=== PATIENT | female | born 1955 | race Caucasian/White ===

== ENCOUNTER → 2017-12-09 08:16 | Outpatient (CLI) | payer OTHER, SELFPAY ==
[2017-12-09 09:27] LABS: Hemoglobin A1C% w Est Avg Glu 5.3 % (4.0-6.0)
[2017-12-09 09:31] LABS: Alanine Aminotransferase 27 IU/L (9-52); Albumin 4.4 g/dL (3.5-5.0); Albumin Globulin Ratio 1.6 (1.0-2.8); Alkaline Phosphatase 54 U/L (38-126); Aspartate Aminotransferase 24 IU/L (14-36); BUN Creatinine Ratio 28.6 (6-22); Bilirubin Total 0.7 mg/dL (0.2-1.3); Blood Urea Nitrogen 20 mg/dL (7-17); Carbon Dioxide 28 mmol/L (22-32); Chloride 100 mmol/L (98-107); Cholesterol 202 mg/dL (140-199); Estimated Glomerular Filt Rate > 60.0 mL/min (>60); Globulin 2.8 g/dL (1.7-4.1); Glucose 89 mg/dL (80-110); HDL Cholesterol 60 mg/dL (40-60); HEMOLYSIS < 15 (0-50); LDL Cholesterol Calculated 124 mg/dL (<100); Potassium 3.6 mmol/L (3.4-5.1); Sodium 137 mmol/L (137-145); Total Protein 7.2 g/dL (6.3-8.2); Triglycerides 89 mg/dL (35-150)
[2017-12-09 10:12] LABS: TSH w/ Reflex to FT4 1.45 uIU/mL (0.47-4.68)
== END ==
PROVIDERS: PCP Family Medicine; Visit Provider Family Medicine
DX: Z00.00 Encounter for general adult medical examination without abnormal findings (principal)
CPT/HCPCS: 36415; 80053; 80061; 83036; 84443

== ENCOUNTER → 2018-02-08 14:32 | Outpatient (CLI) | payer OTHER, SELFPAY | DX: Z23 Encounter for immunization (principal) | CPT/HCPCS: 90471; 90686 ==

== ENCOUNTER → 2018-03-15 11:32 | Outpatient (CLI) | payer OTHER, SELFPAY ==
--- NOTE | 2018-03-15 | DI.MG.S_ITS ---
BILATERAL DIGITAL SCREENING MAMMOGRAM 3D/2D WITH CAD: 03/15/2018 CLINICAL: Routine screening. Comparison is made to exams dated: 09/03/2015 mammogram, 07/17/2014 mammogram, 03/28/2013 mammogram, and 03/15/2012 mammogram - [facility]. The tissue of both breasts is extremely dense, which lowers the sensitivity of mammography. Current study was also evaluated with a Computer Aided Detection (CAD) system. No significant masses, calcifications, or other findings are seen in either breast. There has been no significant interval change. IMPRESSION: NEGATIVE There is no mammographic evidence of malignancy. A 1 year screening mammogram is recommended. This exam was interpreted at Station ID: [id number]. NOTE: For mammograms, a report in lay terms will be sent to the patient. Approximately 15% of breast malignancies will not be visualized mammographically. In the management of a palpable breast mass, a negative mammogram must not discourage biopsy of a clinically suspicious lesion. Electronically Signed By: Anabella gilliland/odell:03/15/2018 12:15:10 letter sent: Normal Exam ACR BI-RADS Category 1: Negative [id number]
== END ==
PROVIDERS: Family Provider Family Medicine; PCP Family Medicine; Visit Provider Family Medicine
DX: Z12.31 Encounter for screening mammogram for malignant neoplasm of breast (principal)
CPT/HCPCS: 77063; 77067

== ENCOUNTER → 2019-01-24 08:19 | Outpatient (CLI) | payer OTHER, SELFPAY ==
[2019-01-24 08:47] LABS: Add Manual Diff / Slide Review NO; Basophils Absolute Auto 0 /uL (0-100); Eosinophils Absolute Auto 300 /uL (0-450); Eosinophils Percent Auto 5.7 % (2-4); Hematocrit 39.6 % (36-46); Hemoglobin 13.7 g/dL (12.0-16.0); Lymphocytes Absolute Auto 1400 /uL (1100-4500); Lymphocytes Percent Auto 28.6 % (25-40); Mean Corpuscular HGB Conc 34.7 % (30-36); Mean Corpuscular Hemoglobin 30.1 PG (26-34); Mean Corpuscular Volume 86.8 fL (80-100); Monocytes Absolute Auto 400 /uL (0-900); Monocytes Percent Auto 8.7 % (3-14); Neutrophils Absolute Auto 2700 /uL (1500-7000); Platelet Count 182 X10^3/uL (150-400); Red Blood Cell Count 4.57 X10^6/uL (4.0-5.2); Red Cell Distribution Width 12.3 % (11.6-14.8); White Blood Cell Count 4.8 X10^3/uL (4.5-11.0)
[2019-01-24 09:00] LABS: Alanine Aminotransferase 20 IU/L (9-52); Albumin 4.3 g/dL (3.5-5.0); Albumin Globulin Ratio 1.5 (1.0-2.8); Alkaline Phosphatase 58 U/L (38-126); Aspartate Aminotransferase 22 IU/L (14-36); Bilirubin Total 0.7 mg/dL (0.2-1.3); Blood Urea Nitrogen 18 mg/dL (7-17); Calcium 9.2 mg/dL (8.4-10.2); Carbon Dioxide 27 mmol/L (22-32); Chloride 101 mmol/L (98-107); Cholesterol 163 mg/dL (140-199); Estimated Glomerular Filt Rate > 60.0 mL/min (>60); Globulin 2.9 g/dL (1.7-4.1); Glucose 91 mg/dL (80-110); HDL Cholesterol 49 mg/dL (40-60); HEMOLYSIS < 15 (0-50); LDL Cholesterol Calculated 100 mg/dL (<100); Potassium 3.8 mmol/L (3.4-5.1); Sodium 138 mmol/L (137-145); Total Protein 7.2 g/dL (6.3-8.2); Triglycerides 69 mg/dL (35-150)
== END ==
PROVIDERS: PCP Family Medicine; Visit Provider Family Medicine
DX: Z00.00 Encounter for general adult medical examination without abnormal findings (principal); K21.0 Gastro-esophageal reflux disease with esophagitis
CPT/HCPCS: 36415; 80053; 80061; 85025

== ENCOUNTER → 2019-02-14 15:22 | Outpatient (CLI) | payer OTHER, SELFPAY | PROVIDERS: PCP Family Medicine | DX: Z23 Encounter for immunization (principal) | CPT/HCPCS: 90471; 90686 ==

== ENCOUNTER 2019-03-15 08:15 | Outpatient (RCR) | payer OTHER, SELFPAY ==
--- NOTE | 2019-02-14 18:34 | PT.OIE ---
Current Diagnoses Trochanteric bursitis, unspecified hip (02/14/19) Difficulty in walking, not elsewhere classified (02/14/19) Abnormal posture (02/14/19) Weakness (02/14/19) Past Medical History (Last Updated 12/14/17 @ 11:00 by Kaitlin Ferrer) Abnormal Pap smear of cervix (Resolved 1991) Acne (Chronic 1969) Actinic keratosis (Resolved 2014) Chicken pox (Resolved ~1959) Colon polyps (Resolved 2015) Endometriosis (Resolved 1981) GERD (gastroesophageal reflux disease) (Chronic 2002) Hearing loss (Chronic 2012) Hemorrhoids (Resolved 1998) Infertility (Resolved 1981) Irregular periods/menstrual cycles (Resolved ~1970) Measles (Resolved ~1960) Meniere's disease (Chronic) Osteoarthritis (Chronic 2009) Precancerous skin lesion (Resolved 2014) Sleep apnea (Chronic 2014) Urinary incontinence (Chronic) Past Surgical History (Last Updated 12/14/17 @ 11:00 by Kaitlin Ferrer) Anesthesia (Resolved) History of esophageal dilatation (Resolved 11/2015) History of gynecologic surgery (Resolved 05/2015) Status post colonoscopy (Resolved 12/2016) Status post hemorrhoidectomy (Resolved 1998) Status post hernia repair (Resolved 1958) Visit Care Team Role Provider Type Kathia Foster DO Attending Provider Physician Primary Care Provider Specialty: [facility] Address: [address] [place] [address], [address], [facility] Email: [email or web address] Physical Therapy Initial Evaluation PT-OP-A Visit Information Start: 02/13/19 18:22 Freq: Status: Active Protocol: Document 02/14/19 07:29 [facility] (Rec: 02/14/19 08:23 [facility] [id number]) Out-Patient Physical Therapy Visit Information Visit Information Visit Type Initial Evaluation Visit Start Time 07:30 Visit Stop Time 08:20 Total Visit Minutes 50 Visit Number 1 Number of FLEET MANAGER Visits 0 PT-OP-B Current Condition Start: 02/13/19 18:22 Freq: Status: Active Protocol: Document 02/14/19 07:29 [facility] (Rec: 02/14/19 08:23 [facility] [id number]) Current Condition History of Current Condition Onset Date 3-4 months ago Current Complaints R hip History of Current Condition Pt reports insideous onset of R hip pain about 3-4 months ago. Pt reports she adjusted her sleep position per a co worker and that helped a lot. Reports that she can no longer lay on her R side, and she is normally a side sleeper. She hasn't tried any long hikes d/ t being concerned to make pain worse. Pt reports recently a car inspector friend noticed that she has flat feet and notes she always has to wear shoes d/t foot pain. Pt reports a bunion on R big toe. Treatment Goals Patient/Caregiver Goals Be able to sleep on R side & be able to go for long car rides, improve pain now so she can do the things she wants to do. Get a good exercising and stretching routine to improve this PT-OP-C Subjective Start: 02/13/19 18:22 Freq: Status: Active Protocol: Document 02/14/19 07:29 [facility] (Rec: 02/14/19 08:23 [facility] [id number]) OP-PT Pain Assessment Location R hip Pain Location Details lat hip & occasional groin Intensity 2 Scale Used Numeric (1 - 10) Description Aching,Dull Description- Other if slept in bad position then sharp position all the way down; 6/10 Frequency Intermittent Radiating Location occasionally down front of leg to haines if pillow moves at night Pain Aggravating Factors Walking Other Pain Aggravating Factors sleep on R side, sit extended, a day after prolonged sitting Pain Alleviating Factors Position Other Pain Alleviating Factors avoid hiking & activities, reposition PT-OP-F Manual Assessment Start: 02/13/19 18:22 Freq: Status: Active Protocol: Document 02/14/19 07:29 [facility] (Rec: 02/14/19 08:23 [facility] [id number]) Manual Assessments Joint Mobility Assessment Joint Mobility Assessment iliac crest L elevated, Even greater trochanters PT-OP-G Mobility & Gait Start: 02/13/19 18:22 Freq: Status: Active Protocol: Document 02/14/19 07:29 [facility] (Rec: 02/14/19 08:23 [facility] [id number]) OP Gait Assessment Comments Gait Comments Pt has dec push off on R side with inc pelvis rotation PT-OP-J Posture/Palpation/Skin Start: 02/13/19 18:22 Freq: Status: Active Protocol: Document 02/14/19 07:29 [facility] (Rec: 02/14/19 08:23 [facility] [id number]) Posture Evaluation Rocio Postural Classification System Rocio Postural Classifications Vertical/Posterior Vertebral Compression Test 2 Lumbar Protective Mechanism Left AP 0 Lumbar Protective Mechanism Right AP 2 Lumbar Protective Mechanism Left PA 3 Lumbar Protective Mechanism Right PA 0 PT-OP-K Range of Motion Start: 02/13/19 18:22 Freq: Status: Active Protocol: Document 02/14/19 07:29 [facility] (Rec: 02/14/19 08:23 [facility] [id number]) Hip Goniometric Range of Motion Hip Left Active Flexion w/Knee Flexed 129 Straight Leg Raise 78 Abduction 20 Internal Rotation 37 External Rotation 39 Right Active Flexion w/Knee Flexed 120 Straight Leg Raise 84 Abduction 15 Internal Rotation 40 External Rotation 36 PT-OP-L Special Tests Start: 02/13/19 18:22 Freq: Status: Active Protocol: Document 02/14/19 07:29 [facility] (Rec: 02/14/19 08:23 [facility] [id number]) Special Tests Lumbar Spine Special Tests SLR Test Results neg Slump Test Results neg PT-OP-M Strength Start: 02/13/19 18:22 Freq: Status: Active Protocol: Document 02/14/19 07:29 [facility] (Rec: 02/14/19 08:23 [facility] [id number]) Hip Strength Hip Manual Muscle Testing Left Flexion (L2) 5 Normal Extension (S1) 4 Good Abduction 4 Good Adduction 4 Good External Rotation 4+ Good+ Internal Rotation 5 Normal Right Flexion (L2) 4 Good Extension (S1) 4- Good- Abduction 4- Good- Adduction 3+ Fair+ External Rotation 4 Good Internal Rotation 4+ Good+ Knee Strength Knee Manual Muscle Testing Left Flexion (S2) 5 Normal Extension (L3) 5 Normal Right Flexion (S2) 5 Normal Extension (L3) 5 Normal Ankle/Foot Strength Ankle and Foot Manual Muscle Testing Left Dorsiflexion (L4) 5 Normal Plantarflexion (S1) 5 Normal Inversion 5 Normal Eversion (S1) 5 Normal Right Dorsiflexion (L4) 5 Normal Plantarflexion (S1) 5 Normal Inversion 5 Normal Eversion (S1) 5 Normal PT-OP-Q Treatments Start: 02/13/19 18:22 Freq: Status: Active Protocol: Document 02/14/19 07:29 [facility] (Rec: 02/14/19 18:34 [facility] [id number]) Therapeutic Exercises Supine Exercises LTR Supine Exercise Name focus on segmental control Side bilateral Reps/Minutes 5 isometric hip flex Supine Exercise Name abdomenal series flex & diagonal Side bilateral Reps/Minutes 30 sec ea PT-OP-T Assessment and Plan Start: 02/13/19 18:22 Freq: Status: Active Protocol: Document 02/14/19 07:29 [facility] (Rec: 02/14/19 18:34 [facility] [id number]) Physical Therapy Assessment Rehab Potential Rehabilitation Potential Excellent Evaluation Complexity Number of Personal Factors/Comorbidities 3 or More Number of Body Systems Impaired 4 or More Clinical Presentation at Evaluation Stable Impairments Impairments Activity Tolerance,Balance, Functional Activities, Functional Mobility,Gait,Pain, Posture,ROM,Soft Tissue Mobility,Strength Goals activity tolerance Parts Clerk Plant Maintenance Goal (LTG) Pt will be able to sleep typically without inc pain LTG Duration 04/16/19 gait Short Term Goal (STG) Pt will be able to ambulate with good mechanics STG Duration 03/31/19 Parts Clerk Plant Maintenance Goal (LTG) Pt will be able to hike and sit for extended timew ithout inc pain LTG Duration 04/16/19 strength Short Term Goal (STG) Pt will be indep with HEP STG Duration 03/17/19 Parts Clerk Plant Maintenance Goal (LTG) Pt will have 5/5 BLE strength, LPM & VCT to show improved overall stability in order to allow her to do daily activities without pain. LTG Duration 04/16/19 Assessment Summary Assessment Pt presents with R hip pain consistant with diagnosis of R hip bursitis with over dec postural stability, core weakness and dec R hip stregth and ROM. She has impaired gait mechanics and would benefit from PT to address all of these impairments and work on improving her movement patterns and strategies. Physical Therapy Plan Frequency and Duration Frequency of Treatment 1-2x/week Duration of Treatment 2 months Plan of Care Start Date 02/14/19 Plan of Care End Date 04/16/19 Therapeutic Interventions Therapeutic Interventions Aquatic Therapy,Balance Training,Gait Training,Home Exercise Program,Joint Mobilizations,Manual Therapy, Neuromuscular Re-education, Patient/Caregiver Education, Self-Care/Home Management,Soft Tissue Mobilization,Taping, Therapeutic Activities, Therapeutic Exercises Modalities Cold Pack/Ice Massage,Electric Stimulation,Hot Packs, Ultrasound Next Visit Focus/Plan Next Note Type Treatment Note Next Visit Plan hip abd & ext, gait at wall exercise, PNF post depression, hip, sacrum & innominate mobility
--- NOTE | 2019-02-16 14:20 | PT.OTN ---
Current Diagnoses Trochanteric bursitis, unspecified hip (02/16/19) Difficulty in walking, not elsewhere classified (02/16/19) Abnormal posture (02/16/19) Weakness (02/16/19) Physical Therapy Treatment Note PT-OP-A Visit Information Start: 02/13/19 18:22 Freq: Status: Active Protocol: Document 02/16/19 14:15 [facility] (Rec: 02/16/19 14:20 [facility] [id number]) Out-Patient Physical Therapy Visit Information Visit Information Visit Type Treatment Note Visit Start Time 09:02 Visit Stop Time 09:45 Total Visit Minutes 43 Visit Number 2 Number of MARKETING COMMUNICATIONS LEADER Visits 0 PT-OP-B Current Condition Start: 02/13/19 18:22 Freq: Status: Active Protocol: Document 02/14/19 07:29 [facility] (Rec: 02/14/19 08:23 [facility] [id number]) Current Condition History of Current Condition Onset Date 3-4 months ago Current Complaints R hip History of Current Condition Pt reports insideous onset of R hip pain about 3-4 months ago. Pt reports she adjusted her sleep position per a co worker and that helped a lot. Reports that she can no longer lay on her R side, and she is normally a side sleeper. She hasn't tried any long hikes d/ t being concerned to make pain worse. Pt reports recently a launch check out friend noticed that she has flat feet and notes she always has to wear shoes d/t foot pain. Pt reports a bunion on R big toe. Treatment Goals Patient/Caregiver Goals Be able to sleep on R side & be able to go for long car rides, improve pain now so she can do the things she wants to do. Get a good exercising and stretching routine to improve this PT-OP-C Subjective Start: 02/13/19 18:22 Freq: Status: Active Protocol: Document 02/16/19 14:15 [facility] (Rec: 02/16/19 14:20 [facility] [id number]) OP-PT Subjective Patient Comments Patient Comments Pt reports she is looking forward to getting exercises to work on on her own. PT-OP-F Manual Assessment Start: 02/13/19 18:22 Freq: Status: Active Protocol: Document 02/14/19 07:29 [facility] (Rec: 02/14/19 08:23 [facility] [id number]) Manual Assessments Joint Mobility Assessment Joint Mobility Assessment iliac crest L elevated, Even greater trochanters PT-OP-G Mobility & Gait Start: 02/13/19 18:22 Freq: Status: Active Protocol: Document 02/14/19 07:29 [facility] (Rec: 02/14/19 08:23 [facility] [id number]) OP Gait Assessment Comments Gait Comments Pt has dec push off on R side with inc pelvis rotation PT-OP-J Posture/Palpation/Skin Start: 02/13/19 18:22 Freq: Status: Active Protocol: Document 02/14/19 07:29 [facility] (Rec: 02/14/19 08:23 [facility] [id number]) Posture Evaluation Rocio Postural Classification System Rocio Postural Classifications Vertical/Posterior Vertebral Compression Test 2 Lumbar Protective Mechanism Left AP 0 Lumbar Protective Mechanism Right AP 2 Lumbar Protective Mechanism Left PA 3 Lumbar Protective Mechanism Right PA 0 PT-OP-K Range of Motion Start: 02/13/19 18:22 Freq: Status: Active Protocol: Document 02/14/19 07:29 [facility] (Rec: 02/14/19 08:23 [facility] [id number]) Hip Goniometric Range of Motion Hip Left Active Flexion w/Knee Flexed 129 Straight Leg Raise 78 Abduction 20 Internal Rotation 37 External Rotation 39 Right Active Flexion w/Knee Flexed 120 Straight Leg Raise 84 Abduction 15 Internal Rotation 40 External Rotation 36 PT-OP-L Special Tests Start: 02/13/19 18:22 Freq: Status: Active Protocol: Document 02/14/19 07:29 [facility] (Rec: 02/14/19 08:23 [facility] [id number]) Special Tests Lumbar Spine Special Tests SLR Test Results neg Slump Test Results neg PT-OP-M Strength Start: 02/13/19 18:22 Freq: Status: Active Protocol: Document 02/14/19 07:29 [facility] (Rec: 02/14/19 08:23 [facility] [id number]) Hip Strength Hip Manual Muscle Testing Left Flexion (L2) 5 Normal Extension (S1) 4 Good Abduction 4 Good Adduction 4 Good External Rotation 4+ Good+ Internal Rotation 5 Normal Right Flexion (L2) 4 Good Extension (S1) 4- Good- Abduction 4- Good- Adduction 3+ Fair+ External Rotation 4 Good Internal Rotation 4+ Good+ Knee Strength Knee Manual Muscle Testing Left Flexion (S2) 5 Normal Extension (L3) 5 Normal Right Flexion (S2) 5 Normal Extension (L3) 5 Normal Ankle/Foot Strength Ankle and Foot Manual Muscle Testing Left Dorsiflexion (L4) 5 Normal Plantarflexion (S1) 5 Normal Inversion 5 Normal Eversion (S1) 5 Normal Right Dorsiflexion (L4) 5 Normal Plantarflexion (S1) 5 Normal Inversion 5 Normal Eversion (S1) 5 Normal PT-OP-Q Treatments Start: 02/13/19 18:22 Freq: Status: Active Protocol: Document 02/16/19 14:15 [facility] (Rec: 02/16/19 14:20 [facility] [id number]) Therapeutic Exercises Supine Exercises isometric hip flex Supine Exercise Name abdomenal series flex & diagonal Side bilateral Reps/Minutes 30 sec ea Prone Exercises ext Prone Exercise Name alt Side bilateral Reps/Minutes 10 Sidelying Exercises abd Sidelying Exercise Name hip Side right Reps/Minutes 10 ER Sidelying Exercise Name clamshell Side right Equipment Used L3 Reps/Minutes 12 Standing Exercises squat Side bilateral Reps/Minutes 15 Comments focus on knee position lunge Side bilateral Reps/Minutes 10 Comments focus on neutral pelvis Manual Therapy Treatment Soft Tissue Mobilization pirifromis Body Location R piriformis & lat glutes Mobilization Type Strumming,Sustained Pressure Intensity/Depth Moderate Body Position Prone Comments w/ER/IR Joint Mobilizations innominate Joint R Direction ER & flex FM sacrum Direction caudal FM hip Joint R Direction hip on axis ER FM & inf FM PT-OP-T Assessment and Plan Start: 02/13/19 18:22 Freq: Status: Active Protocol: Document 02/16/19 14:15 [facility] (Rec: 02/16/19 14:20 [facility] [id number]) Physical Therapy Assessment Goals activity tolerance Supervisor Contact Lens Goal (LTG) Pt will be able to sleep typically without inc pain LTG Duration 04/16/19 gait Short Term Goal (STG) Pt will be able to ambulate with good mechanics STG Duration 03/31/19 Supervisor Contact Lens Goal (LTG) Pt will be able to hike and sit for extended timew ithout inc pain LTG Duration 04/16/19 strength Short Term Goal (STG) Pt will be indep with HEP STG Duration 03/17/19 Supervisor Contact Lens Goal (LTG) Pt will have 5/5 BLE strength, LPM & VCT to show improved overall stability in order to allow her to do daily activities without pain. LTG Duration 04/16/19 Assessment Summary Assessment Pt able to do all exercises with cueing and had significantly improved hip ER and flex after manual treatment. She was given exercises to maintain these mobilizations. Physical Therapy Plan Frequency and Duration Frequency of Treatment 1-2x/week Duration of Treatment 2 months Plan of Care Start Date 02/14/19 Plan of Care End Date 04/16/19 Next Visit Focus/Plan Next Note Type Treatment Note Next Visit Plan PNF post depression, gait at wall, review HEP performance
--- NOTE | 2019-02-20 18:48 | PT.OTN ---
Current Diagnoses Trochanteric bursitis, unspecified hip (02/20/19) Difficulty in walking, not elsewhere classified (02/20/19) Abnormal posture (02/20/19) Weakness (02/20/19) Physical Therapy Treatment Note PT-OP-A Visit Information Start: 02/13/19 18:22 Freq: Status: Active Protocol: Document 02/20/19 18:40 [facility] (Rec: 02/20/19 18:48 [facility] [id number]) Out-Patient Physical Therapy Visit Information Visit Information Visit Type Treatment Note Visit Start Time 17:34 Visit Stop Time 18:19 Total Visit Minutes 45 Visit Number 3 Number of SPUD GRADER Visits 0 PT-OP-B Current Condition Start: 02/13/19 18:22 Freq: Status: Active Protocol: Document 02/14/19 07:29 [facility] (Rec: 02/14/19 08:23 [facility] [id number]) Current Condition History of Current Condition Onset Date 3-4 months ago Current Complaints R hip History of Current Condition Pt reports insideous onset of R hip pain about 3-4 months ago. Pt reports she adjusted her sleep position per a co worker and that helped a lot. Reports that she can no longer lay on her R side, and she is normally a side sleeper. She hasn't tried any long hikes d/ t being concerned to make pain worse. Pt reports recently a jewel flat surfacer friend noticed that she has flat feet and notes she always has to wear shoes d/t foot pain. Pt reports a bunion on R big toe. Treatment Goals Patient/Caregiver Goals Be able to sleep on R side & be able to go for long car rides, improve pain now so she can do the things she wants to do. Get a good exercising and stretching routine to improve this PT-OP-C Subjective Start: 02/13/19 18:22 Freq: Status: Active Protocol: Document 02/20/19 18:40 [facility] (Rec: 02/20/19 18:48 [facility] [id number]) OP-PT Subjective Patient Comments Patient Comments Pt reports compliance with HEP with some questions. PT-OP-F Manual Assessment Start: 02/13/19 18:22 Freq: Status: Active Protocol: Document 02/14/19 07:29 [facility] (Rec: 02/14/19 08:23 [facility] [id number]) Manual Assessments Joint Mobility Assessment Joint Mobility Assessment iliac crest L elevated, Even greater trochanters PT-OP-G Mobility & Gait Start: 02/13/19 18:22 Freq: Status: Active Protocol: Document 02/14/19 07:29 [facility] (Rec: 02/14/19 08:23 [facility] [id number]) OP Gait Assessment Comments Gait Comments Pt has dec push off on R side with inc pelvis rotation PT-OP-J Posture/Palpation/Skin Start: 02/13/19 18:22 Freq: Status: Active Protocol: Document 02/14/19 07:29 [facility] (Rec: 02/14/19 08:23 [facility] [id number]) Posture Evaluation Rocio Postural Classification System Rocio Postural Classifications Vertical/Posterior Vertebral Compression Test 2 Lumbar Protective Mechanism Left AP 0 Lumbar Protective Mechanism Right AP 2 Lumbar Protective Mechanism Left PA 3 Lumbar Protective Mechanism Right PA 0 PT-OP-K Range of Motion Start: 02/13/19 18:22 Freq: Status: Active Protocol: Document 02/14/19 07:29 [facility] (Rec: 02/14/19 08:23 [facility] [id number]) Hip Goniometric Range of Motion Hip Left Active Flexion w/Knee Flexed 129 Straight Leg Raise 78 Abduction 20 Internal Rotation 37 External Rotation 39 Right Active Flexion w/Knee Flexed 120 Straight Leg Raise 84 Abduction 15 Internal Rotation 40 External Rotation 36 PT-OP-L Special Tests Start: 02/13/19 18:22 Freq: Status: Active Protocol: Document 02/14/19 07:29 [facility] (Rec: 02/14/19 08:23 [facility] [id number]) Special Tests Lumbar Spine Special Tests SLR Test Results neg Slump Test Results neg PT-OP-M Strength Start: 02/13/19 18:22 Freq: Status: Active Protocol: Document 02/14/19 07:29 [facility] (Rec: 02/14/19 08:23 [facility] [id number]) Hip Strength Hip Manual Muscle Testing Left Flexion (L2) 5 Normal Extension (S1) 4 Good Abduction 4 Good Adduction 4 Good External Rotation 4+ Good+ Internal Rotation 5 Normal Right Flexion (L2) 4 Good Extension (S1) 4- Good- Abduction 4- Good- Adduction 3+ Fair+ External Rotation 4 Good Internal Rotation 4+ Good+ Knee Strength Knee Manual Muscle Testing Left Flexion (S2) 5 Normal Extension (L3) 5 Normal Right Flexion (S2) 5 Normal Extension (L3) 5 Normal Ankle/Foot Strength Ankle and Foot Manual Muscle Testing Left Dorsiflexion (L4) 5 Normal Plantarflexion (S1) 5 Normal Inversion 5 Normal Eversion (S1) 5 Normal Right Dorsiflexion (L4) 5 Normal Plantarflexion (S1) 5 Normal Inversion 5 Normal Eversion (S1) 5 Normal PT-OP-Q Treatments Start: 02/13/19 18:22 Freq: Status: Active Protocol: Document 02/20/19 18:40 [facility] (Rec: 02/20/19 18:48 [facility] [id number]) Therapeutic Exercises Supine Exercises piriformis Supine Exercise Name stretch Side right Reps/Minutes 30 sec Sidelying Exercises abd Sidelying Exercise Name hip Side right Reps/Minutes 10 Standing Exercises stretches Standing Exercise Name hip flexor stretch Side bilateral Reps/Minutes 30 sec squat Side bilateral Reps/Minutes 10 Comments L3 band around knees for abd lunge Side bilateral Reps/Minutes 8 Comments focus on neutral pelvis Gait Training Gait Activity resisted Description w/dowel for push off Comments then focusing on push off without resistance Manual Therapy Treatment Soft Tissue Mobilization pirifromis Body Location R piriformis & lat glutes Mobilization Type Strumming,Sustained Pressure Intensity/Depth Moderate Body Position Prone Comments w/ER/IR Joint Mobilizations sacrum Direction caudal FM hip Joint R Direction hip on axis ER FM Neuro Re-Education Treatment Other Activities PNF Details ant elevation, post depression Comments rhythmic initiation, COI, concentric reversals progressed from pelvis to pelvis with LE patterns Self-Care/Home Management Treatment Education Patient Education Home Exercise Program Other Education Review HEP & discussed important notes to add to handout PT-OP-T Assessment and Plan Start: 02/13/19 18:22 Freq: Status: Active Protocol: Document 02/20/19 18:40 [facility] (Rec: 02/20/19 18:48 [facility] [id number]) Physical Therapy Assessment Goals activity tolerance Alf Goal (LTG) Pt will be able to sleep typically without inc pain LTG Duration 04/16/19 gait Short Term Goal (STG) Pt will be able to ambulate with good mechanics STG Duration 03/31/19 Lace Machine Operator Goal (LTG) Pt will be able to hike and sit for extended timew ithout inc pain LTG Duration 04/16/19 strength Short Term Goal (STG) Pt will be indep with HEP STG Duration 03/17/19 Lace Machine Operator Goal (LTG) Pt will have 5/5 BLE strength, LPM & VCT to show improved overall stability in order to allow her to do daily activities without pain. LTG Duration 04/16/19 Assessment Summary Assessment Pt required min cueing with exercises and was able to progress to squat with hip abd with tband. Improved push off with gait with PNF and edu with resisted gait. Physical Therapy Plan Frequency and Duration Frequency of Treatment 1-2x/week Duration of Treatment 2 months Plan of Care Start Date 02/14/19 Plan of Care End Date 04/16/19 Next Visit Focus/Plan Next Note Type Treatment Note Next Visit Plan Follow up at end of month, cont to work on PNF and assess strength to determine further progression
--- NOTE | 2019-03-15 09:29 | PT.OTN ---
Current Diagnoses Trochanteric bursitis, unspecified hip (03/15/19) Difficulty in walking, not elsewhere classified (03/15/19) Abnormal posture (03/15/19) Weakness (03/15/19) Physical Therapy Treatment Note PT-OP-A Visit Information Start: 02/13/19 18:22 Freq: Status: Active Protocol: Document 03/15/19 09:15 [facility] (Rec: 03/15/19 09:28 [facility] [id number]) Out-Patient Physical Therapy Visit Information Visit Information Visit Type Treatment Note Visit Start Time 08:15 Visit Stop Time 09:00 Total Visit Minutes 45 Visit Number 4 Number of CAN RUNNER Visits 0 PT-OP-B Current Condition Start: 02/13/19 18:22 Freq: Status: Active Protocol: Document 02/14/19 07:29 [facility] (Rec: 02/14/19 08:23 [facility] [id number]) Current Condition History of Current Condition Onset Date 3-4 months ago Current Complaints R hip History of Current Condition Pt reports insideous onset of R hip pain about 3-4 months ago. Pt reports she adjusted her sleep position per a co worker and that helped a lot. Reports that she can no longer lay on her R side, and she is normally a side sleeper. She hasn't tried any long hikes d/ t being concerned to make pain worse. Pt reports recently a garment folder friend noticed that she has flat feet and notes she always has to wear shoes d/t foot pain. Pt reports a bunion on R big toe. Treatment Goals Patient/Caregiver Goals Be able to sleep on R side & be able to go for long car rides, improve pain now so she can do the things she wants to do. Get a good exercising and stretching routine to improve this PT-OP-C Subjective Start: 02/13/19 18:22 Freq: Status: Active Protocol: Document 03/15/19 09:15 [facility] (Rec: 03/15/19 09:28 [facility] [id number]) OP-PT Subjective Patient Comments Patient Comments Pt reports feeling like the strengthening is helping. She has a couple questions PT-OP-F Manual Assessment Start: 02/13/19 18:22 Freq: Status: Active Protocol: Document 02/14/19 07:29 [facility] (Rec: 02/14/19 08:23 [facility] [id number]) Manual Assessments Joint Mobility Assessment Joint Mobility Assessment iliac crest L elevated, Even greater trochanters PT-OP-G Mobility & Gait Start: 02/13/19 18:22 Freq: Status: Active Protocol: Document 02/14/19 07:29 [facility] (Rec: 02/14/19 08:23 [facility] [id number]) OP Gait Assessment Comments Gait Comments Pt has dec push off on R side with inc pelvis rotation PT-OP-J Posture/Palpation/Skin Start: 02/13/19 18:22 Freq: Status: Active Protocol: Document 02/14/19 07:29 [facility] (Rec: 02/14/19 08:23 [facility] [id number]) Posture Evaluation Rocio Postural Classification System Rocio Postural Classifications Vertical/Posterior Vertebral Compression Test 2 Lumbar Protective Mechanism Left AP 0 Lumbar Protective Mechanism Right AP 2 Lumbar Protective Mechanism Left PA 3 Lumbar Protective Mechanism Right PA 0 PT-OP-K Range of Motion Start: 02/13/19 18:22 Freq: Status: Active Protocol: Document 02/14/19 07:29 [facility] (Rec: 02/14/19 08:23 [facility] [id number]) Hip Goniometric Range of Motion Hip Left Active Flexion w/Knee Flexed 129 Straight Leg Raise 78 Abduction 20 Internal Rotation 37 External Rotation 39 Right Active Flexion w/Knee Flexed 120 Straight Leg Raise 84 Abduction 15 Internal Rotation 40 External Rotation 36 PT-OP-L Special Tests Start: 02/13/19 18:22 Freq: Status: Active Protocol: Document 02/14/19 07:29 [facility] (Rec: 02/14/19 08:23 [facility] [id number]) Special Tests Lumbar Spine Special Tests SLR Test Results neg Slump Test Results neg PT-OP-M Strength Start: 02/13/19 18:22 Freq: Status: Active Protocol: Document 03/15/19 08:14 [facility] (Rec: 03/15/19 09:15 [facility] [id number]) Hip Strength Hip Manual Muscle Testing Left Flexion (L2) 4+ Good+ Extension (S1) 4+ Good+ Abduction 4 Good Adduction 5 Normal External Rotation 4+ Good+ Internal Rotation 5 Normal Right Flexion (L2) 4 Good Extension (S1) 4+ Good+ Abduction 4 Good Adduction 4+ Good+ External Rotation 4 Good Internal Rotation 5 Normal PT-OP-Q Treatments Start: 02/13/19 18:22 Freq: Status: Active Protocol: Document 03/15/19 09:15 [facility] (Rec: 03/15/19 09:28 [facility] [id number]) Therapeutic Exercises Supine Exercises core Supine Exercise Name alt leg drops, heels slids in hooklying & supine, bridge w/ alt march Side bilateral Reps/Minutes 8 piriformis Supine Exercise Name stretch Side right Reps/Minutes 30 sec LTR Supine Exercise Name focus on segmental Side bilateral Reps/Minutes 6 Prone Exercises ext Prone Exercise Name alt Side bilateral Reps/Minutes 10 Comments foucus on netural pelvis Sidelying Exercises abd Sidelying Exercise Name hip Side right Equipment Used L1 Reps/Minutes 10 Sitting Exercises stretches Sitting Exercise Name figure 4, HS, piriformis Side right Standing Exercises squat Side bilateral Reps/Minutes 5 Comments L3 band around knees for abd lunge Side bilateral Reps/Minutes 5 Comments focus on neutral pelvis Manual Therapy Treatment Soft Tissue Mobilization pirifromis Body Location R piriformis & lat glutes Mobilization Type Strumming,Sustained Pressure Intensity/Depth Moderate Body Position Prone Comments w/ER/IR Joint Mobilizations innominate Joint R Direction ER & flex FM sacrum Direction UPA R FM hip Joint R Direction hip on axis ER FM PT-OP-T Assessment and Plan Start: 02/13/19 18:22 Freq: Status: Active Protocol: Document 03/15/19 09:15 [facility] (Rec: 03/15/19 09:28 [facility] [id number]) Physical Therapy Assessment Goals activity tolerance Lead Java Software Engineer Goal (LTG) Pt will be able to sleep typically without inc pain LTG Duration 04/16/19 gait Short Term Goal (STG) Pt will be able to ambulate with good mechanics STG Duration 03/31/19 Lead Java Software Engineer Goal (LTG) Pt will be able to hike and sit for extended timew ithout inc pain LTG Duration 04/16/19 strength Short Term Goal (STG) Pt will be indep with HEP STG Duration achieved progressing as needed Lead Java Software Engineer Goal (LTG) Pt will have 5/5 BLE strength, LPM & VCT to show improved overall stability in order to allow her to do daily activities without pain. LTG Duration 04/16/19 Assessment Summary Assessment During today's session, noted that pt's core mm were weak so she was given HEP re: core stability which she was very receptive to. Hip strength is improving but is still limited R>L. Physical Therapy Plan Frequency and Duration Frequency of Treatment 1x/Week Duration of Treatment 2 months Plan of Care Start Date 02/14/19 Plan of Care End Date 04/16/19 Next Visit Focus/Plan Next Note Type Treatment Note Next Visit Plan Follow up in 1 month and work on PNF for gait & manual therapy for mobility
--- NOTE | 2019-04-18 10:50 | PT.OPDS ---
Current Diagnoses Trochanteric bursitis, unspecified hip (03/15/19) Difficulty in walking, not elsewhere classified (03/15/19) Abnormal posture (03/15/19) Weakness (03/15/19) Visit Care Team Role Provider Type Kathia Foster DO Attending Provider Physician Primary Care Provider Specialty: [facility] Practice Address: [address] [place] [address], [address], [facility] Email: [email or web address] Visit Number Visit Number 4 Discharge Summary PT-OP-B Current Condition Start: 02/13/19 18:22 Freq: Status: Active Protocol: Document 02/14/19 07:29 [facility] (Rec: 02/14/19 08:23 [facility] [id number]) Current Condition History of Current Condition Onset Date 3-4 months ago Current Complaints R hip History of Current Condition Pt reports insideous onset of R hip pain about 3-4 months ago. Pt reports she adjusted her sleep position per a co worker and that helped a lot. Reports that she can no longer lay on her R side, and she is normally a side sleeper. She hasn't tried any long hikes d/ t being concerned to make pain worse. Pt reports recently a shower doors and panels fabricator friend noticed that she has flat feet and notes she always has to wear shoes d/t foot pain. Pt reports a bunion on R big toe. Treatment Goals Patient/Caregiver Goals Be able to sleep on R side & be able to go for long car rides, improve pain now so she can do the things she wants to do. Get a good exercising and stretching routine to improve this PT-OP-C Subjective Start: 02/13/19 18:22 Freq: Status: Active Protocol: Document 03/15/19 09:15 [facility] (Rec: 03/15/19 09:28 [facility] [id number]) OP-PT Subjective Patient Comments Patient Comments Pt reports feeling like the strengthening is helping. She has a couple questions PT-OP-F Manual Assessment Start: 02/13/19 18:22 Freq: Status: Active Protocol: Document 02/14/19 07:29 [facility] (Rec: 02/14/19 08:23 [facility] [id number]) Manual Assessments Joint Mobility Assessment Joint Mobility Assessment iliac crest L elevated, Even greater trochanters PT-OP-G Mobility & Gait Start: 02/13/19 18:22 Freq: Status: Active Protocol: Document 02/14/19 07:29 [facility] (Rec: 02/14/19 08:23 [facility] [id number]) OP Gait Assessment Comments Gait Comments Pt has dec push off on R side with inc pelvis rotation PT-OP-J Posture/Palpation/Skin Start: 02/13/19 18:22 Freq: Status: Active Protocol: Document 02/14/19 07:29 [facility] (Rec: 02/14/19 08:23 [facility] [id number]) Posture Evaluation Rocio Postural Classification System Rocio Postural Classifications Vertical/Posterior Vertebral Compression Test 2 Lumbar Protective Mechanism Left AP 0 Lumbar Protective Mechanism Right AP 2 Lumbar Protective Mechanism Left PA 3 Lumbar Protective Mechanism Right PA 0 PT-OP-K Range of Motion Start: 02/13/19 18:22 Freq: Status: Active Protocol: Document 02/14/19 07:29 [facility] (Rec: 02/14/19 08:23 [facility] [id number]) Hip Goniometric Range of Motion Hip Left Active Flexion w/Knee Flexed 129 Straight Leg Raise 78 Abduction 20 Internal Rotation 37 External Rotation 39 Right Active Flexion w/Knee Flexed 120 Straight Leg Raise 84 Abduction 15 Internal Rotation 40 External Rotation 36 PT-OP-L Special Tests Start: 02/13/19 18:22 Freq: Status: Active Protocol: Document 02/14/19 07:29 [facility] (Rec: 02/14/19 08:23 [facility] [id number]) Special Tests Lumbar Spine Special Tests SLR Test Results neg Slump Test Results neg PT-OP-M Strength Start: 02/13/19 18:22 Freq: Status: Active Protocol: Document 03/15/19 08:14 [facility] (Rec: 03/15/19 09:15 [facility] [id number]) Hip Strength Hip Manual Muscle Testing Left Flexion (L2) 4+ Good+ Extension (S1) 4+ Good+ Abduction 4 Good Adduction 5 Normal External Rotation 4+ Good+ Internal Rotation 5 Normal Right Flexion (L2) 4 Good Extension (S1) 4+ Good+ Abduction 4 Good Adduction 4+ Good+ External Rotation 4 Good Internal Rotation 5 Normal PT-OP-T Assessment and Plan Start: 02/13/19 18:22 Freq: Status: Active Protocol: Document 04/18/19 10:49 [facility] (Rec: 04/18/19 10:50 [facility] [id number]) Physical Therapy Assessment Goals activity tolerance Bat Person Goal (LTG) Pt will be able to sleep typically without inc pain LTG Duration achieved gait Short Term Goal (STG) Pt will be able to ambulate with good mechanics STG Duration improved Longterm Goal (LTG) Pt will be able to hike and sit for extended timew ithout inc pain LTG Duration achieved strength Short Term Goal (STG) Pt will be indep with HEP STG Duration achieved progressing as needed Longterm Goal (LTG) Pt will have 5/5 BLE strength, LPM & VCT to show improved overall stability in order to allow her to do daily activities without pain. LTG Duration 04/16/19 Assessment Summary Assessment Pt called to cancel last appt as she is no longer having pain and hip is no longer limiting her. She feels like her strengthening and stretching is helping and plans to cont it at home. Physical Therapy Plan Discharge Physical Therapy Discharge Reasons Goals Met
== END 2019-03-16 08:15 ==
LOC: PHYS 08:15
PROVIDERS: PCP Family Medicine; Visit Provider Family Medicine
DX: M70.60 Trochanteric bursitis, unspecified hip (principal); R53.1 Weakness; R29.3 Abnormal posture; R26.2 Difficulty in walking, not elsewhere classified
CPT/HCPCS: 97110; 97112; 97140; 97161

== ENCOUNTER → 2019-03-16 09:56 | Outpatient (CLI) | payer OTHER, SELFPAY ==
--- NOTE | 2019-03-16 09:57 | DI.MG.S_ITS ---
BILATERAL DIGITAL SCREENING MAMMOGRAM 3D/2D WITH CAD: 03/16/2019 CLINICAL: Routine screening. Comparison is made to exams dated: 03/15/2018 mammogram - [facility], 09/03/2015 mammogram, and 07/17/2014 mammogram - [facility]. The tissue of both breasts is extremely dense, which lowers the sensitivity of mammography. Current study was also evaluated with a Computer Aided Detection (CAD) system. No significant masses, calcifications, or other findings are seen in either breast. There has been no significant interval change. IMPRESSION: NEGATIVE There is no mammographic evidence of malignancy. A 1 year screening mammogram is recommended. This exam was interpreted at Station ID: [id number]. NOTE: For mammograms, a report in lay terms will be sent to the patient. Approximately 15% of breast malignancies will not be visualized mammographically. In the management of a palpable breast mass, a negative mammogram must not discourage biopsy of a clinically suspicious lesion. Electronically Signed By: Brandon kovacs/odell:03/20/2019 12:52:03 letter sent: Normal Exam ACR BI-RADS Category 1: Negative 3341F
== END ==
PROVIDERS: PCP Family Medicine; Visit Provider Family Medicine
DX: Z12.31 Encounter for screening mammogram for malignant neoplasm of breast (principal)
CPT/HCPCS: 77063; 77067

== ENCOUNTER → 2020-01-06 13:46 | Outpatient (CLI) | payer OTHER, SELFPAY ==
[2020-01-08 01:27] LABS: COVID19 Sendout Not Detected (Not Detect)
== END ==
PROVIDERS: PCP Family Medicine; Visit Provider Nurse Practitioner
DX: Z11.59 Encounter for screening for other viral diseases (principal)
CPT/HCPCS: 87635

== ENCOUNTER → 2020-03-19 11:20 | Outpatient (CLI) | payer OTHER, SELFPAY ==
--- NOTE | 2020-03-19 | DI.MG.S_ITS ---
BILATERAL DIGITAL SCREENING MAMMOGRAM 3D/2D WITH CAD: 03/19/2020 CLINICAL: Routine screening. Comparison is made to exams dated: 03/16/2019 mammogram, 03/15/2018 mammogram - [facility], and 09/03/2015 mammogram - [facility]. The tissue of both breasts is extremely dense, which lowers the sensitivity of mammography. Current study was also evaluated with a Computer Aided Detection (CAD) system. No significant masses, calcifications, or other findings are seen in either breast. There has been no significant interval change. IMPRESSION: NEGATIVE There is no mammographic evidence of malignancy. A 1 year screening mammogram is recommended. This exam was interpreted at Station ID: [id number]. NOTE: For mammograms, a report in lay terms will be sent to the patient. Approximately 15% of breast malignancies will not be visualized mammographically. In the management of a palpable breast mass, a negative mammogram must not discourage biopsy of a clinically suspicious lesion. Electronically Signed By: Sergio pinon/odell:03/19/2020 14:10:22 letter sent: Normal Exam ACR BI-RADS Category 1: Negative 3341F
== END ==
PROVIDERS: PCP Family Medicine; Referring Provider Family Medicine; Visit Provider Family Medicine
DX: Z12.31 Encounter for screening mammogram for malignant neoplasm of breast (principal)
CPT/HCPCS: 77063; 77067

== ENCOUNTER → 2021-02-14 07:56 | Outpatient (CLI) | payer MEDICARE, SELFPAY ==
[2021-02-14 08:19] LABS: Add Manual Diff / Slide Review NO; Basophils Absolute Auto 0 /uL (0-100); Eosinophils Absolute Auto 200 /uL (0-450); Eosinophils Percent Auto 4.2 % (2-4); Hematocrit 39.6 % (36-46); Hemoglobin 13.7 g/dL (12.0-16.0); Lymphocytes Absolute Auto 1200 /uL (1100-4500); Mean Corpuscular HGB Conc 34.7 % (30-36); Mean Corpuscular Hemoglobin 30.2 PG (26-34); Monocytes Absolute Auto 500 /uL (0-900); Neutrophils Absolute Auto 2400 /uL (1500-7000); Neutrophils Percent Auto 55.8 % (50-75); Platelet Count 176 X10^3/uL (150-400); Red Blood Cell Count 4.55 X10^6/uL (4.0-5.2); Red Cell Distribution Width 12.3 % (11.6-14.8); White Blood Cell Count 4.3 X10^3/uL (4.5-11.0)
[2021-02-14 08:32] LABS: Alanine Aminotransferase 17 IU/L (<35); Albumin 4.3 g/dL (3.5-5.0); Albumin Globulin Ratio 1.5 (1.0-2.8); Alkaline Phosphatase 61 U/L (38-126); Aspartate Aminotransferase 22 IU/L (14-36); BUN Creatinine Ratio 31.4 (6-22); Bilirubin Total 0.4 mg/dL (0.2-1.3); Blood Urea Nitrogen 22 mg/dL (7-17); Calcium 9.4 mg/dL (8.4-10.2); Carbon Dioxide 30 mmol/L (22-32); Chloride 104 mmol/L (98-107); Estimated Glomerular Filt Rate > 60.0 mL/min (>60); Globulin 2.8 g/dL (1.7-4.1); Glucose 87 mg/dL (80-110); HEMOLYSIS < 15 (0-50); Potassium 3.8 mmol/L (3.4-5.1); Sodium 139 mmol/L (137-145); Total Protein 7.1 g/dL (6.3-8.2)
== END ==
PROVIDERS: PCP Family Medicine; Referring Provider Family Medicine; Visit Provider Family Medicine
DX: K21.00 Gastro-esophageal reflux disease with esophagitis, without bleeding (principal); R19.5 Other fecal abnormalities; K92.1 Melena
CPT/HCPCS: 36415; 80053; 85025

== ENCOUNTER → 2021-03-20 14:04 | Outpatient (CLI) | payer MEDICARE, SELFPAY ==
--- NOTE | 2021-03-20 14:06 | DI.MG.S_ITS ---
BILATERAL DIGITAL SCREENING MAMMOGRAM 3D/2D WITH CAD: 03/20/2021 CLINICAL: Routine screening. Comparison is made to exams dated: 03/19/2020 mammogram, 03/16/2019 mammogram, and 03/15/2018 mammogram - [facility]. The tissue of both breasts is extremely dense, which lowers the sensitivity of mammography. Current study was also evaluated with a Computer Aided Detection (CAD) system. No significant masses, calcifications, or other findings are seen in either breast. There has been no significant interval change. IMPRESSION: NEGATIVE There is no mammographic evidence of malignancy. A 1 year screening mammogram is recommended. This exam was interpreted at Station ID: [id number]. NOTE: For mammograms, a report in lay terms will be sent to the patient. Approximately 15% of breast malignancies will not be visualized mammographically. In the management of a palpable breast mass, a negative mammogram must not discourage biopsy of a clinically suspicious lesion. Electronically Signed By: Robert putnam/odell:03/20/2021 16:54:36 letter sent: Normal Exam ACR BI-RADS Category 1: Negative 3341F
== END ==
PROVIDERS: PCP Family Medicine; Referring Provider Family Medicine; Visit Provider Family Medicine
DX: Z12.31 Encounter for screening mammogram for malignant neoplasm of breast (principal); M85.88 Other specified disorders of bone density and structure, other site; Z78.0 Asymptomatic menopausal state; Z82.62 Family history of osteoporosis
CPT/HCPCS: 77063; 77067; 77080

== ENCOUNTER → 2021-03-31 09:35 | Outpatient (CLI) | payer MEDICARE, SELFPAY ==
--- NOTE | 2021-03-31 09:37 | DI.RAD.S_ITS ---
PROCEDURE: XR HIP W PEL IF DONE RT 2V INDICATIONS: pain with flexion/ADD TECHNIQUE: AP pelvis with lateral view(s) of the right hip(s). COMPARISON: None. FINDINGS: Bones: No fractures or dislocations. Pelvic ring appears intact. No suspicious bony lesions. Sclerosis about the pubic symphysis. The sacroiliac joints are patent. Soft tissues: The visualized bowel gas pattern is normal. No suspicious soft tissue calcifications. IMPRESSION: No significant abnormality. Dictated by: Luis F Echevarria M.D. on 03/31/2021 at 11:14 Approved by: Luis F Echevarria M.D. on 03/31/2021 at 11:15
== END ==
PROVIDERS: PCP Family Medicine; Referring Provider Family Medicine; Visit Provider Family Medicine
DX: M25.551 Pain in right hip (principal)
CPT/HCPCS: 73502

== ENCOUNTER → 2021-04-16 12:43 | Outpatient (CLI) | payer MEDICARE, SELFPAY ==
--- NOTE | 2021-04-16 12:45 | DI.CT.S_ITS ---
PROCEDURE: CT PEL WO CON INDICATIONS: hip pain, sclerotic pubic bone TECHNIQUE: Noncontrast 3 mm axial sections acquired through the bony pelvis, with coronal and sagittal reformatting. COMPARISON: [facility], CR, XR HIP W PEL IF DONE RT 2V, 03/31/2021, 9:36. FINDINGS: Image quality: Excellent. Bones: No acute, displaced fracture or dislocation. The sacroiliac joints are patent. Redemonstrated sclerosis about the pubic symphysis, which is not widened. Soft tissues: No significant abnormality. Moderate stool burden throughout the colon. Normal appendix. A bilobed fat attenuation lesion is seen in the colon (series 3, image 31), measuring 2.7 x 4.2 cm, most consistent with a lipoma. IMPRESSION: 1. No acute osseous abnormality. 2. 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 Dictated by: Luis F Echevarria M.D. on 04/16/2021 at 15:54 Approved by: Luis F Echevarria M.D. on 04/16/2021 at 16:03
== END ==
PROVIDERS: Family Provider Family Medicine; PCP Family Medicine; Referring Provider Family Medicine; Visit Provider Family Medicine
DX: M25.551 Pain in right hip (principal); Q78.2 Osteopetrosis
CPT/HCPCS: 72192

== ENCOUNTER 2021-06-19 09:00 | Outpatient (RCR) | payer MEDICARE, SELFPAY ==
--- NOTE | 2021-04-16 17:29 | PT.OIE ---
Current Diagnoses Pain in right hip (04/16/21) Pain in left knee (04/16/21) Difficulty in walking, not elsewhere classified (04/16/21) Abnormal posture (04/16/21) Weakness (04/16/21) Past Medical History (Last Updated 12/14/17 @ 11:00 by Kaitlin Ferrer) Abnormal Pap smear of cervix (1991) Acne (1969) Actinic keratosis (2014) Chicken pox (~1960) Colon polyps (2015) Endometriosis (1981) Gastroesophageal reflux disease with esophagitis (10/21/16) GERD (gastroesophageal reflux disease) (2002) Hearing loss (2012) Hemorrhoids (1998) Hip pain, right History of gynecologic surgery (05/2015) Infertility (1981) Irregular periods/menstrual cycles (~1970) Measles (~1960) Meniere's disease Osteoarthritis (2009) Osteopenia (02/03/17) Precancerous skin lesion (2014) Right knee pain Sleep apnea (2014) Urinary incontinence Past Surgical History (Last Updated 12/14/17 @ 11:00 by Kaitlin Ferrer) Anesthesia History of esophageal dilatation (11/2015) History of gynecologic surgery (05/2015) Status post colonoscopy (12/2016) Status post hemorrhoidectomy (1998) Status post hernia repair (1958) Visit Care Team Role Provider Type Kathia Foster DO Attending Provider Physician Family Provider Primary Care Provider Referring Provider Specialty: [facility] Address: [address] [place] [address], [address], [facility] Email: [email or web address] Physical Therapy Initial Evaluation PT-OP-A Visit Information Start: 04/15/21 18:08 Freq: Status: Active Protocol: Document 04/16/21 08:20 [facility] (Rec: 04/16/21 09:29 [facility] [id number]) Out-Patient Physical Therapy Visit Information Visit Information Visit Type Initial Evaluation Visit Start Time 08:22 Visit Stop Time 09:05 Total Visit Minutes 43 Visit Number 1 Number of ANSWERER Visits 0 PT-OP-B Current Condition Start: 04/15/21 18:08 Freq: Status: Active Protocol: Document 04/16/21 08:20 [facility] (Rec: 04/16/21 09:29 [facility] [id number]) Current Condition History of Current Condition Onset Date 3 months Current Complaints R hip History of Current Condition Pt reports pain in R groin pretty sharp and there is a sensation of grinding. She noticed it most when walking around the chair where she was add and flex and bumped her leg and it was so severe and couldn't move for a couple min and another time bumped it into flex add when going into car. 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 Pt reports it got better when she cannot walk and do all the hills she would typically d d/ t weather. Pt reports L knee has been bothering her and mostly at night. Note she has more flatness of feet and got shoes taht are good for flat feet. 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 Pt reports she is careful when she gets up/down from the floor. Pt is doing yard work a lot also. She has also been caring for her family d/t mult sicknesses. Pt has been able to work in the yard only for 2 hours before she gets worse. Future Testing and Treatments Planned CT scan today Treatment Goals Patient/Caregiver Goals Be able to do as much yard work as she wants, be able to improve strength and have resisted and BW exercise program for home, be able to walk hills, be stronger and have easier time getting on/ off floor, greater ease w/ squat PT-OP-C Subjective Start: 04/15/21 18:08 Freq: Status: Active Protocol: Document 04/16/21 08:20 [facility] (Rec: 04/16/21 09:29 [facility] [id number]) Patient Questionnaires Lower Extremity Functional Scale LEFS Score 68 OP-PT Pain Assessment Location R hip Pain Location Details groin Description Sharp Frequency Intermittent Other Pain Aggravating Factors at night, hills, sitting, laying prone PT-OP-F Manual Assessment Start: 04/15/21 18:08 Freq: Status: Active Protocol: Document 04/16/21 08:20 [facility] (Rec: 04/16/21 09:29 [facility] [id number]) Manual Assessments Joint Mobility Assessment Joint Mobility Assessment discomfort w/pubic symphsis press into R groin region Other Manual Assessments Other Manual Assessments R iliac crest higher, R SI post (some point tenderness), PT-OP-G Mobility & Gait Start: 04/15/21 18:08 Freq: Status: Active Protocol: Document 04/16/21 08:20 [facility] (Rec: 04/16/21 09:29 [facility] [id number]) OP Gait Assessment Comments Gait Comments Pt has dec stance time on RLE w/dec push off, dec arm swing, harder hit onto LLe PT-OP-J Posture/Palpation/Skin Start: 04/15/21 18:08 Freq: Status: Active Protocol: Document 04/16/21 08:20 [facility] (Rec: 04/16/21 09:29 [facility] [id number]) Posture Evaluation [facility] Postural Classification System Rocio Postural Classifications Posterior/Posterior Vertebral Compression Test 2 Lumbar Protective Mechanism Left AP 1 Lumbar Protective Mechanism Right AP 0 Lumbar Protective Mechanism Left PA 0 Lumbar Protective Mechanism Right PA 0 PT-OP-K Range of Motion Start: 04/15/21 18:08 Freq: Status: Active Protocol: Document 04/16/21 08:20 [facility] (Rec: 04/16/21 09:29 [facility] [id number]) Hip Goniometric Range of Motion Hip Right Active Flexion w/Knee Flexed 105 Internal Rotation 28 External Rotation 25 Comments discomfort in buttocks w/IR; groin discomfort w/R flex more comfortable w/flex add w/ ASIS distraction Left Active Flexion w/Knee Flexed 110 Internal Rotation 24 External Rotation 26 PT-OP-L Special Tests Start: 04/15/21 18:08 Freq: Status: Active Protocol: Document 04/16/21 08:20 [facility] (Rec: 04/16/21 09:29 [facility] [id number]) Special Tests Lumbar Spine Special Tests iliac crest distraction Test Results mild pain SI compression Test Results neg SLR Test Results B neg Comments 90/90 HS lacking 20 deg L; Lacking 27 deg R Hip Special Tests scour Comments L: slight discomfort in groin + into add R: pain + FADIR Comments L neg R positive -unable to get into position HARSH Comments L positive R positive for tightness and pull into PT-OP-M Strength Start: 04/15/21 18:08 Freq: Status: Active Protocol: Document 04/16/21 08:20 [facility] (Rec: 04/16/21 09:29 [facility] [id number]) Hip Strength Hip Manual Muscle Testing Right Flexion (L2) 3+ Fair+ Extension (S1) 4- Good- Abduction 4- Good- Adduction 4- Good- External Rotation 4+ Good+ Internal Rotation 3+ Fair+ Comments pain w/IR& abd testing Left Flexion (L2) 3+ Fair+ Extension (S1) 4- Good- Abduction 4 Good Adduction 4 Good External Rotation 3+ Fair+ Internal Rotation 4+ Good+ Knee Strength Knee Manual Muscle Testing Right Flexion (S2) 5 Normal Extension (L3) 5 Normal Left Flexion (S2) 5 Normal Extension (L3) 5 Normal Ankle/Foot Strength Ankle and Foot Manual Muscle Testing Right Dorsiflexion (L4) 5 Normal Left Dorsiflexion (L4) 4+ Good+ PT-OP-T Assessment and Plan Start: 04/15/21 18:08 Freq: Status: Active Protocol: Document 04/16/21 08:20 [facility] (Rec: 04/16/21 09:29 [facility] [id number]) Physical Therapy Assessment Rehab Potential Rehabilitation Potential Good Evaluation Complexity Number of Personal Factors/Comorbidities 1-2 Number of Body Systems Impaired 4 or More Clinical Presentation at Evaluation Evolving Impairments Impairments Activity Tolerance,Balance, Functional Activities, Functional Mobility,Gait,Pain, Posture,ROM,Soft Tissue Mobility,Strength Goals squating Short Term Goal (STG) Pt will be able to squat as needed for lifting and yard work activities w/good mechanics and no pain. STG Duration 05/17/21 Alf Goal (LTG) Pt will be able to get up/down from the ground smoothly w/o pain or outside suppport or feeling that she has to be cautious. LTG Duration 06/17/21 activities Short Term Goal (STG) Pt will be able to prop herself when sleeping in order to sleep w/o inc pain in knee or hip. STG Duration 05/17/20 [employer]ocket [employer]ellant Plant Supervisor Goal (LTG) Pt will be able to walk long walks w/hills w/o inc in pain. LTG Duration 06/17/21 ROM Short Term Goal (STG) Pt will have full R hip ROM w/ o pain. STG Duration 05/17/21 Alf Goal (LTG) Pt will be able to sit for as long as needed w/o inc R hip pain. LTG Duration 06/17/21 strength Short Term Goal (STG) Pt will be indep w/HEP STG Duration 05/17/21 [employer] Supervisor Goal (LTG) Pt will score at least 3/5 LPM and 5/5 LEs B in order to show improved stability and ability to do all typical activities w/o pain. LTG Duration 06/17/21 Assessment Summary Assessment Pt presents w/history of R hip pain w/worsening and new symtoms of R ant groin pain especailly w/flex/add force. She had inc her walking over the summer w/more hills and as she dec this w/weather change , she had dec in pain. She has had mult instances of irritation when LE has been forcefully pushed into flex and adduction. She has dec stance time on RLE w/dec push off w/harder landing on LLE during gait. She has noted some L knee pain but mostly at night. She is overall feeling limited w/hip mobility on R side and weak so activities like squatting down or getting up/down from the ground is difficult. 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 She would benefit from skilled PT to work on hip and pelvis mobility to improve pt's ability to move around and do typical ADLs. Physical Therapy Plan Frequency and Duration Frequency of Treatment 2x/Week Duration of Treatment 2 months Plan of Care Start Date 04/16/21 Plan of Care End Date 06/17/21 Therapeutic Interventions Therapeutic Interventions Aquatic Therapy,Balance Training,Gait Training,Home Exercise Program,Joint Mobilizations,Manual Therapy, Neuromuscular Re-education, Patient/Caregiver Education, Self-Care/Home Management,Soft Tissue Mobilization,Taping, Therapeutic Activities, Therapeutic Exercises Modalities Cold Pack/Ice Massage,Electric Stimulation,Hot Packs, Ultrasound Next Visit Focus/Plan Next Note Type Treatment Note Next Visit Plan manual for hip flexor treatment, start w/hip glides and sacral mobility, hip flexor stretch, supine core progression
--- NOTE | 2021-04-16 17:29 | PT.OPPOC ---
Physical, Occupational & Speech Therapy At [facility] Current Diagnoses Pain in right hip (04/16/21) Pain in left knee (04/16/21) Difficulty in walking, not elsewhere classified (04/16/21) Abnormal posture (04/16/21) Weakness (04/16/21) Visit Care Team Role Provider Type Kathia Foster DO Attending Provider Physician Family Provider Primary Care Provider Referring Provider Specialty: Family Practice Address: [address] [place] [address], [address], [facility] Email: [email or web address] Plan Of Care PT-OP-T Assessment and Plan Start: 04/15/21 18:08 Freq: Status: Active Protocol: Document 04/16/21 08:20 [facility] (Rec: 04/16/21 09:29 [facility] [id number]) Physical Therapy Assessment Rehab Potential Rehabilitation Potential Good Evaluation Complexity Number of Personal Factors/Comorbidities 1-2 Number of Body Systems Impaired 4 or More Clinical Presentation at Evaluation Evolving Impairments Impairments Activity Tolerance,Balance, Functional Activities, Functional Mobility,Gait,Pain, Posture,ROM,Soft Tissue Mobility,Strength Goals squating Short Term Goal (STG) Pt will be able to squat as needed for lifting and yard work activities w/good mechanics and no pain. STG Duration 05/17/21 Seo Intern Goal (LTG) Pt will be able to get up/down from the ground smoothly w/o pain or outside suppport or feeling that she has to be cautious. LTG Duration 06/17/21 activities Short Term Goal (STG) Pt will be able to prop herself when sleeping in order to sleep w/o inc pain in knee or hip. STG Duration 05/17/20 Seo Intern Goal (LTG) Pt will be able to walk long walks w/hills w/o inc in pain. LTG Duration 06/17/21 ROM Short Term Goal (STG) Pt will have full R hip ROM w/ o pain. STG Duration 05/17/21 Fpc Goal (LTG) Pt will be able to sit for as long as needed w/o inc R hip pain. LTG Duration 06/17/21 strength Short Term Goal (STG) Pt will be indep w/HEP STG Duration 05/17/21 Seo Intern Goal (LTG) Pt will score at least 3/5 LPM and 5/5 LEs B in order to show improved stability and ability to do all typical activities w/o pain. LTG Duration 06/17/21 Assessment Summary Assessment Pt presents w/history of R hip pain w/worsening and new symtoms of R ant groin pain especailly w/flex/add force. She had inc her walking over the summer w/more hills and as she dec this w/weather change , she had dec in pain. She has had mult instances of irritation when LE has been forcefully pushed into flex and adduction. She has dec stance time on RLE w/dec push off w/harder landing on LLE during gait. She has noted some L knee pain but mostly at night. She is overall feeling limited w/hip mobility on R side and weak so activities like squatting down or getting up/down from the ground is difficult. 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 She would benefit from skilled PT to work on hip and pelvis mobility to improve pt's ability to move around and do typical ADLs. Physical Therapy Plan Frequency and Duration Frequency of Treatment 2x/Week Duration of Treatment 2 months Plan of Care Start Date 04/16/21 Plan of Care End Date 06/17/21 Therapeutic Interventions Therapeutic Interventions Aquatic Therapy,Balance Training,Gait Training,Home Exercise Program,Joint Mobilizations,Manual Therapy, Neuromuscular Re-education, Patient/Caregiver Education, Self-Care/Home Management,Soft Tissue Mobilization,Taping, Therapeutic Activities, Therapeutic Exercises Modalities Cold Pack/Ice Massage,Electric Stimulation,Hot Packs, Ultrasound Next Visit Focus/Plan Next Note Type Treatment Note Next Visit Plan manual for hip flexor treatment, start w/hip glides and sacral mobility, hip flexor stretch, supine core progression Plan of Care Dates Plan of Care Start Date 04/16/21 Plan of Care End Date 06/17/21 Electronically Signed by: Ban Tovar, PT 04/16/21 3501 Please Sign and Return: I have reviewed this Plan of Care and certify that the skilled therapy services above are required to meet the patient?s needs. Physician Signature Date Printed Name and Credentials Clinical Instructor Signature Printed Name and Credentials
--- NOTE | 2021-04-22 09:47 | PT.OTN ---
Current Diagnoses Pain in right hip (04/22/21) Pain in left knee (04/22/21) Difficulty in walking, not elsewhere classified (04/22/21) Abnormal posture (04/22/21) Weakness (04/22/21) Physical Therapy Treatment Note PT-OP-A Visit Information Start: 04/15/21 18:08 Freq: Status: Active Protocol: Document 04/22/21 09:21 [facility] (Rec: 04/22/21 09:47 [facility] [id number]) Out-Patient Physical Therapy Visit Information Visit Information Visit Type Treatment Note Visit Note 06/26 Visit Start Time 07:30 Visit Stop Time 08:15 Total Visit Minutes 45 Visit Number 2 Number of RETAIL [employer] SALES BEAUTY ADVISOR Visits 0 PT-OP-B Current Condition Start: 04/15/21 18:08 Freq: Status: Active Protocol: Document 04/16/21 08:20 [facility] (Rec: 04/16/21 09:29 [facility] [id number]) Current Condition History of Current Condition Onset Date 3 months Current Complaints R hip History of Current Condition Pt reports pain in R groin pretty sharp and there is a sensation of grinding. She noticed it most when walking around the chair where she was add and flex and bumped her leg and it was so severe and couldn't move for a couple min and another time bumped it into flex add when going into car. 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 Pt reports it got better when she cannot walk and do all the hills she would typically d d/ t weather. Pt reports L knee has been bothering her and mostly at night. Note she has more flatness of feet and got shoes taht are good for flat feet. 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 Pt reports she is careful when she gets up/down from the floor. Pt is doing yard work a lot also. She has also been caring for her family d/t mult sicknesses. Pt has been able to work in the yard only for 2 hours before she gets worse. Future Testing and Treatments Planned CT scan today Treatment Goals Patient/Caregiver Goals Be able to do as much yard work as she wants, be able to improve strength and have resisted and BW exercise program for home, be able to walk hills, be stronger and have easier time getting on/ off floor, greater ease w/ squat PT-OP-C Subjective Start: 04/15/21 18:08 Freq: Status: Active Protocol: Document 04/22/21 09:21 [facility] (Rec: 04/22/21 09:47 [facility] [id number]) OP-PT Subjective Patient Comments Patient Comments Pt reports she has had 1 instance of sharp pain since IE where she had to stop quickly and turn to avoid running into her friend. PT-OP-F Manual Assessment Start: 04/15/21 18:08 Freq: Status: Active Protocol: Document 04/16/21 08:20 [facility] (Rec: 04/16/21 09:29 [facility] [id number]) Manual Assessments Joint Mobility Assessment Joint Mobility Assessment discomfort w/pubic symphsis press into R groin region Other Manual Assessments Other Manual Assessments R iliac crest higher, R SI post (some point tenderness), PT-OP-G Mobility & Gait Start: 04/15/21 18:08 Freq: Status: Active Protocol: Document 04/16/21 08:20 [facility] (Rec: 04/16/21 09:29 [facility] [id number]) OP Gait Assessment Comments Gait Comments Pt has dec stance time on RLE w/dec push off, dec arm swing, harder hit onto LLe PT-OP-J Posture/Palpation/Skin Start: 04/15/21 18:08 Freq: Status: Active Protocol: Document 04/16/21 08:20 [facility] (Rec: 04/16/21 09:29 [facility] [id number]) Posture Evaluation [facility] Postural Classification System [facility] Postural Classifications Posterior/Posterior Vertebral Compression Test 2 Lumbar Protective Mechanism Left AP 1 Lumbar Protective Mechanism Right AP 0 Lumbar Protective Mechanism Left PA 0 Lumbar Protective Mechanism Right PA 0 PT-OP-K Range of Motion Start: 04/15/21 18:08 Freq: Status: Active Protocol: Document 04/16/21 08:20 [facility] (Rec: 04/16/21 09:29 [facility] [id number]) Hip Goniometric Range of Motion Hip Right Active Flexion w/Knee Flexed 105 Internal Rotation 28 External Rotation 25 Comments discomfort in buttocks w/IR; groin discomfort w/R flex more comfortable w/flex add w/ ASIS distraction Left Active Flexion w/Knee Flexed 110 Internal Rotation 24 External Rotation 26 PT-OP-L Special Tests Start: 04/15/21 18:08 Freq: Status: Active Protocol: Document 04/16/21 08:20 [facility] (Rec: 04/16/21 09:29 [facility] [id number]) Special Tests Lumbar Spine Special Tests iliac crest distraction Test Results mild pain SI compression Test Results neg SLR Test Results B neg Comments 90/90 HS lacking 20 deg L; Lacking 27 deg R Hip Special Tests scour Comments L: slight discomfort in groin + into add R: pain + FADIR Comments L neg R positive -unable to get into position HARSH Comments L positive R positive for tightness and pull into PT-OP-M Strength Start: 04/15/21 18:08 Freq: Status: Active Protocol: Document 04/16/21 08:20 [facility] (Rec: 04/16/21 09:29 [facility] [id number]) Hip Strength Hip Manual Muscle Testing Right Flexion (L2) 3+ Fair+ Extension (S1) 4- Good- Abduction 4- Good- Adduction 4- Good- External Rotation 4+ Good+ Internal Rotation 3+ Fair+ Comments pain w/IR& abd testing Left Flexion (L2) 3+ Fair+ Extension (S1) 4- Good- Abduction 4 Good Adduction 4 Good External Rotation 3+ Fair+ Internal Rotation 4+ Good+ Knee Strength Knee Manual Muscle Testing Right Flexion (S2) 5 Normal Extension (L3) 5 Normal Left Flexion (S2) 5 Normal Extension (L3) 5 Normal Ankle/Foot Strength Ankle and Foot Manual Muscle Testing Right Dorsiflexion (L4) 5 Normal Left Dorsiflexion (L4) 4+ Good+ PT-OP-Q Treatments Start: 04/15/21 18:08 Freq: Status: Active Protocol: Document 04/22/21 09:21 [facility] (Rec: 04/22/21 09:47 [facility] [id number]) Therapeutic Exercises Supine Exercises isometric Supine Exercise Name diagonal flex press w/DFq Side right Reps/Minutes 30 sec Standing Exercises squat Standing Exercise Name sit to stand Side bilateral Reps/Minutes 10 Comments slow tap w/cues for hip hinge stretch Standing Exercise Name hip flexor Side bilateral Reps/Minutes 30 sec x2 Manual Therapy Treatment Soft Tissue Mobilization iliacus Body Location R iliacus, inguinal ligament Mobilization Type Strumming,Sustained Pressure Intensity/Depth Moderate Body Position Supine Comments w/hip IR/ER Joint Mobilizations innominate Joint R Direction flex FM hip Joint R Direction inf glide FM Neuro Re-Education Treatment Other Activities PNF Comments facilitation w/chop pattern for R flex, add, ER pattern w /prolonged holds PT-OP-T Assessment and Plan Start: 04/15/21 18:08 Freq: Status: Active Protocol: Document 04/22/21 09:21 [facility] (Rec: 04/22/21 09:47 [facility] [id number]) Physical Therapy Assessment Goals squating Short Term Goal (STG) Pt will be able to squat as needed for lifting and yard work activities w/good mechanics and no pain. STG Duration 05/17/21 Fermenter Helper Goal (LTG) Pt will be able to get up/down from the ground smoothly w/o pain or outside suppport or feeling that she has to be cautious. LTG Duration 06/17/21 activities Short Term Goal (STG) Pt will be able to prop herself when sleeping in order to sleep w/o inc pain in knee or hip. STG Duration 05/17/20 [facility] Goal (LTG) Pt will be able to walk long walks w/hills w/o inc in pain. LTG Duration 06/17/21 ROM Short Term Goal (STG) Pt will have full R hip ROM w/ o pain. STG Duration 05/17/21 Fermenter Helper Goal (LTG) Pt will be able to sit for as long as needed w/o inc R hip pain. LTG Duration 06/17/21 strength Short Term Goal (STG) Pt will be indep w/HEP STG Duration 05/17/21 [facility] Goal (LTG) Pt will score at least 3/5 LPM and 5/5 LEs B in order to show improved stability and ability to do all typical activities w/o pain. LTG Duration 06/17/21 Assessment Summary Assessment Pt did well with exercises, but did erquire further cueing to get good PPT for hip flexor stretch. She had difficulty getting facilitation into core and required use of chop pattern to help facilitate w/RLE. Pt had significant ant hip tightness and limited flex but that improved w/manual w/more R hip flex at end w/less discomfort ant. Pt reports feeling looser after manual. Physical Therapy Plan Frequency and Duration Frequency of Treatment 2x/Week Duration of Treatment 2 months Plan of Care Start Date 04/16/21 Plan of Care End Date 06/17/21 Next Visit Focus/Plan Next Note Type Treatment Note Next Visit Plan review exercises, train in squats, work hip flexors STM in jeanne test, prone work on rotations w/hip mobs & sacral mobs
--- NOTE | 2021-04-24 14:06 | PT.OTN ---
Current Diagnoses Pain in right hip (04/24/21) Pain in left knee (04/24/21) Difficulty in walking, not elsewhere classified (04/24/21) Abnormal posture (04/24/21) Weakness (04/24/21) Physical Therapy Treatment Note PT-OP-A Visit Information Start: 04/15/21 18:08 Freq: Status: Active Protocol: Document 04/24/21 13:20 [facility] (Rec: 04/24/21 14:05 [facility] [id number]) Out-Patient Physical Therapy Visit Information Visit Information Visit Type Treatment Note Visit Note 07/24 Visit Start Time 09:52 Visit Stop Time 10:39 Total Visit Minutes 47 Visit Number 3 Number of GRAVITY FLOW IRRIGATOR Visits 0 PT-OP-B Current Condition Start: 04/15/21 18:08 Freq: Status: Active Protocol: Document 04/16/21 08:20 [facility] (Rec: 04/16/21 09:29 [facility] [id number]) Current Condition History of Current Condition Onset Date 3 months Current Complaints R hip History of Current Condition Pt reports pain in R groin pretty sharp and there is a sensation of grinding. She noticed it most when walking around the chair where she was add and flex and bumped her leg and it was so severe and couldn't move for a couple min and another time bumped it into flex add when going into car. 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 Pt reports it got better when she cannot walk and do all the hills she would typically d d/ t weather. Pt reports L knee has been bothering her and mostly at night. Note she has more flatness of feet and got shoes taht are good for flat feet. Pt reports she feels like squatting she is weak and doesn't feel like she can just squat down to picker her 1 year old grandchild. Pt reports she is careful when she gets up/down from the floor. Pt is doing yard work a lot also. She has also been caring for her family d/t mult sicknesses. Pt has been able to work in the yard only for 2 hours before she gets worse. Future Testing and Treatments Planned CT scan today Treatment Goals Patient/Caregiver Goals Be able to do as much yard work as she wants, be able to improve strength and have resisted and BW exercise program for home, be able to walk hills, be stronger and have easier time getting on/ off floor, greater ease w/ squat PT-OP-C Subjective Start: 04/15/21 18:08 Freq: Status: Active Protocol: Document 04/24/21 13:20 [facility] (Rec: 04/24/21 14:05 [facility] [id number]) OP-PT Subjective Patient Comments Patient Comments Pt reports she felt much looser after last session. PT-OP-F Manual Assessment Start: 04/15/21 18:08 Freq: Status: Active Protocol: Document 04/16/21 08:20 [facility] (Rec: 04/16/21 09:29 [facility] [id number]) Manual Assessments Joint Mobility Assessment Joint Mobility Assessment discomfort w/pubic symphsis press into R groin region Other Manual Assessments Other Manual Assessments R iliac crest higher, R SI post (some point tenderness), PT-OP-G Mobility & Gait Start: 04/15/21 18:08 Freq: Status: Active Protocol: Document 04/16/21 08:20 [facility] (Rec: 04/16/21 09:29 [facility] [id number]) OP Gait Assessment Comments Gait Comments Pt has dec stance time on RLE w/dec push off, dec arm swing, harder hit onto LLe PT-OP-J Posture/Palpation/Skin Start: 04/15/21 18:08 Freq: Status: Active Protocol: Document 04/16/21 08:20 [facility] (Rec: 04/16/21 09:29 [facility] [id number]) Posture Evaluation [facility] Postural Classification System [facility] Postural Classifications Posterior/Posterior Vertebral Compression Test 2 Lumbar Protective Mechanism Left AP 1 Lumbar Protective Mechanism Right AP 0 Lumbar Protective Mechanism Left PA 0 Lumbar Protective Mechanism Right PA 0 PT-OP-K Range of Motion Start: 04/15/21 18:08 Freq: Status: Active Protocol: Document 04/16/21 08:20 [facility] (Rec: 04/16/21 09:29 [facility] [id number]) Hip Goniometric Range of Motion Hip Right Active Flexion w/Knee Flexed 105 Internal Rotation 28 External Rotation 25 Comments discomfort in buttocks w/IR; groin discomfort w/R flex more comfortable w/flex add w/ ASIS distraction Left Active Flexion w/Knee Flexed 110 Internal Rotation 24 External Rotation 26 PT-OP-L Special Tests Start: 04/15/21 18:08 Freq: Status: Active Protocol: Document 04/16/21 08:20 [facility] (Rec: 04/16/21 09:29 [facility] [id number]) Special Tests Lumbar Spine Special Tests iliac crest distraction Test Results mild pain SI compression Test Results neg SLR Test Results B neg Comments 90/90 HS lacking 20 deg L; Lacking 27 deg R Hip Special Tests scour Comments L: slight discomfort in groin + into add R: pain + FADIR Comments L neg R positive -unable to get into position HARSH Comments L positive R positive for tightness and pull into PT-OP-M Strength Start: 04/15/21 18:08 Freq: Status: Active Protocol: Document 04/16/21 08:20 [facility] (Rec: 04/16/21 09:29 [facility] [id number]) Hip Strength Hip Manual Muscle Testing Right Flexion (L2) 3+ Fair+ Extension (S1) 4- Good- Abduction 4- Good- Adduction 4- Good- External Rotation 4+ Good+ Internal Rotation 3+ Fair+ Comments pain w/IR& abd testing Left Flexion (L2) 3+ Fair+ Extension (S1) 4- Good- Abduction 4 Good Adduction 4 Good External Rotation 3+ Fair+ Internal Rotation 4+ Good+ Knee Strength Knee Manual Muscle Testing Right Flexion (S2) 5 Normal Extension (L3) 5 Normal Left Flexion (S2) 5 Normal Extension (L3) 5 Normal Ankle/Foot Strength Ankle and Foot Manual Muscle Testing Right Dorsiflexion (L4) 5 Normal Left Dorsiflexion (L4) 4+ Good+ PT-OP-Q Treatments Start: 04/15/21 18:08 Freq: Status: Active Protocol: Document 04/24/21 13:20 [facility] (Rec: 04/24/21 14:05 [facility] [id number]) Therapeutic Exercises Supine Exercises isometric Supine Exercise Name diagonal flex press w/DFq Side right Reps/Minutes 30 secx2 Comments w/chin tuck resisted Prone Exercises hip ER Prone Exercise Name hand under hip Side right Reps/Minutes 15 Standing Exercises lunge Side bilateral Reps/Minutes 12 Comments cues for knees & stride length squat Standing Exercise Name 1. tap to mat 2. squat over mat Side bilateral Reps/Minutes 15 ea Comments cues for knee and feet position stretch Standing Exercise Name hip flexor Side bilateral Reps/Minutes 30 sec ea Manual Therapy Treatment Soft Tissue Mobilization pirifromis Body Location R piriformis & med sup glutes Mobilization Type Strumming,Sustained Pressure Intensity/Depth Moderate Body Position Prone Comments w/ER/IR Joint Mobilizations innominate Joint R Direction ER FM sacrum Joint R caudal & UPA FM w/LTR Body Position Prone hip Joint R Direction on axis ER FM Comments w/manual facilitation end range w/sustained hold PT-OP-T Assessment and Plan Start: 04/15/21 18:08 Freq: Status: Active Protocol: Document 04/24/21 13:20 [facility] (Rec: 04/24/21 14:05 [facility] [id number]) Physical Therapy Assessment Goals squating Short Term Goal (STG) Pt will be able to squat as needed for lifting and yard work activities w/good mechanics and no pain. STG Duration 05/17/21 Retirement Goal (LTG) Pt will be able to get up/down from the ground smoothly w/o pain or outside suppport or feeling that she has to be cautious. LTG Duration 06/17/21 activities Short Term Goal (STG) Pt will be able to prop herself when sleeping in order to sleep w/o inc pain in knee or hip. STG Duration 05/17/20 Retirement Goal (LTG) Pt will be able to walk long walks w/hills w/o inc in pain. LTG Duration 06/17/21 ROM Short Term Goal (STG) Pt will have full R hip ROM w/ o pain. STG Duration 05/17/21 Frame Stylist Goal (LTG) Pt will be able to sit for as long as needed w/o inc R hip pain. LTG Duration 06/17/21 strength Short Term Goal (STG) Pt will be indep w/HEP STG Duration 05/17/21 Frame Stylist Goal (LTG) Pt will score at least 3/5 LPM and 5/5 LEs B in order to show improved stability and ability to do all typical activities w/o pain. LTG Duration 06/17/21 Assessment Summary Assessment Pt did well with exercises and was able to eliminate knee pain with squats w/widing stance and cues to avoid the slight IR that was occuring. She required use of her hand under femur head w/ER in prone to avoid pelvis rotation and keep neutral hip posiitoning. She had inc difficulty w/R leg fwd lunge. She had significantly improved ER after manual treatment and was able to put foot on leg like going to put shoes/socks on with greater ease after session. Physical Therapy Plan Frequency and Duration Frequency of Treatment 2x/Week Duration of Treatment 2 months Plan of Care Start Date 04/16/21 Plan of Care End Date 06/17/21 Next Visit Focus/Plan Next Note Type Treatment Note Next Visit Plan review squats and lunges & hip ER prone, work on hip and pelvis mobility for ability to ER
--- NOTE | 2021-05-14 10:27 | PT.OTN ---
Current Diagnoses Pain in right hip (05/14/21) Pain in left knee (05/14/21) Difficulty in walking, not elsewhere classified (05/14/21) Abnormal posture (05/14/21) Weakness (05/14/21) Physical Therapy Treatment Note PT-OP-A Visit Information Start: 04/15/21 18:08 Freq: Status: Active Protocol: Document 05/14/21 09:05 [facility] (Rec: 05/14/21 10:27 [facility] [id number]) Out-Patient Physical Therapy Visit Information Visit Information Visit Type Treatment Note Visit Note 08/24 Visit Start Time 09:03 Visit Stop Time 09:45 Total Visit Minutes 42 Visit Number 4 Number of DIRECTOR OF RESOURCE DEVELOPMENT Visits 0 PT-OP-B Current Condition Start: 04/15/21 18:08 Freq: Status: Active Protocol: Document 04/16/21 08:20 [facility] (Rec: 04/16/21 09:29 [facility] [id number]) Current Condition History of Current Condition Onset Date 3 months Current Complaints R hip History of Current Condition Pt reports pain in R groin pretty sharp and there is a sensation of grinding. She noticed it most when walking around the chair where she was add and flex and bumped her leg and it was so severe and couldn't move for a couple min and another time bumped it into flex add when going into car. 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 Pt reports it got better when she cannot walk and do all the hills she would typically d d/ t weather. Pt reports L knee has been bothering her and mostly at night. Note she has more flatness of feet and got shoes taht are good for flat feet. Pt reports she feels like squatting she is weak and doesn't feel like she can just squat down to picker machine operator her 1 year old grandchild. Pt reports she is careful when she gets up/down from the floor. Pt is doing yard work a lot also. She has also been caring for her family d/t mult sicknesses. Pt has been able to work in the yard only for 2 hours before she gets worse. Future Testing and Treatments Planned CT scan today Treatment Goals Patient/Caregiver Goals Be able to do as much yard work as she wants, be able to improve strength and have resisted and BW exercise program for home, be able to walk hills, be stronger and have easier time getting on/ off floor, greater ease w/ squat PT-OP-C Subjective Start: 04/15/21 18:08 Freq: Status: Active Protocol: Document 05/14/21 09:05 [facility] (Rec: 05/14/21 10:27 [facility] [id number]) OP-PT Subjective Patient Comments Patient Comments Pt reports sleeping better at night. Pt reports she hasn't bee walking recently. Notes squats are going well. NOtes most difficulty is still flex w/ER where it feels like a block PT-OP-F Manual Assessment Start: 04/15/21 18:08 Freq: Status: Active Protocol: Document 04/16/21 08:20 [facility] (Rec: 04/16/21 09:29 [facility] [id number]) Manual Assessments Joint Mobility Assessment Joint Mobility Assessment discomfort w/pubic symphsis press into R groin region Other Manual Assessments Other Manual Assessments R iliac crest higher, R SI post (some point tenderness), PT-OP-G Mobility & Gait Start: 04/15/21 18:08 Freq: Status: Active Protocol: Document 04/16/21 08:20 [facility] (Rec: 04/16/21 09:29 [facility] [id number]) OP Gait Assessment Comments Gait Comments Pt has dec stance time on RLE w/dec push off, dec arm swing, harder hit onto LLe PT-OP-J Posture/Palpation/Skin Start: 04/15/21 18:08 Freq: Status: Active Protocol: Document 04/16/21 08:20 [facility] (Rec: 04/16/21 09:29 [facility] [id number]) Posture Evaluation [facility] Postural Classification System [facility] Postural Classifications Posterior/Posterior Vertebral Compression Test 2 Lumbar Protective Mechanism Left AP 1 Lumbar Protective Mechanism Right AP 0 Lumbar Protective Mechanism Left PA 0 Lumbar Protective Mechanism Right PA 0 PT-OP-K Range of Motion Start: 04/15/21 18:08 Freq: Status: Active Protocol: Document 04/16/21 08:20 [facility] (Rec: 04/16/21 09:29 [facility] [id number]) Hip Goniometric Range of Motion Hip Right Active Flexion w/Knee Flexed 105 Internal Rotation 28 External Rotation 25 Comments discomfort in buttocks w/IR; groin discomfort w/R flex more comfortable w/flex add w/ ASIS distraction Left Active Flexion w/Knee Flexed 110 Internal Rotation 24 External Rotation 26 PT-OP-L Special Tests Start: 04/15/21 18:08 Freq: Status: Active Protocol: Document 04/16/21 08:20 [facility] (Rec: 04/16/21 09:29 [facility] [id number]) Special Tests Lumbar Spine Special Tests iliac crest distraction Test Results mild pain SI compression Test Results neg SLR Test Results B neg Comments 90/90 HS lacking 20 deg L; Lacking 27 deg R Hip Special Tests scour Comments L: slight discomfort in groin + into add R: pain + FADIR Comments L neg R positive -unable to get into position HARSH Comments L positive R positive for tightness and pull into PT-OP-M Strength Start: 04/15/21 18:08 Freq: Status: Active Protocol: Document 04/16/21 08:20 [facility] (Rec: 04/16/21 09:29 [facility] [id number]) Hip Strength Hip Manual Muscle Testing Right Flexion (L2) 3+ Fair+ Extension (S1) 4- Good- Abduction 4- Good- Adduction 4- Good- External Rotation 4+ Good+ Internal Rotation 3+ Fair+ Comments pain w/IR& abd testing Left Flexion (L2) 3+ Fair+ Extension (S1) 4- Good- Abduction 4 Good Adduction 4 Good External Rotation 3+ Fair+ Internal Rotation 4+ Good+ Knee Strength Knee Manual Muscle Testing Right Flexion (S2) 5 Normal Extension (L3) 5 Normal Left Flexion (S2) 5 Normal Extension (L3) 5 Normal Ankle/Foot Strength Ankle and Foot Manual Muscle Testing Right Dorsiflexion (L4) 5 Normal Left Dorsiflexion (L4) 4+ Good+ PT-OP-Q Treatments Start: 04/15/21 18:08 Freq: Status: Active Protocol: Document 05/14/21 09:05 [facility] (Rec: 05/14/21 10:27 [facility] [id number]) Therapeutic Exercises Supine Exercises stretch Supine Exercise Name butterfly Side bilateral Reps/Minutes 30 sec IR/ER Supine Exercise Name in neutral, abd, add Side bilateral Reps/Minutes 6 ea Standing Exercises lunge Standing Exercise Name in mirror Side bilateral Reps/Minutes 12 Comments cues for torso and hip squat Standing Exercise Name squat Side bilateral Reps/Minutes 12 Comments cues for foot position stretch Standing Exercise Name hip flexor Side right Reps/Minutes 30 sec eax2 Comments cues for post pelvic tilt Manual Therapy Treatment Soft Tissue Mobilization adductors Body Location R Mobilization Type Rolling,Strumming,Sustained Pressure Intensity/Depth Moderate Body Position Hooklying Comments w/hip IR/ER Joint Mobilizations innominate Joint R Direction flex FM hip Joint R Direction inf glide FM PT-OP-T Assessment and Plan Start: 04/15/21 18:08 Freq: Status: Active Protocol: Document 05/14/21 09:05 [facility] (Rec: 05/14/21 10:27 [facility] [id number]) Physical Therapy Assessment Goals squating Short Term Goal (STG) Pt will be able to squat as needed for lifting and yard work activities w/good mechanics and no pain. STG Duration 05/17/21 Residential Goal (LTG) Pt will be able to get up/down from the ground smoothly w/o pain or outside suppport or feeling that she has to be cautious. LTG Duration 06/17/21 activities Short Term Goal (STG) Pt will be able to prop herself when sleeping in order to sleep w/o inc pain in knee or hip. STG Duration 05/17/20 Inorganic Chemistry Professor Goal (LTG) Pt will be able to walk long walks w/hills w/o inc in pain. LTG Duration 06/17/21 ROM Short Term Goal (STG) Pt will have full R hip ROM w/ o pain. STG Duration 05/17/21 Residential Goal (LTG) Pt will be able to sit for as long as needed w/o inc R hip pain. LTG Duration 06/17/21 strength Short Term Goal (STG) Pt will be indep w/HEP STG Duration 05/17/21 Residential Goal (LTG) Pt will score at least 3/5 LPM and 5/5 LEs B in order to show improved stability and ability to do all typical activities w/o pain. LTG Duration 06/17/21 Assessment Summary Assessment Pt did well with her exercises w/cues needed for standing stretch and for lunges but when pt put in mirror for lunges, she was able to see deviations of trunk and self correct. Improved ER and flex and combo movements with manual therapy. Pt encouraged to cont ROM exercises for this at home. Physical Therapy Plan Frequency and Duration Frequency of Treatment 2x/Week Duration of Treatment 2 months Plan of Care Start Date 04/16/21 Plan of Care End Date 06/17/21 Next Visit Focus/Plan Next Note Type Treatment Note Next Visit Plan review lunges & hip ER prone & supine, work on hip and pelvis mobility for ability to ER
--- NOTE | 2021-05-19 09:50 | PT.OTN ---
Current Diagnoses Pain in right hip (05/19/21) Pain in left knee (05/19/21) Difficulty in walking, not elsewhere classified (05/19/21) Abnormal posture (05/19/21) Weakness (05/19/21) Physical Therapy Treatment Note PT-OP-A Visit Information Start: 04/15/21 18:08 Freq: Status: Active Protocol: Document 05/19/21 08:45 [facility] (Rec: 05/19/21 09:50 [facility] [id number]) Out-Patient Physical Therapy Visit Information Visit Information Visit Type Treatment Note Visit Note 09/23 Visit Start Time 09:00 Visit Stop Time 09:44 Total Visit Minutes 44 Visit Number 5 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 She noticed it most when walking around the chair where she was add and flex and bumped her leg and it was so severe and couldn't move for a couple min and another time bumped it into flex add when going into car. 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 Pt reports it got better when she cannot walk and do all the hills she would typically d d/ t weather. Pt reports L knee has been bothering her and mostly at night. Note she has more flatness of feet and got shoes taht are good for flat feet. 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 Pt reports she is careful when she gets up/down from the floor. Pt is doing yard work a lot also. She has also been caring for her family d/t mult sicknesses. Pt has been able to work in the yard only for 2 hours before she gets worse. Future Testing and Treatments Planned CT scan today Treatment Goals Patient/Caregiver Goals Be able to do as much yard work as she wants, be able to improve strength and have resisted and BW exercise program for home, be able to walk hills, be stronger and have easier time getting on/ off floor, greater ease w/ squat PT-OP-C Subjective Start: 04/15/21 18:08 Freq: Status: Active Protocol: Document 05/19/21 08:45 [facility] (Rec: 05/19/21 09:50 [facility] [id number]) OP-PT Subjective Patient Comments Patient Comments Pt reports hip ER improving but not equal to other side Patient Reported Progress Improving PT-OP-F Manual Assessment Start: 04/15/21 18:08 Freq: Status: Active Protocol: Document 04/16/21 08:20 [facility] (Rec: 04/16/21 09:29 [facility] [id number]) Manual Assessments Joint Mobility Assessment Joint Mobility Assessment discomfort w/pubic symphsis press into R groin region Other Manual Assessments Other Manual Assessments R iliac crest higher, R SI post (some point tenderness), PT-OP-G Mobility & Gait Start: 04/15/21 18:08 Freq: Status: Active Protocol: Document 04/16/21 08:20 [facility] (Rec: 04/16/21 09:29 [facility] [id number]) OP Gait Assessment Comments Gait Comments Pt has dec stance time on RLE w/dec push off, dec arm swing, harder hit onto LLe PT-OP-J Posture/Palpation/Skin Start: 04/15/21 18:08 Freq: Status: Active Protocol: Document 04/16/21 08:20 [facility] (Rec: 04/16/21 09:29 [facility] [id number]) Posture Evaluation [facility] Postural Classification System [facility] Postural Classifications Posterior/Posterior Vertebral Compression Test 2 Lumbar Protective Mechanism Left AP 1 Lumbar Protective Mechanism Right AP 0 Lumbar Protective Mechanism Left PA 0 Lumbar Protective Mechanism Right PA 0 PT-OP-K Range of Motion Start: 04/15/21 18:08 Freq: Status: Active Protocol: Document 04/16/21 08:20 [facility] (Rec: 04/16/21 09:29 [facility] [id number]) Hip Goniometric Range of Motion Hip Right Active Flexion w/Knee Flexed 105 Internal Rotation 28 External Rotation 25 Comments discomfort in buttocks w/IR; groin discomfort w/R flex more comfortable w/flex add w/ ASIS distraction Left Active Flexion w/Knee Flexed 110 Internal Rotation 24 External Rotation 26 PT-OP-L Special Tests Start: 04/15/21 18:08 Freq: Status: Active Protocol: Document 04/16/21 08:20 [facility] (Rec: 04/16/21 09:29 [facility] [id number]) Special Tests Lumbar Spine Special Tests iliac crest distraction Test Results mild pain SI compression Test Results neg SLR Test Results B neg Comments 90/90 HS lacking 20 deg L; Lacking 27 deg R Hip Special Tests scour Comments L: slight discomfort in groin + into add R: pain + FADIR Comments L neg R positive -unable to get into position HARSH Comments L positive R positive for tightness and pull into PT-OP-M Strength Start: 04/15/21 18:08 Freq: Status: Active Protocol: Document 04/16/21 08:20 [facility] (Rec: 04/16/21 09:29 [facility] [id number]) Hip Strength Hip Manual Muscle Testing Right Flexion (L2) 3+ Fair+ Extension (S1) 4- Good- Abduction 4- Good- Adduction 4- Good- External Rotation 4+ Good+ Internal Rotation 3+ Fair+ Comments pain w/IR& abd testing Left Flexion (L2) 3+ Fair+ Extension (S1) 4- Good- Abduction 4 Good Adduction 4 Good External Rotation 3+ Fair+ Internal Rotation 4+ Good+ Knee Strength Knee Manual Muscle Testing Right Flexion (S2) 5 Normal Extension (L3) 5 Normal Left Flexion (S2) 5 Normal Extension (L3) 5 Normal Ankle/Foot Strength Ankle and Foot Manual Muscle Testing Right Dorsiflexion (L4) 5 Normal Left Dorsiflexion (L4) 4+ Good+ PT-OP-Q Treatments Start: 04/15/21 18:08 Freq: Status: Active Protocol: Document 05/19/21 08:45 [facility] (Rec: 05/19/21 09:50 [facility] [id number]) Therapeutic Exercises Supine Exercises stretch Supine Exercise Name slightly bent L knee figure 4 stretch Side right Reps/Minutes 30 secx2 Comments w/APs Standing Exercises lunge Standing Exercise Name in mirror Side bilateral Reps/Minutes 5 squat Standing Exercise Name squat Side bilateral Reps/Minutes 10 Manual Therapy Treatment Soft Tissue Mobilization adductors Body Location R Mobilization Type Rolling,Strumming,Sustained Pressure Intensity/Depth Moderate Body Position Hooklying Comments w/hip IR/ER iliacus Body Location R iliacus, inguinal ligament Mobilization Type Strumming,Sustained Pressure Intensity/Depth Moderate Body Position Supine Comments w/hip IR/ER pirifromis Body Location R piriformis & med sup glutes Mobilization Type Strumming,Sustained Pressure Intensity/Depth Moderate Body Position Prone Comments w/ER/IR Joint Mobilizations sacrum Joint R caudal & R UPA FM w/LTR Body Position Prone hip Joint R Direction on axis ER FM Comments w/manual facilitation end range w/sustained hold PT-OP-T Assessment and Plan Start: 04/15/21 18:08 Freq: Status: Active Protocol: Document 05/19/21 08:45 [facility] (Rec: 05/19/21 09:50 [facility] [id number]) Physical Therapy Assessment Goals squating Short Term Goal (STG) Pt will be able to squat as needed for lifting and yard work activities w/good mechanics and no pain. STG Duration 05/17/21 Supervisor Long Goods Goal (LTG) Pt will be able to get up/down from the ground smoothly w/o pain or outside suppport or feeling that she has to be cautious. LTG Duration 06/17/21 activities Short Term Goal (STG) Pt will be able to prop herself when sleeping in order to sleep w/o inc pain in knee or hip. STG Duration 05/17/20 Supervisor Long Goods Goal (LTG) Pt will be able to walk long walks w/hills w/o inc in pain. LTG Duration 06/17/21 ROM Short Term Goal (STG) Pt will have full R hip ROM w/ o pain. STG Duration 05/17/21 Longterm Goal (LTG) Pt will be able to sit for as long as needed w/o inc R hip pain. LTG Duration 06/17/21 strength Short Term Goal (STG) Pt will be indep w/HEP STG Duration 05/17/21 Longterm Goal (LTG) Pt will score at least 3/5 LPM and 5/5 LEs B in order to show improved stability and ability to do all typical activities w/o pain. LTG Duration 06/17/21 Assessment Summary Assessment Pt did very wellw ith form w/ exercises.S he showed better ability w/ER in flex today and was able to do figure 4 with some flex but not full opposite leg flex. Improving hip ER w/manual and soft tissue mboility. Physical Therapy Plan Frequency and Duration Frequency of Treatment 2x/Week Duration of Treatment 2 months Plan of Care Start Date 04/16/21 Plan of Care End Date 06/17/21 Next Visit Focus/Plan Next Note Type Treatment Note Next Visit Plan cont to work on hip and pelvis mobility for ER w/flex
--- NOTE | 2021-05-22 10:14 | PT.OTN ---
Current Diagnoses Pain in right hip (05/22/21) Pain in left knee (05/22/21) Difficulty in walking, not elsewhere classified (05/22/21) Abnormal posture (05/22/21) Weakness (05/22/21) Physical Therapy Treatment Note PT-OP-A Visit Information Start: 04/15/21 18:08 Freq: Status: Active Protocol: Document 05/22/21 10:02 [facility] (Rec: 05/22/21 10:14 [facility] [id number]) Out-Patient Physical Therapy Visit Information Visit Information Visit Type Treatment Note Visit Note 10/24 Visit Start Time 09:02 Visit Stop Time 09:50 Total Visit Minutes 48 Visit Number 6 Number of UTILITY FORESTER Visits 0 PT-OP-B Current Condition Start: 04/15/21 18:08 Freq: Status: Active Protocol: Document 04/16/21 08:20 [facility] (Rec: 04/16/21 09:29 [facility] [id number]) Current Condition History of Current Condition Onset Date 3 months Current Complaints R hip History of Current Condition Pt reports pain in R groin pretty sharp and there is a sensation of grinding. She noticed it most when walking around the chair where she was add and flex and bumped her leg and it was so severe and couldn't move for a couple min and another time bumped it into flex add when going into car. 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 Pt reports it got better when she cannot walk and do all the hills she would typically d d/ t weather. Pt reports L knee has been bothering her and mostly at night. Note she has more flatness of feet and got shoes taht are good for flat feet. 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 Pt reports she is careful when she gets up/down from the floor. Pt is doing yard work a lot also. She has also been caring for her family d/t mult sicknesses. Pt has been able to work in the yard only for 2 hours before she gets worse. Future Testing and Treatments Planned CT scan today Treatment Goals Patient/Caregiver Goals Be able to do as much yard work as she wants, be able to improve strength and have resisted and BW exercise program for home, be able to walk hills, be stronger and have easier time getting on/ off floor, greater ease w/ squat PT-OP-C Subjective Start: 04/15/21 18:08 Freq: Status: Active Protocol: Document 05/22/21 10:02 [facility] (Rec: 05/22/21 10:14 [facility] [id number]) OP-PT Subjective Patient Comments Patient Comments Pt reprots improved ER Patient Reported Progress Improving PT-OP-F Manual Assessment Start: 04/15/21 18:08 Freq: Status: Active Protocol: Document 04/16/21 08:20 [facility] (Rec: 04/16/21 09:29 [facility] [id number]) Manual Assessments Joint Mobility Assessment Joint Mobility Assessment discomfort w/pubic symphsis press into R groin region Other Manual Assessments Other Manual Assessments R iliac crest higher, R SI post (some point tenderness), PT-OP-G Mobility & Gait Start: 04/15/21 18:08 Freq: Status: Active Protocol: Document 04/16/21 08:20 [facility] (Rec: 04/16/21 09:29 [facility] [id number]) OP Gait Assessment Comments Gait Comments Pt has dec stance time on RLE w/dec push off, dec arm swing, harder hit onto LLe PT-OP-J Posture/Palpation/Skin Start: 04/15/21 18:08 Freq: Status: Active Protocol: Document 04/16/21 08:20 [facility] (Rec: 04/16/21 09:29 [facility] [id number]) Posture Evaluation [facility] Postural Classification System [place] Postural Classifications Posterior/Posterior Vertebral Compression Test 2 Lumbar Protective Mechanism Left AP 1 Lumbar Protective Mechanism Right AP 0 Lumbar Protective Mechanism Left PA 0 Lumbar Protective Mechanism Right PA 0 PT-OP-K Range of Motion Start: 04/15/21 18:08 Freq: Status: Active Protocol: Document 04/16/21 08:20 [facility] (Rec: 04/16/21 09:29 [facility] [id number]) Hip Goniometric Range of Motion Hip Right Active Flexion w/Knee Flexed 105 Internal Rotation 28 External Rotation 25 Comments discomfort in buttocks w/IR; groin discomfort w/R flex more comfortable w/flex add w/ ASIS distraction Left Active Flexion w/Knee Flexed 110 Internal Rotation 24 External Rotation 26 PT-OP-L Special Tests Start: 04/15/21 18:08 Freq: Status: Active Protocol: Document 04/16/21 08:20 [facility] (Rec: 04/16/21 09:29 [facility] [id number]) Special Tests Lumbar Spine Special Tests iliac crest distraction Test Results mild pain SI compression Test Results neg SLR Test Results B neg Comments 90/90 HS lacking 20 deg L; Lacking 27 deg R Hip Special Tests scour Comments L: slight discomfort in groin + into add R: pain + FADIR Comments L neg R positive -unable to get into position HARSH Comments L positive R positive for tightness and pull into PT-OP-M Strength Start: 04/15/21 18:08 Freq: Status: Active Protocol: Document 04/16/21 08:20 [facility] (Rec: 04/16/21 09:29 [facility] [id number]) Hip Strength Hip Manual Muscle Testing Right Flexion (L2) 3+ Fair+ Extension (S1) 4- Good- Abduction 4- Good- Adduction 4- Good- External Rotation 4+ Good+ Internal Rotation 3+ Fair+ Comments pain w/IR& abd testing Left Flexion (L2) 3+ Fair+ Extension (S1) 4- Good- Abduction 4 Good Adduction 4 Good External Rotation 3+ Fair+ Internal Rotation 4+ Good+ Knee Strength Knee Manual Muscle Testing Right Flexion (S2) 5 Normal Extension (L3) 5 Normal Left Flexion (S2) 5 Normal Extension (L3) 5 Normal Ankle/Foot Strength Ankle and Foot Manual Muscle Testing Right Dorsiflexion (L4) 5 Normal Left Dorsiflexion (L4) 4+ Good+ PT-OP-Q Treatments Start: 04/15/21 18:08 Freq: Status: Active Protocol: Document 05/22/21 10:02 [facility] (Rec: 05/22/21 10:14 [facility] [id number]) Manual Therapy Treatment Soft Tissue Mobilization abdomenal Body Location R to L Mobilization Type Sustained Pressure Comments w/hip IR/ER adductors Body Location R Mobilization Type Rolling,Strumming,Sustained Pressure Intensity/Depth Moderate Body Position Hooklying Comments w/hip IR/ER iliacus Body Location R iliacus, inguinal ligament Mobilization Type Strumming,Sustained Pressure Intensity/Depth Moderate Body Position Supine Comments w/hip IR/ER Joint Mobilizations innominate Joint R Direction flex & ER FM in supine for flex & ER hip Joint R Direction inf glide FM Comments in figure 4 position Self-Care/Home Management Treatment Education Other Education review of stretches pt does and discussed which to do first to warm up and progress to PT-OP-T Assessment and Plan Start: 04/15/21 18:08 Freq: Status: Active Protocol: Document 05/22/21 10:02 [facility] (Rec: 05/22/21 10:14 [facility] [id number]) Physical Therapy Assessment Goals squating Short Term Goal (STG) Pt will be able to squat as needed for lifting and yard work activities w/good mechanics and no pain. STG Duration 05/17/21 Snf Goal (LTG) Pt will be able to get up/down from the ground smoothly w/o pain or outside suppport or feeling that she has to be cautious. LTG Duration 06/17/21 activities Short Term Goal (STG) Pt will be able to prop herself when sleeping in order to sleep w/o inc pain in knee or hip. STG Duration 05/17/20 Pneumatic Tube Repairer Goal (LTG) Pt will be able to walk long walks w/hills w/o inc in pain. LTG Duration 06/17/21 ROM Short Term Goal (STG) Pt will have full R hip ROM w/ o pain. STG Duration 05/17/21 Snf Goal (LTG) Pt will be able to sit for as long as needed w/o inc R hip pain. LTG Duration 06/17/21 strength Short Term Goal (STG) Pt will be indep w/HEP STG Duration 05/17/21 Snf Goal (LTG) Pt will score at least 3/5 LPM and 5/5 LEs B in order to show improved stability and ability to do all typical activities w/o pain. LTG Duration 06/17/21 Assessment Summary Assessment Pt presented w/the overall improved ROM of hip after last session but still limited when in flex and ER. After manual today, pt was able to go into ER and put on pants w/ o pain and place heel on opposite knee to stretch in seated w/o ant hip pinching.
--- NOTE | 2021-05-26 10:37 | PT.OTN ---
Current Diagnoses Pain in right hip (05/26/21) Pain in left knee (05/26/21) Difficulty in walking, not elsewhere classified (05/26/21) Abnormal posture (05/26/21) Weakness (05/26/21) Physical Therapy Treatment Note PT-OP-A Visit Information Start: 04/15/21 18:08 Freq: Status: Active Protocol: Document 05/26/21 08:38 [facility] (Rec: 05/26/21 10:37 [facility] [id number]) Out-Patient Physical Therapy Visit Information Visit Information Visit Type Treatment Note Visit Note 11/23 Visit Start Time 09:02 Visit Stop Time 09:45 Total Visit Minutes 43 Visit Number 7 Number of ACCESS RN Visits 0 PT-OP-B Current Condition Start: 04/15/21 18:08 Freq: Status: Active Protocol: Document 04/16/21 08:20 [facility] (Rec: 04/16/21 09:29 [facility] [id number]) Current Condition History of Current Condition Onset Date 3 months Current Complaints R hip History of Current Condition Pt reports pain in R groin pretty sharp and there is a sensation of grinding. She noticed it most when walking around the chair where she was add and flex and bumped her leg and it was so severe and couldn't move for a couple min and another time bumped it into flex add when going into car. 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 Pt reports it got better when she cannot walk and do all the hills she would typically d d/ t weather. Pt reports L knee has been bothering her and mostly at night. Note she has more flatness of feet and got shoes taht are good for flat feet. Pt reports she feels like squatting she is weak and doesn't feel like she can just squat down to spanish moss picker her 1 year old grandchild. Pt reports she is careful when she gets up/down from the floor. Pt is doing yard work a lot also. She has also been caring for her family d/t mult sicknesses. Pt has been able to work in the yard only for 2 hours before she gets worse. Future Testing and Treatments Planned CT scan today Treatment Goals Patient/Caregiver Goals Be able to do as much yard work as she wants, be able to improve strength and have resisted and BW exercise program for home, be able to walk hills, be stronger and have easier time getting on/ off floor, greater ease w/ squat PT-OP-C Subjective Start: 04/15/21 18:08 Freq: Status: Active Protocol: Document 05/26/21 08:38 [facility] (Rec: 05/26/21 10:37 [facility] [id number]) OP-PT Subjective Patient Comments Patient Comments Pt reports some lat hip discomfort w/walk yesterday PT-OP-F Manual Assessment Start: 04/15/21 18:08 Freq: Status: Active Protocol: Document 04/16/21 08:20 [facility] (Rec: 04/16/21 09:29 [facility] [id number]) Manual Assessments Joint Mobility Assessment Joint Mobility Assessment discomfort w/pubic symphsis press into R groin region Other Manual Assessments Other Manual Assessments R iliac crest higher, R SI post (some point tenderness), PT-OP-G Mobility & Gait Start: 04/15/21 18:08 Freq: Status: Active Protocol: Document 04/16/21 08:20 [facility] (Rec: 04/16/21 09:29 [facility] [id number]) OP Gait Assessment Comments Gait Comments Pt has dec stance time on RLE w/dec push off, dec arm swing, harder hit onto LLe PT-OP-J Posture/Palpation/Skin Start: 04/15/21 18:08 Freq: Status: Active Protocol: Document 04/16/21 08:20 [facility] (Rec: 04/16/21 09:29 [facility] [id number]) Posture Evaluation [facility] Postural Classification System [facility] Postural Classifications Posterior/Posterior Vertebral Compression Test 2 Lumbar Protective Mechanism Left AP 1 Lumbar Protective Mechanism Right AP 0 Lumbar Protective Mechanism Left PA 0 Lumbar Protective Mechanism Right PA 0 PT-OP-K Range of Motion Start: 04/15/21 18:08 Freq: Status: Active Protocol: Document 04/16/21 08:20 [facility] (Rec: 04/16/21 09:29 [facility] [id number]) Hip Goniometric Range of Motion Hip Right Active Flexion w/Knee Flexed 105 Internal Rotation 28 External Rotation 25 Comments discomfort in buttocks w/IR; groin discomfort w/R flex more comfortable w/flex add w/ ASIS distraction Left Active Flexion w/Knee Flexed 110 Internal Rotation 24 External Rotation 26 PT-OP-L Special Tests Start: 04/15/21 18:08 Freq: Status: Active Protocol: Document 04/16/21 08:20 [facility] (Rec: 04/16/21 09:29 [facility] [id number]) Special Tests Lumbar Spine Special Tests iliac crest distraction Test Results mild pain SI compression Test Results neg SLR Test Results B neg Comments 90/90 HS lacking 20 deg L; Lacking 27 deg R Hip Special Tests scour Comments L: slight discomfort in groin + into add R: pain + FADIR Comments L neg R positive -unable to get into position HARSH Comments L positive R positive for tightness and pull into PT-OP-M Strength Start: 04/15/21 18:08 Freq: Status: Active Protocol: Document 04/16/21 08:20 [facility] (Rec: 04/16/21 09:29 [facility] [id number]) Hip Strength Hip Manual Muscle Testing Right Flexion (L2) 3+ Fair+ Extension (S1) 4- Good- Abduction 4- Good- Adduction 4- Good- External Rotation 4+ Good+ Internal Rotation 3+ Fair+ Comments pain w/IR& abd testing Left Flexion (L2) 3+ Fair+ Extension (S1) 4- Good- Abduction 4 Good Adduction 4 Good External Rotation 3+ Fair+ Internal Rotation 4+ Good+ Knee Strength Knee Manual Muscle Testing Right Flexion (S2) 5 Normal Extension (L3) 5 Normal Left Flexion (S2) 5 Normal Extension (L3) 5 Normal Ankle/Foot Strength Ankle and Foot Manual Muscle Testing Right Dorsiflexion (L4) 5 Normal Left Dorsiflexion (L4) 4+ Good+ PT-OP-Q Treatments Start: 04/15/21 18:08 Freq: Status: Active Protocol: Document 05/26/21 08:38 [facility] (Rec: 05/26/21 10:37 [facility] [id number]) Therapeutic Exercises Standing Exercises lunge Standing Exercise Name in mirror Side bilateral Reps/Minutes 5 Gait Training Gait Activity gait at wall Description b Distance/Duration 10sec x3 ea wt acceptance Description SLS working on no lat lean wt shifts Description fwd in mirror working on wt acceptance w/o lat lean Manual Therapy Treatment Soft Tissue Mobilization QL Body Location R Mobilization Type Rolling,Strumming,Sustained Pressure Intensity/Depth Moderate Comments c/r w/ant elevation abdomenal Mobilization Type Sustained Pressure Comments 1.R to L w/LTR 2. obliques w/LTR 3. RA R to L w/LTR Joint Mobilizations lumbar Joint L3-5 distraction w/post dep Neuro Re-Education Treatment Other Activities PNF Details ant elevation R Comments 1. rhythmic initiation 2. sustained hold pelvis progressed to w/LE pattern PT-OP-T Assessment and Plan Start: 04/15/21 18:08 Freq: Status: Active Protocol: Document 05/26/21 08:38 [facility] (Rec: 05/26/21 10:37 [facility] [id number]) Physical Therapy Assessment Goals squating Short Term Goal (STG) Pt will be able to squat as needed for lifting and yard work activities w/good mechanics and no pain. STG Duration 05/17/21 Vascular Manager Goal (LTG) Pt will be able to get up/down from the ground smoothly w/o pain or outside suppport or feeling that she has to be cautious. LTG Duration 06/17/21 activities Short Term Goal (STG) Pt will be able to prop herself when sleeping in order to sleep w/o inc pain in knee or hip. STG Duration 05/17/20 Vascular Manager Goal (LTG) Pt will be able to walk long walks w/hills w/o inc in pain. LTG Duration 06/17/21 ROM Short Term Goal (STG) Pt will have full R hip ROM w/ o pain. STG Duration 05/17/21 Vascular Manager Goal (LTG) Pt will be able to sit for as long as needed w/o inc R hip pain. LTG Duration 06/17/21 strength Short Term Goal (STG) Pt will be indep w/HEP STG Duration 05/17/21 Mcfp Goal (LTG) Pt will score at least 3/5 LPM and 5/5 LEs B in order to show improved stability and ability to do all typical activities w/o pain. LTG Duration 06/17/21 Physical Therapy Plan Frequency and Duration Frequency of Treatment 2x/Week Duration of Treatment 2 months Plan of Care Start Date 04/16/21 Plan of Care End Date 06/17/21 Next Visit Focus/Plan Next Note Type Treatment Note Next Visit Plan cont to work on hip and pelvis mobility for ER w/flex
--- NOTE | 2021-05-29 10:36 | PT.OTN ---
Current Diagnoses Pain in right hip (05/29/21) Pain in left knee (05/29/21) Difficulty in walking, not elsewhere classified (05/29/21) Abnormal posture (05/29/21) Weakness (05/29/21) Physical Therapy Treatment Note PT-OP-A Visit Information Start: 04/15/21 18:08 Freq: Status: Active Protocol: Document 05/29/21 09:05 [facility] (Rec: 05/29/21 10:36 [facility] [id number]) Out-Patient Physical Therapy Visit Information Visit Information Visit Type Treatment Note Visit Note 12/24 Visit Start Time 09:06 Visit Stop Time 09:45 Total Visit Minutes 39 Visit Number [address] DEPUTY Visits 0 PT-OP-B Current Condition Start: 04/15/21 18:08 Freq: Status: Active Protocol: Document 04/16/21 08:20 [facility] (Rec: 04/16/21 09:29 [facility] [id number]) Current Condition History of Current Condition Onset Date 3 months Current Complaints R hip History of Current Condition Pt reports pain in R groin pretty sharp and there is a sensation of grinding. She noticed it most when walking around the chair where she was add and flex and bumped her leg and it was so severe and couldn't move for a couple min and another time bumped it into flex add when going into car. 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 Pt reports it got better when she cannot walk and do all the hills she would typically d d/ t weather. Pt reports L knee has been bothering her and mostly at night. Note she has more flatness of feet and got shoes taht are good for flat feet. Pt reports she feels like squatting she is weak and doesn't feel like she can just squat down to greens picker her 1 year old grandchild. Pt reports she is careful when she gets up/down from the floor. Pt is doing yard work a lot also. She has also been caring for her family d/t mult sicknesses. Pt has been able to work in the yard only for 2 hours before she gets worse. Future Testing and Treatments Planned CT scan today Treatment Goals Patient/Caregiver Goals Be able to do as much yard work as she wants, be able to improve strength and have resisted and BW exercise program for home, be able to walk hills, be stronger and have easier time getting on/ off floor, greater ease w/ squat PT-OP-C Subjective Start: 04/15/21 18:08 Freq: Status: Active Protocol: Document 05/29/21 09:05 [facility] (Rec: 05/29/21 10:36 [facility] [id number]) OP-PT Subjective Patient Comments Patient Comments Pt reports better but still feels hard at end range for flex/ER PT-OP-F Manual Assessment Start: 04/15/21 18:08 Freq: Status: Active Protocol: Document 04/16/21 08:20 [facility] (Rec: 04/16/21 09:29 [facility] [id number]) Manual Assessments Joint Mobility Assessment Joint Mobility Assessment discomfort w/pubic symphsis press into R groin region Other Manual Assessments Other Manual Assessments R iliac crest higher, R SI post (some point tenderness), PT-OP-G Mobility & Gait Start: 04/15/21 18:08 Freq: Status: Active Protocol: Document 04/16/21 08:20 [facility] (Rec: 04/16/21 09:29 [facility] [id number]) OP Gait Assessment Comments Gait Comments Pt has dec stance time on RLE w/dec push off, dec arm swing, harder hit onto LLe PT-OP-J Posture/Palpation/Skin Start: 04/15/21 18:08 Freq: Status: Active Protocol: Document 04/16/21 08:20 [facility] (Rec: 04/16/21 09:29 [facility] [id number]) Posture Evaluation [facility] Postural Classification System [facility] Postural Classifications Posterior/Posterior Vertebral Compression Test 2 Lumbar Protective Mechanism Left AP 1 Lumbar Protective Mechanism Right AP 0 Lumbar Protective Mechanism Left PA 0 Lumbar Protective Mechanism Right PA 0 PT-OP-K Range of Motion Start: 04/15/21 18:08 Freq: Status: Active Protocol: Document 04/16/21 08:20 [facility] (Rec: 04/16/21 09:29 [facility] [id number]) Hip Goniometric Range of Motion Hip Right Active Flexion w/Knee Flexed 105 Internal Rotation 28 External Rotation 25 Comments discomfort in buttocks w/IR; groin discomfort w/R flex more comfortable w/flex add w/ ASIS distraction Left Active Flexion w/Knee Flexed 110 Internal Rotation 24 External Rotation 26 PT-OP-L Special Tests Start: 04/15/21 18:08 Freq: Status: Active Protocol: Document 04/16/21 08:20 [facility] (Rec: 04/16/21 09:29 [facility] [id number]) Special Tests Lumbar Spine Special Tests iliac crest distraction Test Results mild pain SI compression Test Results neg SLR Test Results B neg Comments 90/90 HS lacking 20 deg L; Lacking 27 deg R Hip Special Tests scour Comments L: slight discomfort in groin + into add R: pain + FADIR Comments L neg R positive -unable to get into position HARSH Comments L positive R positive for tightness and pull into PT-OP-M Strength Start: 04/15/21 18:08 Freq: Status: Active Protocol: Document 04/16/21 08:20 [facility] (Rec: 04/16/21 09:29 [facility] [id number]) Hip Strength Hip Manual Muscle Testing Right Flexion (L2) 3+ Fair+ Extension (S1) 4- Good- Abduction 4- Good- Adduction 4- Good- External Rotation 4+ Good+ Internal Rotation 3+ Fair+ Comments pain w/IR& abd testing Left Flexion (L2) 3+ Fair+ Extension (S1) 4- Good- Abduction 4 Good Adduction 4 Good External Rotation 3+ Fair+ Internal Rotation 4+ Good+ Knee Strength Knee Manual Muscle Testing Right Flexion (S2) 5 Normal Extension (L3) 5 Normal Left Flexion (S2) 5 Normal Extension (L3) 5 Normal Ankle/Foot Strength Ankle and Foot Manual Muscle Testing Right Dorsiflexion (L4) 5 Normal Left Dorsiflexion (L4) 4+ Good+ PT-OP-Q Treatments Start: 04/15/21 18:08 Freq: Status: Active Protocol: Document 05/29/21 09:05 [facility] (Rec: 05/29/21 10:36 [facility] [id number]) Therapeutic Exercises Standing Exercises hip hike Side bilateral Equipment Used step w/rail Reps/Minutes 15 Gait Training Gait Activity gait at wall Description b Distance/Duration 5 sec x4 wt acceptance Description SLS working on no lat lean wt shifts Description fwd in mirror working on wt acceptance w/o lat lean Manual Therapy Treatment Soft Tissue Mobilization TFL Body Location R Mobilization Type Strumming Intensity/Depth Moderate Body Position Hooklying Comments figure 4 ER/IR QL Body Location R Mobilization Type Rolling,Strumming,Sustained Pressure Intensity/Depth Moderate Comments c/r w/ant elevation abdomenal Body Location R Mobilization Type Sustained Pressure Comments w/c/r post dep Neuro Re-Education Treatment Other Activities PNF Details post dep R Comments 1. rhythmic initiation 2. sustained hold pelvis progressed to w/LE pattern 3. COI pelvic pattern progressed to w/LE pattern PT-OP-T Assessment and Plan Start: 04/15/21 18:08 Freq: Status: Active Protocol: Document 05/29/21 09:05 [facility] (Rec: 05/29/21 10:36 [facility] [id number]) Physical Therapy Assessment Goals squating Short Term Goal (STG) Pt will be able to squat as needed for lifting and yard work activities w/good mechanics and no pain. STG Duration 05/17/21 Intermediate Goal (LTG) Pt will be able to get up/down from the ground smoothly w/o pain or outside suppport or feeling that she has to be cautious. LTG Duration 06/17/21 activities Short Term Goal (STG) Pt will be able to prop herself when sleeping in order to sleep w/o inc pain in knee or hip. STG Duration 05/17/20 [employer] Comp[employer] Mixer Goal (LTG) Pt will be able to walk long walks w/hills w/o inc in pain. LTG Duration 06/17/21 ROM Short Term Goal (STG) Pt will have full R hip ROM w/ o pain. STG Duration 05/17/21 Intermediate Goal (LTG) Pt will be able to sit for as long as needed w/o inc R hip pain. LTG Duration 06/17/21 strength Short Term Goal (STG) Pt will be indep w/HEP STG Duration 05/17/21 Intermediate Goal (LTG) Pt will score at least 3/5 LPM and 5/5 LEs B in order to show improved stability and ability to do all typical activities w/o pain. LTG Duration 06/17/21 Assessment Summary Assessment Pt had imrpoved ER w/manual w/ greater ease. She has dec activiation of glute med w/ gait and has difficulty engaging it with exercises. She Physical Therapy Plan Frequency and Duration Frequency of Treatment 2x/Week Duration of Treatment 2 months Plan of Care Start Date 04/16/21 Plan of Care End Date 06/17/21 Next Visit Focus/Plan Next Note Type Treatment Note Next Visit Plan check pubic mobility & iscial tuberosity mobility, TFL mobility
--- NOTE | 2021-06-05 10:18 | PT.OTN ---
Current Diagnoses Pain in right hip (06/05/21) Pain in left knee (06/05/21) Difficulty in walking, not elsewhere classified (06/05/21) Abnormal posture (06/05/21) Weakness (06/05/21) Physical Therapy Treatment Note PT-OP-A Visit Information Start: 04/15/21 18:08 Freq: Status: Active Protocol: Document 06/05/21 10:03 [facility] (Rec: 06/05/21 10:18 [facility] [id number]) Out-Patient Physical Therapy Visit Information Visit Information Visit Type Treatment Note Visit Note 01/24 Visit Start Time 09:07 Visit Stop Time 09:50 Total Visit Minutes 43 Visit Number 9 Number of CIRCUITS ENGINEER Visits 0 PT-OP-B Current Condition Start: 04/15/21 18:08 Freq: Status: Active Protocol: Document 04/16/21 08:20 [facility] (Rec: 04/16/21 09:29 [facility] [id number]) Current Condition History of Current Condition Onset Date 3 months Current Complaints R hip History of Current Condition Pt reports pain in R groin pretty sharp and there is a sensation of grinding. She noticed it most when walking around the chair where she was add and flex and bumped her leg and it was so severe and couldn't move for a couple min and another time bumped it into flex add when going into car. 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 Pt reports it got better when she cannot walk and do all the hills she would typically d d/ t weather. Pt reports L knee has been bothering her and mostly at night. Note she has more flatness of feet and got shoes taht are good for flat feet. Pt reports she feels like squatting she is weak and doesn't feel like she can just squat down to pick[employer] her 1 year old grandchild. Pt reports she is careful when she gets up/down from the floor. Pt is doing yard work a lot also. She has also been caring for her family d/t mult sicknesses. Pt has been able to work in the yard only for 2 hours before she gets worse. Future Testing and Treatments Planned CT scan today Treatment Goals Patient/Caregiver Goals Be able to do as much yard work as she wants, be able to improve strength and have resisted and BW exercise program for home, be able to walk hills, be stronger and have easier time getting on/ off floor, greater ease w/ squat PT-OP-C Subjective Start: 04/15/21 18:08 Freq: Status: Active Protocol: Document 06/05/21 10:03 [facility] (Rec: 06/05/21 10:18 [facility] [id number]) OP-PT Subjective Patient Comments Patient Comments Pt reports walking up to 2.5 miles with some soreness in lat hip and or groin in evening after. Notes still some lat hip twinges PT-OP-F Manual Assessment Start: 04/15/21 18:08 Freq: Status: Active Protocol: Document 04/16/21 08:20 [facility] (Rec: 04/16/21 09:29 [facility] [id number]) Manual Assessments Joint Mobility Assessment Joint Mobility Assessment discomfort w/pubic symphsis press into R groin region Other Manual Assessments Other Manual Assessments R iliac crest higher, R SI post (some point tenderness), PT-OP-G Mobility & Gait Start: 04/15/21 18:08 Freq: Status: Active Protocol: Document 04/16/21 08:20 [facility] (Rec: 04/16/21 09:29 [facility] [id number]) OP Gait Assessment Comments Gait Comments Pt has dec stance time on RLE w/dec push off, dec arm swing, harder hit onto LLe PT-OP-J Posture/Palpation/Skin Start: 04/15/21 18:08 Freq: Status: Active Protocol: Document 04/16/21 08:20 [facility] (Rec: 04/16/21 09:29 [facility] [id number]) Posture Evaluation [facility] Postural Classification System [facility] Postural Classifications Posterior/Posterior Vertebral Compression Test 2 Lumbar Protective Mechanism Left AP 1 Lumbar Protective Mechanism Right AP 0 Lumbar Protective Mechanism Left PA 0 Lumbar Protective Mechanism Right PA 0 PT-OP-K Range of Motion Start: 04/15/21 18:08 Freq: Status: Active Protocol: Document 04/16/21 08:20 [facility] (Rec: 04/16/21 09:29 [facility] [id number]) Hip Goniometric Range of Motion Hip Right Active Flexion w/Knee Flexed 105 Internal Rotation 28 External Rotation 25 Comments discomfort in buttocks w/IR; groin discomfort w/R flex more comfortable w/flex add w/ ASIS distraction Left Active Flexion w/Knee Flexed 110 Internal Rotation 24 External Rotation 26 PT-OP-L Special Tests Start: 04/15/21 18:08 Freq: Status: Active Protocol: Document 04/16/21 08:20 [facility] (Rec: 04/16/21 09:29 [facility] [id number]) Special Tests Lumbar Spine Special Tests iliac crest distraction Test Results mild pain SI compression Test Results neg SLR Test Results B neg Comments 90/90 HS lacking 20 deg L; Lacking 27 deg R Hip Special Tests scour Comments L: slight discomfort in groin + into add R: pain + FADIR Comments L neg R positive -unable to get into position HARSH Comments L positive R positive for tightness and pull into PT-OP-M Strength Start: 04/15/21 18:08 Freq: Status: Active Protocol: Document 04/16/21 08:20 [facility] (Rec: 04/16/21 09:29 [facility] [id number]) Hip Strength Hip Manual Muscle Testing Right Flexion (L2) 3+ Fair+ Extension (S1) 4- Good- Abduction 4- Good- Adduction 4- Good- External Rotation 4+ Good+ Internal Rotation 3+ Fair+ Comments pain w/IR& abd testing Left Flexion (L2) 3+ Fair+ Extension (S1) 4- Good- Abduction 4 Good Adduction 4 Good External Rotation 3+ Fair+ Internal Rotation 4+ Good+ Knee Strength Knee Manual Muscle Testing Right Flexion (S2) 5 Normal Extension (L3) 5 Normal Left Flexion (S2) 5 Normal Extension (L3) 5 Normal Ankle/Foot Strength Ankle and Foot Manual Muscle Testing Right Dorsiflexion (L4) 5 Normal Left Dorsiflexion (L4) 4+ Good+ PT-OP-Q Treatments Start: 04/15/21 18:08 Freq: Status: Active Protocol: Document 06/05/21 10:03 [facility] (Rec: 06/05/21 10:18 [facility] [id number]) Therapeutic Exercises Standing Exercises lunge Standing Exercise Name in mirror Side bilateral Reps/Minutes 5 Manual Therapy Treatment Soft Tissue Mobilization post Body Location HS, lat and inf glutes Mobilization Type Rolling,Strumming Intensity/Depth Moderate Body Position Hooklying Comments in figure 4 IR/ER TFL Body Location R Mobilization Type Strumming Intensity/Depth Moderate Body Position Hooklying Comments figure 4 ER/IR iliacus Body Location R iliacus, inguinal ligament Mobilization Type Strumming,Sustained Pressure Intensity/Depth Moderate Body Position Supine Comments w/hip IR/ER in figure 4 Joint Mobilizations innominate Joint R Direction flex & ER pressure together in figure 4 FM hip Joint R Direction inf glide FM Comments in figure 4 position Neuro Re-Education Treatment Other Activities PNF Details post dep R Comments 1. rhythmic initiation 2. sustained holds pelvis progressed to w/LE pattern Self-Care/Home Management Treatment Education Other Education discussion of slow progression back to hiking and not trying things too technical or hilly. discussed how shoveling could have irritated pubic symphysis area PT-OP-T Assessment and Plan Start: 04/15/21 18:08 Freq: Status: Active Protocol: Document 06/05/21 10:03 [facility] (Rec: 06/05/21 10:18 [facility] [id number]) Physical Therapy Assessment Goals squating Short Term Goal (STG) Pt will be able to squat as needed for lifting and yard work activities w/good mechanics and no pain. STG Duration 05/17/21 Emergency Room Registered Nurse Goal (LTG) Pt will be able to get up/down from the ground smoothly w/o pain or outside suppport or feeling that she has to be cautious. LTG Duration 06/17/21 activities Short Term Goal (STG) Pt will be able to prop herself when sleeping in order to sleep w/o inc pain in knee or hip. STG Duration 05/17/20 Fpc Goal (LTG) Pt will be able to walk long walks w/hills w/o inc in pain. LTG Duration 06/17/21 ROM Short Term Goal (STG) Pt will have full R hip ROM w/ o pain. STG Duration 05/17/21 Emergency Room Registered Nurse Goal (LTG) Pt will be able to sit for as long as needed w/o inc R hip pain. LTG Duration 06/17/21 strength Short Term Goal (STG) Pt will be indep w/HEP STG Duration 05/17/21 Fpc Goal (LTG) Pt will score at least 3/5 LPM and 5/5 LEs B in order to show improved stability and ability to do all typical activities w/o pain. LTG Duration 06/17/21 Assessment Summary Assessment Improved facilitation into post depression pattern after 2nd prolonged hold today.S he is doing better w/lunges but cues to keep hand son hips to monitor hip. Improved ER in figure 4 position to equal of other side w/only some pull in groin by end of session. Physical Therapy Plan Frequency and Duration Frequency of Treatment 2x/Week Duration of Treatment 2 months Plan of Care Start Date 04/16/21 Plan of Care End Date 06/17/21 Next Visit Focus/Plan Next Note Type Progress Note Next Visit Plan check pubic mobility & iscial tuberosity mobility, work on post dep
--- NOTE | 2021-06-09 10:21 | PT.OTN ---
Current Diagnoses Pain in right hip (06/09/21) Pain in left knee (06/09/21) Difficulty in walking, not elsewhere classified (06/09/21) Abnormal posture (06/09/21) Weakness (06/09/21) Physical Therapy Treatment Note PT-OP-A Visit Information Start: 04/15/21 18:08 Freq: Status: Active Protocol: Document 06/09/21 09:05 [facility] (Rec: 06/09/21 10:21 [facility] [id number]) Out-Patient Physical Therapy Visit Information Visit Information Visit Type Progress Note Visit Note 05/26 Visit Start Time 09:05 Visit Stop Time 09:45 Total Visit Minutes 40 Visit Number 10 Number of ELECTRONIC INTEGRATED SYSTEMS MECHANIC Visits 0 PT-OP-B Current Condition Start: 04/15/21 18:08 Freq: Status: Active Protocol: Document 04/16/21 08:20 [facility] (Rec: 04/16/21 09:29 [facility] [id number]) Current Condition History of Current Condition Onset Date 3 months Current Complaints R hip History of Current Condition Pt reports pain in R groin pretty sharp and there is a sensation of grinding. She noticed it most when walking around the chair where she was add and flex and bumped her leg and it was so severe and couldn't move for a couple min and another time bumped it into flex add when going into car. 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 Pt reports it got better when she cannot walk and do all the hills she would typically d d/ t weather. Pt reports L knee has been bothering her and mostly at night. Note she has more flatness of feet and got shoes taht are good for flat feet. Pt reports she feels like squatting she is weak and doesn't feel like she can just squat down to bulk picker her 1 year old grandchild. Pt reports she is careful when she gets up/down from the floor. Pt is doing yard work a lot also. She has also been caring for her family d/t mult sicknesses. Pt has been able to work in the yard only for 2 hours before she gets worse. Future Testing and Treatments Planned CT scan today Treatment Goals Patient/Caregiver Goals Be able to do as much yard work as she wants, be able to improve strength and have resisted and BW exercise program for home, be able to walk hills, be stronger and have easier time getting on/ off floor, greater ease w/ squat PT-OP-C Subjective Start: 04/15/21 18:08 Freq: Status: Active Protocol: Document 06/09/21 09:05 [facility] (Rec: 06/09/21 10:21 [facility] [id number]) OP-PT Subjective Patient Comments Patient Comments Pt notes R glute was sore after last session. Notes she had a sharp pain at lat R hip one time this weekend PT-OP-F Manual Assessment Start: 04/15/21 18:08 Freq: Status: Active Protocol: Document 04/16/21 08:20 [facility] (Rec: 04/16/21 09:29 [facility] [id number]) Manual Assessments Joint Mobility Assessment Joint Mobility Assessment discomfort w/pubic symphsis press into R groin region Other Manual Assessments Other Manual Assessments R iliac crest higher, R SI post (some point tenderness), PT-OP-G Mobility & Gait Start: 04/15/21 18:08 Freq: Status: Active Protocol: Document 04/16/21 08:20 [facility] (Rec: 04/16/21 09:29 [facility] [id number]) OP Gait Assessment Comments Gait Comments Pt has dec stance time on RLE w/dec push off, dec arm swing, harder hit onto LLe PT-OP-J Posture/Palpation/Skin Start: 04/15/21 18:08 Freq: Status: Active Protocol: Document 04/16/21 08:20 [facility] (Rec: 04/16/21 09:29 [facility] [id number]) Posture Evaluation Rocio Postural Classification System Rocio Postural Classifications Posterior/Posterior Vertebral Compression Test 2 Lumbar Protective Mechanism Left AP 1 Lumbar Protective Mechanism Right AP 0 Lumbar Protective Mechanism Left PA 0 Lumbar Protective Mechanism Right PA 0 PT-OP-K Range of Motion Start: 04/15/21 18:08 Freq: Status: Active Protocol: Document 04/16/21 08:20 [facility] (Rec: 04/16/21 09:29 [facility] [id number]) Hip Goniometric Range of Motion Hip Right Active Flexion w/Knee Flexed 105 Internal Rotation 28 External Rotation 25 Comments discomfort in buttocks w/IR; groin discomfort w/R flex more comfortable w/flex add w/ ASIS distraction Left Active Flexion w/Knee Flexed 110 Internal Rotation 24 External Rotation 26 PT-OP-L Special Tests Start: 04/15/21 18:08 Freq: Status: Active Protocol: Document 04/16/21 08:20 [facility] (Rec: 04/16/21 09:29 [facility] [id number]) Special Tests Lumbar Spine Special Tests iliac crest distraction Test Results mild pain SI compression Test Results neg SLR Test Results B neg Comments 90/90 HS lacking 20 deg L; Lacking 27 deg R Hip Special Tests scour Comments L: slight discomfort in groin + into add R: pain + FADIR Comments L neg R positive -unable to get into position HARSH Comments L positive R positive for tightness and pull into PT-OP-M Strength Start: 04/15/21 18:08 Freq: Status: Active Protocol: Document 04/16/21 08:20 [facility] (Rec: 04/16/21 09:29 [facility] [id number]) Hip Strength Hip Manual Muscle Testing Right Flexion (L2) 3+ Fair+ Extension (S1) 4- Good- Abduction 4- Good- Adduction 4- Good- External Rotation 4+ Good+ Internal Rotation 3+ Fair+ Comments pain w/IR& abd testing Left Flexion (L2) 3+ Fair+ Extension (S1) 4- Good- Abduction 4 Good Adduction 4 Good External Rotation 3+ Fair+ Internal Rotation 4+ Good+ Knee Strength Knee Manual Muscle Testing Right Flexion (S2) 5 Normal Extension (L3) 5 Normal Left Flexion (S2) 5 Normal Extension (L3) 5 Normal Ankle/Foot Strength Ankle and Foot Manual Muscle Testing Right Dorsiflexion (L4) 5 Normal Left Dorsiflexion (L4) 4+ Good+ PT-OP-Q Treatments Start: 04/15/21 18:08 Freq: Status: Active Protocol: Document 06/09/21 09:05 [facility] (Rec: 06/09/21 10:21 [facility] [id number]) Therapeutic Exercises Sitting Exercises stretch Sitting Exercise Name self mob of small intensine Side bilateral Reps/Minutes 10 Comments w/lumbar flex/ext Standing Exercises hip hike Side bilateral Equipment Used step w/rail Reps/Minutes 10 Comments cues to avoid post rot of pelvis and lumbar ext lunge Standing Exercise Name in mirror Side bilateral Reps/Minutes 5 Comments cues for larger step & lower lunge Gait Training Gait Activity gait Distance/Duration 6x50ft Comments exaggerated in mann work on focus on push off gait at wall Description b Distance/Duration 10 sec x3 Comments focus on no lat lean wt acceptance Description SLS working on no lat lean or hip shear Comments in mirror resisted Description w/dowel for push off Distance/Duration 2x50ft Comments then focusing on push off without resistance Manual Therapy Treatment Soft Tissue Mobilization abdomenal Body Location R to L Mobilization Type Sustained Pressure Comments in figure 4 Joint Mobilizations ischial tuberosity Joint R gapping Direction FM Body Position Sitting PT-OP-T Assessment and Plan Start: 04/15/21 18:08 Freq: Status: Active Protocol: Document 06/09/21 09:05 [facility] (Rec: 06/09/21 10:21 [facility] [id number]) Physical Therapy Assessment Goals squating Short Term Goal (STG) Pt will be able to squat as needed for lifting and yard work activities w/good mechanics and no pain. STG Duration achieved Soda Maker Goal (LTG) Pt will be able to get up/down from the ground smoothly w/o pain or outside suppport or feeling that she has to be cautious. 06/09-some weakness w/getting up from ground from 12 kneel still LTG Duration 07/10/21 activities Short Term Goal (STG) Pt will be able to prop herself when sleeping in order to sleep w/o inc pain in knee or hip. STG Duration achieved Soda Maker Goal (LTG) Pt will be able to walk long walks w/hills w/o inc in pain. 06/09-gradually progressing- only short walks so far w/mild R lat hip discomfort LTG Duration 07/10/21 ROM Short Term Goal (STG) Pt will have full R hip ROM w/ o pain. STG Duration achieved 06/09-slight discomfort in AM Soda Maker Goal (LTG) Pt will be able to sit for as long as needed w/o inc R hip pain. 06/09-still some stiffness LTG Duration 07/10 strength Short Term Goal (STG) Pt will be indep w/HEP STG Duration achieved progress as needed [facility] Goal (LTG) Pt will score at least 3/5 LPM and 5/5 LEs B in order to show improved stability and ability to do all typical activities w/o pain. 06/09-functionally improving LTG Duration 07/10 Assessment Summary Assessment Pt had no pain in seated figure 4 after manual treatment to abdomen and it felt same as opposite side to be in that position. She is progressing functionally very well and has improved hip flex /ER without pain. She is sleeping better and has started to progress gera to walking again.She gets R hip shear w/WB to RLE still except when heavily working on push off. She would benefit from cont PT to work on progression of cont deficits w/weakness and gait. Physical Therapy Plan Frequency and Duration Frequency of Treatment 2x/Week Duration of Treatment 2 months Plan of Care Start Date 06/09/21 Plan of Care End Date 07/10/21 Therapeutic Interventions Therapeutic Interventions Aquatic Therapy,Balance Training,Gait Training,Home Exercise Program,Joint Mobilizations,Manual Therapy, Neuromuscular Re-education, Patient/Caregiver Education, Self-Care/Home Management,Soft Tissue Mobilization,Taping, Therapeutic Activities, Therapeutic Exercises Modalities Cold Pack/Ice Massage,Electric Stimulation,Hot Packs, Ultrasound Next Visit Focus/Plan Next Note Type Treatment Note Next Visit Plan MMT & LPM,check pubic mobility . work on post dep
--- NOTE | 2021-06-09 10:21 | PT.OPPOC ---
Physical, Occupational & Speech Therapy At [facility] Current Diagnoses Pain in right hip (06/09/21) Pain in left knee (06/09/21) Difficulty in walking, not elsewhere classified (06/09/21) Abnormal posture (06/09/21) Weakness (06/09/21) Visit Care Team Role Provider Type Kathia Foster DO Attending Provider Physician Family Provider Primary Care Provider Referring Provider Specialty: Family Practice Address: [address] [place] [address], [address], [facility] Email: [email or web address] Plan Of Care PT-OP-T Assessment and Plan Start: 04/15/21 18:08 Freq: Status: Active Protocol: Document 06/09/21 09:05 [facility] (Rec: 06/09/21 10:21 [facility] [id number]) Physical Therapy Assessment Goals squating Short Term Goal (STG) Pt will be able to squat as needed for lifting and yard work activities w/good mechanics and no pain. STG Duration achieved Station Worker Goal (LTG) Pt will be able to get up/down from the ground smoothly w/o pain or outside suppport or feeling that she has to be cautious. 06/09-some weakness w/getting up from ground from 1/2 kneel still LTG Duration 07/10/21 activities Short Term Goal (STG) Pt will be able to prop herself when sleeping in order to sleep w/o inc pain in knee or hip. STG Duration achieved Station Worker Goal (LTG) Pt will be able to walk long walks w/hills w/o inc in pain. 06/09-gradually progressing- only short walks so far w/mild R lat hip discomfort LTG Duration 07/10/21 ROM Short Term Goal (STG) Pt will have full R hip ROM w/ o pain. STG Duration achieved 06/09-slight discomfort in AM [facility] Goal (LTG) Pt will be able to sit for as long as needed w/o inc R hip pain. 06/09-still some stiffness LTG Duration 07/10 strength Short Term Goal (STG) Pt will be indep w/HEP STG Duration achieved progress as needed [facility] Goal (LTG) Pt will score at least 3/5 LPM and 5/5 LEs B in order to show improved stability and ability to do all typical activities w/o pain. 06/09-functionally improving LTG Duration 07/10 Assessment Summary Assessment Pt had no pain in seated figure 4 after manual treatment to abdomen and it felt same as opposite side to be in that position. She is progressing functionally very well and has improved hip flex /ER without pain. She is sleeping better and has started to progress gera to walking again.She gets R hip shear w/WB to RLE still except when heavily working on push off. She would benefit from cont PT to work on progression of cont deficits w/weakness and gait. Physical Therapy Plan Frequency and Duration Frequency of Treatment 2x/Week Duration of Treatment 2 months Plan of Care Start Date 06/09/21 Plan of Care End Date 07/10/21 Therapeutic Interventions Therapeutic Interventions Aquatic Therapy,Balance Training,Gait Training,Home Exercise Program,Joint Mobilizations,Manual Therapy, Neuromuscular Re-education, Patient/Caregiver Education, Self-Care/Home Management,Soft Tissue Mobilization,Taping, Therapeutic Activities, Therapeutic Exercises Modalities Cold Pack/Ice Massage,Electric Stimulation,Hot Packs, Ultrasound Next Visit Focus/Plan Next Note Type Treatment Note Next Visit Plan MMT & LPM,check pubic mobility . work on post dep Plan of Care Dates Plan of Care Start Date 06/09/21 Plan of Care End Date 07/10/21 Electronically Signed by: Ban Tovar, PT 06/09/21 1021 Please Sign and Return: I have reviewed this Plan of Care and certify that the skilled therapy services above are required to meet the patient?s needs. Physician Signature Date Printed Name and Credentials Clinical Instructor Signature Printed Name and Credentials
--- NOTE | 2021-06-12 09:47 | PT.OTN ---
Current Diagnoses Pain in right hip (06/12/21) Pain in left knee (06/12/21) Difficulty in walking, not elsewhere classified (06/12/21) Abnormal posture (06/12/21) Weakness (06/12/21) Physical Therapy Treatment Note PT-OP-A Visit Information Start: 04/15/21 18:08 Freq: Status: Active Protocol: Document 06/12/21 09:03 [facility] (Rec: 06/12/21 09:47 [facility] [id number]) Out-Patient Physical Therapy Visit Information Visit Information Visit Type Treatment Note Visit Note 06/26 Visit Start Time 09:04 Visit Stop Time 09:43 Total Visit Minutes 39 Visit Number 11 Number of MEDICAL STAFF PHYSICIAN Visits 0 PT-OP-B Current Condition Start: 04/15/21 18:08 Freq: Status: Active Protocol: Document 04/16/21 08:20 [facility] (Rec: 04/16/21 09:29 [facility] [id number]) Current Condition History of Current Condition Onset Date 3 months Current Complaints R hip History of Current Condition Pt reports pain in R groin pretty sharp and there is a sensation of grinding. She noticed it most when walking around the chair where she was add and flex and bumped her leg and it was so severe and couldn't move for a couple min and another time bumped it into flex add when going into car. 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 Pt reports it got better when she cannot walk and do all the hills she would typically d d/ t weather. Pt reports L knee has been bothering her and mostly at night. Note she has more flatness of feet and got shoes taht are good for flat feet. Pt reports she feels like squatting she is weak and doesn't feel like she can just squat down to bulk picker her 1 year old grandchild. Pt reports she is careful when she gets up/down from the floor. Pt is doing yard work a lot also. She has also been caring for her family d/t mult sicknesses. Pt has been able to work in the yard only for 2 hours before she gets worse. Future Testing and Treatments Planned CT scan today Treatment Goals Patient/Caregiver Goals Be able to do as much yard work as she wants, be able to improve strength and have resisted and BW exercise program for home, be able to walk hills, be stronger and have easier time getting on/ off floor, greater ease w/ squat PT-OP-C Subjective Start: 04/15/21 18:08 Freq: Status: Active Protocol: Document 06/12/21 09:03 [facility] (Rec: 06/12/21 09:47 [facility] [id number]) OP-PT Subjective Patient Comments Patient Comments Pt reports she did 2.5 miles yesterday and felt okay that night and during the walk. She felt like starting the hip started. Pt reports it still feels motor planning sanchez hard to walk like that PT-OP-F Manual Assessment Start: 04/15/21 18:08 Freq: Status: Active Protocol: Document 04/16/21 08:20 [facility] (Rec: 04/16/21 09:29 [facility] [id number]) Manual Assessments Joint Mobility Assessment Joint Mobility Assessment discomfort w/pubic symphsis press into R groin region Other Manual Assessments Other Manual Assessments R iliac crest higher, R SI post (some point tenderness), PT-OP-G Mobility & Gait Start: 04/15/21 18:08 Freq: Status: Active Protocol: Document 04/16/21 08:20 [facility] (Rec: 04/16/21 09:29 [facility] [id number]) OP Gait Assessment Comments Gait Comments Pt has dec stance time on RLE w/dec push off, dec arm swing, harder hit onto LLe PT-OP-J Posture/Palpation/Skin Start: 04/15/21 18:08 Freq: Status: Active Protocol: Document 04/16/21 08:20 [facility] (Rec: 04/16/21 09:29 [facility] [id number]) Posture Evaluation [facility] Postural Classification System Rocio Postural Classifications Posterior/Posterior Vertebral Compression Test 2 Lumbar Protective Mechanism Left AP 1 Lumbar Protective Mechanism Right AP 0 Lumbar Protective Mechanism Left PA 0 Lumbar Protective Mechanism Right PA 0 PT-OP-K Range of Motion Start: 04/15/21 18:08 Freq: Status: Active Protocol: Document 04/16/21 08:20 [facility] (Rec: 04/16/21 09:29 [facility] [id number]) Hip Goniometric Range of Motion Hip Right Active Flexion w/Knee Flexed 105 Internal Rotation 28 External Rotation 25 Comments discomfort in buttocks w/IR; groin discomfort w/R flex more comfortable w/flex add w/ ASIS distraction Left Active Flexion w/Knee Flexed 110 Internal Rotation 24 External Rotation 26 PT-OP-L Special Tests Start: 04/15/21 18:08 Freq: Status: Active Protocol: Document 04/16/21 08:20 [facility] (Rec: 04/16/21 09:29 [facility] [id number]) Special Tests Lumbar Spine Special Tests iliac crest distraction Test Results mild pain SI compression Test Results neg SLR Test Results B neg Comments 90/90 HS lacking 20 deg L; Lacking 27 deg R Hip Special Tests scour Comments L: slight discomfort in groin + into add R: pain + FADIR Comments L neg R positive -unable to get into position HARSH Comments L positive R positive for tightness and pull into PT-OP-M Strength Start: 04/15/21 18:08 Freq: Status: Active Protocol: Document 06/12/21 09:03 [facility] (Rec: 06/12/21 09:47 [facility] [id number]) Hip Strength Hip Manual Muscle Testing Right Flexion (L2) 4+ Good+ Extension (S1) 4 Good Abduction 5 Normal Adduction 5 Normal External Rotation 4+ Good+ Internal Rotation 4+ Good+ Comments pain w/IR& abd testing Left Flexion (L2) 5 Normal Extension (S1) 4 Good Abduction 5 Normal Adduction 5 Normal External Rotation 4+ Good+ Internal Rotation 5 Normal Knee Strength Knee Manual Muscle Testing Right Flexion (S2) 5 Normal Extension (L3) 5 Normal Left Flexion (S2) 5 Normal Extension (L3) 5 Normal Ankle/Foot Strength Ankle and Foot Manual Muscle Testing Right Dorsiflexion (L4) 5 Normal Plantarflexion (S1) 5 Normal Comments 20 SL heel raises B Left Dorsiflexion (L4) 5 Normal Plantarflexion (S1) 5 Normal PT-OP-Q Treatments Start: 04/15/21 18:08 Freq: Status: Active Protocol: Document 06/12/21 09:03 [facility] (Rec: 06/12/21 09:47 [facility] [id number]) Gym Equipment Sport Cord step up Cord/Resistance green Reps/Duration 10 B Comments step up w/alt march walk Cord/Resistance red Reps/Duration 15 Comments fwd walk Therapeutic Exercises Supine Exercises isometric Supine Exercise Name DL flex Side bilateral Reps/Minutes 30 secx Comments w/chin tuck Standing Exercises hip hike Side bilateral Equipment Used step w/rail Reps/Minutes 10 Comments cues to avoid post rot of pelvis and lumbar ext Gait Training Gait Activity gait Distance/Duration 2x50ft Comments work on push off wt acceptance Description SLS working on no lat lean or hip shear Comments in mirror wt shifts Description fwd in mirror working on wt acceptance w/o lat lean resisted Description w/dowel for push off Distance/Duration 2x50ft Comments then focusing on push off without resistance Manual Therapy Treatment Soft Tissue Mobilization QL Body Location R Mobilization Type Rolling,Strumming,Sustained Pressure Intensity/Depth Moderate Comments c/r w/ant elevation PT-OP-T Assessment and Plan Start: 04/15/21 18:08 Freq: Status: Active Protocol: Document 06/12/21 09:03 [facility] (Rec: 06/12/21 09:47 [facility] [id number]) Physical Therapy Assessment Goals squating Short Term Goal (STG) Pt will be able to squat as needed for lifting and yard work activities w/good mechanics and no pain. STG Duration achieved Custodial Goal (LTG) Pt will be able to get up/down from the ground smoothly w/o pain or outside suppport or feeling that she has to be cautious. 06/09-some weakness w/getting up from ground from 1/2 kneel still LTG Duration 07/10/21 activities Short Term Goal (STG) Pt will be able to prop herself when sleeping in order to sleep w/o inc pain in knee or hip. STG Duration achieved Custodial Goal (LTG) Pt will be able to walk long walks w/hills w/o inc in pain. 06/09-gradually progressing- only short walks so far w/mild R lat hip discomfort LTG Duration 07/10/21 ROM Short Term Goal (STG) Pt will have full R hip ROM w/ o pain. STG Duration achieved 06/09-slight discomfort in AM Custodial Goal (LTG) Pt will be able to sit for as long as needed w/o inc R hip pain. 06/09-still some stiffness LTG Duration 07/10 strength Short Term Goal (STG) Pt will be indep w/HEP STG Duration achieved progress as needed Brewing Director Goal (LTG) Pt will score at least 3/5 LPM and 5/5 LEs B in order to show improved stability and ability to do all typical activities w/o pain. 06/09-functionally improving LTG Duration 07/10 Assessment Summary Assessment Pt able to come in w/better firgure 4 position without even needing to warm up. Had to work on cues to push off w/ BLEs not just focus on R as she was getting hard slap on R d/t less push off on L. Improved gait mechanics today. Physical Therapy Plan Frequency and Duration Frequency of Treatment 2x/Week Duration of Treatment 2 months Plan of Care Start Date 06/09/21 Plan of Care End Date 07/10/21 Next Visit Focus/Plan Next Note Type Treatment Note Next Visit Plan check pubic mobility. work on post dep for gait
--- NOTE | 2021-06-19 12:31 | PT.OTN ---
Current Diagnoses Pain in right hip (06/19/21) Pain in left knee (06/19/21) Difficulty in walking, not elsewhere classified (06/19/21) Abnormal posture (06/19/21) Weakness (06/19/21) Physical Therapy Treatment Note PT-OP-A Visit Information Start: 04/15/21 18:08 Freq: Status: Active Protocol: Document 06/19/21 09:05 [facility] (Rec: 06/19/21 12:31 [facility] [id number]) Out-Patient Physical Therapy Visit Information Visit Information Visit Type Treatment Note Visit Note 07/24 Visit Start Time 09:06 Visit Stop Time 09:45 Total Visit Minutes 39 Visit Number 12 Number of MATCH UP PERSON Visits 0 PT-OP-B Current Condition Start: 04/15/21 18:08 Freq: Status: Active Protocol: Document 04/16/21 08:20 [facility] (Rec: 04/16/21 09:29 [facility] [id number]) Current Condition History of Current Condition Onset Date 3 months Current Complaints R hip History of Current Condition Pt reports pain in R groin pretty sharp and there is a sensation of grinding. She noticed it most when walking around the chair where she was add and flex and bumped her leg and it was so severe and couldn't move for a couple min and another time bumped it into flex add when going into car. 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 Pt reports it got better when she cannot walk and do all the hills she would typically d d/ t weather. Pt reports L knee has been bothering her and mostly at night. Note she has more flatness of feet and got shoes taht are good for flat feet. Pt reports she feels like squatting she is weak and doesn't feel like she can just squat down to warp picker her 1 year old grandchild. Pt reports she is careful when she gets up/down from the floor. Pt is doing yard work a lot also. She has also been caring for her family d/t mult sicknesses. Pt has been able to work in the yard only for 2 hours before she gets worse. Future Testing and Treatments Planned CT scan today Treatment Goals Patient/Caregiver Goals Be able to do as much yard work as she wants, be able to improve strength and have resisted and BW exercise program for home, be able to walk hills, be stronger and have easier time getting on/ off floor, greater ease w/ squat PT-OP-C Subjective Start: 04/15/21 18:08 Freq: Status: Active Protocol: Document 06/19/21 09:05 [facility] (Rec: 06/19/21 12:31 [facility] [id number]) OP-PT Subjective Patient Comments Patient Comments Pt did about 2 mile hike and felt okay. Did one long walk w /hills and made an effort to not to go so fast and be more intentional about her push off and gait and it felt pretty good. That day she did 3 miles . She did a total of 8 miles last week. PT-OP-F Manual Assessment Start: 04/15/21 18:08 Freq: Status: Active Protocol: Document 04/16/21 08:20 [facility] (Rec: 04/16/21 09:29 [facility] [id number]) Manual Assessments Joint Mobility Assessment Joint Mobility Assessment discomfort w/pubic symphsis press into R groin region Other Manual Assessments Other Manual Assessments R iliac crest higher, R SI post (some point tenderness), PT-OP-G Mobility & Gait Start: 04/15/21 18:08 Freq: Status: Active Protocol: Document 04/16/21 08:20 [facility] (Rec: 04/16/21 09:29 [facility] [id number]) OP Gait Assessment Comments Gait Comments Pt has dec stance time on RLE w/dec push off, dec arm swing, harder hit onto LLe PT-OP-J Posture/Palpation/Skin Start: 04/15/21 18:08 Freq: Status: Active Protocol: Document 04/16/21 08:20 [facility] (Rec: 04/16/21 09:29 [facility] [id number]) Posture Evaluation Rocio Postural Classification System Rocio Postural Classifications Posterior/Posterior Vertebral Compression Test 2 Lumbar Protective Mechanism Left AP 1 Lumbar Protective Mechanism Right AP 0 Lumbar Protective Mechanism Left PA 0 Lumbar Protective Mechanism Right PA 0 PT-OP-K Range of Motion Start: 04/15/21 18:08 Freq: Status: Active Protocol: Document 04/16/21 08:20 [facility] (Rec: 04/16/21 09:29 [facility] [id number]) Hip Goniometric Range of Motion Hip Right Active Flexion w/Knee Flexed 105 Internal Rotation 28 External Rotation 25 Comments discomfort in buttocks w/IR; groin discomfort w/R flex more comfortable w/flex add w/ ASIS distraction Left Active Flexion w/Knee Flexed 110 Internal Rotation 24 External Rotation 26 PT-OP-L Special Tests Start: 04/15/21 18:08 Freq: Status: Active Protocol: Document 04/16/21 08:20 [facility] (Rec: 04/16/21 09:29 [facility] [id number]) Special Tests Lumbar Spine Special Tests iliac crest distraction Test Results mild pain SI compression Test Results neg SLR Test Results B neg Comments 90/90 HS lacking 20 deg L; Lacking 27 deg R Hip Special Tests scour Comments L: slight discomfort in groin + into add R: pain + FADIR Comments L neg R positive -unable to get into position HARSH Comments L positive R positive for tightness and pull into PT-OP-M Strength Start: 04/15/21 18:08 Freq: Status: Active Protocol: Document 06/12/21 09:03 [facility] (Rec: 06/12/21 09:47 [facility] [id number]) Hip Strength Hip Manual Muscle Testing Right Flexion (L2) 4+ Good+ Extension (S1) 4 Good Abduction 5 Normal Adduction 5 Normal External Rotation 4+ Good+ Internal Rotation 4+ Good+ Comments pain w/IR& abd testing Left Flexion (L2) 5 Normal Extension (S1) 4 Good Abduction 5 Normal Adduction 5 Normal External Rotation 4+ Good+ Internal Rotation 5 Normal Knee Strength Knee Manual Muscle Testing Right Flexion (S2) 5 Normal Extension (L3) 5 Normal Left Flexion (S2) 5 Normal Extension (L3) 5 Normal Ankle/Foot Strength Ankle and Foot Manual Muscle Testing Right Dorsiflexion (L4) 5 Normal Plantarflexion (S1) 5 Normal Comments 20 SL heel raises B Left Dorsiflexion (L4) 5 Normal Plantarflexion (S1) 5 Normal PT-OP-Q Treatments Start: 04/15/21 18:08 Freq: Status: Active Protocol: Document 06/19/21 09:05 [facility] (Rec: 06/19/21 12:31 [facility] [id number]) Therapeutic Exercises Standing Exercises wt shift Standing Exercise Name to SLS Side right Reps/Minutes 6 Comments to hold for 10 sec lunge Standing Exercise Name in mirror Side bilateral Reps/Minutes 10 Comments cues for larger step & lower lunge squat Standing Exercise Name squat Side bilateral Equipment Used L2 band Reps/Minutes 2x10 Manual Therapy Treatment Soft Tissue Mobilization post Body Location lat & post glutes Mobilization Type Rolling,Strumming Intensity/Depth Moderate Body Position Hooklying TFL Body Location R Mobilization Type Strumming Intensity/Depth Moderate Body Position Sidelying QL Body Location R Mobilization Type Rolling,Strumming,Sustained Pressure Intensity/Depth Moderate Comments c/r w/ant elevation PT-OP-T Assessment and Plan Start: 04/15/21 18:08 Freq: Status: Active Protocol: Document 06/19/21 09:05 [facility] (Rec: 06/19/21 12:31 [facility] [id number]) Physical Therapy Assessment Goals squating Short Term Goal (STG) Pt will be able to squat as needed for lifting and yard work activities w/good mechanics and no pain. STG Duration achieved Halfway Goal (LTG) Pt will be able to get up/down from the ground smoothly w/o pain or outside suppport or feeling that she has to be cautious. 06/09-some weakness w/getting up from ground from 05/18 kneel still LTG Duration 07/10/21 activities Short Term Goal (STG) Pt will be able to prop herself when sleeping in order to sleep w/o inc pain in knee or hip. STG Duration achieved Halfway Goal (LTG) Pt will be able to walk long walks w/hills w/o inc in pain. 06/09-gradually progressing- only short walks so far w/mild R lat hip discomfort LTG Duration 07/10/21 ROM Short Term Goal (STG) Pt will have full R hip ROM w/ o pain. STG Duration achieved 06/09-slight discomfort in AM Halfway Goal (LTG) Pt will be able to sit for as long as needed w/o inc R hip pain. 06/09-still some stiffness LTG Duration 07/10 strength Short Term Goal (STG) Pt will be indep w/HEP STG Duration achieved progress as needed [employer] Goal (LTG) Pt will score at least 3/5 LPM and 5/5 LEs B in order to show improved stability and ability to do all typical activities w/o pain. 06/09-functionally improving LTG Duration 07/10 Assessment Summary Assessment pt cont to improve w/exercise performance but still does require slowing down w/ exercises to focus on appropriate hip and knee position, but is much improved w/form Physical Therapy Plan Frequency and Duration Frequency of Treatment 2x/Week Duration of Treatment 2 months Plan of Care Start Date 06/09/21 Plan of Care End Date 07/10/21 Next Visit Focus/Plan Next Note Type Discharge Summary Next Visit Plan check pubic mobility. work on post dep for gait
--- NOTE | 2021-06-25 18:16 | PT.OPDS ---
Current Diagnoses Pain in right hip (06/19/21) Pain in left knee (06/19/21) Difficulty in walking, not elsewhere classified (06/19/21) Abnormal posture (06/19/21) Weakness (06/19/21) Visit Care Team Role Provider Type Kathia Foster DO Attending Provider Physician Family Provider Primary Care Provider Referring Provider Specialty: Family Practice Address: [address] [place] [address], [address], [facility] Email: [email or web address] Visit Number Visit Number 12 Discharge Summary PT-OP-B Current Condition Start: 04/15/21 18:08 Freq: Status: Active Protocol: Document 04/16/21 08:20 [facility] (Rec: 04/16/21 09:29 [facility] [id number]) Current Condition History of Current Condition Onset Date 3 months Current Complaints R hip History of Current Condition Pt reports pain in R groin pretty sharp and there is a sensation of grinding. She noticed it most when walking around the chair where she was add and flex and bumped her leg and it was so severe and couldn't move for a couple min and another time bumped it into flex add when going into car. 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 Pt reports it got better when she cannot walk and do all the hills she would typically d d/ t weather. Pt reports L knee has been bothering her and mostly at night. Note she has more flatness of feet and got shoes taht are good for flat feet. Pt reports she feels like squatting she is weak and doesn't feel like she can just squat down to hot die picker her 1 year old grandchild. Pt reports she is careful when she gets up/down from the floor. Pt is doing yard work a lot also. She has also been caring for her family d/t mult sicknesses. Pt has been able to work in the yard only for 2 hours before she gets worse. Future Testing and Treatments Planned CT scan today Treatment Goals Patient/Caregiver Goals Be able to do as much yard work as she wants, be able to improve strength and have resisted and BW exercise program for home, be able to walk hills, be stronger and have easier time getting on/ off floor, greater ease w/ squat PT-OP-C Subjective Start: 04/15/21 18:08 Freq: Status: Active Protocol: Document 06/19/21 09:05 [facility] (Rec: 06/19/21 12:31 [facility] [id number]) OP-PT Subjective Patient Comments Patient Comments Pt did about 2 mile hike and felt okay. Did one long walk w /hills and made an effort to not to go so fast and be more intentional about her push off and gait and it felt pretty good. That day she did 3 miles . She did a total of 8 miles last week. PT-OP-F Manual Assessment Start: 04/15/21 18:08 Freq: Status: Active Protocol: Document 04/16/21 08:20 [facility] (Rec: 04/16/21 09:29 [facility] [id number]) Manual Assessments Joint Mobility Assessment Joint Mobility Assessment discomfort w/pubic symphsis press into R groin region Other Manual Assessments Other Manual Assessments R iliac crest higher, R SI post (some point tenderness), PT-OP-G Mobility & Gait Start: 04/15/21 18:08 Freq: Status: Active Protocol: Document 04/16/21 08:20 [facility] (Rec: 04/16/21 09:29 [facility] [id number]) OP Gait Assessment Comments Gait Comments Pt has dec stance time on RLE w/dec push off, dec arm swing, harder hit onto LLe PT-OP-J Posture/Palpation/Skin Start: 04/15/21 18:08 Freq: Status: Active Protocol: Document 04/16/21 08:20 [facility] (Rec: 04/16/21 09:29 [facility] [id number]) Posture Evaluation Rocio Postural Classification System Rocio Postural Classifications Posterior/Posterior Vertebral Compression Test 2 Lumbar Protective Mechanism Left AP 1 Lumbar Protective Mechanism Right AP 0 Lumbar Protective Mechanism Left PA 0 Lumbar Protective Mechanism Right PA 0 PT-OP-K Range of Motion Start: 04/15/21 18:08 Freq: Status: Active Protocol: Document 04/16/21 08:20 [facility] (Rec: 04/16/21 09:29 [facility] [id number]) Hip Goniometric Range of Motion Hip Right Active Flexion w/Knee Flexed 105 Internal Rotation 28 External Rotation 25 Comments discomfort in buttocks w/IR; groin discomfort w/R flex more comfortable w/flex add w/ ASIS distraction Left Active Flexion w/Knee Flexed 110 Internal Rotation 24 External Rotation 26 PT-OP-L Special Tests Start: 04/15/21 18:08 Freq: Status: Active Protocol: Document 04/16/21 08:20 [facility] (Rec: 04/16/21 09:29 [facility] [id number]) Special Tests Lumbar Spine Special Tests iliac crest distraction Test Results mild pain SI compression Test Results neg SLR Test Results B neg Comments 90/90 HS lacking 20 deg L; Lacking 27 deg R Hip Special Tests scour Comments L: slight discomfort in groin + into add R: pain + FADIR Comments L neg R positive -unable to get into position HARSH Comments L positive R positive for tightness and pull into PT-OP-M Strength Start: 04/15/21 18:08 Freq: Status: Active Protocol: Document 06/12/21 09:03 [facility] (Rec: 06/12/21 09:47 [facility] [id number]) Hip Strength Hip Manual Muscle Testing Right Flexion (L2) 4+ Good+ Extension (S1) 4 Good Abduction 5 Normal Adduction 5 Normal External Rotation 4+ Good+ Internal Rotation 4+ Good+ Comments pain w/IR& abd testing Left Flexion (L2) 5 Normal Extension (S1) 4 Good Abduction 5 Normal Adduction 5 Normal External Rotation 4+ Good+ Internal Rotation 5 Normal Knee Strength Knee Manual Muscle Testing Right Flexion (S2) 5 Normal Extension (L3) 5 Normal Left Flexion (S2) 5 Normal Extension (L3) 5 Normal Ankle/Foot Strength Ankle and Foot Manual Muscle Testing Right Dorsiflexion (L4) 5 Normal Plantarflexion (S1) 5 Normal Comments 20 SL heel raises B Left Dorsiflexion (L4) 5 Normal Plantarflexion (S1) 5 Normal PT-OP-T Assessment and Plan Start: 04/15/21 18:08 Freq: Status: Active Protocol: Document 06/25/21 18:14 [facility] (Rec: 06/25/21 18:16 [facility] [id number]) Physical Therapy Assessment Goals squating Short Term Goal (STG) Pt will be able to squat as needed for lifting and yard work activities w/good mechanics and no pain. STG Duration achieved Fpc Goal (LTG) Pt will be able to get up/down from the ground smoothly w/o pain or outside suppport or feeling that she has to be cautious. 06/09-some weakness w/getting up from ground from 1/2 kneel still LTG Duration some weakness but able w/o outside support or pain activities Short Term Goal (STG) Pt will be able to prop herself when sleeping in order to sleep w/o inc pain in knee or hip. STG Duration achieved Fpc Goal (LTG) Pt will be able to walk long walks w/hills w/o inc in pain. 06/09-gradually progressing- only short walks so far w/mild R lat hip discomfort LTG Duration has done up to 3 miles and gradually progressing ROM Short Term Goal (STG) Pt will have full R hip ROM w/ o pain. STG Duration achieved 06/09-slight discomfort in AM Fpc Goal (LTG) Pt will be able to sit for as long as needed w/o inc R hip pain. 06/09-still some stiffness LTG Duration achieved strength Short Term Goal (STG) Pt will be indep w/HEP STG Duration achieved progress as needed Catering Driver Goal (LTG) Pt will score at least 3/5 LPM and 5/5 LEs B in order to show improved stability and ability to do all typical activities w/o pain. 06/09-functionally improving LTG Duration improved strength-pt to cont HEP Assessment Summary Assessment Pt's goals mostly met at this time. Pt got new referral fro R shoulder pain that is a larger priority at this time. Pt has had major improvements in R ER and flex and has no longer been having inc pain when in flex/ER position or noting sharp pains. Occ some of her chronic R lat hip pain but she has been able to inc walking and is able to manage pain at this time. She is indep w/HEP at this time. DC to HEP Physical Therapy Plan Discharge Physical Therapy Discharge Reasons Goals Met
== END 2021-06-26 07:22 ==
LOC: PHYS 09:00
PROVIDERS: Family Provider Family Medicine; PCP Family Medicine; Referring Provider Family Medicine; Visit Provider Family Medicine
DX: M25.551 Pain in right hip (principal); R53.1 Weakness; R26.2 Difficulty in walking, not elsewhere classified; R29.3 Abnormal posture; M25.562 Pain in left knee
CPT/HCPCS: 97110; 97112; 97116; 97140; 97162

== ENCOUNTER → 2021-06-24 09:29 | Outpatient (CLI) | payer MEDICARE, SELFPAY ==
--- NOTE | 2021-06-24 09:31 | DI.RAD.S_ITS ---
PROCEDURE: XR SHOULDER RT MIN 2V INDICATIONS: right shoulder pain, chronic TECHNIQUE: 3 views of the shoulder were acquired. COMPARISON: None. FINDINGS: Bones: No fractures or dislocations. No suspicious bony lesions. Mild acromioclavicular and glenohumeral joint degeneration. Visualized ribs appear intact. Soft tissues: No suspicious soft tissue calcifications. IMPRESSION: Mild degenerative joint disease. Dictated by: Nicky Reed M.D. on 06/24/2021 at 16:08 Approved by: Nicky Reed M.D. on 06/24/2021 at 16:08
== END ==
PROVIDERS: Family Provider Family Medicine; PCP Family Medicine; Referring Provider Family Medicine; Visit Provider Family Medicine
DX: M19.011 Primary osteoarthritis, right shoulder (principal); M25.511 Pain in right shoulder; M25.551 Pain in right hip
CPT/HCPCS: 73030

== ENCOUNTER 2021-11-06 14:30 | Outpatient (RCR) | payer MEDICARE, SELFPAY ==
--- NOTE | 2021-06-26 14:21 | PT.OPPOC ---
Physical, Occupational & Speech Therapy At [facility] Current Diagnoses Pain in right shoulder (06/26/21) Cervicalgia (06/26/21) Abnormal posture (06/26/21) Weakness (06/26/21) Visit Care Team Role Provider Type Kathia Foster DO Family Provider Physician Specialty: Family Practice Address: [address] [place] [address], [address], [place], [address] Email: [email or web address] Charlie Fontana MD Attending Provider Physician Primary Care Provider Referring Provider Specialty: [facility] Address: [address] [place] [address], [id number] Email: [email or web address] Plan Of Care PT-OP-T Assessment and Plan Start: 06/25/21 18:13 Freq: Status: Active Protocol: Document 06/26/21 09:01 [facility] (Rec: 06/26/21 09:54 [facility] [id number]) Physical Therapy Assessment Rehab Potential Rehabilitation Potential Good Evaluation Complexity Number of Personal Factors/Comorbidities 3 or More Number of Body Systems Impaired 4 or More Clinical Presentation at Evaluation Stable Impairments Impairments Activity Tolerance,Functional Activities,Functional Mobility ,Pain,Posture,ROM,Soft Tissue Mobility,Strength Goals activities. Short Term Goal (STG) Pt will be able to needlework and dressing (donning UE clothing) without pain. STG Duration 07/24/21 Lead Warehouse Associate Goal (LTG) Pt will be able do all gardening, lifting of grandkid and home heavy things, and be able to boat and kayak w/o pain. LTG Duration 08/24/21 ROM Short Term Goal (STG) Pt will be able to do overhead reaching w/o pain for flex & abd. STG Duration 07/24/21 Lead Warehouse Associate Goal (LTG) Pt will have equal ROM of IR behind back R to L to show improved ability to don/doff bra. LTG Duration strength Short Term Goal (STG) Pt will be indep w/HEP STG Duration 07/24/21 Lead Warehouse Associate Goal (LTG) Pt will score 5/5 on RUE strength testing and at least 3/5 on EFT to show improved strength in order to participate in her typical yard work. LTG Duration 08/24/21 quick dash Impairment 22.7 Short Term Goal (STG) Pt will score no higher than 18 on quick dash to show improved functional ability STG Duration 07/24/21 [facility] Goal (LTG) Pt will score no higher than 4 on quick dash to show improved functional ability LTG Duration 08/24/21 Assessment Summary Assessment Pt presents w/R shoulder pain that has been present for about 4 months after doing a lot of heavy yard work. She has been avoiding yard work and needlework d/t the pain and has had noteable pain w/ carrying heavy things, upper body dressing and is concerned about being able to be on their sailboat and doing all the pulling required of her. She presents w/impingment syndrome symptoms, but also demonstrates neural tension, which may be related to neck alignment as head is very fwd and has inc thoracic kyphosis causing fwd rounding of shoulders significantly. She has mostly good ROM, but it is painful at end ranges and limited in rotations and she has RUE weakness, which is abnormal for her since her RUE is her domininat side. She would benefit from skilled PT in order to return to her typical active lifestyle w/o inc pain. Physical Therapy Plan Frequency and Duration Frequency of Treatment 1-2x/week Duration of Treatment 2 months Plan of Care Start Date 06/26/21 Plan of Care End Date 08/24/21 Therapeutic Interventions Therapeutic Interventions Aquatic Therapy,Gait Training, Home Exercise Program,Joint Mobilizations,Manual Therapy, Patient/Caregiver Education, Self-Care/Home Management,Soft Tissue Mobilization,Taping, Therapeutic Activities, Therapeutic Exercises Next Visit Focus/Plan Next Note Type Treatment Note Next Visit Plan neck ROM, review exercises, work PNF for scap depression and manual to improve this. Plan of Care Dates Plan of Care Start Date 06/26/21 Plan of Care End Date 08/24/21 Electronically Signed by: Ban Tovar, PT 06/26/21 4716 Please Sign and Return: I have reviewed this Plan of Care and certify that the skilled therapy services above are required to meet the patient?s needs. Physician Signature Date Printed Name and Credentials Clinical Instructor Signature Printed Name and Credentials
--- NOTE | 2021-06-26 14:21 | PT.OIE ---
Current Diagnoses Pain in right shoulder (06/26/21) Cervicalgia (06/26/21) Abnormal posture (06/26/21) Weakness (06/26/21) Past Medical History (Last Updated 12/14/17 @ 11:00 by Kaitlin Ferrer) Abnormal Pap smear of cervix (1991) Acne (1970) Actinic keratosis (2014) Chicken pox (~1960) Colon polyps (2015) Endometriosis (1981) Gastroesophageal reflux disease with esophagitis (10/21/16) GERD (gastroesophageal reflux disease) (2002) Hearing loss (2012) Hemorrhoids (1998) Hip pain, right History of gynecologic surgery (05/2015) Infertility (1981) Irregular periods/menstrual cycles (~1970) Measles (~1960) Meniere's disease Osteoarthritis (2009) Osteopenia (02/03/17) Precancerous skin lesion (2014) Right knee pain Sleep apnea (2014) Urinary incontinence Past Surgical History (Last Updated 12/14/17 @ 11:00 by Kaitlin Ferrer) Anesthesia History of esophageal dilatation (11/2015) History of gynecologic surgery (05/2015) Status post colonoscopy (12/2016) Status post hemorrhoidectomy (1998) Status post hernia repair (1958) Visit Care Team Role Provider Type Kathia Foster DO Family Provider Physician Specialty: Family Practice Address: [address] [place] [address], [place] [address] Email: [email or web address] Charlie Fontana MD Attending Provider Physician Primary Care Provider Referring Provider Specialty: [facility] Practice Address: [address] [place] [address], [id number] Email: [email or web address] Physical Therapy Initial Evaluation PT-OP-A Visit Information Start: 06/25/21 18:13 Freq: Status: Active Protocol: Document 06/26/21 09:01 [facility] (Rec: 06/26/21 09:54 [facility] [id number]) Out-Patient Physical Therapy Visit Information Visit Information Visit Type Initial Evaluation Visit Note 05/26 Visit Start Time 09:00 Visit Stop Time 09:45 Total Visit Minutes 45 Visit Number 1 Number of SKIP LOCATOR Visits 0 PT-OP-B Current Condition Start: 06/25/21 18:13 Freq: Status: Active Protocol: Document 06/26/21 09:01 [facility] (Rec: 06/26/21 09:54 [facility] [id number]) Current Condition History of Current Condition Onset Date fall 2020 Current Complaints R shoulder and arm pain History of Current Condition Pt reports she hopes R shoulder pain doesn't come from her neck as she will get pain into her biceps and it will just ache sometimes and even her forearm. Pt reports R shoulder started hurting in fall after a lot of yard work. She notices discomfort w/IR and adduction like when washing her body. She had one instance of pain and catching w/overhead reaching. She has been using the foam roll and doing pec stretch and has done some thoracic extensions over it. She has had problems with her neck since her 20s when she had an incident where she was trying to get the seat to move and ended up hitting her neck on the side of the car. She was treated w/floromethane spray and stretch. pt has gone to PT intermittently in past d/t neck pain, the last time being about 15 years ago. She tries to work on her posture in sitting, but knows her kyphosis is a problem. Pt would like ot try pickleball and is afraid too and is also concerned about doing digging in the yard or weeding in the yard. Pt has pain when laying on L side and has to prop R arm. She can lay on R arm but has to be carefult o protract and ER arm and be very carefully positioned. Prior Treatments and Tests mild arthritis w/Xray Treatment Goals Patient/Caregiver Goals be able to do all digging and gardening in the yard. Be able to put on bra, be able to do needlework, be able to carry heavy things, be able to be on boat, be able to go kayaking w/o fear of pain, be able to package pick up 25 lb grandkid Personal Factors Other Personal Factors That May Effect R hip pain, neck pain, pt does Therapy/Recovery a lot of yard work PT-OP-C Subjective Start: 06/25/21 18:13 Freq: Status: Active Protocol: Document 06/26/21 09:01 [facility] (Rec: 06/26/21 09:54 [facility] [id number]) OP-PT Pain Assessment Location R shoulder Pain Location Details R biceps Intensity 8 Scale Used Numeric (0 - 10) Description Aching,Sharp,With Movement Description- Other feels like impinging something Frequency Intermittent Pain Duration momentary Radiating Location into forearm Other Pain Aggravating Factors IR/add, reach above head &to side, lay on L side, shoulder fwd,unsupport UE Pain Alleviating Factors Inactivity Other Pain Alleviating Factors Habd or get arm away from body , prop, foam roll PT-OP-F Manual Assessment Start: 06/25/21 18:13 Freq: Status: Active Protocol: Document 06/26/21 09:01 [facility] (Rec: 06/26/21 09:54 [facility] [id number]) Manual Assessments Soft Tissue Assessment Soft Tissue Mobility Assessment R UT, LS, pec, biceps, rhomoids tight Joint Mobility Assessment Joint Mobility Assessment R 1str rib and clavicle elevated PT-OP-J Posture/Palpation/Skin Start: 06/25/21 18:13 Freq: Status: Active Protocol: Document 06/26/21 09:01 [facility] (Rec: 06/26/21 09:54 [facility] [id number]) Posture Evaluation Rocio Postural Classification System Elbow Flexion Test 1 Comments Posture Comments sig inc kyphosis, R>L scap protraction & IR of scap, humerus fwd in glenoid PT-OP-K Range of Motion Start: 06/25/21 18:13 Freq: Status: Active Protocol: Document 06/26/21 09:01 [facility] (Rec: 06/26/21 09:54 [facility] [id number]) Shoulder Goniometric Range of Motion Shoulder Right Active Flexion 145 Extension 58 Abduction 153 External Rotation at 90 degrees 82 Abduction External Rotation at 0 degrees Abduction 59 Internal Rotation Behind Back (text) T10 Left Active Flexion 143 Extension 58 Abduction 165 External Rotation at 90 degrees 93 Abduction External Rotation at 0 degrees Abduction 79 Internal Rotation Behind Back (text) T9 PT-OP-L Special Tests Start: 06/25/21 18:13 Freq: Status: Active Protocol: Document 06/26/21 09:01 [facility] (Rec: 06/26/21 09:54 [facility] [id number]) Special Tests Shoulder Special Tests Empty Can Test Results positive R AC Joint Compression Test Results neg R [place] Impingement Test Results positive R [place] Test Test Results pain but less pain than speeds Speed's Biceps Test Results positive R Sulcus Test Results neg R Yergason's Biceps Test Results neg R Neer Impingement Test Results positive R Neural Special Tests- Upper Body Radial Nerve Tension Test Results positive R median n tension Test Results positive R Ulnar Nerve Tension Test Results neg R PT-OP-M Strength Start: 06/25/21 18:13 Freq: Status: Active Protocol: Document 06/26/21 09:01 [facility] (Rec: 06/26/21 09:54 [facility] [id number]) Shoulder Strength Shoulder Manual Muscle Testing Right Flexion 4+ Good+ Extension 4+ Good+ Abduction (C5) 4+ Good+ External Rotation 4- Good- Internal Rotation 3+ Fair+ Horizontal Adduction 4- Good- Comments significant elevation w/ overhead movement Left Flexion 5 Normal Extension 5 Normal Abduction (C5) 5 Normal Adduction 5 Normal External Rotation 5 Normal Internal Rotation 5 Normal Horizontal Abduction 5 Normal Horizontal Adduction 5 Normal PT-OP-Q Treatments Start: 06/25/21 18:13 Freq: Status: Active Protocol: Document 06/26/21 09:01 [facility] (Rec: 06/26/21 09:54 [facility] [id number]) Therapeutic Exercises Sidelying Exercises open book Side bilateral Reps/Minutes 10 Standing Exercises ext Side bilateral Equipment Used L1 Reps/Minutes 10 Comments stopped d/t pain retraction Standing Exercise Name scap Side bilateral Reps/Minutes 10 PT-OP-T Assessment and Plan Start: 06/25/21 18:13 Freq: Status: Active Protocol: Document 06/26/21 09:01 [facility] (Rec: 06/26/21 09:54 [facility] [id number]) Physical Therapy Assessment Rehab Potential Rehabilitation Potential Good Evaluation Complexity Number of Personal Factors/Comorbidities 3 or More Number of Body Systems Impaired 4 or More Clinical Presentation at Evaluation Stable Impairments Impairments Activity Tolerance,Functional Activities,Functional Mobility ,Pain,Posture,ROM,Soft Tissue Mobility,Strength Goals activities. Short Term Goal (STG) Pt will be able to needlework and dressing (donning UE clothing) without pain. STG Duration 07/24/21 Fdc Goal (LTG) Pt will be able do all gardening, lifting of grandkid and home heavy things, and be able to boat and kayak w/o pain. LTG Duration 08/24/21 ROM Short Term Goal (STG) Pt will be able to do overhead reaching w/o pain for flex & abd. STG Duration 07/24/21 Dietary Services Manager Goal (LTG) Pt will have equal ROM of IR behind back R to L to show improved ability to don/doff bra. LTG Duration strength Short Term Goal (STG) Pt will be indep w/HEP STG Duration 07/24/21 Fdc Goal (LTG) Pt will score 5/5 on RUE strength testing and at least 3/5 on EFT to show improved strength in order to participate in her typical yard work. LTG Duration 08/24/21 quick dash Impairment 22.7 Short Term Goal (STG) Pt will score no higher than 18 on quick dash to show improved functional ability STG Duration 07/24/21 Dietary Services Manager Goal (LTG) Pt will score no higher than 4 on quick dash to show improved functional ability LTG Duration 08/24/21 Assessment Summary Assessment Pt presents w/R shoulder pain that has been present for about 4 months after doing a lot of heavy yard work. She has been avoiding yard work and needlework d/t the pain and has had noteable pain w/ carrying heavy things, upper body dressing and is concerned about being able to be on their sailboat and doing all the pulling required of her. She presents w/impingment syndrome symptoms, but also demonstrates neural tension, which may be related to neck alignment as head is very fwd and has inc thoracic kyphosis causing fwd rounding of shoulders significantly. She has mostly good ROM, but it is painful at end ranges and limited in rotations and she has RUE weakness, which is abnormal for her since her RUE is her domininat side. She would benefit from skilled PT in order to return to her typical active lifestyle w/o inc pain. Physical Therapy Plan Frequency and Duration Frequency of Treatment 1-2x/week Duration of Treatment 2 months Plan of Care Start Date 06/26/21 Plan of Care End Date 08/24/21 Therapeutic Interventions Therapeutic Interventions Aquatic Therapy,Gait Training, Home Exercise Program,Joint Mobilizations,Manual Therapy, Patient/Caregiver Education, Self-Care/Home Management,Soft Tissue Mobilization,Taping, Therapeutic Activities, Therapeutic Exercises Next Visit Focus/Plan Next Note Type Treatment Note Next Visit Plan neck ROM, review exercises, work PNF for scap depression and manual to improve this.
--- NOTE | 2021-06-30 11:57 | PT.OTN ---
Current Diagnoses Pain in right shoulder (06/30/21) Cervicalgia (06/30/21) Abnormal posture (06/30/21) Weakness (06/30/21) Physical Therapy Treatment Note PT-OP-A Visit Information Start: 06/25/21 18:13 Freq: Status: Active Protocol: Document 06/30/21 09:07 [facility] (Rec: 06/30/21 11:56 [facility] [id number]) Out-Patient Physical Therapy Visit Information Visit Information Visit Type Treatment Note Visit Note 06/26 Visit Start Time 09:05 Visit Stop Time 09:45 Total Visit Minutes 40 Visit Number 2 Number of PRODUCT AMBASSADOR Visits 0 PT-OP-B Current Condition Start: 06/25/21 18:13 Freq: Status: Active Protocol: Document 06/26/21 09:01 [facility] (Rec: 06/26/21 09:54 [facility] [id number]) Current Condition History of Current Condition Onset Date fall 2020 Current Complaints R shoulder and arm pain History of Current Condition Pt reports she hopes R shoulder pain doesn't come from her neck as she will get pain into her biceps and it will just ache sometimes and even her forearm. Pt reports R shoulder started hurting in fall after a lot of yard work. She notices discomfort w/IR and adduction like when washing her body. She had one instance of pain and catching w/overhead reaching. She has been using the foam roll and doing pec stretch and has done some thoracic extensions over it. She has had problems with her neck since her 20s when she had an incident where she was trying to get the seat to move and ended up hitting her neck on the side of the car. She was treated w/floromethane spray and stretch. pt has gone to PT intermittently in past d/t neck pain, the last time being about 15 years ago. She tries to work on her posture in sitting, but knows her kyphosis is a problem. Pt would like ot try pickleball and is afraid too and is also concerned about doing digging in the yard or weeding in the yard. Pt has pain when laying on L side and has to prop R arm. She can lay on R arm but has to be carefult o protract and ER arm and be very carefully positioned. Prior Treatments and Tests mild arthritis w/Xray Treatment Goals Patient/Caregiver Goals be able to do all digging and gardening in the yard. 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 (Rec: 06/30/21 11:56 [facility] [id number]) OP-PT Subjective Patient Comments Patient Comments Pt reports she has been working hard on kyphosis on foam roll PT-OP-F Manual Assessment Start: 06/25/21 18:13 Freq: Status: Active Protocol: Document 06/26/21 09:01 [facility] (Rec: 06/26/21 09:54 [facility] [id number]) Manual Assessments Soft Tissue Assessment Soft Tissue Mobility Assessment R UT, LS, pec, biceps, rhomoids tight Joint Mobility Assessment Joint Mobility Assessment R 1str rib and clavicle elevated PT-OP-J Posture/Palpation/Skin Start: 06/25/21 18:13 Freq: Status: Active Protocol: Document 06/26/21 09:01 [facility] (Rec: 06/26/21 09:54 [facility] [id number]) Posture Evaluation Rocio Postural Classification System Elbow Flexion Test 1 Comments Posture Comments sig inc kyphosis, R>L scap protraction & IR of scap, humerus fwd in glenoid PT-OP-K Range of Motion Start: 06/25/21 18:13 Freq: Status: Active Protocol: Document 06/30/21 09:07 [facility] (Rec: 06/30/21 11:56 [facility] [id number]) Cervical Spine Range of Motion Cervical Spine Active Degrees Flexion 52 Extension 35 Rotation Left 56 Rotation Right 39 Lateral Flexion Left 38 Lateral Flexion Right 30 Comments pain into UTR w/SB R & rot R PT-OP-L Special Tests Start: 06/25/21 18:13 Freq: Status: Active Protocol: Document 06/26/21 09:01 [facility] (Rec: 06/26/21 09:54 [facility] [id number]) Special Tests Shoulder Special Tests Empty Can Test Results positive R AC Joint Compression Test Results neg R [place] Impingement Test Results positive R [place] Test Test Results pain but less pain than speeds Speed's Biceps Test Results positive R Sulcus Test Results neg R Yergason's Biceps Test Results neg R Neer Impingement Test Results positive R Neural Special Tests- Upper Body Radial Nerve Tension Test Results positive R median n tension Test Results positive R Ulnar Nerve Tension Test Results neg R PT-OP-M Strength Start: 06/25/21 18:13 Freq: Status: Active Protocol: Document 06/26/21 09:01 [facility] (Rec: 06/26/21 09:54 [facility] [id number]) Shoulder Strength Shoulder Manual Muscle Testing Right Flexion 4+ Good+ Extension 4+ Good+ Abduction (C5) 4+ Good+ External Rotation 4- Good- Internal Rotation 3+ Fair+ Horizontal Adduction 4- Good- Comments significant elevation w/ overhead movement Left Flexion 5 Normal Extension 5 Normal Abduction (C5) 5 Normal Adduction 5 Normal External Rotation 5 Normal Internal Rotation 5 Normal Horizontal Abduction 5 Normal Horizontal Adduction 5 Normal PT-OP-Q Treatments Start: 06/25/21 18:13 Freq: Status: Active Protocol: Document 06/30/21 09:07 [facility] (Rec: 06/30/21 11:56 [facility] [id number]) Therapeutic Exercises Sitting Exercises UT stretch Side bilateral Reps/Minutes 30 sec Standing Exercises retraction Standing Exercise Name scap Side bilateral Reps/Minutes 10 Manual Therapy Treatment Soft Tissue Mobilization UT/LS/Scalene/SCM Body Location R Mobilization Type Rolling,Strumming Intensity/Depth Moderate pec Body Location R Mobilization Type Rolling,Strumming,Sustained Pressure Intensity/Depth Moderate post Body Location R rhomboids, ES Mobilization Type Rolling,Strumming Intensity/Depth Moderate Joint Mobilizations Tspine Comments 1. transverse L T6-7 FM 2. UPA T6 L FM ribs Comments R 3rd rib caudal glide Self-Care/Home Management Treatment Education Other Education edu for cont to work on thoracic mobility on foam roll , edu on rolling out w/tennis ball, verbal review of exercises, edu to hold off on heavy digging exercises, discussed how kyphosis putting shoulder into bad position then heavy rep use of RUE w/ digging likely caused this issue PT-OP-T Assessment and Plan Start: 06/25/21 18:13 Freq: Status: Active Protocol: Document 06/30/21 09:07 [facility] (Rec: 06/30/21 11:56 [facility] [id number]) Physical Therapy Assessment Goals activities. Short Term Goal (STG) Pt will be able to needlework and dressing (donning UE clothing) without pain. STG Duration 07/24/21 Orthopedic Cast Specialist Goal (LTG) Pt will be able do all gardening, lifting of grandkid and home heavy things, and be able to boat and kayak w/o pain. LTG Duration 08/24/21 ROM Short Term Goal (STG) Pt will be able to do overhead reaching w/o pain for flex & abd. STG Duration 07/24/21 Halfway Goal (LTG) Pt will have equal ROM of IR behind back R to L to show improved ability to don/doff bra. LTG Duration strength Short Term Goal (STG) Pt will be indep w/HEP STG Duration 07/24/21 Halfway Goal (LTG) Pt will score 5/5 on RUE strength testing and at least 3/5 on EFT to show improved strength in order to participate in her typical yard work. LTG Duration 08/24/21 quick dash Impairment 22.7 Short Term Goal (STG) Pt will score no higher than 18 on quick dash to show improved functional ability STG Duration 07/24/21 Orthopedic Cast Specialist Goal (LTG) Pt will score no higher than 4 on quick dash to show improved functional ability LTG Duration 08/24/21 Assessment Summary Assessment Pt did well with exercises performed today and was encouraged to cont to work on posture at home. She felt looser in R shoulder after manual treatment and had imrpoved scap depressiona nd retraction but was still limited in depression. Physical Therapy Plan Next Visit Focus/Plan Next Note Type Treatment Note Next Visit Plan wall posture exercise, cat/ camel, PNF for scap dep
--- NOTE | 2021-07-03 10:03 | PT.OTN ---
Current Diagnoses Pain in right shoulder (07/03/21) Cervicalgia (07/03/21) Abnormal posture (07/03/21) Weakness (07/03/21) Physical Therapy Treatment Note PT-OP-A Visit Information Start: 06/25/21 18:13 Freq: Status: Active Protocol: Document 07/03/21 09:03 [facility] (Rec: 07/03/21 10:03 [facility] [id number]) Out-Patient Physical Therapy Visit Information Visit Information Visit Type Treatment Note Visit Note 07/24 Visit Start Time 09:02 Visit Stop Time 09:45 Total Visit Minutes 43 Visit Number 3 Number of CAR OILER Visits 0 PT-OP-B Current Condition Start: 06/25/21 18:13 Freq: Status: Active Protocol: Document 06/26/21 09:01 [facility] (Rec: 06/26/21 09:54 [facility] [id number]) Current Condition History of Current Condition Onset Date fall 2020 Current Complaints R shoulder and arm pain History of Current Condition Pt reports she hopes R shoulder pain doesn't come from her neck as she will get pain into her biceps and it will just ache sometimes and even her forearm. Pt reports R shoulder started hurting in fall after a lot of yard work. She notices discomfort w/IR and adduction like when washing her body. She had one instance of pain and catching w/overhead reaching. She has been using the foam roll and doing pec stretch and has done some thoracic extensions over it. She has had problems with her neck since her 20s when she had an incident where she was trying to get the seat to move and ended up hitting her neck on the side of the car. She was treated w/floromethane spray and stretch. pt has gone to PT intermittently in past d/t neck pain, the last time being about 15 years ago. She tries to work on her posture in sitting, but knows her kyphosis is a problem. Pt would like ot try pickleball and is afraid too and is also concerned about doing digging in the yard or weeding in the yard. Pt has pain when laying on L side and has to prop R arm. She can lay on R arm but has to be carefult o protract and ER arm and be very carefully positioned. Prior Treatments and Tests mild arthritis w/Xray Treatment Goals Patient/Caregiver Goals be able to do all digging and gardening in the yard. 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 she was a little sore from mobilizations but it recovered fine. PT-OP-F Manual Assessment Start: 06/25/21 18:13 Freq: Status: Active Protocol: Document 06/26/21 09:01 [facility] (Rec: 06/26/21 09:54 [facility] [id number]) Manual Assessments Soft Tissue Assessment Soft Tissue Mobility Assessment R UT, LS, pec, biceps, rhomoids tight Joint Mobility Assessment Joint Mobility Assessment R 1str rib and clavicle elevated PT-OP-J Posture/Palpation/Skin Start: 06/25/21 18:13 Freq: Status: Active Protocol: Document 06/26/21 09:01 [facility] (Rec: 06/26/21 09:54 [facility] [id number]) Posture Evaluation Rocio Postural Classification System Elbow Flexion Test 1 Comments Posture Comments sig inc kyphosis, R>L scap protraction & IR of scap, humerus fwd in glenoid PT-OP-K Range of Motion Start: 06/25/21 18:13 Freq: Status: Active Protocol: Document 06/30/21 09:07 [facility] (Rec: 06/30/21 11:56 [facility] [id number]) Cervical Spine Range of Motion Cervical Spine Active Degrees Flexion 52 Extension 35 Rotation Left 56 Rotation Right 39 Lateral Flexion Left 38 Lateral Flexion Right 30 Comments pain into UTR w/SB R & rot R PT-OP-L Special Tests Start: 06/25/21 18:13 Freq: Status: Active Protocol: Document 06/26/21 09:01 [facility] (Rec: 06/26/21 09:54 [facility] [id number]) Special Tests Shoulder Special Tests Empty Can Test Results positive R AC Joint Compression Test Results neg R [place] Impingement Test Results positive R [place] Test Test Results pain but less pain than speeds Speed's Biceps Test Results positive R Sulcus Test Results neg R Yergason's Biceps Test Results neg R Neer Impingement Test Results positive R Neural Special Tests- Upper Body Radial Nerve Tension Test Results positive R median n tension Test Results positive R Ulnar Nerve Tension Test Results neg R PT-OP-M Strength Start: 06/25/21 18:13 Freq: Status: Active Protocol: Document 06/26/21 09:01 [facility] (Rec: 06/26/21 09:54 [facility] [id number]) Shoulder Strength Shoulder Manual Muscle Testing Right Flexion 4+ Good+ Extension 4+ Good+ Abduction (C5) 4+ Good+ External Rotation 4- Good- Internal Rotation 3+ Fair+ Horizontal Adduction 4- Good- Comments significant elevation w/ overhead movement Left Flexion 5 Normal Extension 5 Normal Abduction (C5) 5 Normal Adduction 5 Normal External Rotation 5 Normal Internal Rotation 5 Normal Horizontal Abduction 5 Normal Horizontal Adduction 5 Normal PT-OP-Q Treatments Start: 06/25/21 18:13 Freq: Status: Active Protocol: Document 07/03/21 09:03 [facility] (Rec: 07/03/21 10:03 [facility] [id number]) Therapeutic Exercises Sitting Exercises cervical retraciton Reps/Minutes 6x Standing Exercises wall posture Standing Exercise Name working on segmental roll up w /hold w/shoulder ext Side bilateral Equipment Used pillow behind head Reps/Minutes 6 min Other Exercises cat/camel Reps/Minutes 10 Comments max cues for thoracic mobility Manual Therapy Treatment Soft Tissue Mobilization UT/LS/Scalene/SCM Body Location R Mobilization Type Rolling,Strumming Intensity/Depth Moderate pec Body Location R Mobilization Type Rolling,Strumming,Sustained Pressure Intensity/Depth Moderate post Body Location R rhomboids, ES, lats Mobilization Type Rolling,Strumming Intensity/Depth Moderate Comments w/scap dep/elevation Joint Mobilizations GH Joint R Direction post & distraction FM Grade II AC Joint R Direction gapping FM PT-OP-T Assessment and Plan Start: 06/25/21 18:13 Freq: Status: Active Protocol: Document 07/03/21 09:03 [facility] (Rec: 07/03/21 10:03 [facility] [id number]) Physical Therapy Assessment Goals activities. Short Term Goal (STG) Pt will be able to needlework and dressing (donning UE clothing) without pain. STG Duration 07/24/21 Costume Specialist Goal (LTG) Pt will be able do all gardening, lifting of grandkid and home heavy things, and be able to boat and kayak w/o pain. LTG Duration 08/24/21 ROM Short Term Goal (STG) Pt will be able to do overhead reaching w/o pain for flex & abd. STG Duration 07/24/21 Fdc Goal (LTG) Pt will have equal ROM of IR behind back R to L to show improved ability to don/doff bra. LTG Duration strength Short Term Goal (STG) Pt will be indep w/HEP STG Duration 07/24/21 Costume Specialist Goal (LTG) Pt will score 5/5 on RUE strength testing and at least 3/5 on EFT to show improved strength in order to participate in her typical yard work. LTG Duration 08/24/21 quick dash Impairment 22.7 Short Term Goal (STG) Pt will score no higher than 18 on quick dash to show improved functional ability STG Duration 07/24/21 Fdc Goal (LTG) Pt will score no higher than 4 on quick dash to show improved functional ability LTG Duration 08/24/21 Assessment Summary Assessment Pt was able to go through full PROM painfree but was limited by proper mechanics & tightness into IR and Hadd. She is improving w/ability to scap depress but kyphosis is signfiicantly limiting for her . Physical Therapy Plan Frequency and Duration Frequency of Treatment 1-2x/week Duration of Treatment 2 months Plan of Care Start Date 06/26/21 Plan of Care End Date 08/24/21 Next Visit Focus/Plan Next Note Type Treatment Note Next Visit Plan review wall posture, try prone prop for scap depression, work on IR mobility manually
--- NOTE | 2021-07-07 09:39 | PT.OTN ---
Current Diagnoses Pain in right shoulder (07/07/21) Cervicalgia (07/07/21) Abnormal posture (07/07/21) Weakness (07/07/21) Physical Therapy Treatment Note PT-OP-A Visit Information Start: 06/25/21 18:13 Freq: Status: Active Protocol: Document 07/07/21 07:55 [facility] (Rec: 07/07/21 09:39 [facility] [id number]) Out-Patient Physical Therapy Visit Information Visit Information Visit Type Treatment Note Visit Note 08/24 Visit Start Time 09:00 Visit Stop Time 09:47 Total Visit Minutes 47 Visit Number 4 Number of CONTRACTS REPRESENTATIVE Visits 0 PT-OP-B Current Condition Start: 06/25/21 18:13 Freq: Status: Active Protocol: Document 06/26/21 09:01 [facility] (Rec: 06/26/21 09:54 [facility] [id number]) Current Condition History of Current Condition Onset Date fall 2020 Current Complaints R shoulder and arm pain History of Current Condition Pt reports she hopes R shoulder pain doesn't come from her neck as she will get pain into her biceps and it will just ache sometimes and even her forearm. Pt reports R shoulder started hurting in fall after a lot of yard work. She notices discomfort w/IR and adduction like when washing her body. She had one instance of pain and catching w/overhead reaching. She has been using the foam roll and doing pec stretch and has done some thoracic extensions over it. She has had problems with her neck since her 20s when she had an incident where she was trying to get the seat to move and ended up hitting her neck on the side of the car. She was treated w/floromethane spray and stretch. pt has gone to PT intermittently in past d/t neck pain, the last time being about 15 years ago. She tries to work on her posture in sitting, but knows her kyphosis is a problem. Pt would like ot try pickleball and is afraid too and is also concerned about doing digging in the yard or weeding in the yard. Pt has pain when laying on L side and has to prop R arm. She can lay on R arm but has to be carefult o protract and ER arm and be very carefully positioned. Prior Treatments and Tests mild arthritis w/Xray Treatment Goals Patient/Caregiver Goals be able to do all digging and gardening in the yard. Be able to put on bra, be able to do needlework, be able to carry heavy things, be able to be on boat, be able to go kayaking w/o fear of pain, be able to curing pickling packer 25 lb grandkid Personal Factors Other Personal Factors That May Effect R hip pain, neck pain, pt does Therapy/Recovery a lot of yard work PT-OP-C Subjective Start: 06/25/21 18:13 Freq: Status: Active Protocol: Document 07/07/21 07:55 [facility] (Rec: 07/07/21 09:39 [facility] [id number]) OP-PT Subjective Patient Comments Patient Comments pt reports compliance w/ exercises. notes wall roll up difficult PT-OP-F Manual Assessment Start: 06/25/21 18:13 Freq: Status: Active Protocol: Document 06/26/21 09:01 [facility] (Rec: 06/26/21 09:54 [facility] [id number]) Manual Assessments Soft Tissue Assessment Soft Tissue Mobility Assessment R UT, LS, pec, biceps, rhomoids tight Joint Mobility Assessment Joint Mobility Assessment R 1str rib and clavicle elevated PT-OP-J Posture/Palpation/Skin Start: 06/25/21 18:13 Freq: Status: Active Protocol: Document 06/26/21 09:01 [facility] (Rec: 06/26/21 09:54 [facility] [id number]) Posture Evaluation Rocio Postural Classification System Elbow Flexion Test 1 Comments Posture Comments sig inc kyphosis, R>L scap protraction & IR of scap, humerus fwd in glenoid PT-OP-K Range of Motion Start: 06/25/21 18:13 Freq: Status: Active Protocol: Document 06/30/21 09:07 [facility] (Rec: 06/30/21 11:56 [facility] [id number]) Cervical Spine Range of Motion Cervical Spine Active Degrees Flexion 52 Extension 35 Rotation Left 56 Rotation Right 39 Lateral Flexion Left 38 Lateral Flexion Right 30 Comments pain into UTR w/SB R & rot R PT-OP-L Special Tests Start: 06/25/21 18:13 Freq: Status: Active Protocol: Document 06/26/21 09:01 [facility] (Rec: 06/26/21 09:54 [facility] [id number]) Special Tests Shoulder Special Tests Empty Can Test Results positive R AC Joint Compression Test Results neg R [place] Impingement Test Results positive R [place] Test Test Results pain but less pain than speeds Speed's Biceps Test Results positive R Sulcus Test Results neg R Yergason's Biceps Test Results neg R Neer Impingement Test Results positive R Neural Special Tests- Upper Body Radial Nerve Tension Test Results positive R median n tension Test Results positive R Ulnar Nerve Tension Test Results neg R PT-OP-M Strength Start: 06/25/21 18:13 Freq: Status: Active Protocol: Document 06/26/21 09:01 [facility] (Rec: 06/26/21 09:54 [facility] [id number]) Shoulder Strength Shoulder Manual Muscle Testing Right Flexion 4+ Good+ Extension 4+ Good+ Abduction (C5) 4+ Good+ External Rotation 4- Good- Internal Rotation 3+ Fair+ Horizontal Adduction 4- Good- Comments significant elevation w/ overhead movement Left Flexion 5 Normal Extension 5 Normal Abduction (C5) 5 Normal Adduction 5 Normal External Rotation 5 Normal Internal Rotation 5 Normal Horizontal Abduction 5 Normal Horizontal Adduction 5 Normal PT-OP-Q Treatments Start: 06/25/21 18:13 Freq: Status: Active Protocol: Document 07/07/21 07:55 [facility] (Rec: 07/07/21 09:39 [facility] [id number]) Therapeutic Exercises Sitting Exercises cervical retraciton Reps/Minutes 6x Standing Exercises ER Side bilateral Equipment Used L1 Reps/Minutes 15 Comments attempted lvl 2 but too difficult wall posture Standing Exercise Name working on segmental roll up w /hold w/shoulder ext Side bilateral Reps/Minutes 4min ext Side bilateral Equipment Used L1, L2 Reps/Minutes 10, 10 Comments focus on scap retraction Manual Therapy Treatment Soft Tissue Mobilization UT/LS/Scalene/SCM Body Location R Mobilization Type Rolling,Strumming Intensity/Depth Moderate Body Position Sidelying Comments w/c/r scap PNF pec Body Location R Mobilization Type Rolling,Strumming,Sustained Pressure Intensity/Depth Moderate Body Position Supine Comments w/shoulder IR/ER post Body Location R rhomboids, ES, lats Mobilization Type Rolling,Strumming Intensity/Depth Moderate Comments w/shoulder flex Joint Mobilizations GH Joint R Direction post & distraction FM Grade II AC Joint R Direction gapping FM Tspine Comments 1. transverse L T4-6FM 2. UPA T4-5 R FM Self-Care/Home Management Treatment Education Other Education verbal review HEP PT-OP-T Assessment and Plan Start: 06/25/21 18:13 Freq: Status: Active Protocol: Document 07/07/21 07:55 [facility] (Rec: 07/07/21 09:39 [facility] [id number]) Physical Therapy Assessment Goals activities. Short Term Goal (STG) Pt will be able to needlework and dressing (donning UE clothing) without pain. STG Duration 07/24/21 Assisted Goal (LTG) Pt will be able do all gardening, lifting of grandkid and home heavy things, and be able to boat and kayak w/o pain. LTG Duration 08/24/21 ROM Short Term Goal (STG) Pt will be able to do overhead reaching w/o pain for flex & abd. STG Duration 07/24/21 Returned Item Clerk Goal (LTG) Pt will have equal ROM of IR behind back R to L to show improved ability to don/doff bra. LTG Duration strength Short Term Goal (STG) Pt will be indep w/HEP STG Duration 07/24/21 Returned Item Clerk Goal (LTG) Pt will score 5/5 on RUE strength testing and at least 3/5 on EFT to show improved strength in order to participate in her typical yard work. LTG Duration 08/24/21 quick dash Impairment 22.7 Short Term Goal (STG) Pt will score no higher than 18 on quick dash to show improved functional ability STG Duration 07/24/21 Assisted Goal (LTG) Pt will score no higher than 4 on quick dash to show improved functional ability LTG Duration 08/24/21 Assessment Summary Assessment Pt had almost equal AROM after session w/only discomfort w/ IR behind back,but w/in 1/2 in of motion of LUE. Mostly pt noted pull post along mid scap . She was able to tolerate strengthening today w/o inc pain and able to get good scap retraction. Physical Therapy Plan Frequency and Duration Frequency of Treatment 1-2x/week Duration of Treatment 2 months Plan of Care Start Date 06/26/21 Plan of Care End Date 08/24/21 Next Visit Focus/Plan Next Note Type Treatment Note Next Visit Plan Review resisted exercises & try to progress resistance, review cat/camel, prone prop for scap depression, work on mid thoracic mobility, work on cervical R rot & SB
--- NOTE | 2021-07-10 10:03 | PT.OTN ---
Current Diagnoses Pain in right shoulder (07/10/21) Cervicalgia (07/10/21) Abnormal posture (07/10/21) Weakness (07/10/21) Physical Therapy Treatment Note PT-OP-A Visit Information Start: 06/25/21 18:13 Freq: Status: Active Protocol: Document 07/10/21 09:05 [facility] (Rec: 07/10/21 10:03 [facility] [id number]) Out-Patient Physical Therapy Visit Information Visit Information Visit Type Treatment Note Visit Note 09/23 Visit Start Time 09:05 Visit Stop Time 09:47 Total Visit Minutes 42 Visit Number 5 Number of SOFT DRINK POWDER MIXER Visits 0 PT-OP-B Current Condition Start: 06/25/21 18:13 Freq: Status: Active Protocol: Document 06/26/21 09:01 [facility] (Rec: 06/26/21 09:54 [facility] [id number]) Current Condition History of Current Condition Onset Date fall 2020 Current Complaints R shoulder and arm pain History of Current Condition Pt reports she hopes R shoulder pain doesn't come from her neck as she will get pain into her biceps and it will just ache sometimes and even her forearm. Pt reports R shoulder started hurting in fall after a lot of yard work. She notices discomfort w/IR and adduction like when washing her body. She had one instance of pain and catching w/overhead reaching. She has been using the foam roll and doing pec stretch and has done some thoracic extensions over it. She has had problems with her neck since her 20s when she had an incident where she was trying to get the seat to move and ended up hitting her neck on the side of the car. She was treated w/floromethane spray and stretch. pt has gone to PT intermittently in past d/t neck pain, the last time being about 15 years ago. She tries to work on her posture in sitting, but knows her kyphosis is a problem. Pt would like ot try pickleball and is afraid too and is also concerned about doing digging in the yard or weeding in the yard. Pt has pain when laying on L side and has to prop R arm. She can lay on R arm but has to be carefult o protract and ER arm and be very carefully positioned. Prior Treatments and Tests mild arthritis w/Xray Treatment Goals Patient/Caregiver Goals be able to do all digging and gardening in the yard. Be able to put on bra, be able to do needlework, be able to carry heavy things, be able to be on boat, be able to go kayaking w/o fear of pain, be able to shredder picker 25 lb grandkid Personal Factors Other Personal Factors That May Effect R hip pain, neck pain, pt does Therapy/Recovery a lot of yard work PT-OP-C Subjective Start: 06/25/21 18:13 Freq: Status: Active Protocol: Document 07/10/21 09:05 [facility] (Rec: 07/10/21 10:03 [facility] [id number]) OP-PT Subjective Patient Comments Patient Comments Pt reports she isn't sure she is doing cat/camel correctly PT-OP-F Manual Assessment Start: 06/25/21 18:13 Freq: Status: Active Protocol: Document 06/26/21 09:01 [facility] (Rec: 06/26/21 09:54 [facility] [id number]) Manual Assessments Soft Tissue Assessment Soft Tissue Mobility Assessment R UT, LS, pec, biceps, rhomoids tight Joint Mobility Assessment Joint Mobility Assessment R 1str rib and clavicle elevated PT-OP-J Posture/Palpation/Skin Start: 06/25/21 18:13 Freq: Status: Active Protocol: Document 06/26/21 09:01 [facility] (Rec: 06/26/21 09:54 [facility] [id number]) Posture Evaluation Rocio Postural Classification System Elbow Flexion Test 1 Comments Posture Comments sig inc kyphosis, R>L scap protraction & IR of scap, humerus fwd in glenoid PT-OP-K Range of Motion Start: 06/25/21 18:13 Freq: Status: Active Protocol: Document 06/30/21 09:07 [facility] (Rec: 06/30/21 11:56 [facility] [id number]) Cervical Spine Range of Motion Cervical Spine Active Degrees Flexion 52 Extension 35 Rotation Left 56 Rotation Right 39 Lateral Flexion Left 38 Lateral Flexion Right 30 Comments pain into UTR w/SB R & rot R PT-OP-L Special Tests Start: 06/25/21 18:13 Freq: Status: Active Protocol: Document 06/26/21 09:01 [facility] (Rec: 06/26/21 09:54 [facility] [id number]) Special Tests Shoulder Special Tests Empty Can Test Results positive R AC Joint Compression Test Results neg R [place] Impingement Test Results positive R [place] Test Test Results pain but less pain than speeds Speed's Biceps Test Results positive R Sulcus Test Results neg R Yergason's Biceps Test Results neg R Neer Impingement Test Results positive R Neural Special Tests- Upper Body Radial Nerve Tension Test Results positive R median n tension Test Results positive R Ulnar Nerve Tension Test Results neg R PT-OP-M Strength Start: 06/25/21 18:13 Freq: Status: Active Protocol: Document 06/26/21 09:01 [facility] (Rec: 06/26/21 09:54 [facility] [id number]) Shoulder Strength Shoulder Manual Muscle Testing Right Flexion 4+ Good+ Extension 4+ Good+ Abduction (C5) 4+ Good+ External Rotation 4- Good- Internal Rotation 3+ Fair+ Horizontal Adduction 4- Good- Comments significant elevation w/ overhead movement Left Flexion 5 Normal Extension 5 Normal Abduction (C5) 5 Normal Adduction 5 Normal External Rotation 5 Normal Internal Rotation 5 Normal Horizontal Abduction 5 Normal Horizontal Adduction 5 Normal PT-OP-Q Treatments Start: 06/25/21 18:13 Freq: Status: Active Protocol: Document 07/10/21 09:05 [facility] (Rec: 07/10/21 10:03 [facility] [id number]) Therapeutic Exercises Standing Exercises ER Side bilateral Equipment Used L1 Reps/Minutes 15 Comments attempted lvl 2 but too difficult ext Side bilateral Equipment Used L2 Reps/Minutes 15 Comments focus on scap retraction retraction Standing Exercise Name Habd w/retraction then flex Side bilateral Reps/Minutes 8 Other Exercises cat/camel Reps/Minutes 10 Comments pt encouraged to sit back towards heels to isolate tspine Manual Therapy Treatment Soft Tissue Mobilization post Body Location R rhomboids, ES, lats Mobilization Type Rolling,Strumming Intensity/Depth Moderate Body Position Prone Joint Mobilizations Tspine Comments 1. transverse T2 & 3 L FM 2. PA T1 &2 FM seated 3. PA T5-8 4. UPA T4-7 R FM 5. transverse R T5-7 6. transverse L T4 PT-OP-T Assessment and Plan Start: 06/25/21 18:13 Freq: Status: Active Protocol: Document 07/10/21 09:05 [facility] (Rec: 07/10/21 10:03 [facility] [id number]) Physical Therapy Assessment Goals activities. Short Term Goal (STG) Pt will be able to needlework and dressing (donning UE clothing) without pain. STG Duration 07/24/21 [employer] Goal (LTG) Pt will be able do all gardening, lifting of grandkid and home heavy things, and be able to boat and kayak w/o pain. LTG Duration 08/24/21 ROM Short Term Goal (STG) Pt will be able to do overhead reaching w/o pain for flex & abd. STG Duration 07/24/21 [employer] Goal (LTG) Pt will have equal ROM of IR behind back R to L to show improved ability to don/doff bra. LTG Duration strength Short Term Goal (STG) Pt will be indep w/HEP STG Duration 07/24/21 Snf Goal (LTG) Pt will score 5/5 on RUE strength testing and at least 3/5 on EFT to show improved strength in order to participate in her typical yard work. LTG Duration 08/24/21 quick dash Impairment 22.7 Short Term Goal (STG) Pt will score no higher than 18 on quick dash to show improved functional ability STG Duration 07/24/21 Snf Goal (LTG) Pt will score no higher than 4 on quick dash to show improved functional ability LTG Duration 08/24/21 Assessment Summary Assessment Pt did well with exercise performance today. She required a lot of cues to dec UT activation when doing Habd w/flex but did well with other 2. Pt put into more lumbar flex to isolate more thoracic ext during cat and camel. She had improved thoracic rotation B after manual treatment. She initially had pain into R biceps w/L rotation but that imrpoved w/manaul to thoracic spine. Imporved R cervical rotation after manual w/less feeling of tightness. Physical Therapy Plan Frequency and Duration Frequency of Treatment 1-2x/week Duration of Treatment 2 months Plan of Care Start Date 06/26/21 Plan of Care End Date 08/24/21 Next Visit Focus/Plan Next Note Type Treatment Note Next Visit Plan prone prop for scap depression , work on mid thoracic mobility, work on cervical R rot & SB
--- NOTE | 2021-07-17 12:04 | PT.OTN ---
Current Diagnoses Pain in right shoulder (07/17/21) Cervicalgia (07/17/21) Abnormal posture (07/17/21) Weakness (07/17/21) Physical Therapy Treatment Note PT-OP-A Visit Information Start: 06/25/21 18:13 Freq: Status: Active Protocol: Document 07/17/21 09:04 [facility] (Rec: 07/17/21 12:04 [facility] [id number]) Out-Patient Physical Therapy Visit Information Visit Information Visit Type Treatment Note Visit Note 10/24 Visit Start Time 09:04 Visit Stop Time 09:45 Total Visit Minutes 41 Visit Number 6 Number of MANAGER TRAINING AND DEVELOPMENT Visits 0 PT-OP-B Current Condition Start: 06/25/21 18:13 Freq: Status: Active Protocol: Document 06/26/21 09:01 [facility] (Rec: 06/26/21 09:54 [facility] [id number]) Current Condition History of Current Condition Onset Date fall 2020 Current Complaints R shoulder and arm pain History of Current Condition Pt reports she hopes R shoulder pain doesn't come from her neck as she will get pain into her biceps and it will just ache sometimes and even her forearm. Pt reports R shoulder started hurting in fall after a lot of yard work. She notices discomfort w/IR and adduction like when washing her body. She had one instance of pain and catching w/overhead reaching. She has been using the foam roll and doing pec stretch and has done some thoracic extensions over it. She has had problems with her neck since her 20s when she had an incident where she was trying to get the seat to move and ended up hitting her neck on the side of the car. She was treated w/floromethane spray and stretch. pt has gone to PT intermittently in past d/t neck pain, the last time being about 15 years ago. She tries to work on her posture in sitting, but knows her kyphosis is a problem. Pt would like ot try pickleball and is afraid too and is also concerned about doing digging in the yard or weeding in the yard. Pt has pain when laying on L side and has to prop R arm. She can lay on R arm but has to be carefult o protract and ER arm and be very carefully positioned. Prior Treatments and Tests mild arthritis w/Xray Treatment Goals Patient/Caregiver Goals be able to do all digging and gardening in the yard. Be able to put on bra, be able to do needlework, be able to carry heavy things, be able to be on boat, be able to go kayaking w/o fear of pain, be able to cook pickled meat 25 lb grandkid Personal Factors Other Personal Factors That May Effect R hip pain, neck pain, pt does Therapy/Recovery a lot of yard work PT-OP-C Subjective Start: 06/25/21 18:13 Freq: Status: Active Protocol: Document 07/17/21 09:04 [facility] (Rec: 07/17/21 12:04 [facility] [id number]) OP-PT Subjective Patient Comments Patient Comments Pt reports shoulder is about the same Patient Reported Progress Same PT-OP-F Manual Assessment Start: 06/25/21 18:13 Freq: Status: Active Protocol: Document 06/26/21 09:01 [facility] (Rec: 06/26/21 09:54 [facility] [id number]) Manual Assessments Soft Tissue Assessment Soft Tissue Mobility Assessment R UT, LS, pec, biceps, rhomoids tight Joint Mobility Assessment Joint Mobility Assessment R 1str rib and clavicle elevated PT-OP-J Posture/Palpation/Skin Start: 06/25/21 18:13 Freq: Status: Active Protocol: Document 06/26/21 09:01 [facility] (Rec: 06/26/21 09:54 [facility] [id number]) Posture Evaluation Rocio Postural Classification System Elbow Flexion Test 1 Comments Posture Comments sig inc kyphosis, R>L scap protraction & IR of scap, humerus fwd in glenoid PT-OP-K Range of Motion Start: 06/25/21 18:13 Freq: Status: Active Protocol: Document 06/30/21 09:07 [facility] (Rec: 06/30/21 11:56 [facility] [id number]) Cervical Spine Range of Motion Cervical Spine Active Degrees Flexion 52 Extension 35 Rotation Left 56 Rotation Right 39 Lateral Flexion Left 38 Lateral Flexion Right 30 Comments pain into UTR w/SB R & rot R PT-OP-L Special Tests Start: 06/25/21 18:13 Freq: Status: Active Protocol: Document 06/26/21 09:01 [facility] (Rec: 06/26/21 09:54 [facility] [id number]) Special Tests Shoulder Special Tests Empty Can Test Results positive R AC Joint Compression Test Results neg R [place] Impingement Test Results positive R Barren Test Test Results pain but less pain than speeds Speed's Biceps Test Results positive R Sulcus Test Results neg R Yergason's Biceps Test Results neg R Neer Impingement Test Results positive R Neural Special Tests- Upper Body Radial Nerve Tension Test Results positive R median n tension Test Results positive R Ulnar Nerve Tension Test Results neg R PT-OP-M Strength Start: 06/25/21 18:13 Freq: Status: Active Protocol: Document 06/26/21 09:01 [facility] (Rec: 06/26/21 09:54 [facility] [id number]) Shoulder Strength Shoulder Manual Muscle Testing Right Flexion 4+ Good+ Extension 4+ Good+ Abduction (C5) 4+ Good+ External Rotation 4- Good- Internal Rotation 3+ Fair+ Horizontal Adduction 4- Good- Comments significant elevation w/ overhead movement Left Flexion 5 Normal Extension 5 Normal Abduction (C5) 5 Normal Adduction 5 Normal External Rotation 5 Normal Internal Rotation 5 Normal Horizontal Abduction 5 Normal Horizontal Adduction 5 Normal PT-OP-Q Treatments Start: 06/25/21 18:13 Freq: Status: Active Protocol: Document 07/17/21 09:04 [facility] (Rec: 07/17/21 12:04 [facility] [id number]) Manual Therapy Treatment Soft Tissue Mobilization UT/LS/Scalene/SCM Body Location R Mobilization Type Rolling,Strumming Intensity/Depth Moderate Body Position Sidelying Comments w/c/r scap PNF post Body Location R rhomboids, ES, lats & teres Mobilization Type Rolling,Strumming Intensity/Depth Moderate Body Position Prone Joint Mobilizations Tspine Comments 1. transverse L FM T1-3 2. UPA R T1 3. PA T1-2 FM 4. Transverse glide T6-7 FM L ribs Comments 1. rib 1-3 AP & inf FM PT-OP-T Assessment and Plan Start: 06/25/21 18:13 Freq: Status: Active Protocol: Document 07/17/21 09:04 [facility] (Rec: 07/17/21 12:04 [facility] [id number]) Physical Therapy Assessment Goals activities. Short Term Goal (STG) Pt will be able to needlework and dressing (donning UE clothing) without pain. STG Duration 07/24/21 [facility] Goal (LTG) Pt will be able do all gardening, lifting of grandkid and home heavy things, and be able to boat and kayak w/o pain. LTG Duration 08/24/21 ROM Short Term Goal (STG) Pt will be able to do overhead reaching w/o pain for flex & abd. STG Duration 07/24/21 [facility] Goal (LTG) Pt will have equal ROM of IR behind back R to L to show improved ability to don/doff bra. LTG Duration strength Short Term Goal (STG) Pt will be indep w/HEP STG Duration 07/24/21 Patient Care Goal (LTG) Pt will score 5/5 on RUE strength testing and at least 3/5 on EFT to show improved strength in order to participate in her typical yard work. LTG Duration 08/24/21 quick dash Impairment 22.7 Short Term Goal (STG) Pt will score no higher than 18 on quick dash to show improved functional ability STG Duration 07/24/21 Patient Care Goal (LTG) Pt will score no higher than 4 on quick dash to show improved functional ability LTG Duration 08/24/21 Assessment Summary Assessment Pt had less post and ant shoulder tightness feeling after manual treatment. She had improved cervical rotation R from 50% to 70%. Physical Therapy Plan Frequency and Duration Frequency of Treatment 1-2x/week Duration of Treatment 2 months Plan of Care Start Date 06/26/21 Plan of Care End Date 08/24/21 Next Visit Focus/Plan Next Note Type Treatment Note Next Visit Plan prone prop for scap depression , work on mid thoracic mobility, work on cervical R rot & SB, cont to wrok on cervical rot & SB
--- NOTE | 2021-07-28 12:26 | PT.OTN ---
Current Diagnoses Pain in right shoulder (07/28/21) Cervicalgia (07/28/21) Abnormal posture (07/28/21) Weakness (07/28/21) Physical Therapy Treatment Note PT-OP-A Visit Information Start: 06/25/21 18:13 Freq: Status: Active Protocol: Document 07/28/21 08:17 [facility] (Rec: 07/28/21 12:26 [facility] [id number]) Out-Patient Physical Therapy Visit Information Visit Information Visit Type Treatment Note Visit Note 11/23 Visit Start Time 08:17 Visit Stop Time 09:00 Total Visit Minutes 43 Visit Number 7 Number of CERAMIC MOLD DESIGNER Visits 0 PT-OP-B Current Condition Start: 06/25/21 18:13 Freq: Status: Active Protocol: Document 06/26/21 09:01 [facility] (Rec: 06/26/21 09:54 [facility] [id number]) Current Condition History of Current Condition Onset Date fall 2020 Current Complaints R shoulder and arm pain History of Current Condition Pt reports she hopes R shoulder pain doesn't come from her neck as she will get pain into her biceps and it will just ache sometimes and even her forearm. Pt reports R shoulder started hurting in fall after a lot of yard work. She notices discomfort w/IR and adduction like when washing her body. She had one instance of pain and catching w/overhead reaching. She has been using the foam roll and doing pec stretch and has done some thoracic extensions over it. She has had problems with her neck since her 20s when she had an incident where she was trying to get the seat to move and ended up hitting her neck on the side of the car. She was treated w/floromethane spray and stretch. pt has gone to PT intermittently in past d/t neck pain, the last time being about 15 years ago. She tries to work on her posture in sitting, but knows her kyphosis is a problem. Pt would like ot try pickleball and is afraid too and is also concerned about doing digging in the yard or weeding in the yard. Pt has pain when laying on L side and has to prop R arm. She can lay on R arm but has to be carefult o protract and ER arm and be very carefully positioned. Prior Treatments and Tests mild arthritis w/Xray Treatment Goals Patient/Caregiver Goals be able to do all digging and gardening in the yard. 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 PT-OP-F Manual Assessment Start: 06/25/21 18:13 Freq: Status: Active Protocol: Document 06/26/21 09:01 [facility] (Rec: 06/26/21 09:54 [facility] [id number]) Manual Assessments Soft Tissue Assessment Soft Tissue Mobility Assessment R UT, LS, pec, biceps, rhomoids tight Joint Mobility Assessment Joint Mobility Assessment R 1str rib and clavicle elevated PT-OP-J Posture/Palpation/Skin Start: 06/25/21 18:13 Freq: Status: Active Protocol: Document 06/26/21 09:01 [facility] (Rec: 06/26/21 09:54 [facility] [id number]) Posture Evaluation Rocio Postural Classification System Elbow Flexion Test 1 Comments Posture Comments sig inc kyphosis, R>L scap protraction & IR of scap, humerus fwd in glenoid PT-OP-K Range of Motion Start: 06/25/21 18:13 Freq: Status: Active Protocol: Document 06/30/21 09:07 [facility] (Rec: 06/30/21 11:56 [facility] [id number]) Cervical Spine Range of Motion Cervical Spine Active Degrees Flexion 52 Extension 35 Rotation Left 56 Rotation Right 39 Lateral Flexion Left 38 Lateral Flexion Right 30 Comments pain into UTR w/SB R & rot R PT-OP-L Special Tests Start: 06/25/21 18:13 Freq: Status: Active Protocol: Document 06/26/21 09:01 [facility] (Rec: 06/26/21 09:54 [facility] [id number]) Special Tests Shoulder Special Tests Empty Can Test Results positive R AC Joint Compression Test Results neg R [place] Impingement Test Results positive R [place] Test Test Results pain but less pain than speeds Speed's Biceps Test Results positive R Sulcus Test Results neg R Yergason's Biceps Test Results neg R Neer Impingement Test Results positive R Neural Special Tests- Upper Body Radial Nerve Tension Test Results positive R median n tension Test Results positive R Ulnar Nerve Tension Test Results neg R PT-OP-M Strength Start: 06/25/21 18:13 Freq: Status: Active Protocol: Document 06/26/21 09:01 [facility] (Rec: 06/26/21 09:54 [facility] [id number]) Shoulder Strength Shoulder Manual Muscle Testing Right Flexion 4+ Good+ Extension 4+ Good+ Abduction (C5) 4+ Good+ External Rotation 4- Good- Internal Rotation 3+ Fair+ Horizontal Adduction 4- Good- Comments significant elevation w/ overhead movement Left Flexion 5 Normal Extension 5 Normal Abduction (C5) 5 Normal Adduction 5 Normal External Rotation 5 Normal Internal Rotation 5 Normal Horizontal Abduction 5 Normal Horizontal Adduction 5 Normal PT-OP-Q Treatments Start: 06/25/21 18:13 Freq: Status: Active Protocol: Document 07/28/21 08:17 [facility] (Rec: 07/28/21 12:26 [facility] [id number]) Therapeutic Exercises Standing Exercises Habd Standing Exercise Name overhead Side bilateral Equipment Used L1 Reps/Minutes 10 Comments cues for scap retraction Standing Exercise Name Habd w/retraction then flex Side bilateral Equipment Used L1 Reps/Minutes 5 Manual Therapy Treatment Soft Tissue Mobilization UT/LS/Scalene/SCM Body Location R Mobilization Type Rolling,Strumming Intensity/Depth Moderate Body Position Sidelying Comments w/c/r scap PNF pec Body Location R Mobilization Type Rolling,Strumming,Sustained Pressure Intensity/Depth Moderate Body Position Supine Comments w/shoulder IR/ER post Body Location R rhomboids, ES, lats & teres Mobilization Type Rolling,Strumming Intensity/Depth Moderate Body Position Prone Joint Mobilizations Tspine Comments 1. PA T4-7 2.UPA T4-7 R ribs Comments 1. UPA ribs 5-6 R & caudal glide 2. caudal glide rib 4 and AP FM PT-OP-T Assessment and Plan Start: 06/25/21 18:13 Freq: Status: Active Protocol: Document 07/28/21 08:17 [facility] (Rec: 07/28/21 12:26 [facility] [id number]) Physical Therapy Assessment Goals activities. Short Term Goal (STG) Pt will be able to needlework and dressing (donning UE clothing) without pain. STG Duration 07/24/21 Snf Goal (LTG) Pt will be able do all gardening, lifting of grandkid and home heavy things, and be able to boat and kayak w/o pain. LTG Duration 08/24/21 ROM Short Term Goal (STG) Pt will be able to do overhead reaching w/o pain for flex & abd. STG Duration 07/24/21 Gray Tender Goal (LTG) Pt will have equal ROM of IR behind back R to L to show improved ability to don/doff bra. LTG Duration strength Short Term Goal (STG) Pt will be indep w/HEP STG Duration 07/24/21 Gray Tender Goal (LTG) Pt will score 5/5 on RUE strength testing and at least 3/5 on EFT to show improved strength in order to participate in her typical yard work. LTG Duration 08/24/21 quick dash Impairment 22.7 Short Term Goal (STG) Pt will score no higher than 18 on quick dash to show improved functional ability STG Duration 07/24/21 Snf Goal (LTG) Pt will score no higher than 4 on quick dash to show improved functional ability LTG Duration 08/24/21 Assessment Summary Assessment Pt had improved scap mobility after manual treatment but is still limtied on R side w/ stiffness into depression & retraction. neg median & radial n glide Physical Therapy Plan Frequency and Duration Frequency of Treatment 1-2x/week Duration of Treatment 2 months Plan of Care Start Date 06/26/21 Plan of Care End Date 08/24/21 Next Visit Focus/Plan Next Note Type Treatment Note Next Visit Plan prone prop for scap depression , work on mid thoracic mobility, work on cervical R rot & SB, cont to wrok on cervical rot & SB
--- NOTE | 2021-07-31 10:32 | PT.OTN ---
Current Diagnoses Pain in right shoulder (07/31/21) Cervicalgia (07/31/21) Abnormal posture (07/31/21) Weakness (07/31/21) Physical Therapy Treatment Note PT-OP-A Visit Information Start: 06/25/21 18:13 Freq: Status: Active Protocol: Document 07/31/21 08:18 [facility] (Rec: 07/31/21 10:32 [facility] [id number]) Out-Patient Physical Therapy Visit Information Visit Information Visit Type Treatment Note Visit Note 12/24 Visit Start Time 08:18 Visit Stop Time 09:00 Total Visit Minutes 42 Visit Number 8 Number of FLIGHT ENGINEER HELICOPTER Visits 0 PT-OP-B Current Condition Start: 06/25/21 18:13 Freq: Status: Active Protocol: Document 06/26/21 09:01 [facility] (Rec: 06/26/21 09:54 [facility] [id number]) Current Condition History of Current Condition Onset Date fall 2020 Current Complaints R shoulder and arm pain History of Current Condition Pt reports she hopes R shoulder pain doesn't come from her neck as she will get pain into her biceps and it will just ache sometimes and even her forearm. Pt reports R shoulder started hurting in fall after a lot of yard work. She notices discomfort w/IR and adduction like when washing her body. She had one instance of pain and catching w/overhead reaching. She has been using the foam roll and doing pec stretch and has done some thoracic extensions over it. She has had problems with her neck since her 20s when she had an incident where she was trying to get the seat to move and ended up hitting her neck on the side of the car. She was treated w/floromethane spray and stretch. pt has gone to PT intermittently in past d/t neck pain, the last time being about 15 years ago. She tries to work on her posture in sitting, but knows her kyphosis is a problem. Pt would like ot try pickleball and is afraid too and is also concerned about doing digging in the yard or weeding in the yard. Pt has pain when laying on L side and has to prop R arm. She can lay on R arm but has to be carefult o protract and ER arm and be very carefully positioned. Prior Treatments and Tests mild arthritis w/Xray Treatment Goals Patient/Caregiver Goals be able to do all digging and gardening in the yard. 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 lb grandkid Personal Factors Other Personal Factors That May Effect R hip pain, neck pain, pt does Therapy/Recovery a lot of yard work PT-OP-C Subjective Start: 06/25/21 18:13 Freq: Status: Active Protocol: Document 07/31/21 08:18 [facility] (Rec: 07/31/21 10:32 [facility] [id number]) OP-PT Subjective Patient Comments Patient Comments Pt reports she feels like gracie still has most trouble w/ discomfort in biceps PT-OP-F Manual Assessment Start: 06/25/21 18:13 Freq: Status: Active Protocol: Document 06/26/21 09:01 [facility] (Rec: 06/26/21 09:54 [facility] [id number]) Manual Assessments Soft Tissue Assessment Soft Tissue Mobility Assessment R UT, LS, pec, biceps, rhomoids tight Joint Mobility Assessment Joint Mobility Assessment R 1str rib and clavicle elevated PT-OP-J Posture/Palpation/Skin Start: 06/25/21 18:13 Freq: Status: Active Protocol: Document 06/26/21 09:01 [facility] (Rec: 06/26/21 09:54 [facility] [id number]) Posture Evaluation Rocio Postural Classification System Elbow Flexion Test 1 Comments Posture Comments sig inc kyphosis, R>L scap protraction & IR of scap, humerus fwd in glenoid PT-OP-K Range of Motion Start: 06/25/21 18:13 Freq: Status: Active Protocol: Document 06/30/21 09:07 [facility] (Rec: 06/30/21 11:56 [facility] [id number]) Cervical Spine Range of Motion Cervical Spine Active Degrees Flexion 52 Extension 35 Rotation Left 56 Rotation Right 39 Lateral Flexion Left 38 Lateral Flexion Right 30 Comments pain into UTR w/SB R & rot R PT-OP-L Special Tests Start: 06/25/21 18:13 Freq: Status: Active Protocol: Document 06/26/21 09:01 [facility] (Rec: 06/26/21 09:54 [facility] [id number]) Special Tests Shoulder Special Tests Empty Can Test Results positive R AC Joint Compression Test Results neg R [place] Impingement Test Results positive R [place] Test Test Results pain but less pain than speeds Speed's Biceps Test Results positive R Sulcus Test Results neg R [place]'s Biceps Test Results neg R Neer Impingement Test Results positive R Neural Special Tests- Upper Body Radial Nerve Tension Test Results positive R median n tension Test Results positive R Ulnar Nerve Tension Test Results neg R PT-OP-M Strength Start: 06/25/21 18:13 Freq: Status: Active Protocol: Document 06/26/21 09:01 [facility] (Rec: 06/26/21 09:54 [facility] [id number]) Shoulder Strength Shoulder Manual Muscle Testing Right Flexion 4+ Good+ Extension 4+ Good+ Abduction (C5) 4+ Good+ External Rotation 4- Good- Internal Rotation 3+ Fair+ Horizontal Adduction 4- Good- Comments significant elevation w/ overhead movement Left Flexion 5 Normal Extension 5 Normal Abduction (C5) 5 Normal Adduction 5 Normal External Rotation 5 Normal Internal Rotation 5 Normal Horizontal Abduction 5 Normal Horizontal Adduction 5 Normal PT-OP-Q Treatments Start: 06/25/21 18:13 Freq: Status: Active Protocol: Document 07/31/21 08:18 [facility] (Rec: 07/31/21 10:32 [facility] [id number]) Therapeutic Exercises Prone Exercises over tball Prone Exercise Name 1. Habd 2. 90/90 ER 3. scaption Side bilateral Reps/Minutes 15 ea Manual Therapy Treatment Soft Tissue Mobilization pec Body Location R pec & supraspinatus Mobilization Type Rolling,Strumming,Sustained Pressure Intensity/Depth Moderate Body Position Supine Comments w/shoulder IR/ER Joint Mobilizations GH Joint R Direction post, inf & distraction FM AC Joint R Direction gapping FM PT-OP-T Assessment and Plan Start: 06/25/21 18:13 Freq: Status: Active Protocol: Document 07/31/21 08:18 [facility] (Rec: 07/31/21 10:32 [facility] [id number]) Physical Therapy Assessment Goals activities. Short Term Goal (STG) Pt will be able to needlework and dressing (donning UE clothing) without pain. STG Duration 07/24/21 Mcc Goal (LTG) Pt will be able do all gardening, lifting of grandkid and home heavy things, and be able to boat and kayak w/o pain. LTG Duration 08/24/21 ROM Short Term Goal (STG) Pt will be able to do overhead reaching w/o pain for flex & abd. STG Duration 07/24/21 Mcc Goal (LTG) Pt will have equal ROM of IR behind back R to L to show improved ability to don/doff bra. LTG Duration strength Short Term Goal (STG) Pt will be indep w/HEP STG Duration 07/24/21 Mcc Goal (LTG) Pt will score 5/5 on RUE strength testing and at least 3/5 on EFT to show improved strength in order to participate in her typical yard work. LTG Duration 08/24/21 quick dash Impairment 22.7 Short Term Goal (STG) Pt will score no higher than 18 on quick dash to show improved functional ability STG Duration 07/24/21 Director Of Rooms Goal (LTG) Pt will score no higher than 4 on quick dash to show improved functional ability LTG Duration 08/24/21 Assessment Summary Assessment Pt had improved IR and abd ROM passively w/improved gliding after manual treatment. She was able to tolerate prone exercsies w/cues for form. Physical Therapy Plan Frequency and Duration Frequency of Treatment 1-2x/week Duration of Treatment 2 months Plan of Care Start Date 06/26/21 Plan of Care End Date 08/24/21 Next Visit Focus/Plan Next Note Type Treatment Note Next Visit Plan review prone and workon cervical mobility & scap dep
--- NOTE | 2021-08-05 08:42 | PT.OTN ---
Current Diagnoses Pain in right shoulder (08/05/21) Cervicalgia (08/05/21) Abnormal posture (08/05/21) Weakness (08/05/21) Physical Therapy Treatment Note PT-OP-A Visit Information Start: 06/25/21 18:13 Freq: Status: Active Protocol: Document 08/05/21 07:29 [facility] (Rec: 08/05/21 08:42 [facility] [id number]) Out-Patient Physical Therapy Visit Information Visit Information Visit Type Treatment Note Visit Note 01/24 Visit Start Time 07:30 Visit Stop Time 08:12 Total Visit Minutes 42 Visit Number 9 Number of NETWORK OPERATIONS CENTER TECHNICIAN Visits 0 PT-OP-B Current Condition Start: 06/25/21 18:13 Freq: Status: Active Protocol: Document 06/26/21 09:01 [facility] (Rec: 06/26/21 09:54 [facility] [id number]) Current Condition History of Current Condition Onset Date fall 2020 Current Complaints R shoulder and arm pain History of Current Condition Pt reports she hopes R shoulder pain doesn't come from her neck as she will get pain into her biceps and it will just ache sometimes and even her forearm. Pt reports R shoulder started hurting in fall after a lot of yard work. She notices discomfort w/IR and adduction like when washing her body. She had one instance of pain and catching w/overhead reaching. She has been using the foam roll and doing pec stretch and has done some thoracic extensions over it. She has had problems with her neck since her 20s when she had an incident where she was trying to get the seat to move and ended up hitting her neck on the side of the car. She was treated w/floromethane spray and stretch. pt has gone to PT intermittently in past d/t neck pain, the last time being about 15 years ago. She tries to work on her posture in sitting, but knows her kyphosis is a problem. Pt would like ot try pickleball and is afraid too and is also concerned about doing digging in the yard or weeding in the yard. Pt has pain when laying on L side and has to prop R arm. She can lay on R arm but has to be carefult o protract and ER arm and be very carefully positioned. Prior Treatments and Tests mild arthritis w/Xray Treatment Goals Patient/Caregiver Goals be able to do all digging and gardening in the yard. 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 She did them all Wednesday and was sore for 2.5 days and is better only today. She thinks it is one of the new prone ones that irritated it. PT-OP-F Manual Assessment Start: 06/25/21 18:13 Freq: Status: Active Protocol: Document 06/26/21 09:01 [facility] (Rec: 06/26/21 09:54 [facility] [id number]) Manual Assessments Soft Tissue Assessment Soft Tissue Mobility Assessment R UT, LS, pec, biceps, rhomoids tight Joint Mobility Assessment Joint Mobility Assessment R 1str rib and clavicle elevated PT-OP-J Posture/Palpation/Skin Start: 06/25/21 18:13 Freq: Status: Active Protocol: Document 06/26/21 09:01 [facility] (Rec: 06/26/21 09:54 [facility] [id number]) Posture Evaluation Rocio Postural Classification System Elbow Flexion Test 1 Comments Posture Comments sig inc kyphosis, R>L scap protraction & IR of scap, humerus fwd in glenoid PT-OP-K Range of Motion Start: 06/25/21 18:13 Freq: Status: Active Protocol: Document 06/30/21 09:07 [facility] (Rec: 06/30/21 11:56 [facility] [id number]) Cervical Spine Range of Motion Cervical Spine Active Degrees Flexion 52 Extension 35 Rotation Left 56 Rotation Right 39 Lateral Flexion Left 38 Lateral Flexion Right 30 Comments pain into UTR w/SB R & rot R PT-OP-L Special Tests Start: 06/25/21 18:13 Freq: Status: Active Protocol: Document 06/26/21 09:01 [facility] (Rec: 06/26/21 09:54 [facility] [id number]) Special Tests Shoulder Special Tests Empty Can Test Results positive R AC Joint Compression Test Results neg R [place] Impingement Test Results positive R Hamill Test Test Results pain but less pain than speeds Speed's Biceps Test Results positive R Sulcus Test Results neg R Yergason's Biceps Test Results neg R Neer Impingement Test Results positive R Neural Special Tests- Upper Body Radial Nerve Tension Test Results positive R median n tension Test Results positive R Ulnar Nerve Tension Test Results neg R PT-OP-M Strength Start: 06/25/21 18:13 Freq: Status: Active Protocol: Document 06/26/21 09:01 [facility] (Rec: 06/26/21 09:54 [facility] [id number]) Shoulder Strength Shoulder Manual Muscle Testing Right Flexion 4+ Good+ Extension 4+ Good+ Abduction (C5) 4+ Good+ External Rotation 4- Good- Internal Rotation 3+ Fair+ Horizontal Adduction 4- Good- Comments significant elevation w/ overhead movement Left Flexion 5 Normal Extension 5 Normal Abduction (C5) 5 Normal Adduction 5 Normal External Rotation 5 Normal Internal Rotation 5 Normal Horizontal Abduction 5 Normal Horizontal Adduction 5 Normal PT-OP-Q Treatments Start: 06/25/21 18:13 Freq: Status: Active Protocol: Document 08/05/21 07:29 [facility] (Rec: 08/05/21 08:42 [facility] [id number]) Therapeutic Exercises Prone Exercises over tball Prone Exercise Name 1. Habd 2. 90/90 ER 3. scaption Side bilateral Reps/Minutes 15 ea except scaption only 5 d /t feeling in [place] Manual Therapy Treatment Soft Tissue Mobilization pec Body Location R pec Mobilization Type Rolling,Strumming,Sustained Pressure Intensity/Depth Moderate Body Position Supine Comments w/shoulder IR/ER Joint Mobilizations GH Joint R Direction inf FM in prone prop AC Joint R Direction gapping FM in prone prop Tspine Comments 1. transverse glide T6&7 R FM in prone prop 2. transverse glide T4-6 & 8 L FM in prone prop ribs Comments 1. UPA FM rib 5&6 Neuro Re-Education Treatment Other Activities PNF Comments 1. irradation from ant elevation pelvis to post depression scap 2 irradation pivot prone modified to post dep scap PT-OP-T Assessment and Plan Start: 06/25/21 18:13 Freq: Status: Active Protocol: Document 08/05/21 07:29 [facility] (Rec: 08/05/21 08:42 [facility] [id number]) Physical Therapy Assessment Goals activities. Short Term Goal (STG) Pt will be able to needlework and dressing (donning UE clothing) without pain. STG Duration 07/24/21 Correctional Officer Captain Goal (LTG) Pt will be able do all gardening, lifting of grandkid and home heavy things, and be able to boat and kayak w/o pain. LTG Duration 08/24/21 ROM Short Term Goal (STG) Pt will be able to do overhead reaching w/o pain for flex & abd. STG Duration 07/24/21 Jail Goal (LTG) Pt will have equal ROM of IR behind back R to L to show improved ability to don/doff bra. LTG Duration strength Short Term Goal (STG) Pt will be indep w/HEP STG Duration 07/24/21 Correctional Officer Captain Goal (LTG) Pt will score 5/5 on RUE strength testing and at least 3/5 on EFT to show improved strength in order to participate in her typical yard work. LTG Duration 08/24/21 quick dash Impairment 22.7 Short Term Goal (STG) Pt will score no higher than 18 on quick dash to show improved functional ability STG Duration 07/24/21 Jail Goal (LTG) Pt will score no higher than 4 on quick dash to show improved functional ability LTG Duration 08/24/21 Assessment Summary Assessment Pt did well with manual therapy with improved scap depression and ant elevation. She requied a lot of cues for exercises which may be why had inc pain this weekend with them. Stopped scaption d/t pt feeling in [place]. Physical Therapy Plan Frequency and Duration Frequency of Treatment 1-2x/week Duration of Treatment 2 months Plan of Care Start Date 06/26/21 Plan of Care End Date 08/24/21 Next Visit Focus/Plan Next Note Type Progress Note Next Visit Plan cont to work on post dep scap & shoulder motion
--- NOTE | 2021-08-07 16:07 | PT.OTN ---
Current Diagnoses Pain in right shoulder (08/07/21) Cervicalgia (08/07/21) Abnormal posture (08/07/21) Weakness (08/07/21) Physical Therapy Treatment Note PT-OP-A Visit Information Start: 06/25/21 18:13 Freq: Status: Active Protocol: Document 08/07/21 15:22 [facility] (Rec: 08/07/21 16:07 [facility] [id number]) Out-Patient Physical Therapy Visit Information Visit Information Visit Type Progress Note Visit Note 05/26 Visit Start Time 15:20 Visit Stop Time 16:00 Total Visit Minutes 40 Visit Number 10 Number of SHIPPING & RECEIVING LEAD Visits 0 PT-OP-B Current Condition Start: 06/25/21 18:13 Freq: Status: Active Protocol: Document 06/26/21 09:01 [facility] (Rec: 06/26/21 09:54 [facility] [id number]) Current Condition History of Current Condition Onset Date fall 2020 Current Complaints R shoulder and arm pain History of Current Condition Pt reports she hopes R shoulder pain doesn't come from her neck as she will get pain into her biceps and it will just ache sometimes and even her forearm. Pt reports R shoulder started hurting in fall after a lot of yard work. She notices discomfort w/IR and adduction like when washing her body. She had one instance of pain and catching w/overhead reaching. She has been using the foam roll and doing pec stretch and has done some thoracic extensions over it. She has had problems with her neck since her 20s when she had an incident where she was trying to get the seat to move and ended up hitting her neck on the side of the car. She was treated w/floromethane spray and stretch. pt has gone to PT intermittently in past d/t neck pain, the last time being about 15 years ago. She tries to work on her posture in sitting, but knows her kyphosis is a problem. Pt would like ot try pickleball and is afraid too and is also concerned about doing digging in the yard or weeding in the yard. Pt has pain when laying on L side and has to prop R arm. She can lay on R arm but has to be carefult o protract and ER arm and be very carefully positioned. Prior Treatments and Tests mild arthritis w/Xray Treatment Goals Patient/Caregiver Goals be able to do all digging and gardening in the yard. 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 lb grandkid Personal Factors Other Personal Factors That May Effect R hip pain, neck pain, pt does Therapy/Recovery a lot of yard work PT-OP-C Subjective Start: 06/25/21 18:13 Freq: Status: Active Protocol: Document 08/07/21 15:22 [facility] (Rec: 08/07/21 16:07 [facility] [id number]) OP-PT Subjective Patient Comments Patient Comments pt reports bieng sore after tues in L scap region. She required tyleonol that night and was sore yesterday too PT-OP-F Manual Assessment Start: 06/25/21 18:13 Freq: Status: Active Protocol: Document 06/26/21 09:01 [facility] (Rec: 06/26/21 09:54 [facility] [id number]) Manual Assessments Soft Tissue Assessment Soft Tissue Mobility Assessment R UT, LS, pec, biceps, rhomoids tight Joint Mobility Assessment Joint Mobility Assessment R 1str rib and clavicle elevated PT-OP-J Posture/Palpation/Skin Start: 06/25/21 18:13 Freq: Status: Active Protocol: Document 08/07/21 15:22 [facility] (Rec: 08/07/21 16:07 [facility] [id number]) Posture Evaluation Rocio Postural Classification System Elbow Flexion Test 2 PT-OP-K Range of Motion Start: 06/25/21 18:13 Freq: Status: Active Protocol: Document 06/30/21 09:07 [facility] (Rec: 06/30/21 11:56 [facility] [id number]) Cervical Spine Range of Motion Cervical Spine Active Degrees Flexion 52 Extension 35 Rotation Left 56 Rotation Right 39 Lateral Flexion Left 38 Lateral Flexion Right 30 Comments pain into UTR w/SB R & rot R PT-OP-L Special Tests Start: 06/25/21 18:13 Freq: Status: Active Protocol: Document 06/26/21 09:01 [facility] (Rec: 06/26/21 09:54 [facility] [id number]) Special Tests Shoulder Special Tests Empty Can Test Results positive R AC Joint Compression Test Results neg R [place] Impingement Test Results positive R [place] Test Test Results pain but less pain than speeds Speed's Biceps Test Results positive R Sulcus Test Results neg R Yergason's Biceps Test Results neg R Neer Impingement Test Results positive R Neural Special Tests- Upper Body Radial Nerve Tension Test Results positive R median n tension Test Results positive R Ulnar Nerve Tension Test Results neg R PT-OP-M Strength Start: 06/25/21 18:13 Freq: Status: Active Protocol: Document 08/07/21 15:22 [facility] (Rec: 08/07/21 16:07 [facility] [id number]) Shoulder Strength Shoulder Manual Muscle Testing Right Flexion 4+ Good+ Extension 5 Normal Abduction (C5) 4+ Good+ External Rotation 5 Normal Internal Rotation 4 Good Horizontal Abduction 5 Normal Horizontal Adduction 5 Normal Left Flexion 5 Normal Extension 5 Normal Abduction (C5) 5 Normal Adduction 5 Normal External Rotation 5 Normal Internal Rotation 5 Normal Horizontal Abduction 5 Normal Horizontal Adduction 5 Normal PT-OP-Q Treatments Start: 06/25/21 18:13 Freq: Status: Active Protocol: Document 08/07/21 15:22 [facility] (Rec: 08/07/21 16:07 [facility] [id number]) Therapeutic Exercises Standing Exercises median n glides Standing Exercise Name r Reps/Minutes 6 IR Side right Equipment Used L1 Reps/Minutes 10 Comments cues for no elevation Manual Therapy Treatment Soft Tissue Mobilization UT/LS/Scalene/SCM Body Location R Mobilization Type Rolling,Strumming Intensity/Depth Moderate Body Position Supine pec Body Location R pec Mobilization Type Rolling,Strumming,Sustained Pressure Intensity/Depth Moderate Body Position Supine Comments w/shoulder IR/ER post Body Location R infra Mobilization Type Rolling,Strumming Intensity/Depth Moderate Body Position Supine Joint Mobilizations GH Joint R Direction post AC Joint R Direction gapping FM in prone prop PT-OP-T Assessment and Plan Start: 06/25/21 18:13 Freq: Status: Active Protocol: Document 08/07/21 15:22 [facility] (Rec: 08/07/21 16:07 [facility] [id number]) Physical Therapy Assessment Goals activities. Short Term Goal (STG) Pt will be able to needlework and dressing (donning UE clothing) without pain. 08/07-notes she always puts on RUE in first and still some discomfort w/unhooking bra and needlework feels okay STG Duration 07/24/21 Fingerprint Clerk Goal (LTG) Pt will be able do all gardening, lifting of grandkid and home heavy things, and be able to boat and kayak w/o pain. LTG Duration 08/24/21 ROM Short Term Goal (STG) Pt will be able to do overhead reaching w/o pain for flex & abd. 08/07- 05/26 on R w/abd and flex -not really pain but stiffness STG Duration 07/24/21 Assisted Goal (LTG) Pt will have equal ROM of IR behind back R to L to show improved ability to don/doff bra. 08/07-w/in 1 in difference LTG Duration strength Short Term Goal (STG) Pt will be indep w/HEP STG Duration achieved progressing as able Assisted Goal (LTG) Pt will score 5/5 on RUE strength testing and at least 3/5 on EFT to show improved strength in order to participate in her typical yard work. 08/07-improved LTG Duration 10/07 quick dash Impairment 22.7 Short Term Goal (STG) Pt will score no higher than 18 on quick dash to show improved functional ability 08/07-n/t STG Duration 09/07/21 Fingerprint Clerk Goal (LTG) Pt will score no higher than 4 on quick dash to show improved functional ability LTG Duration 10/07/21 Assessment Summary Assessment Pt had imrpovement in scap retraction and better resting posiiton of shoulder after manual treatment today. She is making good progress w/ROM, strength and stability, but still limited. She has significant kyphosis which affects her engagement of scap stabilizers which likely affects pain. Still median n tension so does have some neural tension componet to pain. Pt to cont therapy to work on this Physical Therapy Plan Frequency and Duration Frequency of Treatment 1-2x/week Duration of Treatment 2 months Plan of Care Start Date 08/07/21 Plan of Care End Date 10/07/21 Therapeutic Interventions Therapeutic Interventions Aquatic Therapy,Gait Training, Home Exercise Program,Joint Mobilizations,Manual Therapy, Patient/Caregiver Education, Self-Care/Home Management,Soft Tissue Mobilization,Taping, Therapeutic Activities, Therapeutic Exercises Next Visit Focus/Plan Next Note Type Treatment Note Next Visit Plan review prone and workon cervical mobility & scap dep
--- NOTE | 2021-08-07 16:09 | PT.OPPOC ---
Physical, Occupational & Speech Therapy At [facility] Current Diagnoses Pain in right shoulder (08/07/21) Cervicalgia (08/07/21) Abnormal posture (08/07/21) Weakness (08/07/21) Visit Care Team Role Provider Type Kathia Foster DO Family Provider Physician Specialty: Family Practice Address: [address] [place] [address], [address], [address] Email: [email or web address] Charlie Fontana MD Attending Provider Physician Primary Care Provider Referring Provider Specialty: [facility] Address: [address] [place] [address], [id number] Email: [email or web address] Plan Of Care PT-OP-T Assessment and Plan Start: 06/25/21 18:13 Freq: Status: Active Protocol: Document 08/07/21 15:22 [facility] (Rec: 08/07/21 16:07 [facility] [id number]) Physical Therapy Assessment Goals activities. Short Term Goal (STG) Pt will be able to needlework and dressing (donning UE clothing) without pain. 08/07-notes she always puts on RUE in first and still some discomfort w/unhooking bra and needlework feels okay STG Duration 07/24/21 Bus Repair Supervisor Goal (LTG) Pt will be able do all gardening, lifting of grandkid and home heavy things, and be able to boat and kayak w/o pain. LTG Duration 08/24/21 ROM Short Term Goal (STG) Pt will be able to do overhead reaching w/o pain for flex & abd. 08/07- 05/26 on R w/abd and flex -not really pain but stiffness STG Duration 07/24/21 Group Home Goal (LTG) Pt will have equal ROM of IR behind back R to L to show improved ability to don/doff bra. 08/07-w/in 1 in difference LTG Duration strength Short Term Goal (STG) Pt will be indep w/HEP STG Duration achieved progressing as able Bus Repair Supervisor Goal (LTG) Pt will score 5/5 on RUE strength testing and at least 3/5 on EFT to show improved strength in order to participate in her typical yard work. 08/07-improved LTG Duration 10/07 quick dash Impairment 22.7 Short Term Goal (STG) Pt will score no higher than 18 on quick dash to show improved functional ability 08/07-n/t STG Duration 09/07/21 Bus Repair Supervisor Goal (LTG) Pt will score no higher than 4 on quick dash to show improved functional ability LTG Duration 10/07/21 Assessment Summary Assessment Pt had imrpovement in scap retraction and better resting posiiton of shoulder after manual treatment today. She is making good progress w/ROM, strength and stability, but still limited. She has significant kyphosis which affects her engagement of scap stabilizers which likely affects pain. Still median n tension so does have some neural tension componet to pain. Pt to cont therapy to work on this Physical Therapy Plan Frequency and Duration Frequency of Treatment 1-2x/week Duration of Treatment 2 months Plan of Care Start Date 08/07/21 Plan of Care End Date 10/07/21 Therapeutic Interventions Therapeutic Interventions Aquatic Therapy,Gait Training, Home Exercise Program,Joint Mobilizations,Manual Therapy, Patient/Caregiver Education, Self-Care/Home Management,Soft Tissue Mobilization,Taping, Therapeutic Activities, Therapeutic Exercises Next Visit Focus/Plan Next Note Type Treatment Note Next Visit Plan review prone and workon cervical mobility & scap dep Plan of Care Dates Plan of Care Start Date 08/07/21 Plan of Care End Date 10/07/21 Electronically Signed by: Ban Tovar, PT 08/07/21 [id number] Please Sign and Return: I have reviewed this Plan of Care and certify that the skilled therapy services above are required to meet the patient?s needs. Physician Signature Date Printed Name and Credentials Clinical Instructor Signature Printed Name and Credentials
--- NOTE | 2021-08-11 11:21 | PT.OTN ---
Current Diagnoses Pain in right shoulder (08/11/21) Cervicalgia (08/11/21) Abnormal posture (08/11/21) Weakness (08/11/21) Physical Therapy Treatment Note PT-OP-A Visit Information Start: 06/25/21 18:13 Freq: Status: Active Protocol: Document 08/11/21 09:04 [facility] (Rec: 08/11/21 11:21 [facility] [id number]) Out-Patient Physical Therapy Visit Information Visit Information Visit Type Treatment Note Visit Note 06/26 Visit Start Time 09:04 Visit Stop Time 09:45 Total Visit Minutes 41 Visit Number 11 Number of CROCHETER HAND Visits 0 PT-OP-B Current Condition Start: 06/25/21 18:13 Freq: Status: Active Protocol: Document 06/26/21 09:01 [facility] (Rec: 06/26/21 09:54 [facility] [id number]) Current Condition History of Current Condition Onset Date fall 2020 Current Complaints R shoulder and arm pain History of Current Condition Pt reports she hopes R shoulder pain doesn't come from her neck as she will get pain into her biceps and it will just ache sometimes and even her forearm. Pt reports R shoulder started hurting in fall after a lot of yard work. She notices discomfort w/IR and adduction like when washing her body. She had one instance of pain and catching w/overhead reaching. She has been using the foam roll and doing pec stretch and has done some thoracic extensions over it. She has had problems with her neck since her 20s when she had an incident where she was trying to get the seat to move and ended up hitting her neck on the side of the car. She was treated w/floromethane spray and stretch. pt has gone to PT intermittently in past d/t neck pain, the last time being about 15 years ago. She tries to work on her posture in sitting, but knows her kyphosis is a problem. Pt would like ot try pickleball and is afraid too and is also concerned about doing digging in the yard or weeding in the yard. Pt has pain when laying on L side and has to prop R arm. She can lay on R arm but has to be carefult o protract and ER arm and be very carefully positioned. Prior Treatments and Tests mild arthritis w/Xray Treatment Goals Patient/Caregiver Goals be able to do all digging and gardening in the yard. Be able to put on bra, be able to do needlework, be able to carry heavy things, be able to be on boat, be able to go kayaking w/o fear of pain, be able to peanut picker 25 lb grandkid Personal Factors Other Personal Factors That May Effect R hip pain, neck pain, pt does Therapy/Recovery a lot of yard work PT-OP-C Subjective Start: 06/25/21 18:13 Freq: Status: Active Protocol: Document 08/11/21 09:04 [facility] (Rec: 08/11/21 11:21 [facility] [id number]) OP-PT Subjective Patient Comments Patient Comments Pt reports frustrated it is still sore often and taking longer PT-OP-F Manual Assessment Start: 06/25/21 18:13 Freq: Status: Active Protocol: Document 06/26/21 09:01 [facility] (Rec: 06/26/21 09:54 [facility] [id number]) Manual Assessments Soft Tissue Assessment Soft Tissue Mobility Assessment R UT, LS, pec, biceps, rhomoids tight Joint Mobility Assessment Joint Mobility Assessment R 1str rib and clavicle elevated PT-OP-J Posture/Palpation/Skin Start: 06/25/21 18:13 Freq: Status: Active Protocol: Document 08/07/21 15:22 [facility] (Rec: 08/07/21 16:07 [facility] [id number]) Posture Evaluation Rocio Postural Classification System Elbow Flexion Test 2 PT-OP-K Range of Motion Start: 06/25/21 18:13 Freq: Status: Active Protocol: Document 06/30/21 09:07 [facility] (Rec: 06/30/21 11:56 [facility] [id number]) Cervical Spine Range of Motion Cervical Spine Active Degrees Flexion 52 Extension 35 Rotation Left 56 Rotation Right 39 Lateral Flexion Left 38 Lateral Flexion Right 30 Comments pain into UTR w/SB R & rot R PT-OP-L Special Tests Start: 06/25/21 18:13 Freq: Status: Active Protocol: Document 06/26/21 09:01 [facility] (Rec: 06/26/21 09:54 [facility] [id number]) Special Tests Shoulder Special Tests Empty Can Test Results positive R AC Joint Compression Test Results neg R [place] Impingement Test Results positive R [place] Test Test Results pain but less pain than speeds Speed's Biceps Test Results positive R Sulcus Test Results neg R Yergason's Biceps Test Results neg R Neer Impingement Test Results positive R Neural Special Tests- Upper Body Radial Nerve Tension Test Results positive R median n tension Test Results positive R Ulnar Nerve Tension Test Results neg R PT-OP-M Strength Start: 06/25/21 18:13 Freq: Status: Active Protocol: Document 08/07/21 15:22 [facility] (Rec: 08/07/21 16:07 [facility] [id number]) Shoulder Strength Shoulder Manual Muscle Testing Right Flexion 4+ Good+ Extension 5 Normal Abduction (C5) 4+ Good+ External Rotation 5 Normal Internal Rotation 4 Good Horizontal Abduction 5 Normal Horizontal Adduction 5 Normal Left Flexion 5 Normal Extension 5 Normal Abduction (C5) 5 Normal Adduction 5 Normal External Rotation 5 Normal Internal Rotation 5 Normal Horizontal Abduction 5 Normal Horizontal Adduction 5 Normal PT-OP-Q Treatments Start: 06/25/21 18:13 Freq: Status: Active Protocol: Document 08/11/21 09:04 [facility] (Rec: 08/11/21 11:21 [facility] [id number]) Therapeutic Exercises Sitting Exercises UT stretch Sitting Exercise Name 1. UT stretch 2. LS stretch 3. scalene stretch Side bilateral Standing Exercises stretch Standing Exercise Name corner pec Side bilateral Reps/Minutes 30 sec Manual Therapy Treatment Soft Tissue Mobilization UT/LS/Scalene/SCM Body Location R Mobilization Type Rolling,Strumming Intensity/Depth Moderate Body Position Supine Joint Mobilizations cervical Comments 1. UPA C1 2. UPA C4 &5 R 3. transverse L C7 Tspine Comments 1. transverse T1-2 L FM ribs Comments 1. rib 1 caudal FM PT-OP-T Assessment and Plan Start: 06/25/21 18:13 Freq: Status: Active Protocol: Document 08/11/21 09:04 [facility] (Rec: 08/11/21 11:21 [facility] [id number]) Physical Therapy Assessment Goals activities. Short Term Goal (STG) Pt will be able to needlework and dressing (donning UE clothing) without pain. 08/07-notes she always puts on RUE in first and still some discomfort w/unhooking bra and needlework feels okay STG Duration 07/24/21 Poured Concrete Wall Technician Goal (LTG) Pt will be able do all gardening, lifting of grandkid and home heavy things, and be able to boat and kayak w/o pain. LTG Duration 08/24/21 ROM Short Term Goal (STG) Pt will be able to do overhead reaching w/o pain for flex & abd. 08/07- 05/26 on R w/abd and flex -not really pain but stiffness STG Duration 07/24/21 Poured Concrete Wall Technician Goal (LTG) Pt will have equal ROM of IR behind back R to L to show improved ability to don/doff bra. 08/07-w/in 1 in difference LTG Duration strength Short Term Goal (STG) Pt will be indep w/HEP STG Duration achieved progressing as able Poured Concrete Wall Technician Goal (LTG) Pt will score 5/5 on RUE strength testing and at least 3/5 on EFT to show improved strength in order to participate in her typical yard work. 08/07-improved LTG Duration 10/07 quick dash Impairment 22.7 Short Term Goal (STG) Pt will score no higher than 18 on quick dash to show improved functional ability 08/07-n/t STG Duration 09/07/21 Assisted Goal (LTG) Pt will score no higher than 4 on quick dash to show improved functional ability LTG Duration 10/07/21 Assessment Summary Assessment Pt had improved shoulder ER and abd after manual treatment to neck and felt looser overall. When doing manual and working on C4-5 and scalenes, pt noted her typical radiating pain in arm appearing but would go away when PT stopped manual indicating more pain coming from neck. Physical Therapy Plan Frequency and Duration Frequency of Treatment 1-2x/week Duration of Treatment 2 months Plan of Care Start Date 08/07/21 Plan of Care End Date 10/07/21 Next Visit Focus/Plan Next Note Type Treatment Note Next Visit Plan cont to work cervcially
--- NOTE | 2021-08-13 18:36 | PT.OTN ---
Current Diagnoses Pain in right shoulder (08/13/21) Cervicalgia (08/13/21) Abnormal posture (08/13/21) Weakness (08/13/21) Physical Therapy Treatment Note PT-OP-A Visit Information Start: 06/25/21 18:13 Freq: Status: Active Protocol: Document 08/13/21 18:33 [facility] (Rec: 08/13/21 18:36 [facility] [id number]) Out-Patient Physical Therapy Visit Information Visit Information Visit Type Treatment Note Visit Note 07/24 Visit Start Time 08:15 Visit Stop Time 09:00 Total Visit Minutes 45 Visit Number 12 Number of MONOGRAM OPERATOR Visits 0 PT-OP-B Current Condition Start: 06/25/21 18:13 Freq: Status: Active Protocol: Document 06/26/21 09:01 [facility] (Rec: 06/26/21 09:54 [facility] [id number]) Current Condition History of Current Condition Onset Date fall 2020 Current Complaints R shoulder and arm pain History of Current Condition Pt reports she hopes R shoulder pain doesn't come from her neck as she will get pain into her biceps and it will just ache sometimes and even her forearm. Pt reports R shoulder started hurting in fall after a lot of yard work. She notices discomfort w/IR and adduction like when washing her body. She had one instance of pain and catching w/overhead reaching. She has been using the foam roll and doing pec stretch and has done some thoracic extensions over it. She has had problems with her neck since her 20s when she had an incident where she was trying to get the seat to move and ended up hitting her neck on the side of the car. She was treated w/floromethane spray and stretch. pt has gone to PT intermittently in past d/t neck pain, the last time being about 15 years ago. She tries to work on her posture in sitting, but knows her kyphosis is a problem. Pt would like ot try pickleball and is afraid too and is also concerned about doing digging in the yard or weeding in the yard. Pt has pain when laying on L side and has to prop R arm. She can lay on R arm but has to be carefult o protract and ER arm and be very carefully positioned. Prior Treatments and Tests mild arthritis w/Xray Treatment Goals Patient/Caregiver Goals be able to do all digging and gardening in the yard. Be able to put on bra, be able to do needlework, be able to carry heavy things, be able to be on boat, be able to go kayaking w/o fear of pain, be able to warehouse order picker 25 lb grandkid Personal Factors Other Personal Factors That May Effect R hip pain, neck pain, pt does Therapy/Recovery a lot of yard work PT-OP-C Subjective Start: 06/25/21 18:13 Freq: Status: Active Protocol: Document 08/13/21 18:33 [facility] (Rec: 08/13/21 18:36 [facility] [id number]) OP-PT Subjective Patient Comments Patient Comments pt reports feels like neck had better range. wants to review stretches PT-OP-F Manual Assessment Start: 06/25/21 18:13 Freq: Status: Active Protocol: Document 06/26/21 09:01 [facility] (Rec: 06/26/21 09:54 [facility] [id number]) Manual Assessments Soft Tissue Assessment Soft Tissue Mobility Assessment R UT, LS, pec, biceps, rhomoids tight Joint Mobility Assessment Joint Mobility Assessment R 1str rib and clavicle elevated PT-OP-J Posture/Palpation/Skin Start: 06/25/21 18:13 Freq: Status: Active Protocol: Document 08/07/21 15:22 [facility] (Rec: 08/07/21 16:07 [facility] [id number]) Posture Evaluation Rocio Postural Classification System Elbow Flexion Test 2 PT-OP-K Range of Motion Start: 06/25/21 18:13 Freq: Status: Active Protocol: Document 06/30/21 09:07 [facility] (Rec: 06/30/21 11:56 [facility] [id number]) Cervical Spine Range of Motion Cervical Spine Active Degrees Flexion 52 Extension 35 Rotation Left 56 Rotation Right 39 Lateral Flexion Left 38 Lateral Flexion Right 30 Comments pain into UTR w/SB R & rot R PT-OP-L Special Tests Start: 06/25/21 18:13 Freq: Status: Active Protocol: Document 06/26/21 09:01 [facility] (Rec: 06/26/21 09:54 [facility] [id number]) Special Tests Shoulder Special Tests Empty Can Test Results positive R AC Joint Compression Test Results neg R [place] Impingement Test Results positive R [place] Test Test Results pain but less pain than speeds Speed's Biceps Test Results positive R Sulcus Test Results neg R Yergason's Biceps Test Results neg R Neer Impingement Test Results positive R Neural Special Tests- Upper Body Radial Nerve Tension Test Results positive R median n tension Test Results positive R Ulnar Nerve Tension Test Results neg R PT-OP-M Strength Start: 06/25/21 18:13 Freq: Status: Active Protocol: Document 08/07/21 15:22 [facility] (Rec: 08/07/21 16:07 [facility] [id number]) Shoulder Strength Shoulder Manual Muscle Testing Right Flexion 4+ Good+ Extension 5 Normal Abduction (C5) 4+ Good+ External Rotation 5 Normal Internal Rotation 4 Good Horizontal Abduction 5 Normal Horizontal Adduction 5 Normal Left Flexion 5 Normal Extension 5 Normal Abduction (C5) 5 Normal Adduction 5 Normal External Rotation 5 Normal Internal Rotation 5 Normal Horizontal Abduction 5 Normal Horizontal Adduction 5 Normal PT-OP-Q Treatments Start: 06/25/21 18:13 Freq: Status: Active Protocol: Document 08/13/21 18:33 [facility] (Rec: 08/13/21 18:36 [facility] [id number]) Therapeutic Exercises Sitting Exercises UT stretch Sitting Exercise Name 1. UT stretch 2. LS stretch 3. scalene stretch Side bilateral Reps/Minutes 30 sec ea Standing Exercises stretch Standing Exercise Name corner pec Side bilateral Reps/Minutes 30 sec Manual Therapy Treatment Soft Tissue Mobilization SO Body Location R>L Mobilization Type Sustained Pressure Intensity/Depth Moderate Body Position Supine UT/LS/Scalene/SCM Body Location R Mobilization Type Rolling,Strumming Intensity/Depth Moderate Body Position Supine Comments w/cervical ROM Joint Mobilizations cervical Comments 1. UPA C1 2. Uap C4 &5 R Tspine Comments 1. transverse T1-2 L FM 2. UPA R T1 & 2 FM ribs Comments 1. rib 1 caudal FM PT-OP-T Assessment and Plan Start: 06/25/21 18:13 Freq: Status: Active Protocol: Document 08/13/21 18:33 [facility] (Rec: 08/13/21 18:36 [facility] [id number]) Physical Therapy Assessment Goals activities. Short Term Goal (STG) Pt will be able to needlework and dressing (donning UE clothing) without pain. 08/07-notes she always puts on RUE in first and still some discomfort w/unhooking bra and needlework feels okay STG Duration 07/24/21 Detention Goal (LTG) Pt will be able do all gardening, lifting of grandkid and home heavy things, and be able to boat and kayak w/o pain. LTG Duration 08/24/21 ROM Short Term Goal (STG) Pt will be able to do overhead reaching w/o pain for flex & abd. 08/07- 05/26 on R w/abd and flex -not really pain but stiffness STG Duration 07/24/21 Event Av Operator Goal (LTG) Pt will have equal ROM of IR behind back R to L to show improved ability to don/doff bra. 08/07-w/in 1 in difference LTG Duration strength Short Term Goal (STG) Pt will be indep w/HEP STG Duration achieved progressing as able Event Av Operator Goal (LTG) Pt will score 5/5 on RUE strength testing and at least 3/5 on EFT to show improved strength in order to participate in her typical yard work. 08/07-improved LTG Duration 10/07 quick dash Impairment 22.7 Short Term Goal (STG) Pt will score no higher than 18 on quick dash to show improved functional ability 08/07-n/t STG Duration 09/07/21 Event Av Operator Goal (LTG) Pt will score no higher than 4 on quick dash to show improved functional ability LTG Duration 10/07/21 Assessment Summary Assessment pt required min cueing for all stretches but overall did well. Some cues for painfree positioning. Improved neck range w/cervical worka nd pt still has radiating pain when working on post scalenes and 1st rib area/ Physical Therapy Plan Frequency and Duration Frequency of Treatment 1-2x/week Duration of Treatment 2 months Plan of Care Start Date 08/07/21 Plan of Care End Date 10/07/21 Next Visit Focus/Plan Next Note Type Treatment Note Next Visit Plan work cervically as needed and start work upper tspine again
--- NOTE | 2021-08-21 13:00 | PT.OTN ---
Current Diagnoses Pain in right shoulder (08/21/21) Cervicalgia (08/21/21) Abnormal posture (08/21/21) Weakness (08/21/21) Physical Therapy Treatment Note PT-OP-A Visit Information Start: 06/25/21 18:13 Freq: Status: Active Protocol: Document 08/21/21 08:15 [facility] (Rec: 08/21/21 13:00 [facility] [id number]) Out-Patient Physical Therapy Visit Information Visit Information Visit Type Treatment Note Visit Note 08/24 Visit Start Time 09:00 Visit Stop Time 09:44 Total Visit Minutes 44 Visit Number 13 Number of MILITARY ANALYST Visits 0 PT-OP-B Current Condition Start: 06/25/21 18:13 Freq: Status: Active Protocol: Document 06/26/21 09:01 [facility] (Rec: 06/26/21 09:54 [facility] [id number]) Current Condition History of Current Condition Onset Date fall 2020 Current Complaints R shoulder and arm pain History of Current Condition Pt reports she hopes R shoulder pain doesn't come from her neck as she will get pain into her biceps and it will just ache sometimes and even her forearm. Pt reports R shoulder started hurting in fall after a lot of yard work. She notices discomfort w/IR and adduction like when washing her body. She had one instance of pain and catching w/overhead reaching. She has been using the foam roll and doing pec stretch and has done some thoracic extensions over it. She has had problems with her neck since her 20s when she had an incident where she was trying to get the seat to move and ended up hitting her neck on the side of the car. She was treated w/floromethane spray and stretch. pt has gone to PT intermittently in past d/t neck pain, the last time being about 15 years ago. She tries to work on her posture in sitting, but knows her kyphosis is a problem. Pt would like ot try pickleball and is afraid too and is also concerned about doing digging in the yard or weeding in the yard. Pt has pain when laying on L side and has to prop R arm. She can lay on R arm but has to be carefult o protract and ER arm and be very carefully positioned. Prior Treatments and Tests mild arthritis w/Xray Treatment Goals Patient/Caregiver Goals be able to do all digging and gardening in the yard. Be able to put on bra, be able to do needlework, be able to carry heavy things, be able to be on boat, be able to go kayaking w/o fear of pain, be able to fruit or nut picker 25 lb grandkid Personal Factors Other Personal Factors That May Effect R hip pain, neck pain, pt does Therapy/Recovery a lot of yard work PT-OP-C Subjective Start: 06/25/21 18:13 Freq: Status: Active Protocol: Document 08/21/21 08:15 [facility] (Rec: 08/21/21 13:00 [facility] [id number]) OP-PT Subjective Patient Comments Patient Comments Pt reports she tried acupuncture and slept great the night after. She feels like it helped. ROtation still seems to be the biggest issue for shoulder PT-OP-F Manual Assessment Start: 06/25/21 18:13 Freq: Status: Active Protocol: Document 06/26/21 09:01 [facility] (Rec: 06/26/21 09:54 [facility] [id number]) Manual Assessments Soft Tissue Assessment Soft Tissue Mobility Assessment R UT, LS, pec, biceps, rhomoids tight Joint Mobility Assessment Joint Mobility Assessment R 1str rib and clavicle elevated PT-OP-J Posture/Palpation/Skin Start: 06/25/21 18:13 Freq: Status: Active Protocol: Document 08/07/21 15:22 [facility] (Rec: 08/07/21 16:07 [facility] [id number]) Posture Evaluation Rocio Postural Classification System Elbow Flexion Test 2 PT-OP-K Range of Motion Start: 06/25/21 18:13 Freq: Status: Active Protocol: Document 06/30/21 09:07 [facility] (Rec: 06/30/21 11:56 [facility] [id number]) Cervical Spine Range of Motion Cervical Spine Active Degrees Flexion 52 Extension 35 Rotation Left 56 Rotation Right 39 Lateral Flexion Left 38 Lateral Flexion Right 30 Comments pain into UTR w/SB R & rot R PT-OP-L Special Tests Start: 06/25/21 18:13 Freq: Status: Active Protocol: Document 06/26/21 09:01 [facility] (Rec: 06/26/21 09:54 [facility] [id number]) Special Tests Shoulder Special Tests Empty Can Test Results positive R AC Joint Compression Test Results neg R [place] Impingement Test Results positive R [place] Test Test Results pain but less pain than speeds Speed's Biceps Test Results positive R Sulcus Test Results neg R Yergason's Biceps Test Results neg R Neer Impingement Test Results positive R Neural Special Tests- Upper Body Radial Nerve Tension Test Results positive R median n tension Test Results positive R Ulnar Nerve Tension Test Results neg R PT-OP-M Strength Start: 06/25/21 18:13 Freq: Status: Active Protocol: Document 08/07/21 15:22 [facility] (Rec: 08/07/21 16:07 [facility] [id number]) Shoulder Strength Shoulder Manual Muscle Testing Right Flexion 4+ Good+ Extension 5 Normal Abduction (C5) 4+ Good+ External Rotation 5 Normal Internal Rotation 4 Good Horizontal Abduction 5 Normal Horizontal Adduction 5 Normal Left Flexion 5 Normal Extension 5 Normal Abduction (C5) 5 Normal Adduction 5 Normal External Rotation 5 Normal Internal Rotation 5 Normal Horizontal Abduction 5 Normal Horizontal Adduction 5 Normal PT-OP-Q Treatments Start: 06/25/21 18:13 Freq: Status: Active Protocol: Document 08/21/21 08:15 [facility] (Rec: 08/21/21 13:00 [facility] [id number]) Manual Therapy Treatment Soft Tissue Mobilization pec Body Location R pec Mobilization Type Rolling,Strumming,Sustained Pressure Intensity/Depth Moderate Body Position Sidelying post Mobilization Type Rolling,Strumming Intensity/Depth Moderate Body Position Sitting Comments 1. lats w/flex R 2. UT thru paraspinasl w/ spinal flex B Joint Mobilizations Tspine Comments 1. transverse L T4-7 2. UPA R T5-8 Self-Care/Home Management Treatment Education Other Education edu to get a pic of her position when sleeping and edu to pay attention to her position when she waks up in pain at night PT-OP-T Assessment and Plan Start: 06/25/21 18:13 Freq: Status: Active Protocol: Document 08/21/21 08:15 [facility] (Rec: 08/21/21 13:00 [facility] [id number]) Physical Therapy Assessment Goals activities. Short Term Goal (STG) Pt will be able to needlework and dressing (donning UE clothing) without pain. 08/07-notes she always puts on RUE in first and still some discomfort w/unhooking bra and needlework feels okay STG Duration 07/24/21 Master Baker Goal (LTG) Pt will be able do all gardening, lifting of grandkid and home heavy things, and be able to boat and kayak w/o pain. LTG Duration 08/24/21 ROM Short Term Goal (STG) Pt will be able to do overhead reaching w/o pain for flex & abd. 08/07- 05/26 on R w/abd and flex -not really pain but stiffness STG Duration 07/24/21 Custodial Goal (LTG) Pt will have equal ROM of IR behind back R to L to show improved ability to don/doff bra. 08/07-w/in 1 in difference LTG Duration strength Short Term Goal (STG) Pt will be indep w/HEP STG Duration achieved progressing as able Custodial Goal (LTG) Pt will score 5/5 on RUE strength testing and at least 3/5 on EFT to show improved strength in order to participate in her typical yard work. 08/07-improved LTG Duration 10/07 quick dash Impairment 22.7 Short Term Goal (STG) Pt will score no higher than 18 on quick dash to show improved functional ability 08/07-n/t STG Duration 09/07/21 Master Baker Goal (LTG) Pt will score no higher than 4 on quick dash to show improved functional ability LTG Duration 10/07/21 Assessment Summary Assessment Pt had improved cervical and thoracic R rotationa fter manual treatment and better position of scap on ribcage. She cont to have signs that pain is coming from nerve entrapment and d/t mostly pain at nigth during bedtime, asked to get picture of sleep position. Physical Therapy Plan Frequency and Duration Frequency of Treatment 1-2x/week Duration of Treatment 2 months Plan of Care Start Date 08/07/21 Plan of Care End Date 10/07/21 Next Visit Focus/Plan Next Note Type Treatment Note Next Visit Plan cont to work on tspine & cervical mobility
--- NOTE | 2021-08-28 18:02 | PT.OTN ---
Current Diagnoses Pain in right shoulder (08/28/21) Cervicalgia (08/28/21) Abnormal posture (08/28/21) Weakness (08/28/21) Physical Therapy Treatment Note PT-OP-A Visit Information Start: 06/25/21 18:13 Freq: Status: Active Protocol: Document 08/28/21 16:49 [facility] (Rec: 08/28/21 18:02 [facility] [id number]) Out-Patient Physical Therapy Visit Information Visit Information Visit Type Treatment Note Visit Note 09/23 Visit Start Time 16:50 Visit Stop Time 17:35 Total Visit Minutes 45 Visit Number 14 Number of GUARDIAN FAMILY MEMBER Visits 0 PT-OP-B Current Condition Start: 06/25/21 18:13 Freq: Status: Active Protocol: Document 06/26/21 09:01 [facility] (Rec: 06/26/21 09:54 [facility] [id number]) Current Condition History of Current Condition Onset Date fall 2020 Current Complaints R shoulder and arm pain History of Current Condition Pt reports she hopes R shoulder pain doesn't come from her neck as she will get pain into her biceps and it will just ache sometimes and even her forearm. Pt reports R shoulder started hurting in fall after a lot of yard work. She notices discomfort w/IR and adduction like when washing her body. She had one instance of pain and catching w/overhead reaching. She has been using the foam roll and doing pec stretch and has done some thoracic extensions over it. She has had problems with her neck since her 20s when she had an incident where she was trying to get the seat to move and ended up hitting her neck on the side of the car. She was treated w/floromethane spray and stretch. pt has gone to PT intermittently in past d/t neck pain, the last time being about 15 years ago. She tries to work on her posture in sitting, but knows her kyphosis is a problem. Pt would like ot try pickleball and is afraid too and is also concerned about doing digging in the yard or weeding in the yard. Pt has pain when laying on L side and has to prop R arm. She can lay on R arm but has to be carefult o protract and ER arm and be very carefully positioned. Prior Treatments and Tests mild arthritis w/Xray Treatment Goals Patient/Caregiver Goals be able to do all digging and gardening in the yard. 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 (Rec: 08/28/21 18:02 [facility] [id number]) OP-PT Subjective Patient Comments Patient Comments Pt reports she was able to vacuum again the other day which has been good progress. She saw guitar repair technician Diego and was sore after the technique she used but today has been a good day. she notes seh felt good into the day after the session last week. PT-OP-F Manual Assessment Start: 06/25/21 18:13 Freq: Status: Active Protocol: Document 06/26/21 09:01 [facility] (Rec: 06/26/21 09:54 [facility] [id number]) Manual Assessments Soft Tissue Assessment Soft Tissue Mobility Assessment R UT, LS, pec, biceps, rhomoids tight Joint Mobility Assessment Joint Mobility Assessment R 1str rib and clavicle elevated PT-OP-J Posture/Palpation/Skin Start: 06/25/21 18:13 Freq: Status: Active Protocol: Document 08/07/21 15:22 [facility] (Rec: 08/07/21 16:07 [facility] [id number]) Posture Evaluation Rocio Postural Classification System Elbow Flexion Test 2 PT-OP-K Range of Motion Start: 06/25/21 18:13 Freq: Status: Active Protocol: Document 06/30/21 09:07 [facility] (Rec: 06/30/21 11:56 [facility] [id number]) Cervical Spine Range of Motion Cervical Spine Active Degrees Flexion 52 Extension 35 Rotation Left 56 Rotation Right 39 Lateral Flexion Left 38 Lateral Flexion Right 30 Comments pain into UTR w/SB R & rot R PT-OP-L Special Tests Start: 06/25/21 18:13 Freq: Status: Active Protocol: Document 06/26/21 09:01 [facility] (Rec: 06/26/21 09:54 [facility] [id number]) Special Tests Shoulder Special Tests Empty Can Test Results positive R AC Joint Compression Test Results neg R [place] Impingement Test Results positive R [place] Test Test Results pain but less pain than speeds Speed's Biceps Test Results positive R Sulcus Test Results neg R Yergason's Biceps Test Results neg R Neer Impingement Test Results positive R Neural Special Tests- Upper Body Radial Nerve Tension Test Results positive R median n tension Test Results positive R Ulnar Nerve Tension Test Results neg R PT-OP-M Strength Start: 06/25/21 18:13 Freq: Status: Active Protocol: Document 08/07/21 15:22 [facility] (Rec: 08/07/21 16:07 [facility] [id number]) Shoulder Strength Shoulder Manual Muscle Testing Right Flexion 4+ Good+ Extension 5 Normal Abduction (C5) 4+ Good+ External Rotation 5 Normal Internal Rotation 4 Good Horizontal Abduction 5 Normal Horizontal Adduction 5 Normal Left Flexion 5 Normal Extension 5 Normal Abduction (C5) 5 Normal Adduction 5 Normal External Rotation 5 Normal Internal Rotation 5 Normal Horizontal Abduction 5 Normal Horizontal Adduction 5 Normal PT-OP-Q Treatments Start: 06/25/21 18:13 Freq: Status: Active Protocol: Document 08/28/21 16:49 [facility] (Rec: 08/28/21 18:02 [facility] [id number]) Manual Therapy Treatment Soft Tissue Mobilization diaphram Body Location R Mobilization Type Sustained Pressure Comments w/LTR and median n glide SO Body Location R>L Mobilization Type Sustained Pressure Intensity/Depth Moderate Body Position Supine Comments w/LTR post Body Location R>L cervical paraspinals Mobilization Type Rolling,Strumming Intensity/Depth Moderate Body Position Sitting abdomenal Body Location R to L Mobilization Type Sustained Pressure Comments w/LTR & median n glide Joint Mobilizations cervical Comments 1. UAP R C6 FM ribs Comments 1. quick release at sternum 2. elevation of rib 10 FM then facilitated elevation/ expansion w/deep breath in w/ quick stretch x6 2. L rib 8 distraction ant Self-Care/Home Management Treatment Education Other Education verbal review of exercises and discussed some cues to remember w/technique. Edu to try getting into better posture and getting shoulders relaxed down and back whe pain comes on. Edu for working on diaphragmatic breathing and trained how to work on deep breath into stomach and transfer to ribcage back. Looked at pt's pic of sleeping and discussed head looked slightly SB and discussed pillow support position PT-OP-T Assessment and Plan Start: 06/25/21 18:13 Freq: Status: Active Protocol: Document 08/28/21 16:49 [facility] (Rec: 08/28/21 18:02 [facility] [id number]) Physical Therapy Assessment Goals activities. Short Term Goal (STG) Pt will be able to needlework and dressing (donning UE clothing) without pain. 08/07-notes she always puts on RUE in first and still some discomfort w/unhooking bra and needlework feels okay STG Duration 07/24/21 Alf Goal (LTG) Pt will be able do all gardening, lifting of grandkid and home heavy things, and be able to boat and kayak w/o pain. LTG Duration 08/24/21 ROM Short Term Goal (STG) Pt will be able to do overhead reaching w/o pain for flex & abd. 08/07- 05/26 on R w/abd and flex -not really pain but stiffness STG Duration 07/24/21 Neighborhood Conservation Officer Goal (LTG) Pt will have equal ROM of IR behind back R to L to show improved ability to don/doff bra. 08/07-w/in 1 in difference LTG Duration strength Short Term Goal (STG) Pt will be indep w/HEP STG Duration achieved progressing as able Neighborhood Conservation Officer Goal (LTG) Pt will score 5/5 on RUE strength testing and at least 3/5 on EFT to show improved strength in order to participate in her typical yard work. 08/07-improved LTG Duration 10/07 quick dash Impairment 22.7 Short Term Goal (STG) Pt will score no higher than 18 on quick dash to show improved functional ability 08/07-n/t STG Duration 09/07/21 Neighborhood Conservation Officer Goal (LTG) Pt will score no higher than 4 on quick dash to show improved functional ability LTG Duration 10/07/21 Assessment Summary Assessment Pt had less zinging into her R shoulder after abdomenal mobilization and after diaphram release and work on ribcage. She does cont to ahve some restriction into cervical flex which likely contributes to onset of pain. Physical Therapy Plan Frequency and Duration Frequency of Treatment 1-2x/week Duration of Treatment 2 months Plan of Care Start Date 08/07/21 Plan of Care End Date 10/07/21 Next Visit Focus/Plan Next Note Type Treatment Note Next Visit Plan cont to work on tspine & cervical mobility
--- NOTE | 2021-09-04 18:06 | PT.OTN ---
Current Diagnoses Pain in right shoulder (09/04/21) Cervicalgia (09/04/21) Abnormal posture (09/04/21) Weakness (09/04/21) Physical Therapy Treatment Note PT-OP-A Visit Information Start: 06/25/21 18:13 Freq: Status: Active Protocol: Document 09/04/21 16:51 [facility] (Rec: 09/04/21 16:59 [facility] [id number]) Out-Patient Physical Therapy Visit Information Visit Information Visit Type Treatment Note Visit Note 10/24 Visit Start Time 16:06 Visit Stop Time 16:50 Total Visit Minutes 44 Visit Number 15 Number of HRIS DEVELOPER Visits 0 PT-OP-B Current Condition Start: 06/25/21 18:13 Freq: Status: Active Protocol: Document 06/26/21 09:01 [facility] (Rec: 06/26/21 09:54 [facility] [id number]) Current Condition History of Current Condition Onset Date fall 2020 Current Complaints R shoulder and arm pain History of Current Condition Pt reports she hopes R shoulder pain doesn't come from her neck as she will get pain into her biceps and it will just ache sometimes and even her forearm. Pt reports R shoulder started hurting in fall after a lot of yard work. She notices discomfort w/IR and adduction like when washing her body. She had one instance of pain and catching w/overhead reaching. She has been using the foam roll and doing pec stretch and has done some thoracic extensions over it. She has had problems with her neck since her 20s when she had an incident where she was trying to get the seat to move and ended up hitting her neck on the side of the car. She was treated w/floromethane spray and stretch. pt has gone to PT intermittently in past d/t neck pain, the last time being about 15 years ago. She tries to work on her posture in sitting, but knows her kyphosis is a problem. Pt would like ot try pickleball and is afraid too and is also concerned about doing digging in the yard or weeding in the yard. Pt has pain when laying on L side and has to prop R arm. She can lay on R arm but has to be carefult o protract and ER arm and be very carefully positioned. Prior Treatments and Tests mild arthritis w/Xray Treatment Goals Patient/Caregiver Goals be able to do all digging and gardening in the yard. 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 Personal Factors Other Personal Factors That May Effect R hip pain, neck pain, pt does Therapy/Recovery a lot of yard work PT-OP-C Subjective Start: 06/25/21 18:13 Freq: Status: Active Protocol: Document 09/04/21 16:51 [facility] (Rec: 09/04/21 16:59 [facility] [id number]) OP-PT Subjective Patient Comments Patient Comments Pt reports doing mssage therapy [place] and acupuncture on wednesday an feels like it helped PT-OP-F Manual Assessment Start: 06/25/21 18:13 Freq: Status: Active Protocol: Document 06/26/21 09:01 [facility] (Rec: 06/26/21 09:54 [facility] [id number]) Manual Assessments Soft Tissue Assessment Soft Tissue Mobility Assessment R UT, LS, pec, biceps, rhomoids tight Joint Mobility Assessment Joint Mobility Assessment R 1str rib and clavicle elevated PT-OP-J Posture/Palpation/Skin Start: 06/25/21 18:13 Freq: Status: Active Protocol: Document 08/07/21 15:22 [facility] (Rec: 08/07/21 16:07 [facility] [id number]) Posture Evaluation Rocio Postural Classification System Elbow Flexion Test 2 PT-OP-K Range of Motion Start: 06/25/21 18:13 Freq: Status: Active Protocol: Document 06/30/21 09:07 [facility] (Rec: 06/30/21 11:56 [facility] [id number]) Cervical Spine Range of Motion Cervical Spine Active Degrees Flexion 52 Extension 35 Rotation Left 56 Rotation Right 39 Lateral Flexion Left 38 Lateral Flexion Right 30 Comments pain into UTR w/SB R & rot R PT-OP-L Special Tests Start: 06/25/21 18:13 Freq: Status: Active Protocol: Document 06/26/21 09:01 [facility] (Rec: 06/26/21 09:54 [facility] [id number]) Special Tests Shoulder Special Tests Empty Can Test Results positive R AC Joint Compression Test Results neg R [place] Impingement Test Results positive R [place] Test Test Results pain but less pain than speeds Speed's Biceps Test Results positive R Sulcus Test Results neg R Yergason's Biceps Test Results neg R Neer Impingement Test Results positive R Neural Special Tests- Upper Body Radial Nerve Tension Test Results positive R median n tension Test Results positive R Ulnar Nerve Tension Test Results neg R PT-OP-M Strength Start: 06/25/21 18:13 Freq: Status: Active Protocol: Document 08/07/21 15:22 [facility] (Rec: 08/07/21 16:07 [facility] [id number]) Shoulder Strength Shoulder Manual Muscle Testing Right Flexion 4+ Good+ Extension 5 Normal Abduction (C5) 4+ Good+ External Rotation 5 Normal Internal Rotation 4 Good Horizontal Abduction 5 Normal Horizontal Adduction 5 Normal Left Flexion 5 Normal Extension 5 Normal Abduction (C5) 5 Normal Adduction 5 Normal External Rotation 5 Normal Internal Rotation 5 Normal Horizontal Abduction 5 Normal Horizontal Adduction 5 Normal PT-OP-Q Treatments Start: 06/25/21 18:13 Freq: Status: Active Protocol: Document 09/04/21 16:51 [facility] (Rec: 09/04/21 16:59 [facility] [id number]) Therapeutic Exercises Sitting Exercises ER Sitting Exercise Name 90/90 Side right Reps/Minutes 2x10 Comments focus on scap position retraction Sitting Exercise Name scap working on downward glide Side bilateral Reps/Minutes 20 Comments max cues hollis avoid ant tilt Manual Therapy Treatment Soft Tissue Mobilization UT/LS/Scalene/SCM Body Location R Mobilization Type Rolling,Strumming Intensity/Depth Moderate Body Position Supine Comments w/cervical ROM Joint Mobilizations scap Joint R inf tipping, med glide & rotations GH Joint R Direction Post and lat gapping FM AC Joint R Direction gapping FM Tspine Comments 1. transverse L FM T1 2. transverse T7&8 L FM ribs Comments inf rib 7&8 FMR Neuro Re-Education Treatment Other Activities PNF Comments 1. post dep rhythmic initiation, sustained holds 2. ant dep rhythmic initiation , sustained holds, COI PT-OP-T Assessment and Plan Start: 06/25/21 18:13 Freq: Status: Active Protocol: Document 09/04/21 16:51 [facility] (Rec: 09/04/21 16:59 [facility] [id number]) Physical Therapy Assessment Goals activities. Short Term Goal (STG) Pt will be able to needlework and dressing (donning UE clothing) without pain. 08/07-notes she always puts on RUE in first and still some discomfort w/unhooking bra and needlework feels okay STG Duration 07/24/21 Skilled Nursing Goal (LTG) Pt will be able do all gardening, lifting of grandkid and home heavy things, and be able to boat and kayak w/o pain. LTG Duration 08/24/21 ROM Short Term Goal (STG) Pt will be able to do overhead reaching w/o pain for flex & abd. 08/07- 05/26 on R w/abd and flex -not really pain but stiffness STG Duration 07/24/21 Library Circulation Technician Goal (LTG) Pt will have equal ROM of IR behind back R to L to show improved ability to don/doff bra. 08/07-w/in 1 in difference LTG Duration strength Short Term Goal (STG) Pt will be indep w/HEP STG Duration achieved progressing as able Skilled Nursing Goal (LTG) Pt will score 5/5 on RUE strength testing and at least 3/5 on EFT to show improved strength in order to participate in her typical yard work. 08/07-improved LTG Duration 10/07 quick dash Impairment 22.7 Short Term Goal (STG) Pt will score no higher than 18 on quick dash to show improved functional ability 08/07-n/t STG Duration 09/07/21 Library Circulation Technician Goal (LTG) Pt will score no higher than 4 on quick dash to show improved functional ability LTG Duration 10/07/21 Assessment Summary Assessment Pt had improved abiltiyt o do ER in 90/90 position. She did improve w/cueing for scap position. 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 work on ER at side ROM, work on lat glide
--- NOTE | 2021-09-11 18:00 | PT.OTN ---
Current Diagnoses Pain in right shoulder (09/11/21) Cervicalgia (09/11/21) Abnormal posture (09/11/21) Weakness (09/11/21) Physical Therapy Treatment Note PT-OP-A Visit Information Start: 06/25/21 18:13 Freq: Status: Active Protocol: Document 09/11/21 17:54 [facility] (Rec: 09/11/21 18:00 [facility] [id number]) Out-Patient Physical Therapy Visit Information Visit Information Visit Type Treatment Note Visit Note 11/23 Visit Start Time 16:05 Visit Stop Time 16:45 Total Visit Minutes 40 Visit Number 16 Number of CUSTODIAL WORKER Visits 0 PT-OP-B Current Condition Start: 06/25/21 18:13 Freq: Status: Active Protocol: Document 06/26/21 09:01 [facility] (Rec: 06/26/21 09:54 [facility] [id number]) Current Condition History of Current Condition Onset Date fall 2020 Current Complaints R shoulder and arm pain History of Current Condition Pt reports she hopes R shoulder pain doesn't come from her neck as she will get pain into her biceps and it will just ache sometimes and even her forearm. Pt reports R shoulder started hurting in fall after a lot of yard work. She notices discomfort w/IR and adduction like when washing her body. She had one instance of pain and catching w/overhead reaching. She has been using the foam roll and doing pec stretch and has done some thoracic extensions over it. She has had problems with her neck since her 20s when she had an incident where she was trying to get the seat to move and ended up hitting her neck on the side of the car. She was treated w/floromethane spray and stretch. pt has gone to PT intermittently in past d/t neck pain, the last time being about 15 years ago. She tries to work on her posture in sitting, but knows her kyphosis is a problem. Pt would like ot try pickleball and is afraid too and is also concerned about doing digging in the yard or weeding in the yard. Pt has pain when laying on L side and has to prop R arm. She can lay on R arm but has to be carefult o protract and ER arm and be very carefully positioned. Prior Treatments and Tests mild arthritis w/Xray Treatment Goals Patient/Caregiver Goals be able to do all digging and gardening in the yard. 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 She feels like night time int he worse and sometime she just can't get comfortable. Today, she brings her pillows in to have PT assess. PT-OP-F Manual Assessment Start: 06/25/21 18:13 Freq: Status: Active Protocol: Document 06/26/21 09:01 [facility] (Rec: 06/26/21 09:54 [facility] [id number]) Manual Assessments Soft Tissue Assessment Soft Tissue Mobility Assessment R UT, LS, pec, biceps, rhomoids tight Joint Mobility Assessment Joint Mobility Assessment R 1str rib and clavicle elevated PT-OP-J Posture/Palpation/Skin Start: 06/25/21 18:13 Freq: Status: Active Protocol: Document 08/07/21 15:22 [facility] (Rec: 08/07/21 16:07 [facility] [id number]) Posture Evaluation Rocio Postural Classification System Elbow Flexion Test 2 PT-OP-K Range of Motion Start: 06/25/21 18:13 Freq: Status: Active Protocol: Document 06/30/21 09:07 [facility] (Rec: 06/30/21 11:56 [facility] [id number]) Cervical Spine Range of Motion Cervical Spine Active Degrees Flexion 52 Extension 35 Rotation Left 56 Rotation Right 39 Lateral Flexion Left 38 Lateral Flexion Right 30 Comments pain into UTR w/SB R & rot R PT-OP-L Special Tests Start: 06/25/21 18:13 Freq: Status: Active Protocol: Document 06/26/21 09:01 [facility] (Rec: 06/26/21 09:54 [facility] [id number]) Special Tests Shoulder Special Tests Empty Can Test Results positive R AC Joint Compression Test Results neg R [place] Impingement Test Results positive R [place] Test Test Results pain but less pain than speeds Speed's Biceps Test Results positive R Sulcus Test Results neg R Yergason's Biceps Test Results neg R Neer Impingement Test Results positive R Neural Special Tests- Upper Body Radial Nerve Tension Test Results positive R median n tension Test Results positive R Ulnar Nerve Tension Test Results neg R PT-OP-M Strength Start: 06/25/21 18:13 Freq: Status: Active Protocol: Document 08/07/21 15:22 [facility] (Rec: 08/07/21 16:07 [facility] [id number]) Shoulder Strength Shoulder Manual Muscle Testing Right Flexion 4+ Good+ Extension 5 Normal Abduction (C5) 4+ Good+ External Rotation 5 Normal Internal Rotation 4 Good Horizontal Abduction 5 Normal Horizontal Adduction 5 Normal Left Flexion 5 Normal Extension 5 Normal Abduction (C5) 5 Normal Adduction 5 Normal External Rotation 5 Normal Internal Rotation 5 Normal Horizontal Abduction 5 Normal Horizontal Adduction 5 Normal PT-OP-Q Treatments Start: 06/25/21 18:13 Freq: Status: Active Protocol: Document 09/11/21 17:54 [facility] (Rec: 09/11/21 18:00 [facility] [id number]) Therapeutic Activity Therapeutic Activity sleep Comments Placed pt in positions and shown how to support self. edu for positioning and added small towel under proximal aspect of humerus and under torso and it helped a lot. Edu for not being rolled back as that placed strain on her neck . Manual Therapy Treatment Joint Mobilizations scap Joint R inf tipping, med glide & rotations GH Joint R Direction inf & distraction glides FM Body Position Sitting AC Joint R Direction gapping FM in seated cover position Tspine Comments 1. T2-6 transverse L FM Self-Care/Home Management Treatment Education Other Education discussed w/pt re: trying to use anti-inflamatory creams and ice to help w/pain. Disucssed possibly considering a new bed d/t pt noting there are divots in hers. Discussed the different options and importance of spending a lot of tiem in one. Edu for trying different neck positons to see if that improves pain ( tried ext and chin tuck d/t flex causing pain in waiting room but not major change) PT-OP-T Assessment and Plan Start: 06/25/21 18:13 Freq: Status: Active Protocol: Document 09/11/21 17:54 [facility] (Rec: 09/11/21 18:00 [facility] [id number]) Physical Therapy Assessment Goals activities. Short Term Goal (STG) Pt will be able to needlework and dressing (donning UE clothing) without pain. 08/07-notes she always puts on RUE in first and still some discomfort w/unhooking bra and needlework feels okay STG Duration 07/24/21 Technical Solution Architect Goal (LTG) Pt will be able do all gardening, lifting of grandkid and home heavy things, and be able to boat and kayak w/o pain. LTG Duration 08/24/21 ROM Short Term Goal (STG) Pt will be able to do overhead reaching w/o pain for flex & abd. 08/07- 05/26 on R w/abd and flex -not really pain but stiffness STG Duration 07/24/21 Snf Goal (LTG) Pt will have equal ROM of IR behind back R to L to show improved ability to don/doff bra. 08/07-w/in 1 in difference LTG Duration strength Short Term Goal (STG) Pt will be indep w/HEP STG Duration achieved progressing as able Snf Goal (LTG) Pt will score 5/5 on RUE strength testing and at least 3/5 on EFT to show improved strength in order to participate in her typical yard work. 08/07-improved LTG Duration 10/07 quick dash Impairment 22.7 Short Term Goal (STG) Pt will score no higher than 18 on quick dash to show improved functional ability 08/07-n/t STG Duration 09/07/21 Snf Goal (LTG) Pt will score no higher than 4 on quick dash to show improved functional ability LTG Duration 10/07/21 Assessment Summary Assessment Pt had improved 90/90 ER after manual and was able to lay on R side comfortably w/R arm in ER and also noted dec in biceps discomfort she came in with. Physical Therapy Plan Frequency and Duration Frequency of Treatment 1-2x/week Duration of Treatment 2 months Plan of Care Start Date 08/07/21 Plan of Care End Date 10/07/21 Next Visit Focus/Plan Next Note Type Treatment Note Next Visit Plan work on prone prop facilitaiton of rhomboids. work on ER at side ROM, work on lat glide
--- NOTE | 2021-09-16 14:31 | PT.OTN ---
Current Diagnoses Pain in right shoulder (09/16/21) Cervicalgia (09/16/21) Abnormal posture (09/16/21) Weakness (09/16/21) Physical Therapy Treatment Note PT-OP-A Visit Information Start: 06/25/21 18:13 Freq: Status: Active Protocol: Document 09/16/21 07:27 [facility] (Rec: 09/16/21 14:31 [facility] [id number]) Out-Patient Physical Therapy Visit Information Visit Information Visit Type Treatment Note Visit Note 12/24 Visit Start Time 07:32 Visit Stop Time 08:12 Total Visit Minutes 40 Visit Number 17 Number of DOG WALKER Visits 0 PT-OP-B Current Condition Start: 06/25/21 18:13 Freq: Status: Active Protocol: Document 06/26/21 09:01 [facility] (Rec: 06/26/21 09:54 [facility] [id number]) Current Condition History of Current Condition Onset Date fall 2020 Current Complaints R shoulder and arm pain History of Current Condition Pt reports she hopes R shoulder pain doesn't come from her neck as she will get pain into her biceps and it will just ache sometimes and even her forearm. Pt reports R shoulder started hurting in fall after a lot of yard work. She notices discomfort w/IR and adduction like when washing her body. She had one instance of pain and catching w/overhead reaching. She has been using the foam roll and doing pec stretch and has done some thoracic extensions over it. She has had problems with her neck since her 20s when she had an incident where she was trying to get the seat to move and ended up hitting her neck on the side of the car. She was treated w/floromethane spray and stretch. pt has gone to PT intermittently in past d/t neck pain, the last time being about 15 years ago. She tries to work on her posture in sitting, but knows her kyphosis is a problem. Pt would like ot try pickleball and is afraid too and is also concerned about doing digging in the yard or weeding in the yard. Pt has pain when laying on L side and has to prop R arm. She can lay on R arm but has to be carefult o protract and ER arm and be very carefully positioned. Prior Treatments and Tests mild arthritis w/Xray Treatment Goals Patient/Caregiver Goals be able to do all digging and gardening in the yard. 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 (Rec: 09/16/21 14:31 [facility] [id number]) OP-PT Subjective Patient Comments Patient Comments Pt reports she was able to sleep some on R side recently but still some difficulty w/ER . pt notes she has noticed how much she flexes to read things and has tried to stop and feels like this has helped . Patient Reported Progress Improving PT-OP-F Manual Assessment Start: 06/25/21 18:13 Freq: Status: Active Protocol: Document 06/26/21 09:01 [facility] (Rec: 06/26/21 09:54 [facility] [id number]) Manual Assessments Soft Tissue Assessment Soft Tissue Mobility Assessment R UT, LS, pec, biceps, rhomoids tight Joint Mobility Assessment Joint Mobility Assessment R 1str rib and clavicle elevated PT-OP-J Posture/Palpation/Skin Start: 06/25/21 18:13 Freq: Status: Active Protocol: Document 08/07/21 15:22 [facility] (Rec: 08/07/21 16:07 [facility] [id number]) Posture Evaluation Rocio Postural Classification System Elbow Flexion Test 2 PT-OP-K Range of Motion Start: 06/25/21 18:13 Freq: Status: Active Protocol: Document 06/30/21 09:07 [facility] (Rec: 06/30/21 11:56 [facility] [id number]) Cervical Spine Range of Motion Cervical Spine Active Degrees Flexion 52 Extension 35 Rotation Left 56 Rotation Right 39 Lateral Flexion Left 38 Lateral Flexion Right 30 Comments pain into UTR w/SB R & rot R PT-OP-L Special Tests Start: 06/25/21 18:13 Freq: Status: Active Protocol: Document 06/26/21 09:01 [facility] (Rec: 06/26/21 09:54 [facility] [id number]) Special Tests Shoulder Special Tests Empty Can Test Results positive R AC Joint Compression Test Results neg R [place] Impingement Test Results positive R [place] Test Test Results pain but less pain than speeds Speed's Biceps Test Results positive R Sulcus Test Results neg R Yergason's Biceps Test Results neg R Neer Impingement Test Results positive R Neural Special Tests- Upper Body Radial Nerve Tension Test Results positive R median n tension Test Results positive R Ulnar Nerve Tension Test Results neg R PT-OP-M Strength Start: 06/25/21 18:13 Freq: Status: Active Protocol: Document 08/07/21 15:22 [facility] (Rec: 08/07/21 16:07 [facility] [id number]) Shoulder Strength Shoulder Manual Muscle Testing Right Flexion 4+ Good+ Extension 5 Normal Abduction (C5) 4+ Good+ External Rotation 5 Normal Internal Rotation 4 Good Horizontal Abduction 5 Normal Horizontal Adduction 5 Normal Left Flexion 5 Normal Extension 5 Normal Abduction (C5) 5 Normal Adduction 5 Normal External Rotation 5 Normal Internal Rotation 5 Normal Horizontal Abduction 5 Normal Horizontal Adduction 5 Normal PT-OP-Q Treatments Start: 06/25/21 18:13 Freq: Status: Active Protocol: Document 09/16/21 07:27 [facility] (Rec: 09/16/21 14:31 [facility] [id number]) Manual Therapy Treatment Soft Tissue Mobilization UT/LS/Scalene/SCM Body Location R Mobilization Type Rolling,Strumming Intensity/Depth Moderate Body Position Supine Comments w/cervical ROM pec Body Location R pec & along ribs Mobilization Type Rolling,Strumming,Sustained Pressure Intensity/Depth Moderate Body Position Supine Joint Mobilizations SC Joint gapping FM scap Joint R inf tipping, med glide & rotations cervical Comments C7 AP R FM Tspine Comments 1. T5-9 transverse L FM ribs Comments inf rib 7&8 FMR Self-Care/Home Management Treatment Education Other Education Discussion re: watching position & proppign arms when reading so cervical not fully flexed and working on hip hinge w/house work vs cervical & thoracic flex PT-OP-T Assessment and Plan Start: 06/25/21 18:13 Freq: Status: Active Protocol: Document 09/16/21 07:27 [facility] (Rec: 09/16/21 14:31 [facility] [id number]) Physical Therapy Assessment Goals activities. Short Term Goal (STG) Pt will be able to needlework and dressing (donning UE clothing) without pain. 08/07-notes she always puts on RUE in first and still some discomfort w/unhooking bra and needlework feels okay STG Duration 07/24/21 Shelter Goal (LTG) Pt will be able do all gardening, lifting of grandkid and home heavy things, and be able to boat and kayak w/o pain. LTG Duration 08/24/21 ROM Short Term Goal (STG) Pt will be able to do overhead reaching w/o pain for flex & abd. 08/07- 05/26 on R w/abd and flex -not really pain but stiffness STG Duration 07/24/21 [place] Goal (LTG) Pt will have equal ROM of IR behind back R to L to show improved ability to don/doff bra. 08/07-w/in 1 in difference LTG Duration strength Short Term Goal (STG) Pt will be indep w/HEP STG Duration achieved progressing as able [place] Goal (LTG) Pt will score 5/5 on RUE strength testing and at least 3/5 on EFT to show improved strength in order to participate in her typical yard work. 08/07-improved LTG Duration 10/07 quick dash Impairment 22.7 Short Term Goal (STG) Pt will score no higher than 18 on quick dash to show improved functional ability 08/07-n/t STG Duration 09/07/21 [place] Goal (LTG) Pt will score no higher than 4 on quick dash to show improved functional ability LTG Duration 10/07/21 Assessment Summary Assessment Pt had improved R rotation of trunk and cervical w/manual treatment today. This allowed improved abiltiyt for scap to drop but she does still have some ant tightness that limits her ability to get scap fully neutral easily when upright. Physical Therapy Plan Frequency and Duration Frequency of Treatment 1-2x/week Duration of Treatment 2 months Plan of Care Start Date 08/07/21 Plan of Care End Date 10/07/21 Next Visit Focus/Plan Next Note Type Treatment Note Next Visit Plan work on prone prop facilitaiton of rhomboids. work on ER at side ROM, work on lat glide
--- NOTE | 2021-09-24 13:49 | PT.OTN ---
Current Diagnoses Pain in right shoulder (09/24/21) Cervicalgia (09/24/21) Abnormal posture (09/24/21) Weakness (09/24/21) Physical Therapy Treatment Note PT-OP-A Visit Information Start: 06/25/21 18:13 Freq: Status: Active Protocol: Document 09/24/21 13:02 [facility] (Rec: 09/24/21 13:49 [facility] [id number]) Out-Patient Physical Therapy Visit Information Visit Information Visit Type Treatment Note Visit Note 01/24 Visit Start Time 13:01 Visit Stop Time 13:43 Total Visit Minutes 42 Visit Number 18 Number of RUBY RAILS DEVELOPER Visits 0 PT-OP-B Current Condition Start: 06/25/21 18:13 Freq: Status: Active Protocol: Document 06/26/21 09:01 [facility] (Rec: 06/26/21 09:54 [facility] [id number]) Current Condition History of Current Condition Onset Date fall 2020 Current Complaints R shoulder and arm pain History of Current Condition Pt reports she hopes R shoulder pain doesn't come from her neck as she will get pain into her biceps and it will just ache sometimes and even her forearm. Pt reports R shoulder started hurting in fall after a lot of yard work. She notices discomfort w/IR and adduction like when washing her body. She had one instance of pain and catching w/overhead reaching. She has been using the foam roll and doing pec stretch and has done some thoracic extensions over it. She has had problems with her neck since her 20s when she had an incident where she was trying to get the seat to move and ended up hitting her neck on the side of the car. She was treated w/floromethane spray and stretch. pt has gone to PT intermittently in past d/t neck pain, the last time being about 15 years ago. She tries to work on her posture in sitting, but knows her kyphosis is a problem. Pt would like ot try pickleball and is afraid too and is also concerned about doing digging in the yard or weeding in the yard. Pt has pain when laying on L side and has to prop R arm. She can lay on R arm but has to be carefult o protract and ER arm and be very carefully positioned. Prior Treatments and Tests mild arthritis w/Xray Treatment Goals Patient/Caregiver Goals be able to do all digging and gardening in the yard. 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 She has the stinging sensation less. Sometimes it is ant and sometimes post brachium. She took tylenol from doing the scrubbing but she did that d/t soreness all over. Has another massage scheduled for next week. Seh has been sleeping better when supproting L arm. Patient Reported Progress Improving PT-OP-F Manual Assessment Start: 06/25/21 18:13 Freq: Status: Active Protocol: Document 06/26/21 09:01 [facility] (Rec: 06/26/21 09:54 [facility] [id number]) Manual Assessments Soft Tissue Assessment Soft Tissue Mobility Assessment R UT, LS, pec, biceps, rhomoids tight Joint Mobility Assessment Joint Mobility Assessment R 1str rib and clavicle elevated PT-OP-J Posture/Palpation/Skin Start: 06/25/21 18:13 Freq: Status: Active Protocol: Document 08/07/21 15:22 [facility] (Rec: 08/07/21 16:07 [facility] [id number]) Posture Evaluation Rocio Postural Classification System Elbow Flexion Test 2 PT-OP-K Range of Motion Start: 06/25/21 18:13 Freq: Status: Active Protocol: Document 06/30/21 09:07 [facility] (Rec: 06/30/21 11:56 [facility] [id number]) Cervical Spine Range of Motion Cervical Spine Active Degrees Flexion 52 Extension 35 Rotation Left 56 Rotation Right 39 Lateral Flexion Left 38 Lateral Flexion Right 30 Comments pain into UTR w/SB R & rot R PT-OP-L Special Tests Start: 06/25/21 18:13 Freq: Status: Active Protocol: Document 06/26/21 09:01 [facility] (Rec: 06/26/21 09:54 [facility] [id number]) Special Tests Shoulder Special Tests Empty Can Test Results positive R AC Joint Compression Test Results neg R [place] Impingement Test Results positive R [place] Test Test Results pain but less pain than speeds Speed's Biceps Test Results positive R Sulcus Test Results neg R Yergason's Biceps Test Results neg R Neer Impingement Test Results positive R Neural Special Tests- Upper Body Radial Nerve Tension Test Results positive R median n tension Test Results positive R Ulnar Nerve Tension Test Results neg R PT-OP-M Strength Start: 06/25/21 18:13 Freq: Status: Active Protocol: Document 08/07/21 15:22 [facility] (Rec: 08/07/21 16:07 [facility] [id number]) Shoulder Strength Shoulder Manual Muscle Testing Right Flexion 4+ Good+ Extension 5 Normal Abduction (C5) 4+ Good+ External Rotation 5 Normal Internal Rotation 4 Good Horizontal Abduction 5 Normal Horizontal Adduction 5 Normal Left Flexion 5 Normal Extension 5 Normal Abduction (C5) 5 Normal Adduction 5 Normal External Rotation 5 Normal Internal Rotation 5 Normal Horizontal Abduction 5 Normal Horizontal Adduction 5 Normal PT-OP-Q Treatments Start: 06/25/21 18:13 Freq: Status: Active Protocol: Document 09/24/21 13:02 [facility] (Rec: 09/24/21 13:49 [facility] [id number]) Manual Therapy Treatment Soft Tissue Mobilization UT/LS/Scalene/SCM Body Location R Mobilization Type Rolling,Strumming Intensity/Depth Moderate Body Position Sidelying Comments w/pnf pec Body Location R pec & along ribs Mobilization Type Rolling,Strumming,Sustained Pressure Intensity/Depth Moderate Body Position Supine Joint Mobilizations SC Joint gapping FM AC Joint R Direction gapping FM in seated cover position Tspine Comments 1. transverse glide R T7-9 2. UPA R T6-9 ribs Comments 1. AP ribs 2-4 Neuro Re-Education Treatment Other Activities PNF Details R scap Comments 1. rhythimic initiation ant elevation 2. sustained holds ant elevation 3. COI ant elevation PT-OP-T Assessment and Plan Start: 06/25/21 18:13 Freq: Status: Active Protocol: Document 09/24/21 13:02 [facility] (Rec: 09/24/21 13:49 [facility] [id number]) Physical Therapy Assessment Goals activities. Short Term Goal (STG) Pt will be able to needlework and dressing (donning UE clothing) without pain. 08/07-notes she always puts on RUE in first and still some discomfort w/unhooking bra and needlework feels okay STG Duration 07/24/21 [facility] Goal (LTG) Pt will be able do all gardening, lifting of grandkid and home heavy things, and be able to boat and kayak w/o pain. LTG Duration 08/24/21 ROM Short Term Goal (STG) Pt will be able to do overhead reaching w/o pain for flex & abd. 08/07- 05/26 on R w/abd and flex -not really pain but stiffness STG Duration 07/24/21 [facility] Goal (LTG) Pt will have equal ROM of IR behind back R to L to show improved ability to don/doff bra. 08/07-w/in 1 in difference LTG Duration strength Short Term Goal (STG) Pt will be indep w/HEP STG Duration achieved progressing as able Turbo Generator Oiler Goal (LTG) Pt will score 5/5 on RUE strength testing and at least 3/5 on EFT to show improved strength in order to participate in her typical yard work. 08/07-improved LTG Duration 10/07 quick dash Impairment 22.7 Short Term Goal (STG) Pt will score no higher than 18 on quick dash to show improved functional ability 08/07-n/t STG Duration 09/07/21 [facility] Goal (LTG) Pt will score no higher than 4 on quick dash to show improved functional ability LTG Duration 10/07/21 Assessment Summary Assessment Pt had imrpoved rotation to L of trunk and improved scap retraction and depression along w/improved reaching w/ less pain after manual. She has poor mechanics w/reach and falls out of pattern w/ scapula Physical Therapy Plan Frequency and Duration Frequency of Treatment 1-2x/week Duration of Treatment 2 months Plan of Care Start Date 08/07/21 Plan of Care End Date 10/07/21 Next Visit Focus/Plan Next Note Type Progress Note Next Visit Plan check progress and focus on progression of mobility w/o pirosanne
--- NOTE | 2021-10-02 09:32 | PT.OTN ---
Current Diagnoses Pain in right shoulder (10/02/21) Cervicalgia (10/02/21) Abnormal posture (10/02/21) Weakness (10/02/21) Physical Therapy Treatment Note PT-OP-A Visit Information Start: 06/25/21 18:13 Freq: Status: Active Protocol: Document 10/02/21 07:30 [facility] (Rec: 10/02/21 09:32 [facility] [id number]) Out-Patient Physical Therapy Visit Information Visit Information Visit Type Progress Note Visit Note 05/26 Visit Start Time 07:30 Visit Stop Time 08:13 Total Visit Minutes 43 Visit Number 19 Number of INFORMATION TECHNOLOGY TEACHER Visits 0 PT-OP-B Current Condition Start: 06/25/21 18:13 Freq: Status: Active Protocol: Document 06/26/21 09:01 [facility] (Rec: 06/26/21 09:54 [facility] [id number]) Current Condition History of Current Condition Onset Date fall 2020 Current Complaints R shoulder and arm pain History of Current Condition Pt reports she hopes R shoulder pain doesn't come from her neck as she will get pain into her biceps and it will just ache sometimes and even her forearm. Pt reports R shoulder started hurting in fall after a lot of yard work. She notices discomfort w/IR and adduction like when washing her body. She had one instance of pain and catching w/overhead reaching. She has been using the foam roll and doing pec stretch and has done some thoracic extensions over it. She has had problems with her neck since her 20s when she had an incident where she was trying to get the seat to move and ended up hitting her neck on the side of the car. She was treated w/floromethane spray and stretch. pt has gone to PT intermittently in past d/t neck pain, the last time being about 15 years ago. She tries to work on her posture in sitting, but knows her kyphosis is a problem. Pt would like ot try pickleball and is afraid too and is also concerned about doing digging in the yard or weeding in the yard. Pt has pain when laying on L side and has to prop R arm. She can lay on R arm but has to be carefult o protract and ER arm and be very carefully positioned. Prior Treatments and Tests mild arthritis w/Xray Treatment Goals Patient/Caregiver Goals be able to do all digging and gardening in the yard. 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 Personal Factors Other Personal Factors That May Effect R hip pain, neck pain, pt does Therapy/Recovery a lot of yard work PT-OP-C Subjective Start: 06/25/21 18:13 Freq: Status: Active Protocol: Document 10/02/21 07:30 [facility] (Rec: 10/02/21 09:32 [facility] [id number]) OP-PT Subjective Patient Comments Patient Comments Pt reports less scap border pain, occ zinging in arm but notes some w/neck including L side of neck Patient Questionnaires Quick Dash- Upper Extremity Quick Dash UE Score 13.6 PT-OP-F Manual Assessment Start: 06/25/21 18:13 Freq: Status: Active Protocol: Document 06/26/21 09:01 [facility] (Rec: 06/26/21 09:54 [facility] [id number]) Manual Assessments Soft Tissue Assessment Soft Tissue Mobility Assessment R UT, LS, pec, biceps, rhomoids tight Joint Mobility Assessment Joint Mobility Assessment R 1str rib and clavicle elevated PT-OP-J Posture/Palpation/Skin Start: 06/25/21 18:13 Freq: Status: Active Protocol: Document 08/07/21 15:22 [facility] (Rec: 08/07/21 16:07 [facility] [id number]) Posture Evaluation [facility] Postural Classification System Elbow Flexion Test 2 PT-OP-K Range of Motion Start: 06/25/21 18:13 Freq: Status: Active Protocol: Document 10/02/21 07:30 [facility] (Rec: 10/02/21 09:32 [facility] [id number]) Shoulder Goniometric Range of Motion Shoulder Right Active Internal Rotation Behind Back (text) T9 Comments slight discomfort PT-OP-L Special Tests Start: 06/25/21 18:13 Freq: Status: Active Protocol: Document 06/26/21 09:01 [facility] (Rec: 06/26/21 09:54 [facility] [id number]) Special Tests Shoulder Special Tests Empty Can Test Results positive R AC Joint Compression Test Results neg R [place] Impingement Test Results positive R [place] Test Test Results pain but less pain than speeds Speed's Biceps Test Results positive R Sulcus Test Results neg R Yergason's Biceps Test Results neg R Neer Impingement Test Results positive R Neural Special Tests- Upper Body Radial Nerve Tension Test Results positive R median n tension Test Results positive R Ulnar Nerve Tension Test Results neg R PT-OP-M Strength Start: 06/25/21 18:13 Freq: Status: Active Protocol: Document 10/02/21 07:30 [facility] (Rec: 10/02/21 09:32 [facility] [id number]) Shoulder Strength Shoulder Manual Muscle Testing Right Flexion 4+ Good+ Extension 5 Normal Abduction (C5) 4 Good External Rotation 4+ Good+ Internal Rotation 4 Good Horizontal Abduction 5 Normal Horizontal Adduction 5 Normal Comments IR & abd discomfort Left Flexion 5 Normal Extension 5 Normal Abduction (C5) 5 Normal Adduction 5 Normal External Rotation 5 Normal Internal Rotation 5 Normal Horizontal Abduction 5 Normal Horizontal Adduction 5 Normal PT-OP-Q Treatments Start: 06/25/21 18:13 Freq: Status: Active Protocol: Document 10/02/21 07:30 [facility] (Rec: 10/02/21 09:32 [facility] [id number]) Manual Therapy Treatment Joint Mobilizations SC Joint gapping FM AC Joint R Direction gapping FM in prone prop Tspine Body Position prone prop Comments T4-9 transverse L FM T6-8 UPA R FM ribs Comments caudal throughout R side rib cage some specific on rib and some general from ribs 4-9 R UAP R rib 3-5 FM UAP sternum R FM Self-Care/Home Management Treatment Education Other Education discussed HEP she is doing. [facility] and discussed seeing provider about injection or see DO. PT-OP-T Assessment and Plan Start: 06/25/21 18:13 Freq: Status: Active Protocol: Document 10/02/21 07:30 [facility] (Rec: 10/02/21 09:32 [facility] [id number]) Physical Therapy Assessment Goals activities. Short Term Goal (STG) Pt will be able to needlework and dressing (donning UE clothing) without pain. 08/07-notes she always puts on RUE in first and still some discomfort w/unhooking bra and needlework feels okay 10/02-hasn't done needlework recently & has modified dressing STG Duration 10/13 Correction Goal (LTG) Pt will be able do all gardening, lifting of grandkid and home heavy things, and be able to boat and kayak w/o pain. 10/02-pt reports did 1 hr of weeding and paid for it for a couple days. She still has zingers in R shoulder, Had L side neck spasm but used ice pack to help. LTG Duration 11/02 ROM Short Term Goal (STG) Pt will be able to do overhead reaching w/o pain for flex & abd. 08/07- 05/26 on R w/abd and flex -not really pain but stiffness 10/02- has to think about setting self to do it comfortablely STG Duration 10/13/21 Correction Goal (LTG) Pt will have equal ROM of IR behind back R to L to show improved ability to don/doff bra. 08/07-w/in 1 in difference LTG Duration achieved and able but slight discomort still strength Short Term Goal (STG) Pt will be indep w/HEP STG Duration achieved progressing as able Correction Goal (LTG) Pt will score 5/5 on RUE strength testing and at least 3/5 on EFT to show improved strength in order to participate in her typical yard work. 08/07-improved 10/02-2/5 EFT, no change MMT LTG Duration 11/02 quick dash Impairment 22.7 Short Term Goal (STG) Pt will score no higher than 18 on quick dash to show improved functional ability 08/07-n/t STG Duration achieved Correction Goal (LTG) Pt will score no higher than 4 on quick dash to show improved functional ability LTG Duration 11/02/21 Assessment Summary Assessment Pt has made some recent progress w/PT w/improved sleep and improved posture, but still does have difficulty most w/looking down w/neck. Pt improved rotation of throacic spine w/manual and improved flex w/cervical. Pt would bneefit from cont PT w/focus on improving movement of RUE Physical Therapy Plan Frequency and Duration Frequency of Treatment 1-2x/week Duration of Treatment 1 month Plan of Care Start Date 10/02/21 Plan of Care End Date 11/02/21 Therapeutic Interventions Therapeutic Interventions Aquatic Therapy,Gait Training, Home Exercise Program,Joint Mobilizations,Manual Therapy, Patient/Caregiver Education, Self-Care/Home Management,Soft Tissue Mobilization,Taping, Therapeutic Activities, Therapeutic Exercises Next Visit Focus/Plan Next Note Type Treatment Note Next Visit Plan cont to wrk on thoracic and cervical mobiltiy for flex
--- NOTE | 2021-10-02 09:32 | PT.OPPOC ---
Addendum entered and electronically signed by Ban Tovar, PT 10/02/21 09:33: send POC Original Note: Physical, Occupational & Speech Therapy At [facility] Current Diagnoses Pain in right shoulder (10/02/21) Cervicalgia (10/02/21) Abnormal posture (10/02/21) Weakness (10/02/21) Visit Care Team Role Provider Type Kathia Foster DO Family Provider Physician Specialty: Family Practice Address: [address] [place] [address], [address], [address] Email: [email or web address] Charlie Fontana MD Attending Provider Physician Primary Care Provider Referring Provider Specialty: [facility] Address: [address] [place] [address], [address] Email: [email or web address] Plan Of Care PT-OP-T Assessment and Plan Start: 06/25/21 18:13 Freq: Status: Active Protocol: Document 10/02/21 07:30 [facility] (Rec: 10/02/21 09:32 [facility] [id number]) Physical Therapy Assessment Goals activities. Short Term Goal (STG) Pt will be able to needlework and dressing (donning UE clothing) without pain. 08/07-notes she always puts on RUE in first and still some discomfort w/unhooking bra and needlework feels okay 10/02-hasn't done needlework recently & has modified dressing STG Duration 10/13 Certified Ophthalmic Technician Goal (LTG) Pt will be able do all gardening, lifting of grandkid and home heavy things, and be able to boat and kayak w/o pain. 10/02-pt reports did 1 hr of weeding and paid for it for a couple days. She still has zingers in R shoulder, Had L side neck spasm but used ice pack to help. LTG Duration 11/02 ROM Short Term Goal (STG) Pt will be able to do overhead reaching w/o pain for flex & abd. 08/07- 1/10 on R w/abd and flex -not really pain but stiffness 10/02- has to think about setting self to do it comfortablely STG Duration 10/13/21 Certified Ophthalmic Technician Goal (LTG) Pt will have equal ROM of IR behind back R to L to show improved ability to don/doff bra. 08/07-w/in 1 in difference LTG Duration achieved and able but slight discomort still strength Short Term Goal (STG) Pt will be indep w/HEP STG Duration achieved progressing as able Certified Ophthalmic Technician Goal (LTG) Pt will score 5/5 on RUE strength testing and at least 3/5 on EFT to show improved strength in order to participate in her typical yard work. 08/07-improved 10/02-2/5 EFT, no change MMT LTG Duration 11/02 quick dash Impairment 22.7 Short Term Goal (STG) Pt will score no higher than 18 on quick dash to show improved functional ability 08/07-n/t STG Duration achieved Certified Ophthalmic Technician Goal (LTG) Pt will score no higher than 4 on quick dash to show improved functional ability LTG Duration 11/02/21 Assessment Summary Assessment Pt has made some recent progress w/PT w/improved sleep and improved posture, but still does have difficulty most w/looking down w/neck. Pt improved rotation of throacic spine w/manual and improved flex w/cervical. Pt would bneefit from cont PT w/focus on improving movement of RUE Physical Therapy Plan Frequency and Duration Frequency of Treatment 1-2x/week Duration of Treatment 1 month Plan of Care Start Date 10/02/21 Plan of Care End Date 11/02/21 Therapeutic Interventions Therapeutic Interventions Aquatic Therapy,Gait Training, Home Exercise Program,Joint Mobilizations,Manual Therapy, Patient/Caregiver Education, Self-Care/Home Management,Soft Tissue Mobilization,Taping, Therapeutic Activities, Therapeutic Exercises Next Visit Focus/Plan Next Note Type Treatment Note Next Visit Plan cont to wrk on thoracic and cervical mobiltiy for flex Plan of Care Dates Plan of Care Start Date 10/02/21 Plan of Care End Date 11/02/21 Electronically Signed by: Ban Tovar, PT 10/02/21 [id number] If you are in agreement with this Plan of Care, please return a signed and dated copy. I have reviewed this Plan of Care and certify that the skilled therapy services above are required to meet the patient?s needs. Physician Signature Date Printed Name and Credentials Clinical Instructor Signature Printed Name and Credentials
--- NOTE | 2021-10-07 18:55 | PT.OTN ---
Current Diagnoses Pain in right shoulder (10/07/21) Cervicalgia (10/07/21) Abnormal posture (10/07/21) Weakness (10/07/21) Physical Therapy Treatment Note PT-OP-A Visit Information Start: 06/25/21 18:13 Freq: Status: Active Protocol: Document 10/07/21 18:51 [facility] (Rec: 10/07/21 18:55 [facility] [id number]) Out-Patient Physical Therapy Visit Information Visit Information Visit Type Treatment Note Visit Note 06/26 Visit Start Time 07:31 Visit Stop Time 08:14 Total Visit Minutes 43 Visit Number 20 Number of BOTTLE FEEDER Visits 0 PT-OP-B Current Condition Start: 06/25/21 18:13 Freq: Status: Active Protocol: Document 06/26/21 09:01 [facility] (Rec: 06/26/21 09:54 [facility] [id number]) Current Condition History of Current Condition Onset Date fall 2020 Current Complaints R shoulder and arm pain History of Current Condition Pt reports she hopes R shoulder pain doesn't come from her neck as she will get pain into her biceps and it will just ache sometimes and even her forearm. Pt reports R shoulder started hurting in fall after a lot of yard work. She notices discomfort w/IR and adduction like when washing her body. She had one instance of pain and catching w/overhead reaching. She has been using the foam roll and doing pec stretch and has done some thoracic extensions over it. She has had problems with her neck since her 20s when she had an incident where she was trying to get the seat to move and ended up hitting her neck on the side of the car. She was treated w/floromethane spray and stretch. pt has gone to PT intermittently in past d/t neck pain, the last time being about 15 years ago. She tries to work on her posture in sitting, but knows her kyphosis is a problem. Pt would like ot try pickleball and is afraid too and is also concerned about doing digging in the yard or weeding in the yard. Pt has pain when laying on L side and has to prop R arm. She can lay on R arm but has to be carefult o protract and ER arm and be very carefully positioned. Prior Treatments and Tests mild arthritis w/Xray Treatment Goals Patient/Caregiver Goals be able to do all digging and gardening in the yard. 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 Cupping has left some bruises PT-OP-F Manual Assessment Start: 06/25/21 18:13 Freq: Status: Active Protocol: Document 06/26/21 09:01 [facility] (Rec: 06/26/21 09:54 [facility] [id number]) Manual Assessments Soft Tissue Assessment Soft Tissue Mobility Assessment R UT, LS, pec, biceps, rhomoids tight Joint Mobility Assessment Joint Mobility Assessment R 1str rib and clavicle elevated PT-OP-J Posture/Palpation/Skin Start: 06/25/21 18:13 Freq: Status: Active Protocol: Document 08/07/21 15:22 [facility] (Rec: 08/07/21 16:07 [facility] [id number]) Posture Evaluation [facility] Postural Classification System Elbow Flexion Test 2 PT-OP-K Range of Motion Start: 06/25/21 18:13 Freq: Status: Active Protocol: Document 10/02/21 07:30 [facility] (Rec: 10/02/21 09:32 [facility] [id number]) Shoulder Goniometric Range of Motion Shoulder Right Active Internal Rotation Behind Back (text) T9 Comments slight discomfort PT-OP-L Special Tests Start: 06/25/21 18:13 Freq: Status: Active Protocol: Document 06/26/21 09:01 [facility] (Rec: 06/26/21 09:54 [facility] [id number]) Special Tests Shoulder Special Tests Empty Can Test Results positive R AC Joint Compression Test Results neg R [place] Impingement Test Results positive R [place] Test Test Results pain but less pain than speeds Speed's Biceps Test Results positive R Sulcus Test Results neg R [place]'s Biceps Test Results neg R Neer Impingement Test Results positive R Neural Special Tests- Upper Body Radial Nerve Tension Test Results positive R median n tension Test Results positive R Ulnar Nerve Tension Test Results neg R PT-OP-M Strength Start: 06/25/21 18:13 Freq: Status: Active Protocol: Document 10/02/21 07:30 [facility] (Rec: 10/02/21 09:32 [facility] [id number]) Shoulder Strength Shoulder Manual Muscle Testing Right Flexion 4+ Good+ Extension 5 Normal Abduction (C5) 4 Good External Rotation 4+ Good+ Internal Rotation 4 Good Horizontal Abduction 5 Normal Horizontal Adduction 5 Normal Comments IR & abd discomfort Left Flexion 5 Normal Extension 5 Normal Abduction (C5) 5 Normal Adduction 5 Normal External Rotation 5 Normal Internal Rotation 5 Normal Horizontal Abduction 5 Normal Horizontal Adduction 5 Normal PT-OP-Q Treatments Start: 06/25/21 18:13 Freq: Status: Active Protocol: Document 10/07/21 18:51 [facility] (Rec: 10/07/21 18:55 [facility] [id number]) Manual Therapy Treatment Joint Mobilizations SC Joint gapping FM R cervical Comments gapping C5-7 FM Tspine Comments gapping FM 1-3 transverse L T1-10 ribs Reps/Duration FM Comments UAP R rib 1-4 caudal rib 1-2 sternum and manubrium R UAP FM PT-OP-T Assessment and Plan Start: 06/25/21 18:13 Freq: Status: Active Protocol: Document 10/07/21 18:51 [facility] (Rec: 10/07/21 18:55 [facility] [id number]) Physical Therapy Assessment Goals activities. Short Term Goal (STG) Pt will be able to needlework and dressing (donning UE clothing) without pain. 08/07-notes she always puts on RUE in first and still some discomfort w/unhooking bra and needlework feels okay 10/02-hasn't done needlework recently & has modified dressing STG Duration 10/13 Rn Field Goal (LTG) Pt will be able do all gardening, lifting of grandkid and home heavy things, and be able to boat and kayak w/o pain. 10/02-pt reports did 1 hr of weeding and paid for it for a couple days. She still has zingers in R shoulder, Had L side neck spasm but used ice pack to help. LTG Duration 11/02 ROM Short Term Goal (STG) Pt will be able to do overhead reaching w/o pain for flex & abd. 08/07- 05/26 on R w/abd and flex -not really pain but stiffness 10/02- has to think about setting self to do it comfortablely STG Duration 10/13/21 Rn Field Goal (LTG) Pt will have equal ROM of IR behind back R to L to show improved ability to don/doff bra. 08/07-w/in 1 in difference LTG Duration achieved and able but slight discomort still strength Short Term Goal (STG) Pt will be indep w/HEP STG Duration achieved progressing as able Penitentiary Goal (LTG) Pt will score 5/5 on RUE strength testing and at least 3/5 on EFT to show improved strength in order to participate in her typical yard work. 08/07-improved 10/02-2/5 EFT, no change MMT LTG Duration 11/02 quick dash Impairment 22.7 Short Term Goal (STG) Pt will score no higher than 18 on quick dash to show improved functional ability 08/07-n/t STG Duration achieved Penitentiary Goal (LTG) Pt will score no higher than 4 on quick dash to show improved functional ability LTG Duration 11/02/21 Assessment Summary Assessment Improved cervical rotation w/ better translation through tspine w/treatment. Improved pain w/manual treatment today. pt to cont HEP for mobility & strength Physical Therapy Plan Frequency and Duration Frequency of Treatment 1-2x/week Duration of Treatment 1 month Plan of Care Start Date 10/02/21 Plan of Care End Date 11/02/21 Next Visit Focus/Plan Next Note Type Treatment Note Next Visit Plan cont to wrk on thoracic and cervical mobiltiy for flex
--- NOTE | 2021-10-21 18:29 | PT.OTN ---
Current Diagnoses Pain in right shoulder (10/21/21) Cervicalgia (10/21/21) Abnormal posture (10/21/21) Weakness (10/21/21) Physical Therapy Treatment Note PT-OP-A Visit Information Start: 06/25/21 18:13 Freq: Status: Active Protocol: Document 10/21/21 18:16 [facility] (Rec: 10/21/21 18:29 [facility] [id number]) Out-Patient Physical Therapy Visit Information Visit Information Visit Type Treatment Note Visit Note 07/24 Visit Start Time 16:48 Visit Stop Time 17:33 Total Visit Minutes 45 Visit Number 21 Number of INDUSTRIAL SALES REPRESENTATIVE Visits 0 PT-OP-B Current Condition Start: 06/25/21 18:13 Freq: Status: Active Protocol: Document 06/26/21 09:01 [facility] (Rec: 06/26/21 09:54 [facility] [id number]) Current Condition History of Current Condition Onset Date fall 2020 Current Complaints R shoulder and arm pain History of Current Condition Pt reports she hopes R shoulder pain doesn't come from her neck as she will get pain into her biceps and it will just ache sometimes and even her forearm. Pt reports R shoulder started hurting in fall after a lot of yard work. She notices discomfort w/IR and adduction like when washing her body. She had one instance of pain and catching w/overhead reaching. She has been using the foam roll and doing pec stretch and has done some thoracic extensions over it. She has had problems with her neck since her 20s when she had an incident where she was trying to get the seat to move and ended up hitting her neck on the side of the car. She was treated w/floromethane spray and stretch. pt has gone to PT intermittently in past d/t neck pain, the last time being about 15 years ago. She tries to work on her posture in sitting, but knows her kyphosis is a problem. Pt would like ot try pickleball and is afraid too and is also concerned about doing digging in the yard or weeding in the yard. Pt has pain when laying on L side and has to prop R arm. She can lay on R arm but has to be carefult o protract and ER arm and be very carefully positioned. Prior Treatments and Tests mild arthritis w/Xray Treatment Goals Patient/Caregiver Goals be able to do all digging and gardening in the yard. 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 Less pain in brachium and can sleep on R side. Notes she notes some of her biggest difficulty is carrying things PT-OP-F Manual Assessment Start: 06/25/21 18:13 Freq: Status: Active Protocol: Document 06/26/21 09:01 [facility] (Rec: 06/26/21 09:54 [facility] [id number]) Manual Assessments Soft Tissue Assessment Soft Tissue Mobility Assessment R UT, LS, pec, biceps, rhomoids tight Joint Mobility Assessment Joint Mobility Assessment R 1str rib and clavicle elevated PT-OP-J Posture/Palpation/Skin Start: 06/25/21 18:13 Freq: Status: Active Protocol: Document 08/07/21 15:22 [facility] (Rec: 08/07/21 16:07 [facility] [id number]) Posture Evaluation Rocio Postural Classification System Elbow Flexion Test 2 PT-OP-K Range of Motion Start: 06/25/21 18:13 Freq: Status: Active Protocol: Document 10/02/21 07:30 [facility] (Rec: 10/02/21 09:32 [facility] [id number]) Shoulder Goniometric Range of Motion Shoulder Right Active Internal Rotation Behind Back (text) T9 Comments slight discomfort PT-OP-L Special Tests Start: 06/25/21 18:13 Freq: Status: Active Protocol: Document 06/26/21 09:01 [facility] (Rec: 06/26/21 09:54 [facility] [id number]) Special Tests Shoulder Special Tests Empty Can Test Results positive R AC Joint Compression Test Results neg R [place] Impingement Test Results positive R [place] Test Test Results pain but less pain than speeds Speed's Biceps Test Results positive R Sulcus Test Results neg R Yerhanna's Biceps Test Results neg R Neer Impingement Test Results positive R Neural Special Tests- Upper Body Radial Nerve Tension Test Results positive R median n tension Test Results positive R Ulnar Nerve Tension Test Results neg R PT-OP-M Strength Start: 06/25/21 18:13 Freq: Status: Active Protocol: Document 10/02/21 07:30 [facility] (Rec: 10/02/21 09:32 [facility] [id number]) Shoulder Strength Shoulder Manual Muscle Testing Right Flexion 4+ Good+ Extension 5 Normal Abduction (C5) 4 Good External Rotation 4+ Good+ Internal Rotation 4 Good Horizontal Abduction 5 Normal Horizontal Adduction 5 Normal Comments IR & abd discomfort Left Flexion 5 Normal Extension 5 Normal Abduction (C5) 5 Normal Adduction 5 Normal External Rotation 5 Normal Internal Rotation 5 Normal Horizontal Abduction 5 Normal Horizontal Adduction 5 Normal PT-OP-Q Treatments Start: 06/25/21 18:13 Freq: Status: Active Protocol: Document 10/21/21 18:16 [facility] (Rec: 10/21/21 18:29 [facility] [id number]) Therapeutic Exercises Prone Exercises ER Prone Exercise Name 90/90 Side right Equipment Used on plinth Reps/Minutes 12 scaption Prone Exercise Name on plinth Side right Reps/Minutes 2x10 Comments cues for scap Standing Exercises IR Side right Equipment Used L3 Reps/Minutes 10 Comments cues for noant rot ER Side bilateral Equipment Used L2 Reps/Minutes 15 Comments w/pronation retraction Standing Exercise Name pivot prone Side bilateral Reps/Minutes 5 Manual Therapy Treatment Soft Tissue Mobilization UT/LS/Scalene/SCM Body Location R scalenes Mobilization Type Rolling,Strumming Intensity/Depth Moderate Body Position Sidelying Comments w/pnf Joint Mobilizations SC Joint gapping FM R AC Joint R Direction gapping FM ribs Comments med glide rib 6-8 R FM 1st rib caudal FM Neuro Re-Education Treatment Other Activities PNF Comments 1.s tanding facilitation into post dep R scap w/elbow movement 2. s/l rhythimic initiation B post dep 3. sustained holds R scap depression post 4. irradiation from modified pivot prone R to post dep w/ progression to dissociationa nd COI PT-OP-T Assessment and Plan Start: 06/25/21 18:13 Freq: Status: Active Protocol: Document 10/21/21 18:16 [facility] (Rec: 10/21/21 18:29 [facility] [id number]) Physical Therapy Assessment Goals activities. Short Term Goal (STG) Pt will be able to needlework and dressing (donning UE clothing) without pain. 08/07-notes she always puts on RUE in first and still some discomfort w/unhooking bra and needlework feels okay 10/02-hasn't done needlework recently & has modified dressing STG Duration 10/13 Detention Goal (LTG) Pt will be able do all gardening, lifting of grandkid and home heavy things, and be able to boat and kayak w/o pain. 10/02-pt reports did 1 hr of weeding and paid for it for a couple days. She still has zingers in R shoulder, Had L side neck spasm but used ice pack to help. LTG Duration 11/02 ROM Short Term Goal (STG) Pt will be able to do overhead reaching w/o pain for flex & abd. 08/07- 05/26 on R w/abd and flex -not really pain but stiffness 10/02- has to think about setting self to do it comfortablely STG Duration 10/13/21 Sterile Processing Manager Goal (LTG) Pt will have equal ROM of IR behind back R to L to show improved ability to don/doff bra. 08/07-w/in 1 in difference LTG Duration achieved and able but slight discomort still strength Short Term Goal (STG) Pt will be indep w/HEP STG Duration achieved progressing as able Detention Goal (LTG) Pt will score 5/5 on RUE strength testing and at least 3/5 on EFT to show improved strength in order to participate in her typical yard work. 08/07-improved 10/02-2/5 EFT, no change MMT LTG Duration 11/02 quick dash Impairment 22.7 Short Term Goal (STG) Pt will score no higher than 18 on quick dash to show improved functional ability 08/07-n/t STG Duration achieved Sterile Processing Manager Goal (LTG) Pt will score no higher than 4 on quick dash to show improved functional ability LTG Duration 11/02/21 Assessment Summary Assessment improved SB of trunk after manual and improved pt abilityt o hold 7 lb wt w/ elbow bent w/less scap ant tipping. Improved performance w/exercises after cues Physical Therapy Plan Frequency and Duration Frequency of Treatment 1-2x/week Duration of Treatment 1 month Plan of Care Start Date 10/02/21 Plan of Care End Date 11/02/21 Next Visit Focus/Plan Next Note Type Treatment Note Next Visit Plan cont to wrk on thoracic and cervical mobiltiy for flex
--- NOTE | 2021-10-27 16:03 | PT.OTN ---
Current Diagnoses Pain in right shoulder (10/27/21) Cervicalgia (10/27/21) Abnormal posture (10/27/21) Weakness (10/27/21) Physical Therapy Treatment Note PT-OP-A Visit Information Start: 06/25/21 18:13 Freq: Status: Active Protocol: Document 10/27/21 13:51 [facility] (Rec: 10/27/21 16:03 [facility] [id number]) Out-Patient Physical Therapy Visit Information Visit Information Visit Type Treatment Note Visit Note 08/24 Visit Start Time 13:51 Visit Stop Time 14:30 Total Visit Minutes 39 Visit Number 22 Number of LINE INSTALLATION SUPERVISOR Visits 0 PT-OP-B Current Condition Start: 06/25/21 18:13 Freq: Status: Active Protocol: Document 06/26/21 09:01 [facility] (Rec: 06/26/21 09:54 [facility] [id number]) Current Condition History of Current Condition Onset Date fall 2020 Current Complaints R shoulder and arm pain History of Current Condition Pt reports she hopes R shoulder pain doesn't come from her neck as she will get pain into her biceps and it will just ache sometimes and even her forearm. Pt reports R shoulder started hurting in fall after a lot of yard work. She notices discomfort w/IR and adduction like when washing her body. She had one instance of pain and catching w/overhead reaching. She has been using the foam roll and doing pec stretch and has done some thoracic extensions over it. She has had problems with her neck since her 20s when she had an incident where she was trying to get the seat to move and ended up hitting her neck on the side of the car. She was treated w/floromethane spray and stretch. pt has gone to PT intermittently in past d/t neck pain, the last time being about 15 years ago. She tries to work on her posture in sitting, but knows her kyphosis is a problem. Pt would like ot try pickleball and is afraid too and is also concerned about doing digging in the yard or weeding in the yard. Pt has pain when laying on L side and has to prop R arm. She can lay on R arm but has to be carefult o protract and ER arm and be very carefully positioned. Prior Treatments and Tests mild arthritis w/Xray Treatment Goals Patient/Caregiver Goals be able to do all digging and gardening in the yard. Be able to put on bra, be able to do needlework, be able to carry heavy things, be able to be on boat, be able to go kayaking w/o fear of pain, be able to cloth picker 25 lb grandkid Personal Factors Other Personal Factors That May Effect R hip pain, neck pain, pt does Therapy/Recovery a lot of yard work PT-OP-C Subjective Start: 06/25/21 18:13 Freq: Status: Active Protocol: Document 10/27/21 13:51 [facility] (Rec: 10/27/21 16:03 [facility] [id number]) OP-PT Subjective Patient Comments Patient Comments Pt notes she didn't do exercises as much d/t drivingt o visit son and notes that does make it worse. When it flares up, things like washing her hair hurts.She can stabilize her shoulder blade and that helps. PT-OP-F Manual Assessment Start: 06/25/21 18:13 Freq: Status: Active Protocol: Document 06/26/21 09:01 [facility] (Rec: 06/26/21 09:54 [facility] [id number]) Manual Assessments Soft Tissue Assessment Soft Tissue Mobility Assessment R UT, LS, pec, biceps, rhomoids tight Joint Mobility Assessment Joint Mobility Assessment R 1str rib and clavicle elevated PT-OP-J Posture/Palpation/Skin Start: 06/25/21 18:13 Freq: Status: Active Protocol: Document 08/07/21 15:22 [facility] (Rec: 08/07/21 16:07 [facility] [id number]) Posture Evaluation Rocio Postural Classification System Elbow Flexion Test 2 PT-OP-K Range of Motion Start: 06/25/21 18:13 Freq: Status: Active Protocol: Document 10/02/21 07:30 [facility] (Rec: 10/02/21 09:32 [facility] [id number]) Shoulder Goniometric Range of Motion Shoulder Right Active Internal Rotation Behind Back (text) T9 Comments slight discomfort PT-OP-L Special Tests Start: 06/25/21 18:13 Freq: Status: Active Protocol: Document 06/26/21 09:01 [facility] (Rec: 06/26/21 09:54 [facility] [id number]) Special Tests Shoulder Special Tests Empty Can Test Results positive R AC Joint Compression Test Results neg R [place] Impingement Test Results positive R [place] Test Test Results pain but less pain than speeds Speed's Biceps Test Results positive R Sulcus Test Results neg R Yergason's Biceps Test Results neg R Neer Impingement Test Results positive R Neural Special Tests- Upper Body Radial Nerve Tension Test Results positive R median n tension Test Results positive R Ulnar Nerve Tension Test Results neg R PT-OP-M Strength Start: 06/25/21 18:13 Freq: Status: Active Protocol: Document 10/02/21 07:30 [facility] (Rec: 10/02/21 09:32 [facility] [id number]) Shoulder Strength Shoulder Manual Muscle Testing Right Flexion 4+ Good+ Extension 5 Normal Abduction (C5) 4 Good External Rotation 4+ Good+ Internal Rotation 4 Good Horizontal Abduction 5 Normal Horizontal Adduction 5 Normal Comments IR & abd discomfort Left Flexion 5 Normal Extension 5 Normal Abduction (C5) 5 Normal Adduction 5 Normal External Rotation 5 Normal Internal Rotation 5 Normal Horizontal Abduction 5 Normal Horizontal Adduction 5 Normal PT-OP-Q Treatments Start: 06/25/21 18:13 Freq: Status: Active Protocol: Document 10/27/21 13:51 [facility] (Rec: 10/27/21 16:03 [facility] [id number]) Therapeutic Exercises Prone Exercises ER Prone Exercise Name 90/90 Side right Equipment Used on plinth Reps/Minutes 10 over tball Prone Exercise Name on plint Side right Equipment Used W Reps/Minutes 10 Sitting Exercises cervical retraciton Reps/Minutes 6x Comments focus on axial elongation Standing Exercises retraction Standing Exercise Name pivot prone Side bilateral Reps/Minutes 5 Manual Therapy Treatment Soft Tissue Mobilization SO Body Location R Mobilization Type Sustained Pressure Intensity/Depth Moderate Body Position Supine Comments w/chin tuck UT/LS/Scalene/SCM Body Location R scalenes & UT Mobilization Type Rolling,Strumming Intensity/Depth Moderate Body Position Supine Comments w/chin tuck pec Body Location R pec & along ribs Mobilization Type Rolling,Strumming,Sustained Pressure Intensity/Depth Moderate Body Position Supine Joint Mobilizations SC Joint gapping, caudal & AP FM R cervical Comments C7 UAP R GH Joint R Direction post & inf glides FM AC Joint R Direction gapping FM PT-OP-T Assessment and Plan Start: 06/25/21 18:13 Freq: Status: Active Protocol: Document 10/27/21 13:51 [facility] (Rec: 10/27/21 16:03 [facility] [id number]) Physical Therapy Assessment Goals activities. Short Term Goal (STG) Pt will be able to needlework and dressing (donning UE clothing) without pain. 08/07-notes she always puts on RUE in first and still some discomfort w/unhooking bra and needlework feels okay 10/02-hasn't done needlework recently & has modified dressing STG Duration 10/13 Head Refrigeration Engineer Goal (LTG) Pt will be able do all gardening, lifting of grandkid and home heavy things, and be able to boat and kayak w/o pain. 10/02-pt reports did 1 hr of weeding and paid for it for a couple days. She still has zingers in R shoulder, Had L side neck spasm but used ice pack to help. LTG Duration 11/02 ROM Short Term Goal (STG) Pt will be able to do overhead reaching w/o pain for flex & abd. 08/07- 05/26 on R w/abd and flex -not really pain but stiffness 10/02- has to think about setting self to do it comfortablely STG Duration 10/13/21 Head Refrigeration Engineer Goal (LTG) Pt will have equal ROM of IR behind back R to L to show improved ability to don/doff bra. 08/07-w/in 1 in difference LTG Duration achieved and able but slight discomort still strength Short Term Goal (STG) Pt will be indep w/HEP STG Duration achieved progressing as able Head Refrigeration Engineer Goal (LTG) Pt will score 5/5 on RUE strength testing and at least 3/5 on EFT to show improved strength in order to participate in her typical yard work. 08/07-improved 10/02-2/5 EFT, no change MMT LTG Duration 11/02 quick dash Impairment 22.7 Short Term Goal (STG) Pt will score no higher than 18 on quick dash to show improved functional ability 08/07-n/t STG Duration achieved Head Refrigeration Engineer Goal (LTG) Pt will score no higher than 4 on quick dash to show improved functional ability LTG Duration 11/02/21 Assessment Summary Assessment Pt had iproved ER after manual and improved cervical retraction & ability to get scap improved set position vs ant tip. Cervical retraction improves scap position. Physical Therapy Plan Frequency and Duration Frequency of Treatment 1-2x/week Duration of Treatment 1 month Plan of Care Start Date 10/02/21 Plan of Care End Date 11/02/21 Next Visit Focus/Plan Next Note Type Treatment Note Next Visit Plan cont to wrk on thoracic and cervical mobiltiy for flex & rotation
--- NOTE | 2021-11-06 18:16 | PT.OTN ---
Current Diagnoses Pain in right shoulder (11/06/21) Cervicalgia (11/06/21) Abnormal posture (11/06/21) Weakness (11/06/21) Physical Therapy Treatment Note PT-OP-A Visit Information Start: 06/25/21 18:13 Freq: Status: Active Protocol: Document 11/06/21 15:23 [facility] (Rec: 11/06/21 18:16 [facility] [id number]) Out-Patient Physical Therapy Visit Information Visit Information Visit Type Treatment Note Visit Note 09/23 Visit Start Time 14:35 Visit Stop Time 15:18 Total Visit Minutes 43 Visit Number 23 Number of DOVETAIL MACHINE OPERATOR Visits 0 PT-OP-B Current Condition Start: 06/25/21 18:13 Freq: Status: Active Protocol: Document 06/26/21 09:01 [facility] (Rec: 06/26/21 09:54 [facility] [id number]) Current Condition History of Current Condition Onset Date fall 2020 Current Complaints R shoulder and arm pain History of Current Condition Pt reports she hopes R shoulder pain doesn't come from her neck as she will get pain into her biceps and it will just ache sometimes and even her forearm. Pt reports R shoulder started hurting in fall after a lot of yard work. She notices discomfort w/IR and adduction like when washing her body. She had one instance of pain and catching w/overhead reaching. She has been using the foam roll and doing pec stretch and has done some thoracic extensions over it. She has had problems with her neck since her 20s when she had an incident where she was trying to get the seat to move and ended up hitting her neck on the side of the car. She was treated w/floromethane spray and stretch. pt has gone to PT intermittently in past d/t neck pain, the last time being about 15 years ago. She tries to work on her posture in sitting, but knows her kyphosis is a problem. Pt would like ot try pickleball and is afraid too and is also concerned about doing digging in the yard or weeding in the yard. Pt has pain when laying on L side and has to prop R arm. She can lay on R arm but has to be carefult o protract and ER arm and be very carefully positioned. Prior Treatments and Tests mild arthritis w/Xray Treatment Goals Patient/Caregiver Goals be able to do all digging and gardening in the yard. Be able to put on bra, be able to do needlework, be able to carry heavy things, be able to be on boat, be able to go kayaking w/o fear of pain, be able to cone picker 25 lb grandkid Personal Factors Other Personal Factors That May Effect R hip pain, neck pain, pt does Therapy/Recovery a lot of yard work PT-OP-C Subjective Start: 06/25/21 18:13 Freq: Status: Active Protocol: Document 11/06/21 15:23 [facility] (Rec: 11/06/21 18:16 [facility] [id number]) OP-PT Subjective Patient Comments Patient Comments Pt reports on good days during the day, she does well with pain only 20% of the time during the day and on bad days 50% of the time. Pt notes she has been compliant w/HEP PT-OP-F Manual Assessment Start: 06/25/21 18:13 Freq: Status: Active Protocol: Document 06/26/21 09:01 [facility] (Rec: 06/26/21 09:54 [facility] [id number]) Manual Assessments Soft Tissue Assessment Soft Tissue Mobility Assessment R UT, LS, pec, biceps, rhomoids tight Joint Mobility Assessment Joint Mobility Assessment R 1str rib and clavicle elevated PT-OP-J Posture/Palpation/Skin Start: 06/25/21 18:13 Freq: Status: Active Protocol: Document 08/07/21 15:22 [facility] (Rec: 08/07/21 16:07 [facility] [id number]) Posture Evaluation Rocio Postural Classification System Elbow Flexion Test 2 PT-OP-K Range of Motion Start: 06/25/21 18:13 Freq: Status: Active Protocol: Document 10/02/21 07:30 [facility] (Rec: 10/02/21 09:32 [facility] [id number]) Shoulder Goniometric Range of Motion Shoulder Right Active Internal Rotation Behind Back (text) T9 Comments slight discomfort PT-OP-L Special Tests Start: 06/25/21 18:13 Freq: Status: Active Protocol: Document 06/26/21 09:01 [facility] (Rec: 06/26/21 09:54 [facility] [id number]) Special Tests Shoulder Special Tests Empty Can Test Results positive R AC Joint Compression Test Results neg R [place] Impingement Test Results positive R [place] Test Test Results pain but less pain than speeds Speed's Biceps Test Results positive R Sulcus Test Results neg R Yerhanna's Biceps Test Results neg R Neer Impingement Test Results positive R Neural Special Tests- Upper Body Radial Nerve Tension Test Results positive R median n tension Test Results positive R Ulnar Nerve Tension Test Results neg R PT-OP-M Strength Start: 06/25/21 18:13 Freq: Status: Active Protocol: Document 10/02/21 07:30 [facility] (Rec: 10/02/21 09:32 [facility] [id number]) Shoulder Strength Shoulder Manual Muscle Testing Right Flexion 4+ Good+ Extension 5 Normal Abduction (C5) 4 Good External Rotation 4+ Good+ Internal Rotation 4 Good Horizontal Abduction 5 Normal Horizontal Adduction 5 Normal Comments IR & abd discomfort Left Flexion 5 Normal Extension 5 Normal Abduction (C5) 5 Normal Adduction 5 Normal External Rotation 5 Normal Internal Rotation 5 Normal Horizontal Abduction 5 Normal Horizontal Adduction 5 Normal PT-OP-Q Treatments Start: 06/25/21 18:13 Freq: Status: Active Protocol: Document 11/06/21 15:23 [facility] (Rec: 11/06/21 18:16 [facility] [id number]) Manual Therapy Treatment Soft Tissue Mobilization SO Body Location R Mobilization Type Sustained Pressure Intensity/Depth Moderate Body Position Supine Comments w/chin tuck UT/LS/Scalene/SCM Body Location R scalenes & UT Mobilization Type Rolling,Strumming Intensity/Depth Moderate Body Position Supine Comments w/chin tuck Joint Mobilizations scap Joint R inf tipping, med glide & rotations cervical Comments C3-5, C7 Transverse L FM AC Joint R Direction gapping FM Tspine Comments T 1-3 transverse L FM ribs Comments R1st & 2nd rib caudal FM s/l Self-Care/Home Management Treatment Education Other Education discussed HEP she is doing. Discussed that current start to [facility] and discussed seeing provider about injection/ seeing Dr. Kenney or see DO and possibly imaging d/t night time pain still; Edu to try small towel roll under neck during night as that dec pain in clinic PT-OP-T Assessment and Plan Start: 06/25/21 18:13 Freq: Status: Active Protocol: Document 11/06/21 15:23 [facility] (Rec: 11/06/21 18:16 [facility] [id number]) Physical Therapy Assessment Goals activities. Short Term Goal (STG) Pt will be able to needlework and dressing (donning UE clothing) without pain. 08/07-notes she always puts on RUE in first and still some discomfort w/unhooking bra and needlework feels okay 10/02-hasn't done needlework recently & has modified dressing STG Duration 10/13 Paint Tester Goal (LTG) Pt will be able do all gardening, lifting of grandkid and home heavy things, and be able to boat and kayak w/o pain. 10/02-pt reports did 1 hr of weeding and paid for it for a couple days. She still has zingers in R shoulder, Had L side neck spasm but used ice pack to help. LTG Duration 11/02 ROM Short Term Goal (STG) Pt will be able to do overhead reaching w/o pain for flex & abd. 08/07- 05/26 on R w/abd and flex -not really pain but stiffness 10/02- has to think about setting self to do it comfortablely STG Duration 10/13/21 Retirement Goal (LTG) Pt will have equal ROM of IR behind back R to L to show improved ability to don/doff bra. 08/07-w/in 1 in difference LTG Duration achieved and able but slight discomort still strength Short Term Goal (STG) Pt will be indep w/HEP STG Duration achieved progressing as able Retirement Goal (LTG) Pt will score 5/5 on RUE strength testing and at least 3/5 on EFT to show improved strength in order to participate in her typical yard work. 08/07-improved 10/02-2/5 EFT, no change MMT LTG Duration 11/02 quick dash Impairment 22.7 Short Term Goal (STG) Pt will score no higher than 18 on quick dash to show improved functional ability 08/07-n/t STG Duration achieved Retirement Goal (LTG) Pt will score no higher than 4 on quick dash to show improved functional ability LTG Duration 11/02/21 Assessment Summary Assessment Pt's pain was elicited after neck manual work ins upine for a while but dec when moved to other positions. She had improved neck ROM and scap mobilibty w/treatment but did still have soem radiating pain into RUE when laying supine. A small towel roll under neck did imrpove this. Cont follows prn for HEP and dec pain as pt is noting less daytime pain but still nighttime pain Physical Therapy Plan Frequency and Duration Frequency of Treatment as needed Duration of Treatment 2 months Plan of Care Start Date 11/06/21 Plan of Care End Date 01/06/22 Therapeutic Interventions Therapeutic Interventions Aquatic Therapy,Gait Training, Home Exercise Program,Joint Mobilizations,Manual Therapy, Patient/Caregiver Education, Self-Care/Home Management,Soft Tissue Mobilization,Taping, Therapeutic Activities, Therapeutic Exercises Next Visit Focus/Plan Next Note Type Treatment Note Next Visit Plan Possible DC. Assess pt progrss
--- NOTE | 2021-11-06 18:18 | PT.OPPOC ---
Physical, Occupational & Speech Therapy At [facility] Current Diagnoses Pain in right shoulder (11/06/21) Cervicalgia (11/06/21) Abnormal posture (11/06/21) Weakness (11/06/21) Visit Care Team Role Provider Type Kathia Foster DO Family Provider Physician Specialty: Family Practice Address: [address] [place] [address], [address], [address] Email: [email or web address] Charlie Fontana MD Attending Provider Physician Primary Care Provider Referring Provider [facility]ty: [facility] Address: [address] [place] [address], [address] Email: [email or web address] Plan Of Care PT-OP-T Assessment and Plan Start: 06/25/21 18:13 Freq: Status: Active Protocol: Document 11/06/21 15:23 [facility] (Rec: 11/06/21 18:16 [facility] [id number]) Physical Therapy Assessment Goals activities. Short Term Goal (STG) Pt will be able to needlework and dressing (donning UE clothing) without pain. 08/07-notes she always puts on RUE in first and still some discomfort w/unhooking bra and needlework feels okay 10/02-hasn't done needlework recently & has modified dressing STG Duration achieved/discontinue-not doing needlework, able to dress Hearing Stenographer Goal (LTG) Pt will be able do all gardening, lifting of grandkid and home heavy things, and be able to boat and kayak w/o pain. 10/02-pt reports did 1 hr of weeding and paid for it for a couple days. She still has zingers in R shoulder, Had L side neck spasm but used ice pack to help. 11/06-did several hours of gardening 1 day w/o inc pain at time but idd note some pain that night LTG Duration 01/06 ROM Short Term Goal (STG) Pt will be able to do overhead reaching w/o pain for flex & abd. 08/07- 05/26 on R w/abd and flex -not really pain but stiffness 10/02- has to think about setting self to do it comfortablely 12/06-can unless flared up STG Duration 12/06 Alf Goal (LTG) Pt will have equal ROM of IR behind back R to L to show improved ability to don/doff bra. 08/07-w/in 1 in difference LTG Duration achieved and able but slight discomort still strength Short Term Goal (STG) Pt will be indep w/HEP STG Duration achieved progressing as able Hearing Stenographer Goal (LTG) Pt will score 5/5 on RUE strength testing and at least 3/5 on EFT to show improved strength in order to participate in her typical yard work. 08/07-improved 10/02-2/5 EFT, no change MMT LTG Duration 01/06 quick dash Impairment 22.7 Short Term Goal (STG) Pt will score no higher than 18 on quick dash to show improved functional ability 08/07-n/t STG Duration achieved Alf Goal (LTG) Pt will score no higher than 4 on quick dash to show improved functional ability 11/06-n.t LTG Duration 01/06 Assessment Summary Assessment Pt's pain was elicited after neck manual work ins upine for a while but dec when moved to other positions. She had improved neck ROM and scap mobilibty w/treatment but did still have soem radiating pain into RUE when laying supine. A small towel roll under neck did imrpove this. Cont follows prn for HEP and dec pain as pt is noting less daytime pain but still nighttime pain Physical Therapy Plan Frequency and Duration Frequency of Treatment as needed Duration of Treatment 2 months Plan of Care Start Date 11/06/21 Plan of Care End Date 01/06/22 Therapeutic Interventions Therapeutic Interventions Aquatic Therapy,Gait Training, Home Exercise Program,Joint Mobilizations,Manual Therapy, Patient/Caregiver Education, Self-Care/Home Management,Soft Tissue Mobilization,Taping, Therapeutic Activities, Therapeutic Exercises Next Visit Focus/Plan Next Note Type Treatment Note Next Visit Plan Possible DC. Assess pt progrss Plan of Care Dates Plan of Care Start Date 11/06/21 Plan of Care End Date 01/06/22 Electronically Signed by: Ban Tovar, PT 11/06/21 [id number] If you are in agreement with this Plan of Care, please return a signed and dated copy. I have reviewed this Plan of Care and certify that the skilled therapy services above are required to meet the patient?s needs. Physician Signature Date Printed Name and Credentials Clinical Instructor Signature Printed Name and Credentials
--- NOTE | 2022-01-29 10:31 | PT.OPDS ---
Current Diagnoses Pain in right shoulder (11/06/21) Cervicalgia (11/06/21) Abnormal posture (11/06/21) Weakness (11/06/21) Visit Care Team Role Provider Type Kathia Foster DO Family Provider Physician Specialty: [facility] Practice Address: [address] [place] [address], [address], [address] Email: [email or web address] Charlie Fontana MD Attending Provider Physician Primary Care Provider Referring Provider Specialty: [facility] Address: [address] [place] [address], [address] Email: [email or web address] Visit Number Visit Number 23 Discharge Summary PT-OP-B Current Condition Start: 06/25/21 18:13 Freq: Status: Active Protocol: Document 06/26/21 09:01 [facility] (Rec: 06/26/21 09:54 [facility] [id number]) Current Condition History of Current Condition Onset Date fall 2020 Current Complaints R shoulder and arm pain History of Current Condition Pt reports she hopes R shoulder pain doesn't come from her neck as she will get pain into her biceps and it will just ache sometimes and even her forearm. Pt reports R shoulder started hurting in fall after a lot of yard work. She notices discomfort w/IR and adduction like when washing her body. She had one instance of pain and catching w/overhead reaching. She has been using the foam roll and doing pec stretch and has done some thoracic extensions over it. She has had problems with her neck since her 20s when she had an incident where she was trying to get the seat to move and ended up hitting her neck on the side of the car. She was treated w/floromethane spray and stretch. pt has gone to PT intermittently in past d/t neck pain, the last time being about 15 years ago. She tries to work on her posture in sitting, but knows her kyphosis is a problem. Pt would like ot try pickleball and is afraid too and is also concerned about doing digging in the yard or weeding in the yard. Pt has pain when laying on L side and has to prop R arm. She can lay on R arm but has to be carefult o protract and ER arm and be very carefully positioned. Prior Treatments and Tests mild arthritis w/Xray Treatment Goals Patient/Caregiver Goals be able to do all digging and gardening in the yard. Be able to put on bra, be able to do needlework, be able to carry heavy things, be able to be on boat, be able to go kayaking w/o fear of pain, be able to pickle sorter 25 lb grandkid Personal Factors Other Personal Factors That May Effect R hip pain, neck pain, pt does Therapy/Recovery a lot of yard work PT-OP-C Subjective Start: 06/25/21 18:13 Freq: Status: Active Protocol: Document 11/06/21 15:23 [facility] (Rec: 11/06/21 18:16 [facility] [id number]) OP-PT Subjective Patient Comments Patient Comments Pt reports on good days during the day, she does well with pain only 20% of the time during the day and on bad days 50% of the time. Pt notes she has been compliant w/HEP PT-OP-F Manual Assessment Start: 06/25/21 18:13 Freq: Status: Active Protocol: Document 06/26/21 09:01 [facility] (Rec: 06/26/21 09:54 [facility] [id number]) Manual Assessments Soft Tissue Assessment Soft Tissue Mobility Assessment R UT, LS, pec, biceps, rhomoids tight Joint Mobility Assessment Joint Mobility Assessment R 1str rib and clavicle elevated PT-OP-J Posture/Palpation/Skin Start: 06/25/21 18:13 Freq: Status: Active Protocol: Document 08/07/21 15:22 [facility] (Rec: 08/07/21 16:07 [facility] [id number]) Posture Evaluation Rocio Postural Classification System Elbow Flexion Test 2 PT-OP-K Range of Motion Start: 06/25/21 18:13 Freq: Status: Active Protocol: Document 10/02/21 07:30 [facility] (Rec: 10/02/21 09:32 [facility] [id number]) Shoulder Goniometric Range of Motion Shoulder Right Active Internal Rotation Behind Back (text) T9 Comments slight discomfort PT-OP-L Special Tests Start: 06/25/21 18:13 Freq: Status: Active Protocol: Document 06/26/21 09:01 [facility] (Rec: 06/26/21 09:54 [facility] [id number]) Special Tests Shoulder Special Tests Empty Can Test Results positive R AC Joint Compression Test Results neg R [place] Impingement Test Results positive R [place] Test Test Results pain but less pain than speeds Speed's Biceps Test Results positive R Sulcus Test Results neg R Yergason's Biceps Test Results neg R Neer Impingement Test Results positive R Neural Special Tests- Upper Body Radial Nerve Tension Test Results positive R median n tension Test Results positive R Ulnar Nerve Tension Test Results neg R PT-OP-M Strength Start: 06/25/21 18:13 Freq: Status: Active Protocol: Document 10/02/21 07:30 [facility] (Rec: 10/02/21 09:32 [facility] [id number]) Shoulder Strength Shoulder Manual Muscle Testing Right Flexion 4+ Good+ Extension 5 Normal Abduction (C5) 4 Good External Rotation 4+ Good+ Internal Rotation 4 Good Horizontal Abduction 5 Normal Horizontal Adduction 5 Normal Comments IR & abd discomfort Left Flexion 5 Normal Extension 5 Normal Abduction (C5) 5 Normal Adduction 5 Normal External Rotation 5 Normal Internal Rotation 5 Normal Horizontal Abduction 5 Normal Horizontal Adduction 5 Normal PT-OP-T Assessment and Plan Start: 06/25/21 18:13 Freq: Status: Active Protocol: Document 01/29/22 10:26 [facility] (Rec: 01/29/22 10:31 [facility] [id number]) Physical Therapy Assessment Goals activities. Short Term Goal (STG) Pt will be able to needlework and dressing (donning UE clothing) without pain. 08/07-notes she always puts on RUE in first and still some discomfort w/unhooking bra and needlework feels okay 10/02-hasn't done needlework recently & has modified dressing STG Duration achieved/discontinue-not doing needlework, able to dress Product Line Manager Goal (LTG) Pt will be able do all gardening, lifting of grandkid and home heavy things, and be able to boat and kayak w/o pain. 10/02-pt reports did 1 hr of weeding and paid for it for a couple days. She still has zingers in R shoulder, Had L side neck spasm but used ice pack to help. 11/06-did several hours of gardening 1 day w/o inc pain at time but idd note some pain that night LTG Duration 01/06 ROM Short Term Goal (STG) Pt will be able to do overhead reaching w/o pain for flex & abd. 08/07- 05/26 on R w/abd and flex -not really pain but stiffness 10/02- has to think about setting self to do it comfortablely 12/06-can unless flared up STG Duration 12/06 Fdc Goal (LTG) Pt will have equal ROM of IR behind back R to L to show improved ability to don/doff bra. 08/07-w/in 1 in difference LTG Duration achieved and able but slight discomort still strength Short Term Goal (STG) Pt will be indep w/HEP STG Duration achieved progressing as able Product Line Manager Goal (LTG) Pt will score 5/5 on RUE strength testing and at least 3/5 on EFT to show improved strength in order to participate in her typical yard work. 08/07-improved 10/02-2/5 EFT, no change MMT LTG Duration 01/06 quick dash Impairment 22.7 Short Term Goal (STG) Pt will score no higher than 18 on quick dash to show improved functional ability 08/07-n/t STG Duration achieved Product Line Manager Goal (LTG) Pt will score no higher than 4 on quick dash to show improved functional ability 11/06-n.t LTG Duration 01/06 Assessment Summary Assessment Pt made some progress w/PT but started to plateau so was encourage dto follow up with providers at this time.S he is to cont HEP. At this time, pt DC to HEP. She as to come back if [facility] felt like she required PT and has not returend in past 3 months. Physical Therapy Plan Discharge Physical Therapy Discharge Reasons Plateau in Progress
== END 2022-01-30 09:03 ==
LOC: PHYS 14:30
PROVIDERS: Family Provider Family Medicine; PCP Family Medicine; Referring Provider Family Medicine; Visit Provider Family Medicine
DX: M25.511 Pain in right shoulder (principal); R53.1 Weakness; R29.3 Abnormal posture; M54.2 Cervicalgia
CPT/HCPCS: 97110; 97112; 97140; 97161; 97530; 97535

== ENCOUNTER → 2021-11-28 10:29 | Outpatient (CLI) | payer MEDICARE, SELFPAY ==
--- NOTE | 2021-11-28 10:31 | DI.RAD.S_ITS ---
PROCEDURE: XR CERVICAL SPINE 2V OR 3V INDICATIONS: R should pain anterior/posterior TECHNIQUE: 3 view(s) of the cervical spine were acquired. COMPARISON: None. FINDINGS: Bones: No fractures or dislocations to the T2 level. The lateral masses of C1 appear intact on the odontoid view. No suspicious bony lesions. Minimal anterolisthesis of C4 on C5, likely related to positioning. Mild multilevel cervical facet arthropathy. Soft tissues: No prevertebral soft tissue swelling. IMPRESSION: Cervical spine without acute fracture or malalignment. Mild multilevel cervical spondylosis with associated facet arthropathy. Dictated by: Brandon Reyes M.D. on 11/28/2021 at 13:16 Approved by: Brandon Reyes M.D. on 11/28/2021 at 13:17
== END ==
PROVIDERS: Family Provider Family Medicine; PCP Family Medicine; Referring Provider Family Medicine; Visit Provider Family Medicine
DX: M25.511 Pain in right shoulder (principal); M47.812 Spondylosis without myelopathy or radiculopathy, cervical region
CPT/HCPCS: 72040

== ENCOUNTER → 2021-12-12 16:14 | Outpatient (CLI) | payer MEDICARE, SELFPAY ==
--- NOTE | 2021-12-12 16:15 | DI.MRI.S_ITS ---
PROCEDURE: MR CERVICAL SPINE WO CON INDICATIONS: eval R shoulder pain/spasms TECHNIQUE: Noncontrast sagittal T1 spin echo and T2 fast spin echo, sagittal STIR, foraminal oblique sagittal T2 fast spin echo, and axial gradient echo or T2 fast spin echo through the cervical spine. COMPARISON: None. FINDINGS: Image quality: Excellent. Alignment and Curvature: There is normal bony alignment. Bone Marrow: Marrow demonstrates normal overall signal. Spinal Cord: Visualized spinal cord has normal size and signal. No cerebellar tonsillar herniation. Paraspinous Soft Tissues: No paravertebral masses. Prevertebral soft tissues are normal in thickness. C2-C3: Right facet hypertrophy. No canal stenosis or foraminal stenosis. C3-C4: Right facet hypertrophy. No canal stenosis. Moderate to severe right foraminal narrowing with mild impingement on the exiting right C4 nerve root. C4-C5: Bilateral facet hypertrophy. No canal stenosis. Mild right and [id number] left foraminal narrowing. C5-C6: Disc bulge. AP diameter of the canal is 12.3 mm. Mild bilateral facet hypertrophy. No significant foraminal stenosis. C6-C7: Mild disc bulge. No canal stenosis. Bilateral facet hypertrophy. No significant foraminal stenosis. C7-T1: No canal stenosis or foraminal stenosis. IMPRESSION: 1. Cervical spondylosis is mainly due to multilevel facet arthropathy. 2. No canal stenosis. 3. At C3-C4, there is moderate to severe right foraminal narrowing with mild impingement on the exiting right C4 nerve root. Dictated by: Rik Abdalla M.D. on 12/14/2021 at 7:14 Approved by: Rik Abdalla M.D. on 12/14/2021 at 7:20
== END ==
PROVIDERS: Family Provider Family Medicine; PCP Family Medicine; Referring Provider Family Medicine; Visit Provider Family Medicine
DX: M47.22 Other spondylosis with radiculopathy, cervical region (principal); M25.511 Pain in right shoulder; M62.838 Other muscle spasm; M48.02 Spinal stenosis, cervical region
CPT/HCPCS: 72141

== ENCOUNTER → 2022-03-24 10:48 | Outpatient (CLI) | payer MEDICARE, SELFPAY ==
--- NOTE | 2022-03-24 | DI.MG.S_ITS ---
BILATERAL DIGITAL SCREENING MAMMOGRAM 3D/2D WITH CAD: 03/24/2022 CLINICAL: Routine screening. Comparison is made to exams dated: 03/20/2021 mammogram, 03/19/2020 mammogram, and 03/16/2019 mammogram - [facility]. Both breasts are extremely dense, which lowers the sensitivity of mammography (category d />75% glandular tissue). Current study was also evaluated with a Computer Aided Detection (CAD) system. No significant masses, calcifications, or other findings are seen in either breast. There has been no significant interval change. IMPRESSION: NEGATIVE There is no mammographic evidence of malignancy. A 1 year screening mammogram is recommended. This exam was interpreted at Station ID: [id number]. NOTE: For mammograms, a report in lay terms will be sent to the patient. Approximately 15% of breast malignancies will not be visualized mammographically. In the management of a palpable breast mass, a negative mammogram must not discourage biopsy of a clinically suspicious lesion. Electronically Signed By: Sergio pinon/odell:03/24/2022 14:50:01 letter sent: Normal Exam ACR BI-RADS Category 1: Negative [id number]
== END ==
PROVIDERS: Family Provider Family Medicine; PCP Family Medicine; Referring Provider Family Medicine; Visit Provider Family Medicine
DX: Z12.31 Encounter for screening mammogram for malignant neoplasm of breast (principal)
CPT/HCPCS: 77063; 77067

== ENCOUNTER → 2022-11-18 09:33 | Outpatient (CLI) | payer MEDICARE, SELFPAY ==
[2022-11-18 11:19] LABS: Add Manual Diff / Slide Review NO; Basophils Absolute Auto 0 /uL (0-100); Basophils Percent Auto 0.5 % (0-2); Eosinophils Absolute Auto 100 /uL (0-450); Eosinophils Percent Auto 2.4 % (2-4); Hemoglobin 13.3 g/dL (12.0-16.0); Lymphocytes Absolute Auto 1600 /uL (1100-4500); Lymphocytes Percent Auto 28.3 % (25-40); Mean Corpuscular HGB Conc 34.9 % (30-36); Mean Corpuscular Hemoglobin 30.1 PG (26-34); Mean Corpuscular Volume 86.2 fL (80-100); Monocytes Absolute Auto 400 /uL (0-900); Monocytes Percent Auto 7.7 % (3-14); Neutrophils Absolute Auto 3400 /uL (1500-7000); Neutrophils Percent Auto 61.1 % (50-75); Platelet Count 185 X10^3/uL (150-400); Red Blood Cell Count 4.41 X10^6/uL (4.0-5.2); Red Cell Distribution Width 12.2 % (11.6-14.8); White Blood Cell Count 5.5 X10^3/uL (4.5-11.0)
[2022-11-18 11:48] LABS: Alanine Aminotransferase 22 IU/L (<35); Albumin 4.1 g/dL (3.5-5.0); Albumin Globulin Ratio 1.4 (1.0-2.8); Alkaline Phosphatase 79 U/L (38-126); Aspartate Aminotransferase 24 IU/L (14-36); BUN Creatinine Ratio 31.9 (6-22); Bilirubin Total 0.6 mg/dL (0.2-1.3); Blood Urea Nitrogen 22 mg/dL (7-17); Calcium 9.1 mg/dL (8.4-10.2); Carbon Dioxide 30 mmol/L (22-32); Chloride 101 mmol/L (98-107); Cholesterol 183 mg/dL (140-199); Estimated Glomerular Filt Rate > 60 mL/min (>60); Glucose 88 mg/dL (80-110); HDL Cholesterol 45 mg/dL (40-60); HEMOLYSIS < 15 (0-50); LDL Cholesterol Calculated 102 mg/dL (<100); Sodium 136 mmol/L (137-145); Total Protein 7.1 g/dL (6.3-8.2); Triglycerides 179 mg/dL (35-150)
[2022-11-18 12:16] LABS: TSH w/ Reflex to FT4 2.12 uIU/mL (0.47-4.68)
== END ==
PROVIDERS: Family Provider Family Medicine; PCP Family Medicine; Referring Provider Family Medicine; Visit Provider Family Medicine
DX: G47.33 Obstructive sleep apnea (adult) (pediatric) (principal); M54.12 Radiculopathy, cervical region; M19.011 Primary osteoarthritis, right shoulder; M75.41 Impingement syndrome of right shoulder; M85.89 Other specified disorders of bone density and structure, multiple sites
CPT/HCPCS: 36415; 80053; 80061; 84443; 85025; 99214

== ENCOUNTER → 2023-03-29 12:48 | Outpatient (CLI) | payer MEDICARE, SELFPAY ==
--- NOTE | 2023-03-29 12:50 | DI.MG.S_ITS ---
BILATERAL DIGITAL SCREENING MAMMOGRAM 3D/2D WITH CAD: 03/29/2023 CLINICAL: Routine screening. Comparison is made to exams dated: 03/24/2022 mammogram, 03/20/2021 mammogram, and 03/19/2020 mammogram - [facility]. Both breasts are extremely dense, which lowers the sensitivity of mammography (category d />75% glandular tissue). Current study was also evaluated with a Computer Aided Detection (CAD) system. No significant masses, calcifications, or other findings are seen in either breast. IMPRESSION: NEGATIVE There is no mammographic evidence of malignancy. A 1 year screening mammogram is recommended. Based on the Tyrer Cuzick model (a risk assessment model) the patient's lifetime risk is 14.9% and her 10 year risk is 8.0%. According to the ACR, ACS, and NCCN guidelines, an annual breast MRI exam along with mammogram is recommended if the patient's lifetime risk is 20% or greater. This exam was interpreted at Station ID: [id number]. NOTE: For mammograms, a report in lay terms will be sent to the patient. Approximately 15% of breast malignancies will not be visualized mammographically. In the management of a palpable breast mass, a negative mammogram must not discourage biopsy of a clinically suspicious lesion. Electronically Signed By: Madeline Khalil M.D., PH.D miles/odell:03/29/2023 19:25:17 letter sent: Normal Exam ACR BI-RADS Category 1: Negative 3341F
--- NOTE | 2023-03-29 13:02 | DI.DEXA.S_ITS ---
Bone Density Report Name: BURKE BRAND Age: 67 Sex: Female Ethnicity: White Date of : 1955 Indication: osteopenia; Referring Provider: RYAN MENDOZA Study: Bone densitometry was performed. Exam Date: March 29, 2023 Accession number: [id number] Bone Density: Region BMD T-score Z-score Classification AP Spine(L1-L4) 0.810 -2.2 -0.2 Osteopenia Femoral Neck (Left) 0.605 -2.2 -0.6 Osteopenia Total Hip (Left) 0.779 -1.3 0.0 Osteopenia Femoral Neck (Right) 0.691 -1.4 0.2 Osteopenia Total Hip (Right) 0.768 -1.4 -0.1 Osteopenia Total Hip Mean 0.774 -1.4 -0.1 Osteopenia World Health Organization criteria for BMD impression classify patients as: Normal (T-score at or above -1.0), Osteopenia (T-score between -1.0 and -2.5), or Osteoporosis (T-score at or below -2.5). 10-year Fracture Risk(1): Major Osteoporotic Fracture 12% Hip Fracture 2.2% Reported Risk Factors: [place] (), Neck BMD=0.605, BMI=23.9 (1) FRAX(R) Version 3.08. Fracture probability calculated for an untreated patient. Fracture probability may be lower if the patient has received treatment. Previous Exams: -- Region Exam Age BMD T-score BMD Change BMD Change Date g/cm2 vs Baseline vs Previous -- AP Spine (L1-L4) 03/29/2023 67 0.810 -2.2 -0.057 (-6.6%)# -0.045 (-5.3%)# 03/20/2021 65 0.855 -1.7 -0.012 (-1.4%) -0.012 (-1.4%) 11/23/2016 61 0.867 -1.6 Total Hip(Left) 03/29/2023 67 0.779 -1.3 -0.039 (-4.8%)# -0.021 (-2.6%)# 03/20/2021 65 0.800 -1.2 -0.018 (-2.3%) -0.018 (-2.3%) 11/23/2016 61 0.818 -1.0 Total Hip(Right) 03/29/2023 67 0.768 -1.4 -0.039 (-4.8%)# -0.003 (-0.4%)# 03/20/2021 65 0.772 -1.4 -0.036 (-4.4%)* -0.036 (-4.4%)* 11/23/2016 61 0.807 -1.1 -- *Denotes significance at 95% confidence level, LSC for AP Spine = 0.022 g/cm2, LSC for Total Hip = 0.027 g/cm2 # Denotes dissimilar scan types or analysis methods Impression: The patient has low bone mass, based on the Total Spine T-score. The patient has an estimated ten-year risk of hip fracture of 2.2% and an estimated ten-year risk of major fracture of 12%, based on the WHO FRAX algorithm. No significant bone loss was observed. Discussion: BONE DENSITY IS LOW AT ONE OR MORE SKELETAL SITES. This patient's lowest T-score is low at one or more skeletal sites. It meets the World Health Organization's (WHO) criteria for ?low bone mass? (T-score between -1.0 and -2.5). The patient's 10-year risk of fracture as calculated by FRAX is less than the threshold where pharmacological therapy is recommended by the National Osteoporosis Foundation (NOF). However, all treatment decisions require clinical judgment and consideration of individual patient factors, including patient preferences, comorbidities, previous drug use, risk factors not captured in the FRAX model (e.g., frailty, falls, vitamin D deficiency, increased bone turnover, interval significant decline in bone density) and possible under or overestimation of fracture risk by FRAX. The patient should follow a healthful lifestyle (good nutrition with adequate calcium and vitamin D, and appropriate weight-bearing exercise). Follow-Up: Consider repeating this study in 2 to 3 years to reassess this patient's status, or sooner if there is some new clinical indication. Reported by: JOSELITO TEJAAD M.D. on 03/29/2023 1:12:00 PM.
== END ==
PROVIDERS: Family Provider Family Medicine; PCP Family Medicine; Referring Provider Family Medicine; Visit Provider Family Medicine
DX: Z78.0 Asymptomatic menopausal state (principal); Z12.31 Encounter for screening mammogram for malignant neoplasm of breast; M85.88 Other specified disorders of bone density and structure, other site; M25.551 Pain in right hip; M75.41 Impingement syndrome of right shoulder; M54.12 Radiculopathy, cervical region
CPT/HCPCS: 77063; 77067; 77080; 99213

== ENCOUNTER → 2023-10-20 10:03 | Outpatient (CLI) | payer MEDICARE, SELFPAY ==
--- NOTE | 2023-10-20 10:04 | DI.RAD.S_ITS ---
PROCEDURE: XR SHOULDER RT MIN 2V INDICATIONS: RIGHT SHOULDER PAIN TECHNIQUE: 3 views of the shoulder were acquired. COMPARISON: [facility], CR, XR SHOULDER RT MIN 2V, 06/24/2021, 9:32. FINDINGS: Bones: No fractures or dislocations. No suspicious bony lesions. Visualized ribs appear intact. Soft tissues: No suspicious soft tissue calcifications. IMPRESSION: No acute bony abnormality. If symptoms persist with conservative management, consider cross-sectional imaging such as CT or MRI. Approved by: Madeline Khalil M.D.,Ph.D. on 10/20/2023 at 12:09
== END ==
PROVIDERS: Family Provider Family Medicine; PCP Family Medicine; Referring Provider Physical Medicine & Rehabilitation; Visit Provider Physical Medicine & Rehabilitation
DX: M75.41 Impingement syndrome of right shoulder (principal); M19.011 Primary osteoarthritis, right shoulder; M54.12 Radiculopathy, cervical region; M25.551 Pain in right hip; M85.89 Other specified disorders of bone density and structure, multiple sites
CPT/HCPCS: 20611; 73030; 99214; J1010

== ENCOUNTER → 2024-02-07 10:28 | Outpatient (CLI) | payer MEDICARE, SELFPAY ==
[2024-02-07 12:12] LABS: Add Manual Diff / Slide Review NO; Basophils Absolute Auto 0 /uL (0-100); Basophils Percent Auto 0.8 % (0-2); Eosinophils Absolute Auto 100 /uL (0-450); Hematocrit 38.9 % (36-46); Hemoglobin 13.8 g/dL (12.0-16.0); Lymphocytes Absolute Auto 1600 /uL (1100-4500); Lymphocytes Percent Auto 37.4 % (25-40); Mean Corpuscular HGB Conc 35.3 % (30-36); Mean Corpuscular Hemoglobin 30.7 PG (26-34); Monocytes Absolute Auto 400 /uL (0-900); Monocytes Percent Auto 8.2 % (3-14); Neutrophils Absolute Auto 2200 /uL (1500-7000); Neutrophils Percent Auto 50.6 % (50-75); Platelet Count 180 X10^3/uL (150-400); Red Blood Cell Count 4.48 X10^6/uL (4.0-5.2); Red Cell Distribution Width 12.4 % (11.6-14.8); White Blood Cell Count 4.4 X10^3/uL (4.5-11.0)
[2024-02-07 12:52] LABS: Alanine Aminotransferase 19 IU/L (<35); Albumin 4.3 g/dL (3.5-5.0); Albumin Globulin Ratio 1.5 (1.0-2.8); Alkaline Phosphatase 76 U/L (38-126); Aspartate Aminotransferase 24 IU/L (14-36); BUN Creatinine Ratio 26.4 (6-22); Bilirubin Total 0.6 mg/dL (0.2-1.3); Blood Urea Nitrogen 19 mg/dL (7-17); Calcium 8.9 mg/dL (8.4-10.2); Carbon Dioxide 23 mmol/L (22-32); Chloride 104 mmol/L (98-107); Cholesterol 194 mg/dL (140-199); Estimated Glomerular Filt Rate > 60 mL/min (>60); Globulin 2.8 g/dL (1.7-4.1); Glucose 90 mg/dL (80-110); HDL Cholesterol 49 mg/dL (40-60); HEMOLYSIS < 15 (0-50); LDL Cholesterol Calculated 124 mg/dL (<100); Lipase 102 U/L (23-300); Potassium 3.8 mmol/L (3.4-5.1); Sodium 136 mmol/L (137-145); Total Protein 7.1 g/dL (6.3-8.2); Triglycerides 104 mg/dL (35-150)
[2024-02-07 13:26] LABS: TSH w/ Reflex to FT4 1.56 uIU/mL (0.47-4.68)
[2024-02-07 16:02] LABS: Hep C Virus Ab w/Reflex Quant NEGATIVE s/c (NEGATIVE)
== END ==
PROVIDERS: Family Provider Family Medicine; PCP Family Medicine; Referring Provider Family Medicine; Visit Provider Family Medicine
DX: E78.5 Hyperlipidemia, unspecified (principal); M85.80 Other specified disorders of bone density and structure, unspecified site; E87.1 Hypo-osmolality and hyponatremia; R10.13 Epigastric pain
CPT/HCPCS: 36415; 80053; 80061; 83690; 84443; 85025; 86803

== ENCOUNTER → 2024-04-07 11:13 | Outpatient (CLI) | payer MEDICARE, SELFPAY ==
--- NOTE | 2024-04-07 11:14 | DI.MG.S_ITS ---
BILATERAL DIGITAL SCREENING MAMMOGRAM 3D/2D WITH CAD: 04/07/2024 CLINICAL: Routine screening. Comparison is made to exams dated: 03/29/2023 mammogram, 03/24/2022 mammogram, and 03/20/2021 mammogram - [facility]. The breasts are extremely dense, which lowers the sensitivity of mammography (category d />75% glandular tissue). Current study was also evaluated with a Computer Aided Detection (CAD) system. No significant masses, calcifications, or other findings are seen in either breast. There has been no significant interval change. IMPRESSION: NEGATIVE There is no mammographic evidence of malignancy. A 1 year screening mammogram is recommended. Based on the Tyrer Cuzick model (a risk assessment model) the patient's lifetime risk is 14.1% and her 10 year risk is 8.0%. According to the ACR, ACS, and NCCN guidelines, an annual breast MRI exam along with mammogram is recommended if the patient's lifetime risk is 20% or greater. This exam was interpreted at Station ID: [id number]. NOTE: For mammograms, a report in lay terms will be sent to the patient. Approximately 15% of breast malignancies will not be visualized mammographically. In the management of a palpable breast mass, a negative mammogram must not discourage biopsy of a clinically suspicious lesion. Electronically Signed By: Sergio pinon/odell:04/07/2024 12:36:44 letter sent: Normal Exam ACR BI-RADS Category 1: Negative
== END ==
LOC: MAMMO 11:14
PROVIDERS: Family Provider Family Medicine; PCP Family Medicine; Referring Provider Family Medicine; Visit Provider Family Medicine
DX: Z12.31 Encounter for screening mammogram for malignant neoplasm of breast (principal); R92.343 Mammographic extreme density, bilateral breasts
CPT/HCPCS: 77063; 77067

== ENCOUNTER → 2025-02-14 07:23 | Outpatient (CLI) | payer MEDICARE, SELFPAY ==
[2025-02-14 07:43] LABS: Add Manual Diff / Slide Review NO; Hematocrit 41.1 % (36-46); Hemoglobin 14.3 g/dL (12.0-16.0); Lymphocytes Absolute Auto 1700 /uL (1100-4500); Mean Corpuscular HGB Conc 34.8 % (30-36); Mean Corpuscular Hemoglobin 30.1 PG (26-34); Mean Corpuscular Volume 86.3 fL (80-100); Platelet Count 192 X10^3/uL (150-400)
[2025-02-14 09:26] LABS: Alanine Aminotransferase 19 IU/L (<35); Albumin 4.5 g/dL (3.5-5.0); Albumin Globulin Ratio 1.7 (1.0-2.8); Alkaline Phosphatase 77 U/L (38-126); Blood Urea Nitrogen 24 mg/dL (7-17); Calcium 9.4 mg/dL (8.4-10.2); Carbon Dioxide 26 mmol/L (22-32); Chloride 103 mmol/L (98-107); Cholesterol 165 mg/dL (140-199); Estimated Glomerular Filt Rate > 60 mL/min (>60); Globulin 2.7 g/dL (1.7-4.1); Glucose 88 mg/dL (70-99); HDL Cholesterol 61 mg/dL (40-60); HEMOLYSIS < 15 (0-50); Potassium 4.2 mmol/L (3.4-5.1); Sodium 139 mmol/L (137-145); Total Protein 7.2 g/dL (6.3-8.2); Triglycerides 83 mg/dL (35-150)
[2025-02-14 09:50] LABS: TSH w/ Reflex to FT4 2.62 uIU/mL (0.47-4.68)
== END ==
PROVIDERS: PCP Family Medicine; Referring Provider Family Medicine; Visit Provider Family Medicine
DX: M54.12 Radiculopathy, cervical region (principal); E78.1 Pure hyperglyceridemia; M85.89 Other specified disorders of bone density and structure, multiple sites; D72.819 Decreased white blood cell count, unspecified; E87.1 Hypo-osmolality and hyponatremia
CPT/HCPCS: 36415; 80053; 80061; 84443; 85025